=== PATIENT | male | born 1985 | race Caucasian/White ===

== ENCOUNTER 2021-08-20 11:05 | Emergency (ER) | payer BC, SELFPAY ==
--- NOTE | 2021-08-20 | ECG_ITS ---
Test Reason : CP Blood Pressure : / mmHG Vent. Rate : 094 BPM Atrial Rate : 094 BPM P-R Int : 142 ms QRS Dur : 088 ms QT Int : 364 ms P-R-T Axes : 047 049 037 degrees QTc Int : 455 ms Normal sinus rhythm Normal ECG No previous ECGs available Referred By: Generic ED Physician Electronically Signed By:KRISTAL MISHRA MD
[2021-08-20 11:17] VITALS: BP 144/91; PULSE 90; RESP 20; TEMP 36.8; O2SAT 96; BMI 32.3
[2021-08-20 12:06] LABS: Hematocrit 45.9 % (42.0-52.0); Hemoglobin 16.2 g/dl (14.0-18.0); Mean Corpuscular HGB Conc 35.3 g/dl (31.0-36.0); Mean Corpuscular Hemoglobin 33.2 pg (27.0-33.0); Mean Corpuscular Volume 94.1 fL (80.0-98.0); Mean Platelet Volume 9.1 fL (9.4-12.4); Platelet Count 143 X10*3/uL (160-400); Red Blood Count 4.88 X10*6/uL (4.60-5.80); Red Cell Distribution Width 11.7 % (11.0-16.0); White Blood Count 4.2 X10*3/uL (4.8-10.8)
[2021-08-20 12:22] LABS: Troponin-I High Sensitivity 14.4 ng/L (<3.5-35.0)
[2021-08-20 12:28] LABS: Anion Gap 18 (12-20); Blood Urea Nitrogen 9 mg/dL (9-16); Calcium 9.3 mg/dL (8.4-10.2); Carbon Dioxide 23 mmol/L (22-29); Chloride 100 mmol/L (96-108); Creatinine Clr Calc Pharmacy 163.9; Estimated Glomerular Filt Rate > 60; Glucose Random 90 mg/dL (60-115); Potassium 3.8 mmol/L (3.3-5.1); Sodium 137 mmol/L (135-145)
== END 2021-08-20 13:49 | disposition left against medical advice (07) ==
PROVIDERS: Emergency Provider Emergency Medicine; PCP Family Medicine
DX: R07.89 Other chest pain (principal); Z79.899 Other long term (current) drug therapy
CPT/HCPCS: 36415; 80048; 84484; 85027; 93005; 99282; 99283

== ENCOUNTER 2021-10-13 12:51 | Emergency (ER) | payer BC, SELFPAY ==
--- NOTE | ~2021-10-13 | XR_ITS ---
EXAMINATION: XR CHEST CLINICAL INFORMATION: Chest pain COMPARISON: None TECHNIQUE: Frontal view of the chest was obtained. FINDINGS: The lungs are clear. There is no pneumothorax or pleural reaction. No airspace consolidation or groundglass opacity. The costophrenic sulci are clear. No effusion. The heart is normal in size. The vascularity is normal. Hilar and mediastinal contours and visualized bony structures are unremarkable. XR/XR chest 1V IMPRESSION: Unremarkable examination.
--- NOTE | 2021-10-13 13:07 | ECG_ITS ---
Test Reason : CHEST DISCOMFORT Blood Pressure : / mmHG Vent. Rate : 090 BPM Atrial Rate : 090 BPM P-R Int : 130 ms QRS Dur : 102 ms QT Int : 384 ms P-R-T Axes : 038 044 038 degrees QTc Int : 469 ms Normal sinus rhythm Normal ECG When compared with ECG of 20-AUG-2021 11:11, No significant change was found Referred By: Generic ED Physician Electronically Signed By:DENNISE MERCADO
[2021-10-13 13:48] VITALS: BP 144/94; PULSE 93; RESP 16; TEMP 36.7; O2SAT 100; BMI 33.7
[2021-10-13 14:07] LABS: MANUAL DIFF FLAG NO
[2021-10-13 14:08] LABS: Basophils Percent Auto 0.2 % (0-2); Eosinophils Percent Auto 0.9 % (0-4); Hematocrit 45.9 % (42.0-52.0); Hemoglobin 16.1 g/dl (14.0-18.0); Imm Gran Abs Auto 0.01 X10*3/uL (0.00-0.03); Imm Gran Pct Auto 0.2 % (0.0-0.4); Lymphocytes Absolute Auto 0.7 X10*3/uL (1.2-4.9); Lymphocytes Percent Auto 15.2 % (20-40); Mean Corpuscular HGB Conc 35.1 g/dl (31.0-36.0); Mean Corpuscular Hemoglobin 33.1 pg (27.0-33.0); Mean Corpuscular Volume 94.3 fL (80.0-98.0); Mean Platelet Volume 9.2 fL (9.4-12.4); Monocytes Absolute Auto 0.5 X10*3/uL (0.1-1.2); Monocytes Percent Auto 11.3 % (2-11); Neutrophils Absolute Auto 3.3 x10*3/uL (2.0-8.3); Neutrophils Percent Auto 72.2 % (45-73); Platelet Count 141 X10*3/uL (160-400); Red Blood Count 4.87 X10*6/uL (4.60-5.80); White Blood Count 4.6 X10*3/uL (4.8-10.8)
[2021-10-13 14:23] LABS: Anion Gap 15 (12-20); Blood Urea Nitrogen 10 mg/dL (9-16); Calcium 10.2 mg/dL (8.4-10.2); Carbon Dioxide 27 mmol/L (22-29); Chloride 100 mmol/L (96-108); Creatinine Clr Calc Pharmacy 157.1; Estimated Glomerular Filt Rate > 60; Glucose Random 99 mg/dL (60-115); Potassium 3.9 mmol/L (3.3-5.1); Sodium 138 mmol/L (135-145)
[2021-10-13 14:31] LABS: Troponin-I High Sensitivity 5.2 ng/L (<3.5-35.0)
== END 2021-10-13 19:23 | disposition left against medical advice (07) ==
PROVIDERS: Emergency Provider Emergency Medicine; PCP Family Medicine
DX: R07.89 Other chest pain (principal); M25.512 Pain in left shoulder
CPT/HCPCS: 36415; 71045; 80048; 84484; 85025; 93005; 99283

== ENCOUNTER 2021-10-13 20:02 | Emergency (ER) | payer BC, SELFPAY ==
[2021-10-13 20:46] VITALS: BP 143/89; PULSE 86; RESP 16; TEMP 37; O2SAT 100; BMI 33.7
--- NOTE | 2021-10-13 21:56 | ED_ITS ---
HPI - General Adult General Chief complaint: General Medical Stated complaint: chest pain,jaw pain Time Seen by Provider: 10/13/21 21:44 Source: patient Mode of arrival: ambulatory Limitations: no limitations History of Present Illness HPI narrative: Patient history of anxiety not taking any medications supposed to take some medicine but did not take it more than 1 week been feeling anxious for last 2 days recently got complaining of nonspecific sharp chest pain with left arm pain and right arm pain and jaw pain for last 2 days, off and on since yesterday patient came earlier labs were done but patient could not wait to see the doctor and left Related Data Previous Rx's Medication Instructions Recorded allopurinol 100 mg tablet 100 mg PO DAILY #30 tab 03/14/21 colchicine 0.6 mg tablet 0.6 mg PO BID #11 tab 03/14/21 lorazepam 1 mg tablet (Ativan) 1 mg PO BEDTIME PRN #14 tab 10/13/21 Allergies Allergy/AdvReac Type Severity Reaction Status Date / Time azithromycin [AZITHROMYCIN] Allergy Unknown Unknown Verified 10/13/21 13:50 Review of Systems 2 Review of Systems: Yes all other systems are reviewed and are negative [facility] Past Medical History Medical History Anxiety Social History Social History Advance Directives: No Advance Directives Information Provided: Yes Physical Exam Vital Signs: Vital Signs: Last Vital Signs Temp 98.6 F 10/13/21 20:46 Pulse 86 10/13/21 20:46 Resp 16 10/13/21 20:46 BP 143/89 H 10/13/21 20:46 Pulse Ox 100 10/13/21 20:46 BMI result Body Mass Index 33.7 Discharge Plan Discharge Clinical Impression: Anxiety Chest pain Qualifiers: Chest pain type: precordial pain Qualified Code(s): R07.2 - Precordial pain Patient Disposition: Home, Self-Care Instructions: Noncardiac Chest Pain (ED), Anxiety (ED) Additional Instructions: Take medication for anxiety as prescribed Follow-up with your PCP if any concerns Prescriptions: New lorazepam [Ativan] 1 mg tablet 1 mg PO BEDTIME PRN (Reason: anxiety) Qty: 14 RF: 0 No Action allopurinol 100 mg tablet 100 mg PO DAILY Qty: 30 RF: 0 colchicine 0.6 mg tablet 0.6 mg PO BID Qty: 11 RF: 0
[2021-10-13 22:17] VITALS: BP 131/91; PULSE 83; RESP 16; TEMP 37; O2SAT 98
== END 2021-10-13 22:31 | disposition home or self-care (01) ==
PROVIDERS: Emergency Provider Internal Medicine; PCP Family Medicine
DX: R07.2 Precordial pain (principal); F41.9 Anxiety disorder, unspecified
CPT/HCPCS: 99283; 99284

== ENCOUNTER 2022-05-13 10:45 | Emergency (ER) | payer BC, SELFPAY ==
[2022-05-13 11:00] VITALS: BP 136/88; BP 141/88; PULSE 118; PULSE 120; RESP 20; TEMP 36.9; O2SAT 97; O2SAT 98; BMI 33.0
--- NOTE | 2022-05-13 11:32 | ED.GENADULT ---
HPI - General Adult General Chief complaint: ETOH/Substance Use Stated complaint: ETOH Time Seen by Provider: 05/13/22 11:17 Source: patient and EMS Mode of arrival: EMS Limitations: no limitations Related Data Previous Rx's Medication Instructions Recorded allopurinol 100 mg tablet 100 mg PO DAILY #30 tabs 03/14/21 colchicine 0.6 mg tablet 0.6 mg PO BID #11 tabs 03/14/21 lorazepam 1 mg tablet (Ativan) 1 mg PO BEDTIME PRN anxiety #14 10/13/21 tabs Allergies Allergy/AdvReac Type Severity Reaction Status Date / Time azithromycin [AZITHROMYCIN] Allergy Unknown Unknown Verified 10/13/21 13:50 PMFSH Past Medical History Medical History Anxiety Social History Social History Advance Directives: No Advance Directives Information Provided: Yes Physical Exam ED Vital Signs: Vital Signs - 24 hr 05/13/22 11:00 Temperature 98.5 F Pulse Rate 118 H Respiratory Rate 20 Blood Pressure 136/88 Pulse Oximetry 98 Oxygen Delivery Method Room Air BMI result Body Mass Index 33.0 Discharge Plan Discharge Prescriptions: No Action lorazepam [Ativan] 1 mg tablet 1 mg PO BEDTIME PRN (Reason: anxiety) Qty: 14 0RF allopurinol 100 mg tablet 100 mg PO DAILY Qty: 30 0RF Rx Instructions: Start medication after symptoms of acute gout resolve. colchicine 0.6 mg tablet 0.6 mg PO BID Qty: 11 0RF Rx Instructions: Day 1: Take 2 tablets initially then 1 tablet an hour later if pain persists. Day 2 - 4: Tab 1 tablet twice a day
== END 2022-05-13 12:41 | disposition left against medical advice (07) ==
PROVIDERS: Emergency Provider Emergency Medicine; PCP Family Medicine
DX: R10.9 Unspecified abdominal pain (principal)
CPT/HCPCS: 99281

== ENCOUNTER 2025-07-31 17:32 | Inpatient (IN) | payer OTHER, SELFPAY ==
--- NOTE | ~2025-07-31 | CT_ITS ---
CLINICAL HISTORY: abd pain -RLQ CT abdomen and pelvis with contrast Comparison: None provided Findings: There is minimal atelectasis. There is bilateral gynecomastia. There is severe hepatic steatosis. The gallbladder, pancreas, spleen, and adrenal glands are unremarkable. There is a 1.2 cm hyperdense lesion arising from the upper pole of the right kidney most likely a hemorrhagic cyst. Kidneys are otherwise unremarkable. Patient is status post appendectomy. The gastrointestinal tract is otherwise unremarkable. There are no enlarged lymph nodes. The aorta and IVC are normal. The bladder is unremarkable. Small amount of superficial subcutaneous gas in the left lower quadrant abdominal wall is likely the site of subcutaneous medication administration. There are bilateral L5 pars defects with grade 1 anterolisthesis of L5 on S1. There is no acute fracture or suspicious lytic or sclerotic lesion. IMPRESSION: 1. No acute abnormality in the abdomen or pelvis. 2. Severe hepatic steatosis. 3. Additional chronic findings as above. This document has been electronically signed by: Amish Melton MD on 08/01/2025 04:17:42
--- NOTE | ~2025-07-31 | US_ITS ---
CLINICAL HISTORY: Transaminitis US abdomen limited Comparison: None provided Findings: The pancreas was not visualized due to overlying bowel gas. The aorta and inferior vena cava are normal caliber. The liver is normal in size and homogeneous hyperechoic. Liver, 17.5 cm. There is no intrahepatic bile duct dilatation. The common duct is 3 mm in diameter. The gallbladder demonstrates single mural hypoechoic non-gravity dependent focus, 0.4 cm, image number 27 of 47 There is no sonographic Hart sign. The main portal vein is antegrade. The right kidney is 13 cm in length. No ascites. IMPRESSION: Hepatic steatosis; nonalcoholic steatohepatitis versus viral hepatitis. No cholelithiasis identified. 0.4 cm mural nodule; gallbladder polyp suspected. This document has been electronically signed by: Wenceslao Long MD on 07/31/2025 21:27:04
[2025-07-31 17:39] VITALS: BP 142/88; BP 165/108; PULSE 105; PULSE 111; RESP 18; TEMP 36.8; O2SAT 94; O2SAT 96; BMI 34.8
--- NOTE | 2025-07-31 17:57 | PC.NURSE ---
security unreachable at this time to check belongings
[2025-07-31 17:58] VITALS: BP 142/88; PULSE 105; RESP 18; TEMP 36.8; O2SAT 94
--- NOTE | 2025-07-31 18:02 | ED.ALCOHOL ---
HPI - Alcohol General Chief Complaint: ETOH/Substance Use Stated Complaint: ETOH Time Seen by Provider: 07/31/25 17:55 Source: patient and EMS Mode of arrival: EMS Limitations: no limitations History of Present Illness ED Provider: DR. Smith HPI narrative: 39-year-old male history of alcohol dependence for many years with history of alcohol withdrawal symptoms including seizure in the past patient presented for seeking detox from alcohol and treatment of his symptoms of feeling nauseous, anxious, tremors, diaphoretic, lack of energy, no visual or auditory hallucination at the moment, patient had a vague suicidal statement to the EMS but now he denies SI or HI. Last drink was buttonholer today. Related Data Previous Rx's ?Medication ?Instructions ?Recorded allopurinol 100 mg tablet 100 mg PO DAILY #30 tabs 03/14/21 colchicine 0.6 mg tablet 0.6 mg PO BID #11 tabs 03/14/21 lorazepam 1 mg tablet (Ativan) 1 mg PO BEDTIME PRN anxiety #14 10/13/21 tabs Allergies Allergy/AdvReac Type Severity Reaction Status Date / Time azithromycin (AZITHROMYCIN) Allergy Unknown Unknown Verified 07/31/25 17:47 Review of Systems Review of Systems: All other systems are reviewed and are negative Constitutional: Reports as per HPI and Reports no additional constitutional complaints Eyes: Reports as per HPI and Reports no additional eye complaints Reports system reviewed and no additional complaints, except as documented Cardiovascular: Reports as per HPI and Reports no additional cardiovascular complaints Respiratory: Reports as per HPI and Reports no additional respiratory complaints Gastrointestinal: Reports as per HPI and Reports no additional gastrointestinal complaints Genitourinary: Reports no additional female genitourinary complaints Musculoskeletal: Reports no additional musculoskeletal complaints Skin/Breast: Reports system reviewed and no additional complaints, except as docu Psychiatric: Reports no additional psychiatric complaints Endocrine: Reports no additional endocrine complaints Hematologic/Lymphatic: Reports no additional hematologic/lymphatic complaints Allergic/Immunologic: Reports no additional allergic/immunologic complaints Reports system reviewed and no additional complaints, except as documented and Reports Abnormal speech present [facility] Past Medical History Medical History Anxiety Social History Social History Do you have a plan to hurt others: No Plan Physical Exam ED Vital Signs: Vital Signs - 24 hr 07/31/25 17:39 07/31/25 17:58 Temperature 98.2 F 98.2 F Pulse Rate 105 H 105 H Respiratory Rate 18 18 Blood Pressure 142/88 H 142/88 H Pulse Oximetry 94 94 Oxygen Delivery Method Room Air Room Air BMI result Body Mass Index 34.8 Vital signs have been reviewed and appear to be correct. Blood pressure elevated. Heart rate normal. Respiratory rate normal. Temperature normal. Oxygen saturation normal. Appearance: Anxious, Alert. Oriented X3. No acute distress. Head: Normal external exam. Normocephalic. Atraumatic. No [place] signs noted. No raccoon eyes noted Eyes: PERRLA. EOMI. Conjunctiva and sclera normal. Eyelids normal. ENT: TM's Normal. Pharynx normal. Uvula midline. Moist mucous membranes. No trismus noted. No drooling noted. No muffled voice noted. Neck: Normal inspection. Neck supple. FROM. No adenopathy. Thyroid Normal. No meningeal signs. No neck mass noted. CVS: Normal heart rate and rhythm. Heart sound normal. No murmurs noted. Pulses normal throughout. Respiratory: No respiratory distress. Painless inspiration. Breath sounds normal. No wheezes/rales/rhonchi noted. Chest nontender. No accessory muscle usage noted or decreased air movement noted. Abdomen: Soft and nontender. Bowel sounds normal in all 4 quadrants. No distention noted. No organomegaly noted. No visible injury noted. Back: No CVA tenderness. Full range of motion noted. Skin: Skin warm and dry. Normal skin color. Normal skin turgor. No rashes/lesions/lacerations noted. Extremities: No lower extremity edema. Extremities exhibit normal range of motion. Extremities nontender. Neuro: Oriented X 3, anxious, in voluntarily tremors. Cranial nerve exam: II-XII are grossly intact No motor deficit. No sensory deficit. Reflexes normal. Course Reevaluation(s) Reevaluation #1: 39-year-old male with extensive history of alcohol dependence and alcohol withdrawal symptoms including seizure, CIWA score is 15-17 will start the patient on phenobarb patient is at risk for withdrawal symptoms. Time: 19:30 Medical Decision Making Differential Diagnosis Differential Diagnoses: The differential diagnosis associated with the presentation includes (Alcohol withdrawal, DTs, withdrawal seizure, electrolyte derangement, severe anemia.) Admission/Observation Consideration of admission/observation: Escalation of care including admission/observation considered Lab Data MDM Lab Attestation statement: I reviewed the patient's lab results. Discharge Plan Discharge Clinical Impression: Alcohol withdrawal syndrome Patient Disposition: Admitted As Inpatient Print Language: Japanese
[2025-07-31 18:32] LABS: MANUAL DIFF FLAG NO
[2025-07-31 18:42] LABS: Hematocrit 40.5 % (42.0-52.0); Hemoglobin 14.3 g/dl (14.0-18.0); Imm Gran Abs Auto 0.01 X10*3/uL (0.00-0.03); Imm Gran Pct Auto 0.2 % (0.0-0.4); Lymphocytes Absolute Auto 1.2 X10*3/uL (1.2-4.9); Mean Corpuscular HGB Conc 35.3 g/dl (31.0-36.0); Mean Corpuscular Hemoglobin 32.3 pg (27.0-33.0); Mean Corpuscular Volume 91.4 fL (80.0-98.0); NRBC Abs Auto 0.000 X10*3/uL (0.0-0.012); NRBC Pct Auto 0.0 /100WBC (0.0-0.2); Platelet Count 101 X10*3/uL (160-400); Red Blood Count 4.43 X10*6/uL (4.60-5.80); White Blood Count 5.2 X10*3/uL (4.8-10.8)
[2025-07-31] MEDS: PHENobarbitaL sodium 130 MG/ML IM ONCE 275 MG IM (18:46)
[2025-07-31 19:01] LABS: Alanine Aminotransferase 168 U/L (0-40); Albumin Level 4.5 g/dL (3.5-5.0); Alkaline Phosphatase 90 U/L (39-117); Anion Gap 21 (12-20); Aspartate Amino Transferase 227 U/L (5-37); Blood Urea Nitrogen 7 mg/dL (9-16); Calcium 8.6 mg/dL (8.4-10.2); Carbon Dioxide 22 mmol/L (22-29); Chloride 101 mmol/L (96-108); Creatinine Clr Calc Pharmacy 188.7; Estimated Glomerular Filt Rate > 60; Lipase 33 U/L (8-78); Potassium 3.2 mmol/L (3.3-5.1); Sodium 141 mmol/L (135-145); Total Protein 7.6 g/dL (6.5-8.0)
[2025-07-31 19:02] LABS: Appearance Urine Clear; Glucose Urine UA Negative (Negative); PH 7.0 (5.0-9.0); Specific Gravity - Urine <= 1.005 (1.005-1.025); UMIC TRIGGER UACC YES
[2025-07-31 19:24] LABS: Magnesium 1.5 mg/dL (1.6-2.6)
[2025-07-31] MEDS: Potassium Chloride/H20 10 MEQ/100 ML PIGGYBACK 100 MEQ IV (19:27)
[2025-07-31] MEDS: Potassium Chloride Packet 20 MEQ PACKET 40 MEQ PO (19:27)
--- NOTE | 2025-07-31 19:35 | PC.NURSE ---
Assumed care of patient, PT found alert and oriented at his baseline in the fowlers position on his bed resting comfortably. PT reported nausea and a headache x2 hours (provider aware) and was medicated for his hypokalemia along with vitals obtained.
--- NOTE | 2025-07-31 20:18 | PM.IMHP ---
History of Present Illness Date of Service: 07/31/25 Chief Complaint: Alcohol withdrawal 39-year-old male with a past medical history of anxiety, alcohol use disorder, history of alcohol withdrawal seizures; presented to the hospital with a chief complaint of requesting for alcohol detox. Patient mentioned that he has been drinking alcohol on a daily basis. Mentioned that last couple days he has been having nausea vomiting and tremors. Denies any chest pain or palpitations. Patient reports abdominal pain in the right lower quadrant. Denies any depression or suicidal ideations. Patient denies any fever chills cough or sputum production. Review of all other systems is negative except mentioned above ER course: Per ER team, patient noted to be hypotensive, tachycardic, tremulous concern for alcohol withdrawal; started on phenobarb protocol. Also noted to have hypokalemia and hypomagnesemia-repleted. [facility] Medical History Anxiety Meds Allergies Allergy/AdvReac Type Severity Reaction Status Date / Time azithromycin (AZITHROMYCIN) Allergy Unknown Unknown Verified 07/31/25 17:47 Active Medications: Current Medications Magnesium Sulfate (Magnesium Sulfate/H2o) 2 gm in 50 mls @ 150 mls/hr IV ONCE ONE Stop: 07/31/25 20:30 Pharmacy Consult (Consult Rx Etoh Phenob Im/Po) 1 each MISCELLANE ONCE PRN; Protocol PRN Reason: Consult order Phenobarbital (Phenobarbital 15 Mg Tablet) 45 mg PO BID THOMAS; Protocol Stop: 08/02/25 21:01 Phenobarbital (Phenobarbital 30 Mg Tablet) 30 mg PO BID THOMAS; Protocol Stop: 08/04/25 21:01 Phenobarbital (Phenobarbital 30 Mg Tablet) 30 mg PO DAILY [facility]; Protocol Stop: 08/06/25 09:01 Phenobarbital Sodium (Phenobarbital Sodium 130 Mg/Ml Vial Im Q3hx2) 205 mg IM Q3H THOMAS; Protocol Stop: 08/01/25 00:31 Home Medications ?Medication ?Instructions ?Recorded ?Confirmed ?Last Taken ?Type folic acid 1 mg tablet 1 mg PO DAILY 07/31/25 07/31/25 Unknown History melatonin 3 mg tablet 9 mg PO BEDTIME PRN Sleep 07/31/25 07/31/25 Unknown History omeprazole 20 mg tablet,delayed 20 mg PO DAILY@0630 07/31/25 07/31/25 Unknown History release thiamine HCl (vitamin B1) 100 mg 100 mg PO DAILY 07/31/25 07/31/25 Unknown History tablet Physical Exam Vital Signs and Narrative: Vital Signs: Last Vital Signs Temp 98.2 F 07/31/25 17:58 Pulse 105 H 07/31/25 17:58 Resp 18 07/31/25 17:58 BP 142/88 H 07/31/25 17:58 Pulse Ox 94 07/31/25 17:58 O2 Del Method Room Air 07/31/25 17:58 BMI result Body Mass Index 34.8 Gen: Appears be in no acute distress HEENT: NCAT, Moist mucosa. Pulmonary: Vesicular breath sounds, fair air entry CVS: Normal S1-S2 Abdomen: BS+, Soft, Nontender Extremities: Warm well perfused Neuro: Alert and awake. Tremulous Results Labs 07/31/25 18:30 07/31/25 18:30 Labs: Laboratory Results - last 24 hr 07/31/25 07/31/25 18:30 18:54 MCV 91.4 MCH 32.3 MCHC 35.3 RDW 12.9 Plt Count 101 L D MPV 9.5 Immature Gran % (Auto) 0.2 Neut % (Auto) 68.7 Lymph % (Auto) 23.5 [place] % (Auto) 6.4 Eos % (Auto) 0.8 Baso % (Auto) 0.4 Lymph # (Auto) 1.2 [place] # (Auto) 0.3 Eos # (Auto) 0.0 Baso # (Auto) 0.0 Abs Immat Gran (auto) 0.01 Absolute Neuts (auto) 3.5 Absolute Nucleated RBC 0.000 Nucleated RBC % (auto) 0.0 Anion Gap 21 H Estim Creat Clear Calc 188.7 Estimated GFR > 60 Random Glucose 117 H Calcium 8.6 D Magnesium 1.5 L Total Bilirubin 0.8 Direct Bilirubin 0.3 AST 227 H ALT 168 H Alkaline Phosphatase 90 Total Protein 7.6 Albumin 4.5 Lipase 33 Urine Color Yellow Urine Appearance Clear Urine pH 7.0 Ur Specific Jenkins <= 1.005 Urine Protein 30 (1+) H Urine Glucose (UA) Negative Urine Ketones Trace Urine Blood Trace H Urine Nitrite Negative Ur Leukocyte Esterase Negative Urine RBC 0-2 Urine WBC 0-5 Ur Squamous Epith Cells 0-2 Urine Bacteria None Seen Hyaline Casts 0-2 Ethyl Alcohol 448 H* Assessment and Plan (1) Alcohol withdrawal syndrome: Qualifiers: Complication of substance-induced condition: with unspecified complication Qualified Code(s): F10.939 - Alcohol use, unspecified with withdrawal, unspecified Status: Acute Plan 39-year-old male with a past medical history of anxiety, alcohol use disorder, history of alcohol withdrawal seizures; presented to the hospital with a chief complaint of requesting for alcohol detox. Alcohol use disorder: Monitor on CIWA protocol. 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 Hypokalemia/hypomagnesemia: Repleted. Transaminitis: Likely in the setting of alcohol use. Will obtain right upper quadrant ultrasound and acute hepatitis panel. Trend liver enzymes. Abdominal pain: Tender in the right lower quadrant. No guarding or rigidity. Will order CT abdomen pelvis. DVT prophylaxis: Lovenox Code status: Full code Quality Stroke Does the patient have a stroke diagnosis?: No VTE Prior VTE?: No VTE Risk Level:: Medical - moderate - high VTE Device Contraindication: Treatment Not Indicated VTE Drug Contraindication: N/A - Med Ordered
[2025-07-31] MEDS: Magnesium Sulfate/H2O 2 GM/50 ML PIGGYBACK IV (21:00)
--- NOTE | 2025-07-31 21:00 | PC.NURSE ---
pt back from us at this time and medicated per mar
[2025-07-31] MEDS: diazePAM 10 MG/2 ML CARTRIDGE 5 MG IVPUSH (21:12)
--- NOTE | 2025-07-31 21:12 | PC.NURSE ---
pt reports he has an aura and possible seizure coming on. MD Gil contacted, pt medicated per dec and seizure pads placed
[2025-07-31] MEDS: Dextrose 5 % and 0.45 % NaCl 1,000 ML 100 ML IVCONT (21:45)
[2025-07-31] MEDS: PHENobarbitaL sodium 130 MG/ML VIAL IM Q3Hx2 205 MG IM (21:45)
[2025-07-31 21:49] VITALS: BP 124/71; PULSE 100; RESP 15
--- NOTE | 2025-07-31 21:58 | PC.NURSE ---
pt ambulatory to bathroom with steady gait with 1A
--- NOTE | 2025-07-31 22:16 | PHA.MEDREC ---
Addendum entered by Leonidas Godinez RPh 07/31/25 22:36: MED REC REVIEWED BY [facility] Dr. Gil was made aware that prazosin, gabapentin and doxepin are not on the med list from the [place] and that pt hasn't taken his meds in 2 weeks. Doctor wants those meds d/c. Addendum entered by Shaunna Palafox 07/31/25 22:21: Patient states when he drinks he stops taking his medications. Patient hasn't taken any medications in over 2 weeks. Original Note: Pharmacy Consult ? Medication Reconciliation Pharmacy has completed the medication reconciliation. Patient states he takes Prazosin 3 mg at bedtime, Gabapentin 800 mg TID, and Doxepin 20 mg Patient states [facility] List from [place] doesn't have any of these medications on them. Left on medlist because patient states he takes and will notify the provider.
[2025-08-01] VITALS (7 sets, daily range): BP systolic 121–140; BP diastolic 68–83; PULSE 78–90; RESP 16–20; TEMP 36.9–37.6; O2SAT 94–99; BMI 33.9; BMI 34.4
[2025-08-01] MEDS: PHENobarbitaL sodium 130 MG/ML VIAL IM Q3Hx2 205 MG IM (01:02)
[2025-08-01] MEDS: iohexoL 350 MG/ML 100 ML INFUS..BTL 85 ML IV (01:44)
[2025-08-01] MEDS: Dextrose 5 % and 0.45 % NaCl 1,000 ML 100 ML IVCONT ×2 (06:13→16:54)
[2025-08-01 08:00] LABS: MANUAL DIFF FLAG NO
[2025-08-01 08:14] LABS: Hematocrit 36.7 % (42.0-52.0); Hemoglobin 12.7 g/dl (14.0-18.0); Imm Gran Abs Auto 0.01 X10*3/uL (0.00-0.03); Imm Gran Pct Auto 0.4 % (0.0-0.4); Lymphocytes Absolute Auto 0.9 X10*3/uL (1.2-4.9); Mean Corpuscular HGB Conc 34.6 g/dl (31.0-36.0); Mean Corpuscular Hemoglobin 32.6 pg (27.0-33.0); Mean Corpuscular Volume 94.1 fL (80.0-98.0); NRBC Abs Auto 0.000 X10*3/uL (0.0-0.012); NRBC Pct Auto 0.0 /100WBC (0.0-0.2); Red Blood Count 3.90 X10*6/uL (4.60-5.80); White Blood Count 2.6 X10*3/uL (4.8-10.8)
[2025-08-01 08:15] LABS: Platelet Count 68 X10*3/uL (160-400)
[2025-08-01 08:43] LABS: Alanine Aminotransferase 155 U/L (0-40); Albumin Level 3.8 g/dL (3.5-5.0); Alkaline Phosphatase 72 U/L (39-117); Anion Gap 14 (12-20); Aspartate Amino Transferase 184 U/L (5-37); Blood Urea Nitrogen 6 mg/dL (9-16); Calcium 7.8 mg/dL (8.4-10.2); Carbon Dioxide 23 mmol/L (22-29); Chloride 103 mmol/L (96-108); Creatinine Clr Calc Pharmacy 213.6; Estimated Glomerular Filt Rate > 60; Potassium 3.3 mmol/L (3.3-5.1); Sodium 137 mmol/L (135-145); Total Protein 6.4 g/dL (6.5-8.0)
[2025-08-01 09:04] LABS: HBS Num1 19.65 mIU/mL (0-7.99); HBc Num1 0.10 S/CO (0.00-0.79); HBsAGNum1 0.50 S/CO (0.00-0.99); Hepatitis A Antibody IgM 0.24 Index (0-0.79); Hepatitis B Surface Antigen Negative (Negative); ~HepC Num1 0.06 S/CO (0.00-0.79); ~Hepatitis A Antibody IgM Nonreactive (Nonreactive); ~Hepatitis B Surface Antibody REACTIVE (Nonreactive); ~Hepatitis C Antibody Nonreactive (Nonreactive)
--- NOTE | 2025-08-01 15:27 | P.PNIM_ITS ---
Subjective Subjective Date of Service: 08/01/25 Interval History: Follow up pt seeking detox for alcohol use disorder Pt reports not feeling well overnight with severe headache, nausea, and tremors Reports hearing noises when trying to go to sleep Some tactile disturbances Feeling weak Review of Systems Review of Systems: Yes all other systems are reviewed and are negative Physical Exam 2 Exam: Exam: General: AOx3, Resp: CTA bilaterally CVS: S1, S2, RRR GI: +BS, no distention, mild LUQ tenderness Skin: Warm, dry Neuro: Cranial nerves II-XII grossly intact bilaterally. Motor grossly intact bilaterally. Moderate upper extremity tremors noted. No tongue fasciculations. Global weakness. Extremities: No edema Psych: Mildly anxious Vital Signs: Vital Signs: Last Vital Signs Temp 98.5 F 08/01/25 11:51 Pulse 84 08/01/25 11:51 Resp 18 08/01/25 11:51 BP 121/80 08/01/25 11:51 Pulse Ox 97 08/01/25 11:51 O2 Del Method Room Air 08/01/25 11:51 BMI result Body Mass Index 33.9 Objective Data Active Medications Acetaminophen (Acetaminophen 325 Mg Tablet) 650 mg PO Q6H PRN PRN Reason: Pain, Mild 1-3,fever,headache Calcium Carbonate (Calcium Carbonate 750 Mg Tab.Chew) 750 mg PO Q4H PRN PRN Reason: Heartburn Enoxaparin Sodium (Enoxaparin Sodium 40 Mg/0.4 Ml Syringe) 40 mg SUBCUT Q24H [facility] Last Admin: 07/31/25 21:45 Dose: 40 mg Documented By: OSEI Folic Acid (Folic Acid 1 Mg Tablet) 1 mg PO DAILY [facility] Stop: 08/04/25 08:59 Last Admin: 08/01/25 08:10 Dose: 1 mg Documented By: RA Dextrose/Sodium Chloride (D51/2ns) 1,000 mls @ 100 mls/hr IVCONT .Q10H [facility] Last Admin: 08/01/25 06:13 Dose: 100 mls/hr Documented By: GERMAN Magnesium Hydroxide (Milk Of Magnesia 30 Ml Oral.Susp) 30 ml PO DAILY PRN PRN Reason: Constipation Melatonin (Melatonin 3 Mg Tablet) 6 mg PO BEDTIME PRN PRN Reason: Insomnia Multivitamins/Vitamin C (Multivitamin Tablet) 1 tab PO DAILY [facility] Stop: 08/04/25 08:59 Last Admin: 08/01/25 08:10 Dose: 1 tab Documented By: RA Omeprazole (Omeprazole 20 Mg Capsule.) 20 mg PO DAILY@0630 [facility] Last Admin: 08/01/25 06:18 Dose: 20 mg Documented By: GERMAN Pharmacy Consult (Consult Rx Etoh Phenob Im/Po) 1 each MISCELLANE ONCE PRN; Protocol PRN Reason: Consult order Phenobarbital (Phenobarbital 15 Mg Tablet) 45 mg PO BID [facility]; Protocol Stop: 08/02/25 21:01 Last Admin: 08/01/25 08:10 Dose: 45 mg Documented By: RA Phenobarbital (Phenobarbital 30 Mg Tablet) 30 mg PO BID [facility]; Protocol Stop: 08/04/25 21:01 Phenobarbital (Phenobarbital 30 Mg Tablet) 30 mg PO DAILY [facility]; Protocol Stop: 08/06/25 09:01 Sodium Chloride (0.9 % Sodium Chloride Flush 3 Ml Syringe) [facility] Last Admin: 08/01/25 08:15 Dose: Not Given Documented By: RA Non-Admin Reason: IV Running Thiamine HCl (Thiamine Hcl 100 Mg Tablet) 100 mg PO DAILY [facility] Stop: 08/04/25 08:59 Last Admin: 08/01/25 08:10 Dose: 100 mg Documented By: RA Labs 08/01/25 07:16 08/01/25 07:16 Labs: Laboratory Results - last 24 hr 07/31/25 07/31/25 08/01/25 18:30 18:54 07:16 MCV 91.4 94.1 MCH 32.3 32.6 MCHC 35.3 34.6 RDW 12.9 12.8 Plt Count 101 L D 68 L D MPV 9.5 10.1 Immature Gran % (Auto) 0.2 0.4 Neut % (Auto) 68.7 54.2 Lymph % (Auto) 23.5 36.2 [place] % (Auto) 6.4 6.9 Eos % (Auto) 0.8 1.9 Baso % (Auto) 0.4 0.4 Lymph # (Auto) 1.2 0.9 L [place] # (Auto) 0.3 0.2 Eos # (Auto) 0.0 0.1 Baso # (Auto) 0.0 0.0 Abs Immat Gran (auto) 0.01 0.01 Absolute Neuts (auto) 3.5 1.4 L Absolute Nucleated RBC 0.000 0.000 Nucleated RBC % (auto) 0.0 0.0 Anion Gap 21 H 14 Estim Creat Clear Calc 188.7 213.6 Estimated GFR > 60 > 60 Random Glucose 117 H 153 H Calcium 8.6 D 7.8 L D Magnesium 1.5 L Total Bilirubin 0.8 0.6 Direct Bilirubin 0.3 AST 227 H 184 H ALT 168 H 155 H Alkaline Phosphatase 90 72 Total Protein 7.6 6.4 L Albumin 4.5 3.8 Lipase 33 Urine Color Yellow Urine Appearance Clear Urine pH 7.0 Ur Specific [place] <= 1.005 Urine Protein 30 (1+) H Urine Glucose (UA) Negative Urine Ketones Trace Urine Blood Trace H Urine Nitrite Negative Ur Leukocyte Esterase Negative Urine RBC 0-2 Urine WBC 0-5 Ur Squamous Epith Cells 0-2 Urine Bacteria None Seen Hyaline Casts 0-2 Ethyl Alcohol 448 H* Hepatitis A IgM Ab Nonreactive Hep Bs Antigen Negative Hep Bs Antibody REACTIVE Hep B Core Total Ab Nonreactive Hepatitis C Ab (EIA) Nonreactive Assessment and Plan (1) Alcohol withdrawal syndrome: Status: Acute Plan 39-year-old male with a past medical history of anxiety, alcohol use disorder, history of alcohol withdrawal seizures; presented to the hospital with a chief complaint of requesting for alcohol detox. Alcohol use disorder with high risk of withdrawal Pt reports 25+ previous hospitalizations for alcohol withdrawal with hx of withdrawal seizures x3-4 Monitor on CIWA protocol. Continue phenobarbital protocol Thiamine, folate, multivitamins, and omeprazole Addiction medicine consult Hypokalemia/hypomagnesemia: Repleted. Transaminitis: Likely in the setting of alcohol use. CTA of abdomen/pelvis and abdominal ultrasound show severe hepatic steatosis. Trend liver enzymes. Hepatitis panel negative. Abdominal pain: Tender in the right lower quadrant. No guarding or rigidity. CTA of abdomen/pelvis negative for acute abnormality, but showing severe hepatic steatosis. DVT prophylaxis: Lovenox Code status: Full code Pt requires continued hospitalization for phenobarb protocol for controlled alcohol withdrawal that also requires close monitoring of labs for electrolyte abnormalities. Quality Stroke Does the patient have a stroke diagnosis?: No VTE Prior VTE?: No VTE Risk Level:: Medical - moderate - high VTE Device Contraindication: Treatment Not Indicated VTE Drug Contraindication: N/A - Med Ordered
--- NOTE | 2025-08-01 15:38 | MHC.CM.PN ---
PT REPORTS HE LIVES IN A TRANSITIONAL HOUSING PROGRAM IN [place] AND IS ABLE TO RETURN AT [place] HE REPORTS HE HAS HIS OWN SPACE THERE, AND THEY ARE NO PROCESS CONTROL SPECIALIST, NURSES OR AIDES ON STAFF, JUST A STAIN REMOVER HE REPORTS HE WAS SUPPOSED TO BE STARTING WITH A AIRCRAFT PAINTER APPRENTICE ON THE DAY OF ADMISSION, AND WILL CALL UPON DC HE SAYS HE [facility] [place], BUT HAS MISSED HIS LAST APPTS DUE TO ALCOHOL USE HE REPORTS HIS MOTHER IS HIS HCP, COPY REQUESTED DCP: RETURN TO TRANSITIONAL HOUSING VIA UBER/LYFT
[2025-08-01] MEDS: diazePAM 10 MG/2 ML CARTRIDGE 5 MG IVPUSH (17:29)
[2025-08-01] MEDS: 0.9 % Sodium Chloride Flush 3 ML SYRINGE IVFLUSH (19:51)
[2025-08-02] VITALS (7 sets, daily range): BP systolic 114–147; BP diastolic 74–91; PULSE 74–88; RESP 16–20; TEMP 36.8–37.7; O2SAT 97–100
[2025-08-02] MEDS: Dextrose 5 % and 0.45 % NaCl 1,000 ML 100 ML IVCONT ×2 (03:20→14:37)
[2025-08-02 08:12] LABS: Anion Gap 14 (12-20); Blood Urea Nitrogen < 3 mg/dL (9-16); Calcium 8.5 mg/dL (8.4-10.2); Carbon Dioxide 23 mmol/L (22-29); Chloride 100 mmol/L (96-108); Creatinine Clr Calc Pharmacy 223.7; Estimated Glomerular Filt Rate > 60; Magnesium 1.3 mg/dL (1.6-2.6); Potassium 3.1 mmol/L (3.3-5.1); Sodium 134 mmol/L (135-145)
[2025-08-02] MEDS: Magnesium Sulfate/H2O 2 GM/50 ML PIGGYBACK IV (09:11)
--- NOTE | 2025-08-02 12:40 | MHC.RECOVRN ---
Met w/ pt in f/u as he had stated he will consider M[facility]K. Pt still unsure stating I need more time to think about it & declined outpatient [facility] tx appointment for AUD at this time. Pt also mentioned that he would be perhaps interested in the Vivitrol injection but that he had a negative reaction the last time and his arm was sore for 3 weeks. 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 Written materials left for pt to review info on CSS, IOP, and PHP. No further questions or concerns offered at this time.
--- NOTE | 2025-08-02 14:19 | P.PNIM_ITS ---
Subjective Subjective Date of Service: 08/02/25 Interval History: Continues to complain of headache Still feels like he is in withdrawal Nausea but no vomiting Very little p.o. intake Magnesium level low again today at 1.4 Review of Systems Review of Systems: Yes all other systems are reviewed and are negative Physical Exam 2 Exam: Exam: General: AOx3, no acute distress. Resting comfortably in bed Resp: CTA bilaterally CVS: S1, S2, RRR GI: +BS, NT, no distention Skin: Warm, dry Neuro: Cranial nerves II-XII grossly intact bilaterally. Motor grossly intact bilaterally. Mild upper extremity tremors noted Extremities: No edema Psych: Calm, cooperative Vital Signs: Vital Signs: Last Vital Signs Temp 98.5 F 08/02/25 11:24 Pulse 76 08/02/25 11:24 Resp 18 08/02/25 11:24 BP 122/80 08/02/25 11:24 Pulse Ox 97 08/02/25 11:24 O2 Del Method Room Air 08/02/25 11:24 BMI result Body Mass Index 34.4 Objective Data Active Medications Acetaminophen (Acetaminophen 325 Mg Tablet) 650 mg PO Q6H PRN PRN Reason: Pain, Mild 1-3,fever,headache Last Admin: 08/02/25 00:35 Dose: 650 mg Documented By: DIANA Calcium Carbonate (Calcium Carbonate 750 Mg Tab.Chew) 750 mg PO Q4H PRN PRN Reason: Heartburn Enoxaparin Sodium (Enoxaparin Sodium 40 Mg/0.4 Ml Syringe) 40 mg SUBCUT Q24H [facility] Last Admin: 08/01/25 19:51 Dose: 40 mg Documented By: DIANA Folic Acid (Folic Acid 1 Mg Tablet) 1 mg PO DAILY [facility] Stop: 08/04/25 08:59 Last Admin: 08/02/25 07:42 Dose: 1 mg Documented By: RA Dextrose/Sodium Chloride (D51/2ns) 1,000 mls @ 100 mls/hr IVCONT .Q10H [facility] Last Admin: 08/02/25 03:20 Dose: 100 mls/hr Documented By: DIANA Ketorolac Tromethamine (Ketorolac Tromethamine 15 Mg/Ml Vial) 15 mg IVPUSH Q6H PRN PRN Reason: Headache Magnesium Hydroxide (Milk Of Magnesia 30 Ml Oral.Susp) 30 ml PO DAILY PRN PRN Reason: Constipation Magnesium Oxide (Magnesium Oxide 400 Mg Tablet) 400 mg PO BIDPC [facility] Last Admin: 08/02/25 09:11 Dose: 400 mg Documented By: ANUJA Melatonin (Melatonin 3 Mg Tablet) 6 mg PO BEDTIME PRN PRN Reason: Insomnia Last Admin: 08/02/25 00:36 Dose: 6 mg Documented By: DIANA Multivitamins/Vitamin C (Multivitamin Tablet) 1 tab PO DAILY [facility] Stop: 08/04/25 08:59 Last Admin: 08/02/25 07:42 Dose: 1 tab Documented By: RA Omeprazole (Omeprazole 20 Mg Capsule.Dr) 20 mg PO DAILY@0630 [facility] Last Admin: 08/02/25 06:03 Dose: 20 mg Documented By: DIANA Pharmacy Consult (Consult Rx Etoh Phenob Im/Po) 1 each MISCELLANE ONCE PRN; Protocol PRN Reason: Consult order Phenobarbital (Phenobarbital 15 Mg Tablet) 45 mg PO BID [facility]; Protocol Stop: 08/02/25 21:01 Last Admin: 08/02/25 07:42 Dose: 45 mg Documented By: RA Phenobarbital (Phenobarbital 30 Mg Tablet) 30 mg PO BID [facility]; Protocol Stop: 08/04/25 21:01 Phenobarbital (Phenobarbital 30 Mg Tablet) 30 mg PO DAILY [facility]; Protocol Stop: 08/06/25 09:01 Sodium Chloride (0.9 % Sodium Chloride Flush 3 Ml Syringe) 3 ml IVFLUSH [facility] Last Admin: 08/02/25 08:06 Dose: Not Given Documented By: ANUJA Non-Admin Reason: IV Running Thiamine HCl (Thiamine Hcl 100 Mg Tablet) 100 mg PO DAILY [facility] Stop: 08/04/25 08:59 Last Admin: 08/02/25 07:42 Dose: 100 mg Documented By: RA Labs 08/01/25 07:16 08/02/25 07:04 Labs: Laboratory Results - last 24 hr 08/02/25 07:04 Anion Gap 14 Estim Creat Clear Calc 223.7 Estimated GFR > 60 Random Glucose 103 Calcium 8.5 D Magnesium 1.3 L* Assessment and Plan (1) Alcohol withdrawal syndrome: Status: Acute (2) Hypomagnesemia: Status: Acute Plan 39-year-old male with a past medical history of anxiety, alcohol use disorder, history of alcohol withdrawal seizures; presented to the hospital with a chief complaint of requesting for alcohol detox. Alcohol use disorder with high risk of withdrawal Pt reports 25+ previous hospitalizations for alcohol withdrawal with hx of withdrawal seizures x3-4 Continue phenobarbital protocol Thiamine, folate, multivitamins, and omeprazole Monitor on CIWA Addiction medicine consult Monitor on telemetry Hypokalemia Potassium 3.1 today Will replenish with with 40 mEq p.o. Follow potassium Hypomagnesemia Potassium low again today at 1.3 We will give magnesium sulfate 2 g IV Start on Mag-Ox 400 mg b.i.d. Transaminitis Likely in the setting of alcohol use CTA of abdomen/pelvis and abdominal ultrasound show severe hepatic steatosis, otherwise negative Hepatitis panel negative Trend liver enzymes Abdominal pain, resolved Initially tender in the right lower quadrant without guarding or rigidity CTA of abdomen/pelvis negative for acute abnormality, but showing severe hepatic steatosis. DVT prophylaxis: Lovenox Code status: Full code Pt requires continued hospitalization for phenobarb protocol for controlled alcohol withdrawal that also requires close monitoring of labs for electrolyte abnormalities. Quality Stroke Does the patient have a stroke diagnosis?: No VTE Prior VTE?: No VTE Risk Level:: Medical - moderate - high VTE Device Contraindication: Treatment Not Indicated VTE Drug Contraindication: N/A - Med Ordered
[2025-08-02] MEDS: Potassium Chloride Packet 20 MEQ PACKET 40 MEQ PO (14:36)
[2025-08-03 03:33] VITALS: BP 130/82; PULSE 85; RESP 20; TEMP 36.6; O2SAT 98
[2025-08-03 07:40] VITALS: BP 118/78; PULSE 77; RESP 18; TEMP 36.8; O2SAT 98
--- NOTE | 2025-08-03 07:41 | PC.NURSE ---
informed of pt's ciwa this AM and of pt's request for meds
[2025-08-03 08:13] LABS: Alanine Aminotransferase 122 U/L (0-40); Albumin Level 4.2 g/dL (3.5-5.0); Alkaline Phosphatase 82 U/L (39-117); Aspartate Amino Transferase 85 U/L (5-37); Blood Urea Nitrogen 6 mg/dL (9-16); Calcium 9.1 mg/dL (8.4-10.2); Creatinine Clr Calc Pharmacy 200.5; Estimated Glomerular Filt Rate > 60; Magnesium 1.7 mg/dL (1.6-2.6); Total Protein 7.1 g/dL (6.5-8.0)
[2025-08-03 08:24] LABS: Anion Gap 16 (12-20); Carbon Dioxide 22 mmol/L (22-29); Chloride 101 mmol/L (96-108); Potassium 4.2 mmol/L (3.3-5.1); Sodium 135 mmol/L (135-145)
--- NOTE | 2025-08-03 10:48 | P.PNIM_ITS ---
Subjective Subjective Date of Service: 08/03/25 Interval History: SLEPT WELL OVERNIGHT. REPORTS HEADACHE, SOME NAUSEA AND GENERALIZED ITCHING. STILL FEELS MILDLY TREMULOUS Review of Systems Review of Systems: Yes all other systems are reviewed and are negative Physical Exam 2 Exam: Exam: General: A&O x3, oriented to time place person and situation, comfortable, no pain Cardiac: S1, S2 auscultated with no S3/4, no MRG. Well perfused. Respiratory: Normal breath sounds auscultated throughout all lung zones, without wheezing, rales. Normal rate. GI/ : No abdominal pain on palpation, no masses or distentions. MSK: Normal ambulation without pain at bony prominences or musculature Neurological: Normal neurological examination on overview, without obvious CN II-XII abnormalities. Bilateral upper extremity tremulousness with intention. No nystagmus. Tongue fasciculations noted Vital Signs: Vital Signs: Last Vital Signs Temp 98.3 F 08/03/25 07:40 Pulse 77 08/03/25 07:40 Resp 18 08/03/25 07:40 BP 118/78 08/03/25 07:40 Pulse Ox 98 08/03/25 07:40 O2 Del Method Room Air 08/03/25 07:40 BMI result Body Mass Index 34.4 Objective Data Active Medications Acetaminophen (Acetaminophen 325 Mg Tablet) 650 mg PO Q6H PRN PRN Reason: Pain, Mild 1-3,fever,headache Last Admin: 08/03/25 08:22 Dose: 650 mg Documented By: DESI Calcium Carbonate (Calcium Carbonate 750 Mg Tab.Chew) 750 mg PO Q4H PRN PRN Reason: Heartburn Enoxaparin Sodium (Enoxaparin Sodium 40 Mg/0.4 Ml Syringe) 40 mg SUBCUT Q24H [facility] Last Admin: 08/02/25 20:42 Dose: 40 mg Documented By: SALEEM Folic Acid (Folic Acid 1 Mg Tablet) 1 mg PO DAILY [facility] Stop: 08/04/25 08:59 Last Admin: 08/03/25 08:22 Dose: 1 mg Documented By: DESI Ketorolac Tromethamine (Ketorolac Tromethamine 15 Mg/Ml Vial) 15 mg IVPUSH Q6H PRN PRN Reason: Headache Last Admin: 08/03/25 08:23 Dose: 15 mg Documented By: DESI Loratadine (Loratadine 10 Mg Tablet) 10 mg PO DAILY [facility] Last Admin: 08/03/25 10:07 Dose: 10 mg Documented By: DESI Magnesium Hydroxide (Milk Of Magnesia 30 Ml Oral.Susp) 30 ml PO DAILY PRN PRN Reason: Constipation Magnesium Oxide (Magnesium Oxide 400 Mg Tablet) 400 mg PO BIDPC [facility] Last Admin: 08/03/25 08:22 Dose: 400 mg Documented By: DESI Melatonin (Melatonin 3 Mg Tablet) 6 mg PO BEDTIME PRN PRN Reason: Insomnia Last Admin: 08/02/25 23:59 Dose: 6 mg Documented By: SALEEM Multivitamins/Vitamin C (Multivitamin Tablet) 1 tab PO DAILY [facility] Stop: 08/04/25 08:59 Last Admin: 08/03/25 08:22 Dose: 1 tab Documented By: DESI Omeprazole (Omeprazole 20 Mg Capsule.) 20 mg PO DAILY@0630 [facility] Last Admin: 08/03/25 06:01 Dose: 20 mg Documented By: SALEEM Pharmacy Consult (Consult Rx Etoh Phenob Im/Po) 1 each MISCELLANE ONCE PRN; Protocol PRN Reason: Consult order Phenobarbital (Phenobarbital 30 Mg Tablet) 30 mg PO BID [facility]; Protocol Stop: 08/04/25 21:01 Last Admin: 08/03/25 08:22 Dose: 30 mg Documented By: DESI Phenobarbital (Phenobarbital 30 Mg Tablet) 30 mg PO DAILY [facility]; Protocol Stop: 08/06/25 09:01 Sodium Chloride (0.9 % Sodium Chloride Flush 3 Ml Syringe) [facility] Last Admin: 08/03/25 10:41 Dose: Not Given Documented By: DESI Non-Admin Reason: Previously Administered Thiamine HCl (Thiamine Hcl 100 Mg Tablet) 100 mg PO DAILY [facility] Stop: 08/04/25 08:59 Last Admin: 08/03/25 08:23 Dose: 100 mg Documented By: DESI Labs 08/01/25 07:16 08/03/25 07:07 Labs: Laboratory Results - last 24 hr 08/03/25 07:07 Anion Gap 16 Estim Creat Clear Calc 200.5 Estimated GFR > 60 Random Glucose 79 Calcium 9.1 D Magnesium 1.7 Total Bilirubin 1.0 AST 85 H ALT 122 H Alkaline Phosphatase 82 Total Protein 7.1 Albumin 4.2 Assessment and Plan (1) Alcohol withdrawal syndrome: Status: Acute (2) Acute hypokalemia: Status: Acute (3) Hypomagnesemia: Status: Acute (4) Exacerbation of gout: Status: Acute Plan 39-year-old male with a past medical history of anxiety, alcohol use disorder, history of alcohol withdrawal seizures; presented to the hospital with a chief complaint of requesting for alcohol detox, admitted with acute alcohol withdrawal, hypokalemia, hypomagnesemia and alcoholic hepatitis. Alcohol use disorder Acute alcohol withdrawal High risk of withdrawal Pt reports 25+ previous hospitalizations for alcohol withdrawal with hx of withdrawal seizures x3-4 Continue phenobarbital protocol Thiamine, folate, multivitamins, and omeprazole Monitor on [facility] Addiction medicine consult Monitor on telemetry Hypokalemia Replete as needed Follow potassium Hypomagnesemia Continue on Mag-Ox 400 mg b.i.d. Acute alcoholic hepatitis Transaminitis Likely in the setting of alcohol use CTA of abdomen/pelvis and abdominal ultrasound show severe hepatic steatosis, otherwise negative Hepatitis panel negative Trend liver enzymes Generalized Abdominal pain, resolved Initially tender in the right lower quadrant without guarding or rigidity CTA of abdomen/pelvis negative for acute abnormality, but showing severe hepatic steatosis. Likely 2/2 alcoholic ketosis Pancytopenia - Leukopenia - Anemia - Thrombocytopenia Noted on labs. Likely 2/2 alcohol abuse and bone marrow suppression. We will monitor Order B12, thiamine, iron levels [facility] [employer] - VTE: Enoxaparin - CODE STATUS: Full code - DIET: Regular Total time managing care of this patient today: 35 minutes. Quality Stroke Does the patient have a stroke diagnosis?: No VTE Prior VTE?: No VTE Risk Level:: Medical - moderate - high VTE Device Contraindication: Treatment Not Indicated VTE Drug Contraindication: N/A - Med Ordered
[2025-08-03 11:34] VITALS: BP 118/77; PULSE 80; RESP 18; TEMP 36.2; O2SAT 98
--- NOTE | 2025-08-03 12:04 | MHC.RECOVRN ---
Met with pt. in 450-1 to offer further education and support. Pt lying in bed. Just finished with shower. A&O x 4 and able to participated in discussion. Pt was educated on [facility]K as a part of larger treatment for addiction. He is excited about starting with [facility] and is motivated for change. He is still undecided about MAREK and provider for this. He was given education and resources for f/u once he decides. No other questions or concerns. ACS available PRN
--- NOTE | 2025-08-03 12:18 | MHC.RECOVRN ---
T/W met with pt. in 450-1 to f/u and offer support and education. Pt in be resting. Very tired but opened eyes to voice. She had several tests done this AM and would like to rest. Written education left on pancreatitis and a reminder card with appt. at [facility] left also. Pt asking to start campral for AUD while here. Request for visit placed for Pati Kruse NP. No other questions or concerns at this time. ACS team available PRN
[2025-08-03 16:00] VITALS: BP 122/75; PULSE 70; RESP 18; TEMP 36.1; O2SAT 95
[2025-08-03 19:29] VITALS: BP 110/71; PULSE 89; RESP 16; TEMP 37.3; O2SAT 98
[2025-08-03] MEDS: 0.9 % Sodium Chloride Flush 3 ML SYRINGE IVFLUSH (20:37)
[2025-08-03 23:30] VITALS: BP 112/72; PULSE 86; RESP 16; TEMP 36.6; O2SAT 97
[2025-08-04 03:25] VITALS: BP 119/72; PULSE 81; RESP 16; TEMP 36.5; O2SAT 99
[2025-08-04 07:21] LABS: Alanine Aminotransferase 102 U/L (0-40); Albumin Level 4.1 g/dL (3.5-5.0); Anion Gap 15 (12-20); Aspartate Amino Transferase 64 U/L (5-37); Blood Urea Nitrogen 12 mg/dL (9-16); Calcium 9.1 mg/dL (8.4-10.2); Carbon Dioxide 21 mmol/L (22-29); Chloride 105 mmol/L (96-108); Creatinine Clr Calc Pharmacy 193.8; Estimated Glomerular Filt Rate > 60; Magnesium 1.8 mg/dL (1.6-2.6); Potassium 3.6 mmol/L (3.3-5.1); Sodium 137 mmol/L (135-145); Total Protein 7.0 g/dL (6.5-8.0)
[2025-08-04 07:22] VITALS: BP 116/79; PULSE 75; RESP 18; TEMP 36.9; O2SAT 98
[2025-08-04 07:39] LABS: Alkaline Phosphatase 82 U/L (39-117)
[2025-08-04] MEDS: Lactated Ringers 1,000 ML 100 ML IV ×2 (09:07→20:09)
--- NOTE | 2025-08-04 10:32 | MHC.CM.PN ---
Per MD in [facility]OUN[facility], Patient is not yet medically cleared for dc (receiving Fluids); Returning to his Transitional Housing Program is the goal and CM will continue to follow.
[2025-08-04 11:21] VITALS: BP 127/76; PULSE 80; RESP 18; TEMP 36.7; O2SAT 98
[2025-08-04 15:09] VITALS: BP 120/67; PULSE 90; RESP 18; TEMP 36.7; O2SAT 99
--- NOTE | 2025-08-04 15:21 | HO.PM.IMPN ---
Subjective Subjective Date of Service: 08/04/25 Interval History: Has had dark urine overnight. No abdominal pain. No dysuria. Reports persistent headache, and anxiety, with palpitations. Remains tremulous Review of Systems Review of Systems: Yes all other systems are reviewed and are negative Physical Exam Exam: Exam: General: A&O x3, oriented to time place person and situation, comfortable, no pain Cardiac: S1, S2 auscultated with no S3/4, no MRG. Well perfused. Respiratory: Normal breath sounds auscultated throughout all lung zones, without wheezing, rales. Normal rate. GI/ : No abdominal pain on palpation, no masses or distentions. MSK: Normal ambulation without pain at bony prominences or musculature Neurological: Normal neurological examination on overview, without obvious CN II-XII abnormalities. Bilateral upper extremity tremulousness with intention. No nystagmus. Tongue fasciculations noted Vital Signs: Vital Signs: Last Vital Signs Temp 98.0 F 08/04/25 15:09 Pulse 90 08/04/25 15:09 Resp 18 08/04/25 15:09 BP 120/67 08/04/25 15:09 Pulse Ox 99 08/04/25 15:09 O2 Del Method Room Air 08/04/25 15:09 BMI result Body Mass Index 34.4 Objective Data Active Medications Acetaminophen (Acetaminophen 325 Mg Tablet) 650 mg PO Q6H PRN PRN Reason: Pain, Mild 1-3,fever,headache Last Admin: 08/04/25 12:33 Dose: 650 mg Documented By: DESI Calcium Carbonate (Calcium Carbonate 750 Mg Tab.Chew) 750 mg PO Q4H PRN PRN Reason: Heartburn Enoxaparin Sodium (Enoxaparin Sodium 40 Mg/0.4 Ml Syringe) 40 mg SUBCUT Q24H [facility] Last Admin: 08/03/25 20:36 Dose: 40 mg Documented By: GERMAN Lactated Ringer's (Lr) 1,000 mls @ 100 mls/hr IV .Q10H [facility] Stop: 08/05/25 05:14 Last Admin: 08/04/25 09:07 Dose: 100 mls/hr Documented By: DESI Ketorolac Tromethamine (Ketorolac Tromethamine 15 Mg/Ml Vial) 15 mg IVPUSH Q6H PRN PRN Reason: Headache Last Admin: 08/04/25 12:33 Dose: 15 mg Documented By: DESI Loratadine (Loratadine 10 Mg Tablet) 10 mg PO DAILY [facility] Last Admin: 08/04/25 08:11 Dose: 10 mg Documented By: DESI Magnesium Hydroxide (Milk Of Magnesia 30 Ml Oral.Susp) 30 ml PO DAILY PRN PRN Reason: Constipation Magnesium Oxide ([facility] 400 Mg Tablet) [facility] Last Admin: 08/04/25 08:11 Dose: 400 mg Documented By: DESI Melatonin (Melatonin 3 Mg Tablet) 6 mg PO BEDTIME PRN PRN Reason: Insomnia Last Admin: 08/03/25 23:38 Dose: 6 mg Documented By: GERMAN Omeprazole (Omeprazole 20 Mg Capsule.Dr) 20 mg PO DAILY@0630 [facility] Last Admin: 08/04/25 05:53 Dose: 20 mg Documented By: GERMAN Pharmacy Consult (Consult Rx Etoh Phenob Im/Po) 1 each MISCELLANE ONCE PRN; Protocol PRN Reason: Consult order Phenobarbital (Phenobarbital 30 Mg Tablet) 30 mg PO BID [facility]; Protocol Stop: 08/04/25 21:01 Last Admin: 08/04/25 08:12 Dose: 30 mg Documented By: DESI Phenobarbital (Phenobarbital 30 Mg Tablet) 30 mg PO DAILY [facility]; Protocol Stop: 08/06/25 09:01 Sodium Chloride (0.9 % Sodium Chloride Flush 3 Ml Syringe) 3 ml IVFLUSH QSHIFT [facility] Last Admin: 08/04/25 14:02 Dose: Not Given Documented By: DESI Non-Admin Reason: Previously Administered Labs 08/01/25 07:16 08/04/25 06:31 Labs: Laboratory Results - last 24 hr 08/04/25 06:31 Hold Purple Top SEE NOTE Anion Gap 15 Estim Creat Clear Calc 193.8 Estimated GFR > 60 Random Glucose 85 Calcium 9.1 Magnesium 1.8 Total Bilirubin 0.6 AST 64 H ALT 102 H Alkaline Phosphatase 82 Total Protein 7.0 Albumin 4.1 Assessment and Plan (1) Alcohol withdrawal syndrome: Status: Acute (2) Acute hypokalemia: Status: Acute (3) Hypomagnesemia: Status: Acute (4) Alcohol abuse: Status: Acute (5) Dehydration: Status: Acute Plan 39-year-old male with a past medical history of anxiety, alcohol use disorder, history of alcohol withdrawal seizures; presented to the hospital with a chief complaint of requesting for alcohol detox, admitted with acute alcohol withdrawal, hypokalemia, hypomagnesemia and alcoholic hepatitis. Alcohol use disorder Acute alcohol withdrawal High risk of withdrawal Pt reports 25+ previous hospitalizations for alcohol withdrawal with hx of withdrawal seizures x3-4 Continue phenobarbital protocol Thiamine, folate, multivitamins, and omeprazole Monitor on [facility] Addiction medicine consult Monitor on telemetry Hypokalemia Replete as needed Follow potassium Hypomagnesemia Continue on Mag-Ox 400 mg b.i.d. Acute alcoholic hepatitis Transaminitis Likely in the setting of alcohol use CTA of abdomen/pelvis and abdominal ultrasound show severe hepatic steatosis, otherwise negative Hepatitis panel negative Trend liver enzymes Generalized Abdominal pain, resolved Initially tender in the right lower quadrant without guarding or rigidity CTA of abdomen/pelvis negative for acute abnormality, but showing severe hepatic steatosis. Likely 2/2 alcoholic ketosis Dehydration Patient acutely dehydrated, with low urinary output. Reports headache, and weakness and fatigability. Intake has been limited. LR infusion 2L total 100 cc/hour started Pancytopenia - Leukopenia - Anemia - Thrombocytopenia Noted on labs. Likely 2/2 alcohol abuse and bone marrow suppression. We will monitor Order B12, thiamine, iron levels [facility] - VTE: Enoxaparin - CODE STATUS: Full code - DIET: Regular Total time managing care of this patient today: 35 minutes. Quality Stroke Does the patient have a stroke diagnosis?: No VTE Prior VTE?: No VTE Risk Level:: Medical - moderate - high VTE Device Contraindication: Treatment Not Indicated VTE Drug Contraindication: N/A - Med Ordered
--- NOTE | 2025-08-04 17:39 | P.PNADD_ITS ---
Subjective Subjective Date of Service: 08/04/25 Reason For Visit: ETOH Interim History: Patient is a 39 year old male medically admitted with acute alcohol withdrawal, low potassium and magnesium. Seen over the weekend by contracts attorney and resources provided. Today, seen by t/w in room 450. He is awake, alert, pleasant and engaged in interview. He reports that overall withdrawal sx have subsided, but he is still experiencing headache and body aches--which he reports is the norm for him. Eating without issue. Reviewed plan following discharge, and patient reports he is connected to therapist and several other [facility] providers. He declined MAREK, stating he has trialled them in the past. 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 Review of Systems Acute medical concerns: Yes Mental Status Exam Mental Status Exam Patient Appearance: Well Grooomed Level of Consciousness: Awake and Appropriate Patient Behavior: Appropriate and Talkative Affect Description: Calm Speech Pattern: Clear Thought Process: Intact Thought Content: positive for Intact Judgement: Good Diagnostics Vital Signs (24Hr): Vital Signs - 24 hr 08/03/25 19:29 08/03/25 23:30 08/04/25 03:25 Temperature 99.2 F 97.8 F 97.7 F Pulse Rate 89 86 81 Respiratory Rate 16 16 16 Blood Pressure 110/71 112/72 119/72 Pulse Oximetry 98 97 99 Oxygen Delivery Method Room Air Room Air Room Air 08/04/25 07:22 08/04/25 11:21 08/04/25 15:09 Temperature 98.4 F 98.0 F 98.0 F Pulse Rate 75 80 90 Respiratory Rate 18 18 18 Blood Pressure 116/79 127/76 120/67 Pulse Oximetry 98 98 99 Oxygen Delivery Method Room Air Room Air Room Air BMI result Body Mass Index 34.4 Labs 08/01/25 07:16 08/04/25 06:31 Labs: Laboratory Results - last 48 hr 08/03/25 08/04/25 07:07 06:31 Hold Purple Top SEE NOTE Sodium 135 137 Potassium 4.2 D 3.6 Chloride 101 105 Carbon Dioxide 22 21 L Anion Gap 16 15 BUN 6 L 12 Creatinine 0.58 0.60 Estim Creat Clear Calc 200.5 193.8 Estimated GFR > 60 > 60 Random Glucose 79 85 Calcium 9.1 D 9.1 Magnesium 1.7 1.8 Total Bilirubin 1.0 0.6 AST 85 H 64 H ALT 122 H 102 H Alkaline Phosphatase 82 82 Total Protein 7.1 7.0 Albumin 4.2 4.1 Medications Medications Current Medications Acetaminophen (Acetaminophen 325 Mg Tablet) 650 mg PO Q6H PRN PRN Reason: Pain, Mild 1-3,fever,headache Last Admin: 08/04/25 12:33 Dose: 650 mg Calcium Carbonate (Calcium Carbonate 750 Mg Tab.Chew) 750 mg PO Q4H PRN PRN Reason: Heartburn Enoxaparin Sodium (Enoxaparin Sodium 40 Mg/0.4 Ml Syringe) 40 mg SUBCUT Q24H [facility] Last Admin: 08/03/25 20:36 Dose: 40 mg Lactated Ringer's (Lr) 1,000 mls @ 100 mls/hr IV .Q10H [facility] Stop: 08/05/25 05:14 Last Admin: 08/04/25 09:07 Dose: 100 mls/hr Ketorolac Tromethamine (Ketorolac Tromethamine 15 Mg/Ml Vial) 15 mg IVPUSH Q6H PRN PRN Reason: Headache Last Admin: 08/04/25 12:33 Dose: 15 mg Loratadine (Loratadine 10 Mg Tablet) 10 mg PO DAILY [facility] Last Admin: 08/04/25 08:11 Dose: 10 mg Magnesium Hydroxide (Milk Of Magnesia 30 Ml Oral.Susp) 30 ml PO DAILY PRN PRN Reason: Constipation Magnesium Oxide (Magnesium Oxide 400 Mg Tablet) 400 mg PO BIDPC [facility] Last Admin: 08/04/25 16:33 Dose: 400 mg Melatonin (Melatonin 3 Mg Tablet) 6 mg PO BEDTIME PRN PRN Reason: Insomnia Last Admin: 08/03/25 23:38 Dose: 6 mg Omeprazole (Omeprazole 20 Mg Capsule.Dr) 20 mg PO DAILY@0630 [facility] Last Admin: 08/04/25 05:53 Dose: 20 mg Pharmacy Consult (Consult Rx Etoh Phenob Im/Po) 1 each MISCELLANE ONCE PRN; Protocol PRN Reason: Consult order Phenobarbital (Phenobarbital 30 Mg Tablet) 30 mg PO BID [facility]; Protocol Stop: 08/04/25 21:01 Last Admin: 08/04/25 08:12 Dose: 30 mg Phenobarbital (Phenobarbital 30 Mg Tablet) 30 mg PO DAILY [facility]; Protocol Stop: 08/06/25 09:01 Sodium Chloride (0.9 % Sodium Chloride Flush 3 Ml Syringe) 3 ml IVFLUSH QSHIFT [facility] Last Admin: 08/04/25 14:02 Dose: Not Given Allergies Allergies Allergy/AdvReac Type Severity Reaction Status Date / Time azithromycin (AZITHROMYCIN) Allergy Unknown Unknown Verified 07/31/25 17:47 Assessment & Plan Assessment & Plan (1) Alcohol use disorder, severe, dependence: Status: Acute Code(s): F10.20 - Alcohol dependence, uncomplicated Assessment and Plan: * withdrawal resolved * declines MAREK or referral to AUD treatment provider * provided resources for follow up in the community, and referral placed for Helminthology Teacher * continue thiamine and folic acid at home following discahrge Plan Total time managing care of this patient today ____ minutes.
[2025-08-04 19:14] VITALS: BP 130/81; PULSE 89; RESP 18; TEMP 36.7; O2SAT 99
[2025-08-04] MEDS: 0.9 % Sodium Chloride Flush 3 ML SYRINGE IVFLUSH (20:09)
[2025-08-04 23:58] VITALS: BP 130/82; PULSE 81; RESP 16; TEMP 37.2; O2SAT 98
[2025-08-05 03:51] VITALS: BP 136/74; PULSE 79; RESP 18; TEMP 36.8; O2SAT 96
[2025-08-05 07:14] VITALS: BP 119/77; PULSE 76; RESP 14; TEMP 36.6; O2SAT 98
[2025-08-05 09:29] LABS: MANUAL DIFF FLAG NO
[2025-08-05] MEDS: Lactated Ringers 1,000 ML 100 ML IVCONT ×2 (09:32→19:43)
[2025-08-05 09:33] LABS: Hematocrit 35.7 % (42.0-52.0); Hemoglobin 12.4 g/dl (14.0-18.0); Imm Gran Abs Auto 0.01 X10*3/uL (0.00-0.03); Imm Gran Pct Auto 0.3 % (0.0-0.4); Lymphocytes Absolute Auto 0.9 X10*3/uL (1.2-4.9); Mean Corpuscular HGB Conc 34.7 g/dl (31.0-36.0); Mean Corpuscular Hemoglobin 33.0 pg (27.0-33.0); Mean Corpuscular Volume 94.9 fL (80.0-98.0); NRBC Abs Auto 0.000 X10*3/uL (0.0-0.012); NRBC Pct Auto 0.0 /100WBC (0.0-0.2); Platelet Count 80 X10*3/uL (160-400); Red Blood Count 3.76 X10*6/uL (4.60-5.80); White Blood Count 3.4 X10*3/uL (4.8-10.8)
[2025-08-05 09:43] LABS: Anion Gap 12 (12-20); Blood Urea Nitrogen 9 mg/dL (9-16); Calcium 8.6 mg/dL (8.4-10.2); Carbon Dioxide 19 mmol/L (22-29); Chloride 109 mmol/L (96-108); Creatinine Clr Calc Pharmacy 193.8; Estimated Glomerular Filt Rate > 60; Potassium 3.3 mmol/L (3.3-5.1); Sodium 137 mmol/L (135-145)
[2025-08-05 11:37] VITALS: BP 124/77; PULSE 79; RESP 18; TEMP 37.1; O2SAT 99
--- NOTE | 2025-08-05 14:42 | HO.PM.IMPN ---
Subjective Subjective Date of Service: 08/05/25 Interval History: Feeling better overall today. No tremulousness noted today. Patient still endorses a headache, as well as fatigability, however has improved significantly with IV fluids. Review of Systems Review of Systems: Yes all other systems are reviewed and are negative Physical Exam Exam: Exam: General: A&O x3, oriented to time place person and situation, comfortable, no pain Cardiac: S1, S2 auscultated with no S3/4, no MRG. Well perfused. Respiratory: Normal breath sounds auscultated throughout all lung zones, without wheezing, rales. Normal rate. GI/ : No abdominal pain on palpation, no masses or distentions. MSK: Normal ambulation without pain at bony prominences or musculature Neurological: Normal neurological examination on overview, without obvious CN II-XII abnormalities. Vital Signs: Vital Signs: Last Vital Signs Temp 98.7 F 08/05/25 11:37 Pulse 79 08/05/25 11:37 Resp 18 08/05/25 11:37 BP 124/77 08/05/25 11:37 Pulse Ox 99 08/05/25 11:37 O2 Del Method Room Air 08/05/25 11:37 BMI result Body Mass Index 34.4 Objective Data Active Medications Acetaminophen (Acetaminophen 325 Mg Tablet) 650 mg PO Q6H PRN PRN Reason: Pain, Mild 1-3,fever,headache Last Admin: 08/05/25 09:38 Dose: 650 mg Documented By: DAVID Calcium Carbonate (Calcium Carbonate 750 Mg Tab.Chew) 750 mg PO Q4H PRN PRN Reason: Heartburn Enoxaparin Sodium (Enoxaparin Sodium 40 Mg/0.4 Ml Syringe) 40 mg SUBCUT Q24H [facility] Last Admin: 08/04/25 20:09 Dose: 40 mg Documented By: GERMAN Lactated Ringer's (Lr) 1,000 mls @ 100 mls/hr IVCONT .Q10H [facility] Stop: 08/06/25 05:14 Last Admin: 08/05/25 09:32 Dose: 100 mls/hr Documented By: DAVID Ketorolac Tromethamine (Ketorolac Tromethamine 15 Mg/Ml Vial) 15 mg IVPUSH Q6H PRN PRN Reason: Headache Last Admin: 08/05/25 07:28 Dose: 15 mg Documented By: DAVID Loratadine (Loratadine 10 Mg Tablet) 10 mg PO DAILY [facility] Last Admin: 08/05/25 07:25 Dose: 10 mg Documented By: DAVID Magnesium Hydroxide (Milk Of Magnesia 30 Ml Oral.Susp) 30 ml PO DAILY PRN PRN Reason: Constipation Magnesium Oxide (Magnesium Oxide 400 Mg Tablet) 400 mg PO BIDPC [facility] Last Admin: 08/05/25 07:25 Dose: 400 mg Documented By: DAVID Melatonin (Melatonin 3 Mg Tablet) 6 mg PO BEDTIME PRN PRN Reason: Insomnia Last Admin: 08/05/25 00:08 Dose: 6 mg Documented By: GERMAN Omeprazole (Omeprazole 20 Mg Capsule.Dr) 20 mg PO DAILY@0630 [facility] Last Admin: 08/05/25 05:35 Dose: 20 mg Documented By: JULISSA Pharmacy Consult (Consult Rx Etoh Phenob Im/Po) 1 each MISCELLANE ONCE PRN; Protocol PRN Reason: Consult order Phenobarbital (Phenobarbital 30 Mg Tablet) 30 mg PO DAILY [facility]; Protocol Stop: 08/06/25 09:01 Last Admin: 08/05/25 07:25 Dose: 30 mg Documented By: DAVID Sodium Chloride (0.9 % Sodium Chloride Flush 3 Ml Syringe) [facility] Last Admin: 08/05/25 07:20 Dose: Not Given Documented By: DAVID Non-Admin Reason: IV Running Labs 08/05/25 09:16 08/05/25 09:16 Labs: Laboratory Results - last 24 hr 08/05/25 09:16 MCV 94.9 MCH 33.0 MCHC 34.7 RDW 12.8 Plt Count 80 L MPV 10.2 Immature Gran % (Auto) 0.3 Neut % (Auto) 58.8 Lymph % (Auto) 27.1 [place] % (Auto) 9.1 Eos % (Auto) 4.4 H Baso % (Auto) 0.3 Lymph # (Auto) 0.9 L [place] # (Auto) 0.3 Eos # (Auto) 0.2 Baso # (Auto) 0.0 Abs Immat Gran (auto) 0.01 Absolute Neuts (auto) 2.0 Absolute Nucleated RBC 0.000 Nucleated RBC % (auto) 0.0 Anion Gap 12 Estim Creat Clear Calc 193.8 Estimated GFR > 60 Random Glucose 147 H Calcium 8.6 Assessment and Plan (1) Alcohol withdrawal syndrome: Status: Acute (2) Alcohol abuse: Status: Acute (3) Alcohol use disorder, severe, dependence: Status: Acute (4) Acute hypokalemia: Status: Acute (5) Hypomagnesemia: Status: Acute (6) Dehydration: Status: Acute Plan 39-year-old male with a past medical history of anxiety, alcohol use disorder, history of alcohol withdrawal seizures; presented to the hospital with a chief complaint of requesting for alcohol detox, admitted with acute alcohol withdrawal, hypokalemia, hypomagnesemia and alcoholic hepatitis. Alcohol use disorder Acute alcohol withdrawal High risk of withdrawal Pt reports 25+ previous hospitalizations for alcohol withdrawal with hx of withdrawal seizures x3-4 Continue phenobarbital protocol Thiamine, folate, multivitamins, and omeprazole Monitor on [facility] Addiction medicine consult Monitor on telemetry Hypokalemia Replete as needed Follow potassium Hypomagnesemia Continue on Mag-Ox 400 mg b.i.d. Acute alcoholic hepatitis Transaminitis Likely in the setting of alcohol use CTA of abdomen/pelvis and abdominal ultrasound show severe hepatic steatosis, otherwise negative Hepatitis panel negative Trend liver enzymes Generalized Abdominal pain, resolved Initially tender in the right lower quadrant without guarding or rigidity CTA of abdomen/pelvis negative for acute abnormality, but showing severe hepatic steatosis. Likely 2/2 alcoholic ketosis Dehydration Patient acutely dehydrated, with low urinary output. Reports headache, and weakness and fatigability. Intake has been limited. LR infusion 2L total 100 cc/hour started Pancytopenia - Leukopenia - Anemia - Thrombocytopenia Noted on labs. Likely 2/2 alcohol abuse and bone marrow suppression. We will monitor Order B12, thiamine, iron levels [facility] - VTE: Enoxaparin - CODE STATUS: Full code - DIET: Regular Total time managing care of this patient today: 35 minutes. Quality Stroke Does the patient have a stroke diagnosis?: No VTE Prior VTE?: No VTE Risk Level:: Medical - moderate - high VTE Device Contraindication: Treatment Not Indicated VTE Drug Contraindication: N/A - Med Ordered
--- NOTE | 2025-08-05 15:39 | MHC.CM.PN ---
per rounds pt may be ready for dc plan return to transitional housing program
[2025-08-05 16:00] VITALS: BP 139/78; PULSE 66; RESP 19; TEMP 36.7; O2SAT 99
[2025-08-05 20:00] VITALS: BP 131/87; PULSE 83; RESP 19; TEMP 36.3; O2SAT 97
[2025-08-06 03:58] VITALS: BP 125/78; PULSE 70; RESP 16; TEMP 36.4; O2SAT 98
[2025-08-06 06:47] VITALS: BP 133/81; PULSE 65; RESP 16; TEMP 36.6; O2SAT 99
[2025-08-06] MEDS: 0.9 % Sodium Chloride Flush 3 ML SYRINGE IVFLUSH (08:12)
--- NOTE | 2025-08-06 09:00 | PM.DS ---
DS: Providers Provider Date of Service: 08/06/25 Date of admission: 07/31/25 20:16 Date of discharge: 08/06/25 Primary care physician: Unknown Physician Consults: 08/01/25 02:52 Addiction Medicine Provider Routine Consulting Provider: Addiction Covering Reason for consultation: ETOH dependence, multiple admissions for alcohol withdrawal DS: Diagnosis Discharge Diagnosis (1) Alcohol withdrawal syndrome: Status: Acute (2) Alcohol abuse: Status: Acute (3) Alcohol use disorder, severe, dependence: Status: Acute (4) Acute hypokalemia: Status: Acute (5) Hypomagnesemia: Status: Acute (6) Dehydration: Status: Acute DS: Summary Hospital Course Hospital Course: 39-year-old male with a past medical history of anxiety, alcohol use disorder, history of alcohol withdrawal seizures; presented to the hospital with a chief complaint of requesting for alcohol detox, admitted with acute alcohol withdrawal, hypokalemia, hypomagnesemia and alcoholic hepatitis. PRESENTATION He presented to the hospital with a chief complaint of requesting for alcohol detox. Patient mentioned that he has been drinking alcohol on a daily basis. Mentioned that last couple days he has been having nausea vomiting and tremors. Denies any chest pain or palpitations. Patient reports abdominal pain in the right lower quadrant. Denies any depression or suicidal ideations. Patient denies any fever chills cough or sputum production. Review of all other systems is negative except mentioned above ER COURSE Per ER team, patient noted to be hypotensive, tachycardic, tremulous concern for alcohol withdrawal; started on phenobarb protocol. Also noted to have hypokalemia and hypomagnesemia-repleted. PROBLEM LIST Alcohol use disorder Acute alcohol withdrawal Pt reports 25+ previous hospitalizations for alcohol withdrawal with hx of withdrawal seizures x3-4 Continued phenobarbital protocol without issue or complications during hospitalization Thiamine, folate, multivitamins, and omeprazole to continue outpatient Addiction medicine consulted and supports outpatient in place. Hypokalemia Hypomagnesemia Depleted on admission. Repleted and stable currently. Eating and drinking well. Acute alcoholic hepatitis Transaminitis Likely in the setting of alcohol use CTA of abdomen/pelvis and abdominal ultrasound show severe hepatic steatosis, otherwise negative Hepatitis panel negative Trended LFTs improving and normalizing. Generalized Abdominal pain, resolved Initially tender in the right lower quadrant without guarding or rigidity CTA of abdomen/pelvis negative for acute abnormality, but showing severe hepatic steatosis. Likely 2/2 alcoholic ketosis - Resolved. Dehydration Patient acutely dehydrated, with low urinary output. Reports headache, and weakness and fatigability. LR infusion 2L total was administed Improved Pancytopenia - Leukopenia - Anemia - Thrombocytopenia Noted on labs. Likely 2/2 alcohol abuse and bone marrow suppression. Repleted with supplementation. Monitor labs outpatient Status at Discharge Functional status at discharge: independent ambulation Overall status at discharge: patient is back to baseline Time Attestation Total time managing care of this patient today: 35 mintues. Discharge Coordination Time (in mins): 15 Quality: Safe Use of Opioids Does Pt have an Active Cancer Diagnosis on the Problem List?: No Quality: Stroke Does the patient have a stroke diagnosis?: No Physical Exam Exam: Exam: General: A&O x3, oriented to time place person and situation, comfortable, no pain Cardiac: S1, S2 auscultated with no S3/4, no MRG. Well perfused. Respiratory: Normal breath sounds auscultated throughout all lung zones, without wheezing, rales. Normal rate. GI/ : No abdominal pain on palpation, no masses or distentions. MSK: Normal ambulation without pain at bony prominences or musculature Neurological: Normal neurological examination on overview, without obvious CN II-XII abnormalities Vital Signs: Vital Signs: Last Vital Signs Temp 97.9 F 08/06/25 06:47 Pulse 65 08/06/25 06:47 Resp 16 08/06/25 06:47 BP 133/81 08/06/25 06:47 Pulse Ox 99 08/06/25 06:47 O2 Del Method Room Air 08/06/25 06:47 BMI result Body Mass Index 34.4 DS: Data Data Completed and Pending Labs on day of discharge: Laboratory Results - last 24 hr 08/05/25 09:16 WBC 3.4 L RBC 3.76 L Hgb 12.4 L Hct 35.7 L MCV 94.9 MCH 33.0 MCHC 34.7 RDW 12.8 Plt Count 80 L MPV 10.2 Immature Gran % (Auto) 0.3 Neut % (Auto) 58.8 Lymph % (Auto) 27.1 [place] % (Auto) 9.1 Eos % (Auto) 4.4 H Baso % (Auto) 0.3 Lymph # (Auto) 0.9 L [place] # (Auto) 0.3 Eos # (Auto) 0.2 Baso # (Auto) 0.0 Abs Immat Gran (auto) 0.01 Absolute Neuts (auto) 2.0 Absolute Nucleated RBC 0.000 Nucleated RBC % (auto) 0.0 Sodium 137 Potassium 3.3 Chloride 109 H Carbon Dioxide 19 L Anion Gap 12 BUN 9 Creatinine 0.60 Estim Creat Clear Calc 193.8 Estimated GFR > 60 Random Glucose 147 H Calcium 8.6 Discharge Plan Discharge Anticipated Discharge Date/Time: 08/06/25 09:05 Patient Disposition: Home, Self-Care Discharge Diagnosis: Acute alcohol withdrawal with severe electrolyte abnormalitis and alcoholic transaminitis Referrals: Physician,Unknown J [Primary Care Provider, Medical] - 1 Week Discharge Medications: Continued thiamine HCl (vitamin B1) 100 mg Tablet 100 mg PO DAILY melatonin 3 mg Tablet 9 mg PO BEDTIME PRN (Reason: Sleep) folic acid 1 mg tablet 1 mg PO DAILY omeprazole 20 mg Tablet,Delayed Release (Dr/Ec) 20 mg PO DAILY@0630 30 Days Qty: 30 0RF Discharge Orders: Discharge Order (Routine); Ordered 08/06/25 Ordered By: Heidi Pierce Diet: Advance to usual diet Activity on Discharge: As tolerated Stand Alone Forms: Patient Portal Discharge page Print Language: Khmer Care Plan Goals: As above Health Concerns: As above Plan of Treatment: Follow up with PCP within 1 week of discharge Follow up CBC for improvement in leukopenia, anemia and thrombocytopenia Follow up on alcoholic supports and measures Assessment: Hemodynamically stable for discharge. No evidence of withdrawal.
--- NOTE | 2025-08-06 10:30 | MHC.CM.PN ---
PT CLEARED TO DC WITH NO SERVICES TODAY PER PT, HE WILL RETURN TO TRANSITIONAL HOUSING VIA SELF ARRANGED TRANSPORT
== END 2025-08-06 10:35 | disposition home or self-care (01) | DRG 775 ==
LOC: HO.ED 20:10 → HO.EDOVER 20:28 → HO.IMC 23:28 → HO.S3 08-04 23:50
PROVIDERS: Student in an Organized Health Care Education/Training Program; Admitting Provider Hospitalist; Emergency Provider Emergency Medicine; Visit Provider Hospitalist
DX: F10.239 Alcohol dependence with withdrawal, unspecified (principal); D61.818 Other pancytopenia; K70.10 Alcoholic hepatitis without ascites; E86.0 Dehydration; K76.0 Fatty (change of) liver, not elsewhere classified; E83.42 Hypomagnesemia; E87.6 Hypokalemia; Y90.8 Blood alcohol level of 240 mg/100 ml or more; Z79.899 Other long term (current) drug therapy
CPT/HCPCS: 36415; 74177; 76705; 80048; 80053; 80076; 80307; 81001; 81003; 83690; 83735; 85025; 86704; 86706; 86709; 86803; 87340; 99285; J0737; J1171; J1650; J1885; J2405; J2560; J3360; J3475; J3480; J7120; Q9967; S9485

== ENCOUNTER 2025-07-31 20:16 | Outpatient (BNV) | payer OTHER, SELFPAY | END 2025-08-01 01:39 | PROVIDERS: Admitting Provider Hospitalist; Emergency Provider Emergency Medicine; Visit Provider Radiology Diagnostic Radiology | DX: K76.0 Fatty (change of) liver, not elsewhere classified (principal) | CPT/HCPCS: 74177 ==

== ENCOUNTER 2025-07-31 20:16 | Outpatient (BNV) | payer OTHER, SELFPAY | END 2025-07-31 20:37 | PROVIDERS: Admitting Provider Hospitalist; Emergency Provider Emergency Medicine; Visit Provider Radiology Diagnostic Radiology | DX: K76.0 Fatty (change of) liver, not elsewhere classified (principal) | CPT/HCPCS: 76705 ==

== ENCOUNTER → 2025-07-31 20:16 | Outpatient (BNV) | payer OTHER, SELFPAY | PROVIDERS: Admitting Provider Hospitalist; Emergency Provider Emergency Medicine; Visit Provider Student in an Organized Health Care Education/Training Program | DX: F10.939 Alcohol use, unspecified with withdrawal, unspecified (principal) | CPT/HCPCS: 99223; 99233 ==

== ENCOUNTER → 2025-07-31 20:16 | Outpatient (BNV) | payer OTHER, SELFPAY | PROVIDERS: Admitting Provider Hospitalist; Emergency Provider Emergency Medicine; Visit Provider Nurse Practitioner Psychiatric/Mental Health | DX: F10.20 Alcohol dependence, uncomplicated (principal) | CPT/HCPCS: 99231 ==

== ENCOUNTER 2025-08-11 02:09 | Inpatient (IN) | payer OTHER, SELFPAY ==
[2025-08-11] VITALS (14 sets, daily range): BP systolic 107–139; BP diastolic 56–97; PULSE 71–104; RESP 12–20; TEMP 36.6–37.3; O2SAT 93–98; BMI 33.5
--- NOTE | 2025-08-11 | ECG_ITS ---
Test Reason : ALCOHOL WITHDRAWAL Blood Pressure : */* mmHG Vent. Rate : 93 BPM Atrial Rate : 93 BPM P-R Int : 160 ms QRS Dur : 88 ms QT Int : 370 ms P-R-T Axes : 28 14 35 degrees QTcB Int : 460 ms Normal sinus rhythm Normal ECG When compared with ECG of 13-Oct-2021 13:15, No significant change was found Referred By: Herson Cantor Electronically Signed By: LEEANN TODD MD
--- NOTE | ~2025-08-11 | CT_ITS ---
CLINICAL HISTORY: fall, trauma, EtOH CT abdomen and pelvis with IV contrast Comparison: CT/SR - CT ABDOMEN PELVIS W IV CON - 08/01/25 01:39 EDT Findings: Lung bases show no active disease. No dependent layering pleural effusions. The heart is not enlarged. Coronary artery calcifications: Mildprobable gynecomastia. Correlate clinically. Hepatic steatosis No focal hepatic lesions. Patent hepatic and portal veins. Physiologic distention of the gallbladder with no radiopaque gallstones. Homogeneous enhancement of the pancreas. No splenomegaly. Normal adrenal glands. Symmetrical renal excretion with no segmental or diffuse renal parenchymal disease or evidence of obstructive uropathy/hydroureteronephrosis. Normal caliber abdominal aorta. Bowel demonstrates a nonobstructive pattern. No free air. Post appendectomyno evidence of bowel injury. No intraperitoneal, retroperitoneal, pelvic or inguinal masses lymphadenopathy or abnormal fluid collections. Well distention of the urinary bladder No vertebral body compression fractures or spondylolisthesis. No bony destructive lesions. Impression: 1. No evidence of solid organ injury. Hepatic steatosis. 2. No evidence of bowel injury. Post appendectomy 3. Osseous structures intact This document has been electronically signed by: Alberto Lewis MD on 08/11/2025 05:41:05
--- NOTE | ~2025-08-11 | CT_ITS ---
CLINICAL HISTORY: fall, trauma, EtOH CT of the head without intravenous contrast Comparison: None Findings: The ventricles and sulci are prominent, consistent with generalized cerebral parenchymal volume loss. The ventricles are symmetric and the basilar cisterns are intact. Mild periventricular, deep and subcortical white matter hypodensities are nonspecific but statistically reflect the sequela of chronic small vessel ischemic change. No intracranial hemorrhage, extra-axial fluid collection, midline shift or mass-effect is evident. No evidence of acute large vessel or territorial ischemia. Brainstem and cerebellum unremarkable. Vascular calcifications indicate intracranial atherosclerosis. The imaged portion of the paranasal sinuses demonstrate mild maxillary sinusitis No mastoid effusions are demonstrated. The orbital contents are unremarkable. Calvarium is intact. Impression: 1. No CT evidence of acute intracranial abnormality. 2. Cerebral volume loss, intracranial atherosclerotic disease and mild sequela of chronic small vessel ischemic disease. This document has been electronically signed by: Alberto Lewis MD on 08/11/2025 05:54:47
--- NOTE | ~2025-08-11 | CT_ITS ---
CLINICAL HISTORY: fall, trauma, EtOH CT cervical spine without intravenous contrast Comparison: None Findings: Craniocervical junction: No occipital condylar fractures. No evidence of atlantooccipital dissociation. The anterior and posterior arch and lateral masses of C1 are intact. Odontoid and atlanto-dental interval intact. The pars interarticularis of C2 is intact. There is normal vertebral body heights with no evidence of compression fracture. There is normal cervical alignment. No locked or perched facets. No spinous process fractures. Lordotic curvature is preserved. The retropharyngeal soft tissues are not widened. Segmental analysis as below (MR is more accurate in the evaluation of disc herniation and central canal pathology): C2-C3: No herniation or stenosis. C3-C4: No herniation or stenosis. C4-C5: No herniation or stenosis. C5-C6: No herniation or stenosis. C6-C7: No herniation or stenosis. C7-T1: No herniation or stenosis. The bones are without evidence of lytic or blastic lesion. Lung apices are unremarkable. Impression: 1. Negative CT cervical spine for acute process. This document has been electronically signed by: Alberto Lewis MD on 08/11/2025 05:53:16
--- NOTE | ~2025-08-11 | XR_ITS ---
CLINICAL HISTORY: fall, trauma 3 views left elbow Comparison: None Findings: No fractures, subluxations or dislocations. Fat pads are nondisplaced. No bony arthritic changes. Bone mineralization and soft tissues within normal limits. No radiopaque foreign body. Impression: 1. No fractures, subluxations, dislocations or evidence of joint effusion left elbow. This document has been electronically signed by: Alberto Lewis MD on 08/11/2025 05:25:15
--- NOTE | ~2025-08-11 | XR_ITS ---
CLINICAL HISTORY: fall, trauma 3 views left ankle Comparison: None Findings: [place] sutures distal fibula. Cortical irregularity medial malleolus probably from remote trauma. Ankle mortise intact. Normal plafond. No osteochondral lesions. Calcaneus and subtalar joint intact. Degenerative changes tibiotalar joint and talonavicular joint. No plantar calcaneal spur. Soft tissue swelling. Calcified phleboliths. Normal pre-Achilles fat pad. No radiopaque foreign body. Impression: 1. Soft tissue swelling. Likely chronic osseous abnormalities. Ankle mortise intact. This document has been electronically signed by: Alberto Lewis MD on 08/11/2025 05:27:53
--- NOTE | ~2025-08-11 | CT_ITS ---
CLINICAL HISTORY: fall, trauma, EtOH CT chest with contrast Comparison: CT - CT CHEST W IV CON - 08/11/2025 04:31 AM EDT Findings: Normal heart size. No pericardial effusion. Calcific coronary artery disease: Mild Normal caliber thoracic aorta. No evidence of mediastinal hematoma. No mediastinal lymphadenopathy. Lungs are clear. No pneumothorax or pleural effusions, plaques or calcifications. Central airways are patent. No bronchiectasis. No thyroid nodules. Gynecomastiano axillary adenopathy. Hepatic steatosis. No vertebral body compression fracture. There is segmentation of the mid sternum versus fracture correlate with palpation. No soft tissue swelling. No rib fractures demonstrated Impression: 1. Normal caliber thoracic aorta. No evidence of mediastinal hematoma. Calcified coronary artery disease. 2. Clear lungs. No pneumothorax or pleural effusions 3. There is segmentation versus fracture upper sternum correlate with palpation This document has been electronically signed by: Alberto Lewis MD on 08/11/2025 05:45:26
--- NOTE | 2025-08-11 02:58 | PC.NURSE ---
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 states his last drink was 2 days prior to this one. pt denies si/hi at this time and states he already has a coach. security at bedside and pt changed over. awaiting
[2025-08-11 03:10] LABS: Hematocrit 35.5 % (42.0-52.0); Hemoglobin 12.6 g/dl (14.0-18.0); Imm Gran Abs Auto 0.01 X10*3/uL (0.00-0.03); Imm Gran Pct Auto 0.4 % (0.0-0.4); Lymphocytes Absolute Auto 1.2 X10*3/uL (1.2-4.9); MANUAL DIFF FLAG NO; Mean Corpuscular HGB Conc 35.5 g/dl (31.0-36.0); Mean Corpuscular Hemoglobin 33.1 pg (27.0-33.0); Mean Corpuscular Volume 93.2 fL (80.0-98.0); NRBC Abs Auto 0.000 X10*3/uL (0.0-0.012); NRBC Pct Auto 0.0 /100WBC (0.0-0.2); Platelet Count 174 X10*3/uL (160-400); Red Blood Count 3.81 X10*6/uL (4.60-5.80); White Blood Count 2.8 X10*3/uL (4.8-10.8)
[2025-08-11 03:35] LABS: Alanine Aminotransferase 62 U/L (0-40); Albumin Level 4.0 g/dL (3.5-5.0); Alkaline Phosphatase 77 U/L (39-117); Anion Gap 18 (12-20); Aspartate Amino Transferase 58 U/L (5-37); Blood Urea Nitrogen 8 mg/dL (9-16); Calcium 8.3 mg/dL (8.4-10.2); Carbon Dioxide 24 mmol/L (22-29); Chloride 109 mmol/L (96-108); Creatinine Clr Calc Pharmacy 184.9; Estimated Glomerular Filt Rate > 60; Magnesium 1.7 mg/dL (1.6-2.6); Potassium 3.4 mmol/L (3.3-5.1); Sodium 148 mmol/L (135-145); Total Protein 6.8 g/dL (6.5-8.0)
--- NOTE | 2025-08-11 04:27 | PC.NURSE ---
pt moved in ed bed 8, placed on tele, nsr. 20g placed in left upper arm and medicated per dec. seizure precautions placed
[2025-08-11] MEDS: iohexoL 350 MG/ML 100 ML INFUS..BTL 85 ML IV (04:50)
[2025-08-11] MEDS: PHENobarbitaL sodium 130 MG/ML IM ONCE 438 MG IM (05:05)
--- NOTE | 2025-08-11 06:09 | ED.ALCOHOL ---
HPI - Alcohol General Chief Complaint: ETOH/Substance Use Stated Complaint: ETOH Time Seen by Provider: 08/11/25 02:22 Source: patient, EMS, RN notes reviewed and old records reviewed Mode of arrival: EMS Limitations: altered mental status (Intoxicated) History of Present Illness ED Provider: Dr. Carole Antonio HPI narrative: 39-year-old male with a history of alcohol use disorder, depression, PTSD presenting with request for detox from alcohol from home. Patient called 911 for himself. States that he was recently admitted for this reason and failed the treatment plan that he had been on. Is requesting help to detox from alcohol today. Last drink was immediately prior to arrival. States he drinks about ?30 nips of vodka per day?. He does have a history of alcohol withdrawal including seizures. States he is starting to feel shaky already. Denies recent illness. He does admit to frequent falls and has several abrasions and bruises noted all over his body. He is unable to give me further details on the falls. Denies chest pain or difficulty breathing. He does endorse abdominal discomfort sort of globally. Denies nausea or vomiting. Related Data Home Medications ?Medication ?Instructions ?Recorded ?Confirmed folic acid 1 mg tablet 1 mg PO DAILY 07/31/25 07/31/25 melatonin 3 mg tablet 9 mg PO BEDTIME PRN Sleep 07/31/25 07/31/25 thiamine HCl (vitamin B1) 100 mg 100 mg PO DAILY 07/31/25 07/31/25 tablet Previous Rx's ?Medication ?Instructions ?Recorded omeprazole 20 mg tablet,delayed 20 mg PO DAILY@0630 30 days #30 08/06/25 release tabs Allergies Allergy/AdvReac Type Severity Reaction Status Date / Time azithromycin (AZITHROMYCIN) Allergy Unknown Unknown Verified 08/11/25 02:19 Review of Systems Review of Systems: as per HPI, full review of systems performed and negative but for the above mentioned pertinent positives and negatives. PMFSH Past Medical History Medical History Anxiety Social History Social History Household Members: Other Alcohol intake: current Alcohol intake frequency: 0-2 drinks per day Alcohol type: hard liquor Patient Tobacco Use Status: Never used Tobacco Smoked in Last 30 Days: No Use of substances other than those prescribed or required for medical reasons: No Advance Directives: No Advance Directives Information Provided: Yes Do you have a plan to hurt others: No Plan service: Yes Physical Exam ED Exam Exam: GENERAL: Appears intoxicated, GCS 13, eyes open to voice, slurred speech, no acute distress. SKIN: Normal skin color for ethnicity, warm, dry, abrasion over the left cheek that is partially healed, multiple bruises overlying the abdomen, left posterior arm and left ankle HEENT: Normocephalic, atraumatic, no stridor, posterior oropharynx nonerythematous, dentition intact, EOMI, pupils are pinpoint bilaterally, reactive to light, breath smells of alcohol. NECK: Soft, supple, no step-offs, no deformities, no lymphadenopathy. CHEST: Heart regular tachycardia, no murmurs, symmetric chest rise and fall, no chest wall tenderness to palpation, no crepitus, no deformities. PULMONARY: Clear to auscultation bilaterally, diminished at the bases, no labored breathing, no wheezes/rhales/rhonchi. ABDOMINAL: Soft, nondistended, positive bowel sounds in all quadrants. : Deferred. MUSCULOSKELETAL: Normal tone, full range of motion, no deformities, no peripheral edema, multiple bruises overlying the abdomen, left posterior arm and left ankle. NEURO: GCS 13, eyes open to voice, slightly slurred speech, CN II through XII intact, equal strength and sensation bilateral upper and lower extremities, no focal neurologic deficits. PSYCHIATRIC: Flat affect, poor eye contact. Vital Signs: Vital Signs - 24 hr 08/11/25 02:17 08/11/25 04:25 08/11/25 05:04 Temperature 98.3 F 99.1 F Pulse Rate 104 H 94 98 Respiratory Rate 19 15 20 Blood Pressure 133/84 123/76 132/86 Pulse Oximetry 95 95 Oxygen Delivery Method Room Air Room Air BMI result Body Mass Index 33.5 Medical Decision Making Medical Decision Making MDM Narrative: Patient presents with request for alcohol detox. Differential diagnosis includes alcohol intoxication, alcohol withdrawal, substance use disorder, decompensated mental illness including depression and anxiety, among many others. We will initiate medical clearance and recovery team/care team consult. Given patient's multiple bruises, performed several imaging studies to evaluate for acute traumatic injury. All of which are negative. He does not have anterior chest wall tenderness to palpation or evidence of trauma therefore I believe that the ?sternal fracture? is likely segmentation. Very low suspicion for sternal fracture at this time. The patient received the phenobarbital protocol for alcohol use disorder. He is high risk for decompensation given his extensive alcohol history and history of alcohol withdrawal seizure. Plan for admission for further care and evaluation. Patient understands and agrees with plan. Differential Diagnosis Differential Diagnoses: The differential diagnosis associated with the presentation includes (As above) Admission/Observation Consideration of admission/observation: Escalation of care including admission/observation considered Consult Healthcare Provider Management of the patient was discussed with: Hospitalist Lab Data MDM Lab Attestation statement: I reviewed the patient's lab results. 08/11/25 03:05 08/11/25 03:05 Labs: Lab Results 08/11/25 Range/Units 03:05 WBC 2.8 L (4.8-10.8) X10*3/uL RBC 3.81 L (4.60-5.80) X10*6/uL Hgb 12.6 L (14.0-18.0) g/dl Hct 35.5 L (42.0-52.0) % MCV 93.2 (80.0-98.0) fL MCH 33.1 H (27.0-33.0) pg MCHC 35.5 (31.0-36.0) g/dl RDW 12.9 (11.0-16.0) % Plt Count 174 D (160-400) X10*3/uL MPV 8.6 L (9.4-12.4) fL Immature Gran % (Auto) 0.4 (0.0-0.4) % Neut % (Auto) 44.4 L (45-73) % Lymph % (Auto) 41.0 H (20-40) % [place] % (Auto) 12.4 H (2-11) % Eos % (Auto) 1.1 (0-4) % Baso % (Auto) 0.7 (0-2) % Lymph # (Auto) 1.2 (1.2-4.9) X10*3/uL [place] # (Auto) 0.4 (0.1-1.2) X10*3/uL Eos # (Auto) 0.0 (0.0-0.4) X10*3/uL Baso # (Auto) 0.0 (0.0-0.2) X10*3/uL Abs Immat Gran (auto) 0.01 (0.00-0.03) X10*3/uL Absolute Neuts (auto) 1.3 L (2.0-8.3) x10*3/uL Absolute Nucleated RBC 0.000 (0.0-0.012) X10*3/uL Nucleated RBC % (auto) 0.0 (0.0-0.2) /100WBC Sodium 148 H (135-145) mmol/L Potassium 3.4 (3.3-5.1) mmol/L Chloride 109 H (96-108) mmol/L Carbon Dioxide 24 (22-29) mmol/L Anion Gap 18 (12-20) BUN 8 L (9-16) mg/dL Creatinine 0.66 (0.5-1.4) mg/dL Estim Creat Clear Calc 184.9 Estimated GFR > 60 Random Glucose 96 (60-115) mg/dL Calcium 8.3 L (8.4-10.2) mg/dL Magnesium 1.7 (1.6-2.6) mg/dL Total Bilirubin 0.3 (0.0-1.0) mg/dL AST 58 H (5-37) U/L ALT 62 H (0-40) U/L Alkaline Phosphatase 77 (39-117) U/L Total Protein 6.8 (6.5-8.0) g/dL Albumin 4.0 (3.5-5.0) g/dL Ethyl Alcohol 422 H* mg/dL Independent Interpretation I performed an independent interpretation of an: CT Scan Radiology Impression Discussion of test interpretation with radiology: I have reviewed the radiologist's reading. Independent Historian Clinical information obtained from an independent historian. History obtained from or confirmed by: EMS External Record Review External record reviewed: Inpatient record Chronic Conditions Patient?s care impacted by: Other (Alcohol use disorder) Social Determinants Patient?s care significantly limited by Social Determinants of Health including: Problems related to primary support group and Other Social Determinant of Health Medications Administered Discontinued Medications Generic Name Dose Route Start Last Admin Trade Name Freq PRN Reason Stop Dose Admin Famotidine 20 mg 08/11/25 04:01 08/11/25 04:23 Famotidine/Pf 20 Mg/2 Ml Vial IVPUSH 08/11/25 04:02 20 mg ONCE ONE Administration Iohexol 85 ml 08/11/25 04:49 08/11/25 04:50 Iohexol 350 Mg/Ml 100 Ml Infus..Btl IV 08/11/25 04:50 85 ml ONCE ONE Administration Ondansetron HCl 4 mg 08/11/25 04:01 08/11/25 04:23 Ondansetron Hcl 4 Mg/2 Ml Vial IVPUSH 08/11/25 04:02 4 mg ONCE ONE Administration Phenobarbital Sodium 438 mg 08/11/25 04:30 08/11/25 05:05 Phenobarbital Sodium 130 Mg/Ml Im Once IM 08/11/25 04:31 438 mg ONCE ONE Administration Protocol Critical Care Time Critical Care Time Critical Care Time: Yes Total Critical Care Time: 35 Attestation: CRITICAL CARE TIME: 35 minutes of critical care time was spent in direct patient care at the bedside or in the immediate area with this patient. Critical care was necessary to treat or prevent imminent or life-threatening deterioration of the following conditions alcohol withdrawal, on the phenobarb protocol due to severe alcohol use disorder. This patient is high risk for decompensation and/or . This time was spent assessing and managing the patient, interpreting labs and imaging, coordinating care with other medical providers, gathering history from either the patient, their representatives, EMS or chart review, and discussing management with admitting team. Discharge Plan Discharge Clinical Impression: Alcohol use disorder, severe, dependence, Alcoholic intoxication, Alcoholic cirrhosis of liver Patient Disposition: Admitted As Inpatient Print Language: Bulgarian
--- NOTE | 2025-08-11 06:48 | P.HPHOSP_ITS ---
History of Present Illness Date of Service: 08/11/25 Attending physician on admission: Kendrick Gil Chief Complaint: etoh detox Patient is a 39-year-old male with a past medical history significant for alcohol abuse, history alcohol withdrawal seizure, gout, mood disorder and class 1 obesity, who presented to the ED wanting to detox from alcohol. The patient reports that he has been drinking 25-30 nips per day, last month he was drinking less. Currently he has a headache, nausea and reports auditory hallucinations with previous withdrawals. He is not currently having auditory hallucination but reports that if he stays awake he does not experience them. His last drink was prior to arrival. He denies SI or HI. He reports multiple recent falls due to alcohol use, CT scan in the ED showed a possible sternal fracture, the patient does report midsternal chest pain, no shortness of breath. He is unsure which followed up causes injury but reports that he is not surprised that he has a fracture. Review of Systems 2 Constitutional: Constitutional: Denies body ache(s), Denies chills, Denies fatigue, Denies fever(s) and Reports headache(s) Eyes: Eyes: Denies change in vision ENT: Reports headache(s), Denies nasal congestion and Denies sore throat Cardiovascular: Cardiovascular: Denies chest pain, Denies rapid heart rate, Denies leg edema, Denies lightheadedness and Denies dyspnea Respiratory: Respiratory: Denies chest congestion, Denies cough, Denies dyspnea and Denies wheezing Gastrointestinal: Gastrointestinal: Denies abdominal pain, Reports nausea and Denies vomiting Genitourinary: Genitourinary: Denies dysuria Musculoskeletal: Musculoskeletal: Reports as per HPI Integumentary/Breasts: Skin/Breast: Denies rash Neurologic: Denies confusion and Reports headache(s) Psychiatric: Psychiatric: Denies confusion Endocrine: Endocrine: Denies fatigue Hematologic/Lymphatic: Hematologic/Lymphatic: Denies easy bleeding and Denies easy bruising Allergic/Immunologic: Allergic/Immunologic: Denies wheezing [facility] Medical History (Updated 08/11/25 @ 06:53 by Pema Hoff PA-C) Exacerbation of gout Alcohol abuse Anxiety Functional capacity: independent ambulation Social History Household Members: Other Alcohol intake: current Alcohol intake frequency: 0-2 drinks per day Alcohol type: hard liquor Patient Tobacco Use Status: Never used Tobacco Smoked in Last 30 Days: No Use of substances other than those prescribed or required for medical reasons: No Advance Directives: No Advance Directives Information Provided: Yes Do you have a plan to hurt others: No Plan service: Yes Narrative: no smoking or drug use Meds Allergies Allergy/AdvReac Type Severity Reaction Status Date / Time azithromycin (AZITHROMYCIN) Allergy Unknown Unknown Verified 08/11/25 02:19 Active Medications: Current Medications Acetaminophen (Acetaminophen 325 Mg Tablet) 650 mg PO Q6H PRN PRN Reason: Pain, Mild 1-3,fever,headache Calcium Carbonate (Calcium Carbonate 750 Mg Tab.Chew) 750 mg PO Q4H PRN PRN Reason: Heartburn Enoxaparin Sodium (Enoxaparin Sodium 40 Mg/0.4 Ml Syringe) 40 mg SUBCUT Q24H THOMAS Folic Acid (Folic Acid 1 Mg Tablet) 1 mg PO DAILY THOMAS Stop: 08/14/25 08:59 Magnesium Hydroxide (Milk Of Magnesia 30 Ml Oral.Susp) 30 ml PO DAILY PRN PRN Reason: Constipation Melatonin (Melatonin 3 Mg Tablet) 6 mg PO BEDTIME PRN PRN Reason: Insomnia Multivitamins/Vitamin C (Multivitamin Tablet) 1 tab PO DAILY THOMAS Stop: 08/14/25 08:59 Ondansetron HCl (Ondansetron Hcl 4 Mg/2 Ml Vial) 4 mg IVPUSH Q8H PRN PRN Reason: Nausea and Vomiting Oxycodone HCl (Oxycodone Hcl Immed Release 5 Mg Tablet) 5 mg PO Q6H PRN PRN Reason: Pain, Severe (Pain Scale 7-10) Pharmacy Consult (Consult Rx Etoh Phenob Im/Po) 1 each MISCELLANE ONCE PRN; Protocol PRN Reason: Consult order Phenobarbital (Phenobarbital 15 Mg Tablet) 45 mg PO BID THOMAS; Protocol Stop: 08/13/25 21:01 Phenobarbital (Phenobarbital 15 Mg Tablet) 15 mg PO BID THOMAS; Protocol Stop: 08/15/25 21:01 Phenobarbital (Phenobarbital 15 Mg Tablet) 15 mg PO DAILY THOMAS; Protocol Stop: 08/17/25 09:01 Phenobarbital Sodium (Phenobarbital Sodium 130 Mg/Ml Vial Im Q3hx2) 328.5 mg IM Q3H THOMAS; Protocol Stop: 08/11/25 10:31 Sodium Chloride (0.9 % Sodium Chloride Flush 3 Ml Syringe) 3 ml IVFLUSH QSHIFT THOMAS Thiamine HCl (Thiamine Hcl 100 Mg Tablet) 100 mg PO DAILY THOMAS Stop: 08/14/25 08:59 Tramadol HCl (Tramadol Hcl 50 Mg Tablet) 50 mg PO Q6H PRN PRN Reason: Pain, Moderate(Pain Scale 4-6) Home Medications ?Medication ?Instructions ?Recorded ?Confirmed ?Last Taken ?Type folic acid 1 mg tablet 1 mg PO DAILY 07/31/2507/31 Unknown History melatonin 3 mg tablet 9 mg PO BEDTIME PRN Sleep 07/31/25 Unknown History thiamine HCl (vitamin B1) 100 mg 100 mg PO DAILY 07/3107/31/25 Unknown History tablet Physical Exam 2 Vital Signs and Narrative: Vital Signs: Last Vital Signs Temp 99.1 F 08/11/25 04:25 Pulse 98 08/11/25 05:04 Resp 20 08/11/25 05:04 BP 132/86 08/11/25 05:04 Pulse Ox 95 08/11/25 04:25 O2 Del Method Room Air 08/11/25 04:25 BMI result Body Mass Index 33.5 General: AOx3, no acute distress, abrasion on L facial cheek Resp: CTA bilaterally CVS: S1, S2, RRR GI: +BS, NT, no distention Skin: Warm, dry Neuro: Cranial nerves II-XII grossly intact bilaterally. Motor grossly intact bilaterally Extremities: No pitting edema. pain L ankle from previous surgery Psych: Appropriate affect Const: General: No confusion Orientation/consciousness: No confusion Neuro: General: No confusion Results Labs 08/11/25 03:05 08/11/25 03:05 Labs: Laboratory Results - last 24 hr 08/11/25 03:05 MCV 93.2 MCH 33.1 H MCHC 35.5 RDW 12.9 Plt Count 174 D MPV 8.6 L Immature Gran % (Auto) 0.4 Neut % (Auto) 44.4 L Lymph % (Auto) 41.0 H [place] % (Auto) 12.4 H Eos % (Auto) 1.1 Baso % (Auto) 0.7 Lymph # (Auto) 1.2 [place] # (Auto) 0.4 Eos # (Auto) 0.0 Baso # (Auto) 0.0 Abs Immat Gran (auto) 0.01 Absolute Neuts (auto) 1.3 L Absolute Nucleated RBC 0.000 Nucleated RBC % (auto) 0.0 Anion Gap 18 Estim Creat Clear Calc 184.9 Estimated GFR > 60 Random Glucose 96 Calcium 8.3 L Magnesium 1.7 Total Bilirubin 0.3 AST 58 H ALT 62 H Alkaline Phosphatase 77 Total Protein 6.8 Albumin 4.0 Ethyl Alcohol 422 H* Assessment and Plan (1) Alcohol withdrawal syndrome: Qualifiers: Complication of substance-induced condition: with unspecified complication Qualified Code(s): F10.939 - Alcohol use, unspecified with withdrawal, unspecified Status: Acute (2) Alcohol use disorder, severe, dependence: Status: Acute (3) Alcoholic intoxication: Status: Acute (4) Sternal fracture: Status: Acute (5) Class 1 obesity: Status: Acute Plan Patient is a 39-year-old male with a past medical history significant for alcohol abuse, history alcohol withdrawal seizure, gout, mood disorder and class 1 obesity, who presented to the ED wanting to detox from alcohol. etoh withdrawal, etoh intoxication - CIWA - phenobarb - seizure precautions - thiamine, multivitamin, folic acid - addiction med consult sternal fx, stable, no hypoxia - pain management PRN class 1 obesity - weight loss encouraged med rec pending full code VTE prophy: lovenox Pt with etoh withdrawal requiring admission for at least 2 midnights stay for medication withdrawal and monitoring. Quality Stroke Does the patient have a stroke diagnosis?: No VTE Prior VTE?: No VTE Risk Level:: Medical - moderate - high VTE Device Contraindication: Treatment Not Indicated VTE Drug Contraindication: N/A - Med Ordered
[2025-08-11] MEDS: oxyCODONE HCl Immed Release 5 MG TABLET PO ×3 (07:25→22:03)
[2025-08-11] MEDS: PHENobarbitaL sodium 130 MG/ML VIAL IM Q3Hx2 328.5 MG IM ×2 (08:18→11:06)
[2025-08-11] MEDS: 0.9 % Sodium Chloride Flush 3 ML SYRINGE IVFLUSH ×2 (08:19→15:34)
[2025-08-11 10:18] LABS: Anion Gap 20 (12-20); Blood Urea Nitrogen 5 mg/dL (9-16); Calcium 8.2 mg/dL (8.4-10.2); Carbon Dioxide 24 mmol/L (22-29); Chloride 107 mmol/L (96-108); Creatinine Clr Calc Pharmacy 184.9; Estimated Glomerular Filt Rate > 60; Potassium 3.5 mmol/L (3.3-5.1); Sodium 147 mmol/L (135-145)
--- NOTE | 2025-08-11 10:47 | MHC.CM.PN ---
CM met with Patient at bedside, in the ED.Patient is staying at a [facility] and he hopes to return there at dc. CM has initiated and will follow for dc planning. PCP is Dr. Ulloa, from [facility] in [place](he has not had his firt appointment yet). Patient's Mother/Dafne is the HCP and Patient may require assist with transport at dc.
--- NOTE | 2025-08-11 11:18 | PHA.MEDREC ---
Addendum entered by Leonidas Godinez RPh 08/11/25 12:12: MED REC REVIEWED BY [facility]. Dr. Cantor was made aware that pt insisted he is still taking doxepin, prazosin and gabapentin even though pharmacy claims don't support that. Original Note: Pharmacy Consult ? Medication Reconciliation Pharmacy has completed the medication reconciliation. Spoke to patient to confirm med list. Patient insists he is till taking Doxipen 20 mg, Prazosin 3 mg, and [facility] Patient hasn't filled these medications since 04/20/25 for 30 days.
--- NOTE | 2025-08-11 16:41 | PM.EVENT ---
Event Note Date of Service: 08/11/25 Event Note: Patient seen and examined by hospitalist team this morning, seen and examined again. Patient says had withdrawal symptoms are somewhat improving, CIWA still around 8 Physical exam and assessment plan as per H and P note. Alcohol withdrawal: Monitor CIWA scale, continue phenobarb protocol EKG and tele seems fine-we will DC tele Blood pressure fluctuating added clonidine, has still anxious and tremulous, added an additional dose of phenobarb. Time Spent With Patient Time: Total time managing care of this patient today ____ minutes.
[2025-08-12] VITALS (7 sets, daily range): BP systolic 113–141; BP diastolic 67–91; PULSE 65–88; RESP 16–19; TEMP 36.2–37.1; O2SAT 95–99; BMI 32.5
[2025-08-12 00:59] LABS: Cannabinoid Screen Urine Not Detected (Not Detect)
--- NOTE | 2025-08-12 03:27 | HO.NURTONUR ---
Chief Complaint: etoh detox Patient is a 39 yr old, male, full code, Allergies to azithromycin, regluar diet, with a PMHx significant for alcohol abuse, history alcohol withdrawal seizure, gout, mood disorder and class 1 obesity, who presented to the ED wanting to detox from alcohol. The patient reports that he has been drinking 25-30 nips per day, last month he was drinking less. Currently he has a headache, nausea and reports auditory hallucinations with previous withdrawals. He is not currently having auditory hallucination but reports that if he stays awake he does not experience them. His last drink was prior to arrival. He denies SI or HI. He reports multiple recent falls due to alcohol use, CT scan in the ED showed a possible sternal fracture, the patient does report midsternal chest pain, no shortness of breath. He is unsure which followed up causes injury but reports that he is not surprised that he has a fracture. Plan - CIWA - phenobarb - seizure precautions - thiamine, multivitamin, folic acid - addiction med consult - pain management PRN Pt with etoh withdrawal requiring admission for at least 2 midnights stay for medication withdrawal and monitoring. he has a 20g IV to the left upper arm
[2025-08-12] MEDS: oxyCODONE HCl Immed Release 5 MG TABLET PO ×3 (04:45→17:36)
[2025-08-12 08:32] LABS: Hematocrit 32.6 % (42.0-52.0); Hemoglobin 11.6 g/dl (14.0-18.0); Mean Corpuscular HGB Conc 35.6 g/dl (31.0-36.0); Mean Corpuscular Hemoglobin 33.2 pg (27.0-33.0); Mean Corpuscular Volume 93.4 fL (80.0-98.0); NRBC Abs Auto 0.000 X10*3/uL (0.0-0.012); NRBC Pct Auto 0.0 /100WBC (0.0-0.2); Platelet Count 147 X10*3/uL (160-400); Red Blood Count 3.49 X10*6/uL (4.60-5.80); White Blood Count 2.6 X10*3/uL (4.8-10.8)
[2025-08-12] MEDS: 0.9 % Sodium Chloride Flush 3 ML SYRINGE IVFLUSH ×3 (08:36→20:46)
[2025-08-12 09:02] LABS: Anion Gap 12 (12-20); Blood Urea Nitrogen 6 mg/dL (9-16); Calcium 8.3 mg/dL (8.4-10.2); Carbon Dioxide 26 mmol/L (22-29); Chloride 104 mmol/L (96-108); Creatinine Clr Calc Pharmacy 204.0; Estimated Glomerular Filt Rate > 60; Magnesium 1.4 mg/dL (1.6-2.6); Potassium 3.4 mmol/L (3.3-5.1); Sodium 139 mmol/L (135-145)
--- NOTE | 2025-08-12 10:01 | HO.ADDICTCON ---
History of Present Illness Date of Service: 08/12/2025 Chief Complaint: ETOH withdrawal Reason for Consult: AUD and withdrawal Sources of Information: patient interviewed and chart reviewed HPI Narrative: Patient is a 39 year old male with AUD, liver cirrhosis and MDD, who presented to [facility] ED reporting recurrence of alcohol use and reportig withdrawal. Medically admitted and phenobarbital protocol initiated. Patient known to this manual writer via recent admission for acute alcohol withdrawal. Patient seen in room 486. He is laying in bed, light and TV. Reporting he does not feel well--headache, hot and cold, anxious. No appetite. Mild tremor noted during eval. VS WNL. No diaphoresis or restlessness noted. He reports he has been drinking 20+ nips daily Seen by digitizer on 08/11 and patient expressed interest in starting naltrexone for AUD before discharge Chart review shoes he received extra dose of pheno for withdrawal sx. with positive effect. Labs reviewed-Mg 1.4 today (repleted) Etoh level 422 in ED Medical Evaluation Reviewed: Yes Review of Systems Constitutional: Reports as per HPI Diagnostics Vital Signs (24Hr): Vital Signs - 24 hr 08/11/25 12:00 08/11/25 14:38 08/11/25 18:00 Temperature 98.3 F Pulse Rate 80 93 88 Respiratory Rate 18 18 16 Blood Pressure 119/72 131/97 H 124/84 Pulse Oximetry 94 93 95 Oxygen Delivery Method Room Air Room Air 08/11/25 19:50 08/11/25 21:56 08/11/25 22:01 Temperature 98.3 F Pulse Rate 85 74 Respiratory Rate 12 18 Blood Pressure 126/84 134/75 139/92 H Pulse Oximetry 97 98 Oxygen Delivery Method Room Air Room Air 08/11/25 22:03 08/11/25 22:18 08/11/25 23:05 Temperature 97.8 F Pulse Rate 71 80 Respiratory Rate 14 16 Blood Pressure 139/92 H 124/79 Pulse Oximetry 97 Oxygen Delivery Method Room Air 08/12/25 00:00 08/12/25 06:07 08/12/25 07:25 Temperature 97.7 F 97.3 F Pulse Rate 88 79 88 Respiratory Rate 18 18 19 Blood Pressure 118/85 141/91 H 117/67 Pulse Oximetry 95 95 97 Oxygen Delivery Method Room Air Room Air Room Air BMI result Body Mass Index 32.5 Labs 08/12/25 08:08 08/12/25 08:08 Labs: Laboratory Results - last 48 hr 08/11/25 08/11/25 08/12/25 03:05 09:50 00:42 WBC 2.8 L RBC 3.81 L Hgb 12.6 L Hct 35.5 L MCV 93.2 MCH 33.1 H MCHC 35.5 RDW 12.9 Plt Count 174 D MPV 8.6 L Immature Gran % (Auto) 0.4 Neut % (Auto) 44.4 L Lymph % (Auto) 41.0 H Garvin % (Auto) 12.4 H Eos % (Auto) 1.1 Baso % (Auto) 0.7 Lymph # (Auto) 1.2 Garvin # (Auto) 0.4 Eos # (Auto) 0.0 Baso # (Auto) 0.0 Abs Immat Gran (auto) 0.01 Absolute Neuts (auto) 1.3 L Absolute Nucleated RBC 0.000 Nucleated RBC % (auto) 0.0 Sodium 148 H 147 H Potassium 3.4 3.5 Chloride 109 H 107 Carbon Dioxide 24 24 Anion Gap 18 20 BUN 8 L 5 L Creatinine 0.66 0.66 Estim Creat Clear Calc 184.9 184.9 Estimated GFR > 60 > 60 Random Glucose 96 95 Calcium 8.3 L 8.2 L Magnesium 1.7 Total Bilirubin 0.3 AST 58 H ALT 62 H Alkaline Phosphatase 77 Total Protein 6.8 Albumin 4.0 Urine Opiates Screen Not Detected Ur Buprenorphine Scrn Not Detected Ur Oxycodone Screen Positive H Urine Methadone Screen Not Detected Urine Fentanyl Screen Not Detected Ur Barbiturates Screen POSITIVE H Ur Phencyclidine Scrn Not Detected Ur Amphetamines Screen Not Detected U Benzodiazepines Scrn Not Detected Urine Cocaine Screen Not Detected U Marijuana (THC) Screen Not Detected Ethyl Alcohol 422 H* 08/12/25 08:08 WBC 2.6 L RBC 3.49 L Hgb 11.6 L Hct 32.6 L MCV 93.4 MCH 33.2 H MCHC 35.6 RDW 12.6 Plt Count 147 L MPV 9.0 L Immature Gran % (Auto) Neut % (Auto) Lymph % (Auto) Garvin % (Auto) Eos % (Auto) Baso % (Auto) Lymph # (Auto) Garvin # (Auto) Eos # (Auto) Baso # (Auto) Abs Immat Gran (auto) Absolute Neuts (auto) Absolute Nucleated RBC 0.000 Nucleated RBC % (auto) 0.0 Sodium 139 Potassium 3.4 Chloride 104 Carbon Dioxide 26 Anion Gap 12 BUN 6 L Creatinine 0.59 Estim Creat Clear Calc 204.0 Estimated GFR > 60 Random Glucose 97 Calcium 8.3 L Magnesium 1.4 L* Total Bilirubin AST ALT Alkaline Phosphatase Total Protein Albumin Urine Opiates Screen Ur Buprenorphine Scrn Ur Oxycodone Screen Urine Methadone Screen Urine Fentanyl Screen Ur Barbiturates Screen Ur Phencyclidine Scrn Ur Amphetamines Screen U Benzodiazepines Scrn Urine Cocaine Screen U Marijuana (THC) Screen Ethyl Alcohol Mental Status Exam Mental Status Exam Level of Consciousness: Awake, Appropriate and Alert Patient Behavior: Appropriate Affect Description: Flat Speech Pattern: Clear Thought Process: Intact Thought Content: positive for Intact Judgement: Good Medications Medications Current Medications Acetaminophen (Acetaminophen 325 Mg Tablet) 650 mg PO Q6H PRN PRN Reason: Pain, Mild 1-3,fever,headache Calcium Carbonate (Calcium Carbonate 750 Mg Tab.Chew) 750 mg PO Q4H PRN PRN Reason: Heartburn Clonidine HCl (Clonidine Hcl 0.1 Mg Tablet) 0.1 mg PO BID [facility]; Protocol Last Admin: 08/12/25 08:36 Dose: 0.1 mg Doxepin HCl (Doxepin Hcl 10 Mg Capsule) 20 mg PO BEDTIME [facility] Last Admin: 08/11/25 22:01 Dose: 20 mg Enoxaparin Sodium (Enoxaparin Sodium 40 Mg/0.4 Ml Syringe) 40 mg SUBCUT Q24H [facility] Last Admin: 08/12/25 05:54 Dose: 40 mg Folic Acid (Folic Acid 1 Mg Tablet) 1 mg PO DAILY [facility] Stop: 08/14/25 08:59 Last Admin: 08/12/25 08:37 Dose: 1 mg Gabapentin (Gabapentin 400 Mg Capsule) 800 mg PO TID [facility] Last Admin: 08/12/25 08:36 Dose: 800 mg Magnesium Sulfate (Magnesium Sulfate/H2o) 2 gm in 50 mls @ 25 mls/hr IV ONCE ONE Stop: 08/12/25 11:18 Magnesium Hydroxide (Milk Of Magnesia 30 Ml Oral.Susp) 30 ml PO DAILY PRN PRN Reason: Constipation Melatonin (Melatonin 3 Mg Tablet) 6 mg PO BEDTIME PRN PRN Reason: Insomnia Melatonin (Melatonin 3 Mg Tablet) 9 mg PO BEDTIME PRN PRN Reason: Sleep Multivitamins/Vitamin C (Multivitamin Tablet) 1 tab PO DAILY [facility] Stop: 08/14/25 08:59 Last Admin: 08/12/25 08:36 Dose: 1 tab Omeprazole (Omeprazole 20 Mg Capsule.Dr) 20 mg PO DAILY@0630 [facility] Last Admin: 08/12/25 05:30 Dose: 20 mg Ondansetron HCl (Ondansetron Hcl 4 Mg/2 Ml Vial) 4 mg IVPUSH Q8H PRN PRN Reason: Nausea and Vomiting Last Admin: 08/12/25 05:30 Dose: 4 mg Oxycodone HCl (Oxycodone Hcl Immed Release 5 Mg Tablet) 5 mg PO Q6H PRN PRN Reason: Pain, Severe (Pain Scale 7-10) Last Admin: 08/12/25 04:45 Dose: 5 mg Pharmacy Consult (Consult Rx Etoh Phenob Im/Po) 1 each MISCELLANE ONCE PRN; Protocol PRN Reason: Consult order Phenobarbital (Phenobarbital 15 Mg Tablet) 45 mg PO BID [facility]; Protocol Stop: 08/13/25 21:01 Last Admin: 08/12/25 08:36 Dose: 45 mg Phenobarbital (Phenobarbital 15 Mg Tablet) 15 mg PO BID [facility]; Protocol Stop: 08/15/25 21:01 Phenobarbital (Phenobarbital 15 Mg Tablet) 15 mg PO DAILY [facility]; Protocol Stop: 08/17/25 09:01 Prazosin HCl (Prazosin Hcl 1 Mg Capsule) 3 mg PO BEDTIME [facility]; Protocol Last Admin: 08/11/25 22:01 Dose: 3 mg Sodium Chloride (0.9 % Sodium Chloride Flush 3 Ml Syringe) 3 ml IVFLUSH QSHIFT [facility] Last Admin: 08/12/25 08:36 Dose: 3 ml Thiamine HCl (Thiamine Hcl 100 Mg Tablet) 100 mg PO DAILY [facility] Stop: 08/14/25 08:59 Last Admin: 08/12/25 08:36 Dose: 100 mg Tramadol HCl (Tramadol Hcl 50 Mg Tablet) 50 mg PO Q6H PRN PRN Reason: Pain, Moderate(Pain Scale 4-6) Allergies Allergies Allergy/AdvReac Type Severity Reaction Status Date / Time azithromycin (AZITHROMYCIN) Allergy Unknown Unknown Verified 08/11/25 02:19 Assessment & Plan Assessment & Plan (1) Alcohol use disorder, severe, dependence: Status: Acute Code(s): F10.20 - Alcohol dependence, uncomplicated Assessment and Plan: phenobarbital taper in place and managing withdrawal sx appropriately. continue thiamine and folic acid naltrexone 25mg to start in AM for AUD will allow patient to rest today and follow up in AM -- digitizer to ensure patient connected to outpatient provider to continue MAREK Total time managing care of this patient today _30___ minutes. PMFSH Past Medical History Medical History Exacerbation of gout Alcohol abuse Anxiety Social History Social History Household Members: Other Housing: House Do you presently have visiting nurse or other home services: No Alcohol intake: current Alcohol intake frequency: 0-2 drinks per day Alcohol type: hard liquor Patient Tobacco Use Status: Never used Tobacco service: Yes
[2025-08-12] MEDS: Magnesium Sulfate/H2O 2 GM/50 ML PIGGYBACK IV (10:18)
--- NOTE | 2025-08-12 11:13 | P.PNIM_ITS ---
Subjective Subjective Date of Service: 08/12/25 Interval History: feeling withdrawal Physical Exam 2 Exam: Exam: General: AO X 3, ill appearing Resp: CTA bilateral, no accessory muscles used CVS: S1,S2,RRR GI: soft, non tender, non distended Neuro: motor grossly intact, alert, tremulous Psych: appropriate affect, appropriate insight Vital Signs: Vital Signs: Last Vital Signs Temp 97.3 F 08/12/25 07:25 Pulse 88 08/12/25 07:25 Resp 19 08/12/25 07:25 BP 117/67 08/12/25 07:25 Pulse Ox 97 08/12/25 07:25 O2 Del Method Room Air 08/12/25 07:25 BMI result Body Mass Index 32.5 Objective Data Active Medications Acetaminophen (Acetaminophen 325 Mg Tablet) 650 mg PO Q6H PRN PRN Reason: Pain, Mild 1-3,fever,headache Calcium Carbonate (Calcium Carbonate 750 Mg Tab.Chew) 750 mg PO Q4H PRN PRN Reason: Heartburn Clonidine HCl (Clonidine Hcl 0.1 Mg Tablet) 0.1 mg PO BID [facility]; Protocol Last Admin: 08/12/25 08:36 Dose: 0.1 mg Documented By: KINGSLEY Doxepin HCl (Doxepin Hcl 10 Mg Capsule) 20 mg PO BEDTIME [facility] Last Admin: 08/11/25 22:01 Dose: 20 mg Documented By: CINDY Enoxaparin Sodium (Enoxaparin Sodium 40 Mg/0.4 Ml Syringe) 40 mg SUBCUT Q24H [facility] Last Admin: 08/12/25 05:54 Dose: 40 mg Documented By: DEBBIE Folic Acid (Folic Acid 1 Mg Tablet) 1 mg PO DAILY [facility] Stop: 08/14/25 08:59 Last Admin: 08/12/25 08:37 Dose: 1 mg Documented By: KINGSLEY Gabapentin (Gabapentin 400 Mg Capsule) 800 mg PO TID [facility] Last Admin: 08/12/25 08:36 Dose: 800 mg Documented By: KINGSLEY Magnesium Sulfate (Magnesium Sulfate/H2o) 2 gm in 50 mls @ 25 mls/hr IV ONCE ONE Stop: 08/12/25 11:18 Last Admin: 08/12/25 10:18 Dose: 25 mls/hr Documented By: KINGSLEY Magnesium Hydroxide (Milk Of Magnesia 30 Ml Oral.Susp) 30 ml PO DAILY PRN PRN Reason: Constipation Melatonin (Melatonin 3 Mg Tablet) 6 mg PO BEDTIME PRN PRN Reason: Insomnia Melatonin (Melatonin 3 Mg Tablet) 9 mg PO BEDTIME PRN PRN Reason: Sleep Multivitamins/Vitamin C (Multivitamin Tablet) 1 tab PO DAILY [facility] Stop: 08/14/25 08:59 Last Admin: 08/12/25 08:36 Dose: 1 tab Documented By: KINGSLEY Omeprazole (Omeprazole 20 Mg Capsule.Dr) 20 mg PO DAILY@0630 [facility] Last Admin: 08/12/25 05:30 Dose: 20 mg Documented By: DEBBIE Ondansetron HCl (Ondansetron Hcl 4 Mg/2 Ml Vial) 4 mg IVPUSH Q8H PRN PRN Reason: Nausea and Vomiting Last Admin: 08/12/25 05:30 Dose: 4 mg Documented By: DEBBIE Oxycodone HCl (Oxycodone Hcl Immed Release 5 Mg Tablet) 5 mg PO Q6H PRN PRN Reason: Pain, Severe (Pain Scale 7-10) Last Admin: 08/12/25 04:45 Dose: 5 mg Documented By: CINDY Pharmacy Consult (Consult Rx Etoh Phenob Im/Po) 1 each MISCELLANE ONCE PRN; Protocol PRN Reason: Consult order Phenobarbital (Phenobarbital 15 Mg Tablet) 45 mg PO BID [facility]; Protocol Stop: 08/13/25 21:01 Last Admin: 08/12/25 08:36 Dose: 45 mg Documented By: KINGSLEY Phenobarbital (Phenobarbital 15 Mg Tablet) 15 mg PO BID [facility]; Protocol Stop: 08/15/25 21:01 Phenobarbital (Phenobarbital 15 Mg Tablet) 15 mg PO DAILY [facility]; Protocol Stop: 08/17/25 09:01 Prazosin HCl (Prazosin Hcl 1 Mg Capsule) 3 mg PO BEDTIME [facility]; Protocol Last Admin: 08/11/25 22:01 Dose: 3 mg Documented By: CINDY Sodium Chloride (0.9 % Sodium Chloride Flush 3 Ml Syringe) 3 ml IVFLUSH QSHIFT [facility] Last Admin: 08/12/25 08:36 Dose: 3 ml Documented By: KINGSLEY Thiamine HCl (Thiamine Hcl 100 Mg Tablet) 100 mg PO DAILY [facility] Stop: 08/14/25 08:59 Last Admin: 08/12/25 08:36 Dose: 100 mg Documented By: KINGSLEY Tramadol HCl (Tramadol Hcl 50 Mg Tablet) 50 mg PO Q6H PRN PRN Reason: Pain, Moderate(Pain Scale 4-6) Labs 08/12/25 08:08 08/12/25 08:08 Labs: Laboratory Results - last 24 hr 08/12/25 08/12/25 00:42 08:08 MCV 93.4 MCH 33.2 H MCHC 35.6 RDW 12.6 Plt Count 147 L MPV 9.0 L Absolute Nucleated RBC 0.000 Nucleated RBC % (auto) 0.0 Anion Gap 12 Estim Creat Clear Calc 204.0 Estimated GFR > 60 Random Glucose 97 Calcium 8.3 L Magnesium 1.4 L* Urine Opiates Screen Not Detected Ur Buprenorphine Scrn Not Detected Ur Oxycodone Screen Positive H Urine Methadone Screen Not Detected Urine Fentanyl Screen Not Detected Ur Barbiturates Screen POSITIVE H Ur Phencyclidine Scrn Not Detected Ur Amphetamines Screen Not Detected U Benzodiazepines Scrn Not Detected Urine Cocaine Screen Not Detected U Marijuana (THC) Screen Not Detected Assessment and Plan (1) Alcohol withdrawal syndrome: Status: Acute Plan 39M PMH alcohol dependence, gout, mood disorder presented requesting alcohol detox noted to be in withdrawal Alcohol dependence with acute withdrawal Continue phenobarb protocol, monitor CIWA, addiction eval appreciated Vitamin supplement Incidental finding of sternal fracture Symptomatic management Class 1 obesity Weight loss encouraged DVT prophylaxis with Lovenox Full code reason for continued hospitalization: Active withdrawal Quality Stroke Does the patient have a stroke diagnosis?: No VTE Prior VTE?: No VTE Risk Level:: Medical - moderate - high VTE Device Contraindication: Treatment Not Indicated VTE Drug Contraindication: N/A - Med Ordered
--- NOTE | 2025-08-12 13:04 | HO.WOUND ---
Wound Consult: Initial 39 yr old male admitted to [facility] on 08/11/25 - See progress notes and H&P for detailed history. Wound consult placed for left cheek. Patient agreeable to assessment and photo documentation. Patient with ETOH withdrawal. Patient asleep at time of assessment, did not provide history. Patient with Scab to left cheek, psoriasis lesions to left neck/ear area and scattered bruising. Recommend follow up outpatient with dermatology for further assessment of psoriasis and left cheek lesion. Left cheek Etiology: unclear etology- dry scab Wound Bed: dry yellow/brown scab Drainage / Odor: none Edges: ? [place] wound: ? No Induration, Fluctuance or Warmth noted Pain: none Goals of Treatment: ? open to air Recommendations: Recommend follow up outpatient with dermatology for further assessment of psoriasis and left cheek lesion. Re-consult wound care Nurse for wound deterioration or wound changes.
--- NOTE | 2025-08-12 13:47 | MHC.CM.PN ---
Pt not ready to DC, he requires continued care for ETOH withdrawal.
--- NOTE | 2025-08-12 16:14 | MHC.CM.PN ---
Pt. requested to speak to CM. 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 His DCP is to return to his transitional housing in [place] and use community services, AA meetings with the support of the recover job coaching. CM to follow and assist as needed with DCP.
[2025-08-13] VITALS (7 sets, daily range): BP systolic 103–132; BP diastolic 63–78; PULSE 61–83; RESP 18; TEMP 36.4–37.1; O2SAT 95–100
[2025-08-13] MEDS: oxyCODONE HCl Immed Release 5 MG TABLET PO (05:37)
[2025-08-13 07:06] LABS: Hematocrit 38.7 % (42.0-52.0); Hemoglobin 13.3 g/dl (14.0-18.0); Mean Corpuscular HGB Conc 34.4 g/dl (31.0-36.0); Mean Corpuscular Hemoglobin 33.0 pg (27.0-33.0); Mean Corpuscular Volume 96.0 fL (80.0-98.0); NRBC Abs Auto 0.000 X10*3/uL (0.0-0.012); NRBC Pct Auto 0.0 /100WBC (0.0-0.2); Platelet Count 153 X10*3/uL (160-400); Red Blood Count 4.03 X10*6/uL (4.60-5.80); White Blood Count 3.4 X10*3/uL (4.8-10.8)
[2025-08-13 07:47] LABS: Anion Gap 15 (12-20); Blood Urea Nitrogen 7 mg/dL (9-16); Calcium 8.7 mg/dL (8.4-10.2); Carbon Dioxide 22 mmol/L (22-29); Chloride 106 mmol/L (96-108); Creatinine Clr Calc Pharmacy 185.1; Estimated Glomerular Filt Rate > 60; Magnesium 2.0 mg/dL (1.6-2.6); Potassium 3.6 mmol/L (3.3-5.1); Sodium 139 mmol/L (135-145)
[2025-08-13] MEDS: 0.9 % Sodium Chloride Flush 3 ML SYRINGE IVFLUSH ×3 (08:04→22:16)
--- NOTE | 2025-08-13 11:17 | HO.PM.IMPN ---
Subjective Subjective Date of Service: 08/13/25 Interval History: still with withdrawal Physical Exam Exam: Exam: General: AO X 3, ill appearing Resp: CTA bilateral, no accessory muscles used CVS: S1,S2,RRR GI: soft, non tender, non distended Neuro: motor grossly intact, alert, tremulous Psych: appropriate affect, appropriate insight Vital Signs: Vital Signs: Last Vital Signs Temp 97.6 F 08/13/25 10:59 Pulse 65 08/13/25 10:59 Resp 18 08/13/25 10:59 BP 103/63 08/13/25 10:59 Pulse Ox 95 08/13/25 10:59 O2 Del Method Room Air 08/13/25 10:59 BMI result Body Mass Index 32.5 Objective Data Active Medications Acetaminophen (Acetaminophen 325 Mg Tablet) 650 mg PO Q6H PRN PRN Reason: Pain, Mild 1-3,fever,headache Last Admin: 08/13/25 08:03 Dose: 650 mg Documented By: CORNEL Calcium Carbonate (Calcium Carbonate 750 Mg Tab.Chew) 750 mg PO Q4H PRN PRN Reason: Heartburn Clonidine HCl (Clonidine Hcl 0.1 Mg Tablet) 0.1 mg PO BID [facility]; Protocol Last Admin: 08/13/25 08:04 Dose: 0.1 mg Documented By: CORNEL Doxepin HCl (Doxepin Hcl 10 Mg Capsule) 20 mg PO BEDTIME [facility] Last Admin: 08/12/25 20:45 Dose: 20 mg Documented By: GERMAN Enoxaparin Sodium (Enoxaparin Sodium 40 Mg/0.4 Ml Syringe) 40 mg SUBCUT Q24H [facility] Last Admin: 08/13/25 06:10 Dose: 40 mg Documented By: GERAMN Folic Acid (Folic Acid 1 Mg Tablet) 1 mg PO DAILY [facility] Stop: 08/14/25 08:59 Last Admin: 08/13/25 08:04 Dose: 1 mg Documented By: CORNEL Gabapentin (Gabapentin 400 Mg Capsule) 800 mg PO TID [facility] Last Admin: 08/13/25 08:03 Dose: 800 mg Documented By: CORNEL Hydrocortisone (Hydrocortisone 1 % Ointment 28.35 Gm Tube) 1 appl TOPICAL DAILY [facility]; Protocol Last Admin: 08/13/25 08:04 Dose: Not Given Documented By: CORNEL Non-Admin Reason: waiting for pharmacy to bring up Magnesium Hydroxide (Milk Of Magnesia 30 Ml Oral.Susp) 30 ml PO DAILY PRN PRN Reason: Constipation Melatonin (Melatonin 3 Mg Tablet) 6 mg PO BEDTIME PRN PRN Reason: Insomnia Melatonin (Melatonin 3 Mg Tablet) 9 mg PO BEDTIME PRN PRN Reason: Sleep Multivitamins/Vitamin C (Multivitamin Tablet) 1 tab PO DAILY [facility] Stop: 08/14/25 08:59 Last Admin: 08/13/25 08:03 Dose: 1 tab Documented By: CORNEL Omeprazole (Omeprazole 20 Mg Capsule.) 20 mg PO DAILY@0630 [facility] Last Admin: 08/13/25 05:36 Dose: 20 mg Documented By: GERMAN Ondansetron HCl (Ondansetron Hcl 4 Mg/2 Ml Vial) 4 mg IVPUSH Q8H PRN PRN Reason: Nausea and Vomiting Last Admin: 08/13/25 05:37 Dose: 4 mg Documented By: GERMAN Oxycodone HCl (Oxycodone Hcl Immed Release 5 Mg Tablet) 5 mg PO Q6H PRN PRN Reason: Pain, Severe (Pain Scale 7-10) Last Admin: 08/13/25 05:37 Dose: 5 mg Documented By: GERMAN Pharmacy Consult (Consult Rx Etoh Phenob Im/Po) 1 each MISCELLANE ONCE PRN; Protocol PRN Reason: Consult order Phenobarbital (Phenobarbital 15 Mg Tablet) 45 mg PO BID [facility]; Protocol Stop: 08/13/25 21:01 Last Admin: 08/13/25 08:04 Dose: 45 mg Documented By: CORNEL Phenobarbital (Phenobarbital 15 Mg Tablet) 15 mg PO BID [facility]; Protocol Stop: 08/15/25 21:01 Phenobarbital (Phenobarbital 15 Mg Tablet) 15 mg PO DAILY [facility]; Protocol Stop: 08/17/25 09:01 Prazosin HCl (Prazosin Hcl 1 Mg Capsule) 3 mg PO BEDTIME [facility]; Protocol Last Admin: 08/12/25 20:45 Dose: 3 mg Documented By: GERMAN Sodium Chloride (0.9 % Sodium Chloride Flush 3 Ml Syringe) 3 ml IVFLUSH QSHIFT [facility] Last Admin: 08/13/25 08:04 Dose: 3 ml Documented By: CRONEL Thiamine HCl (Thiamine Hcl 100 Mg Tablet) 100 mg PO DAILY [facility] Stop: 08/14/25 08:59 Last Admin: 08/13/25 08:04 Dose: 100 mg Documented By: CORNEL Tramadol HCl (Tramadol Hcl 50 Mg Tablet) 50 mg PO Q6H PRN PRN Reason: Pain, Moderate(Pain Scale 4-6) Last Admin: 08/12/25 20:46 Dose: 50 mg Documented By: GERMAN Labs 08/13/25 06:16 08/13/25 06:16 Labs: Laboratory Results - last 24 hr 08/13/25 06:16 MCV 96.0 MCH 33.0 MCHC 34.4 RDW 12.4 Plt Count 153 L MPV 9.6 Absolute Nucleated RBC 0.000 Nucleated RBC % (auto) 0.0 Anion Gap 15 Estim Creat Clear Calc 185.1 Estimated GFR > 60 Random Glucose 100 Calcium 8.7 Magnesium 2.0 Assessment and Plan (1) Alcohol withdrawal syndrome: Status: Acute Plan 39M PMH alcohol dependence, gout, mood disorder presented requesting alcohol detox noted to be in withdrawal Alcohol dependence with acute withdrawal Continue phenobarb protocol, monitor CIWA, addiction eval appreciated Vitamin supplement still withdrawing Incidental finding of sternal fracture Symptomatic management Class 1 obesity Weight loss encouraged DVT prophylaxis with Lovenox Full code reason for continued hospitalization: Active withdrawal Quality Stroke Does the patient have a stroke diagnosis?: No VTE Prior VTE?: No VTE Risk Level:: Medical - moderate - high VTE Device Contraindication: Treatment Not Indicated VTE Drug Contraindication: N/A - Med Ordered
[2025-08-14 03:23] VITALS: BP 101/58; PULSE 77; RESP 16; TEMP 36.1; O2SAT 96
--- NOTE | 2025-08-14 07:11 | P.CDIM_ITS ---
PROVIDER RESPONSE TEXT: To clarify, the appropriate diagnosis supported by the clinical indicators: Hypomagnesemia: acute QUERY TEXT: PHYSICIAN'S DOCUMENTATION REQUEST Date of Query: 08/12/2025 11:49 AM EDT Patient Name: Enoc Newell Admit Date: 08/11/2025 Dear Derek Alcazar MD, A review of the medical record indicates additional documentation may be needed. Please review below and update the documentation accordingly. Clinical Indicators: LABS: Magnesium 1.4 L IV Magnesium Sulfate Based on the above, is there a diagnosis that correlates with these findings? Hypomagnesemia resolved, possible, probable, etc. Labs indicate a diagnosis of (please specify) Other (explain) Clinically unable to determine (explain) Thank you, Daniella Stewart, CCS, CDIS Use of terms such as suspected, likely, concern for, or probable (associated with a specific diagnosis that is being evaluated, monitored, or treated as if it exists) are acceptable and can be coded in the inpatient setting, when documented at the time of discharge. Please use your independent medical judgment in providing your response. THIS QUERY IS PART OF THE PERMANENT MEDICAL RECORD
--- NOTE | 2025-08-14 07:11 | P.CDIM_ITS ---
PROVIDER RESPONSE TEXT: To clarify, the appropriate diagnosis supported by the clinical indicators: Hypernatremia: acute QUERY TEXT: PHYSICIAN'S DOCUMENTATION REQUEST Date of Query: 08/12/2025 11:46 AM EDT Patient Name: Enoc Newell Admit Date: 08/11/2025 Dear Derek Alcazar MD, A review of the medical record indicates additional documentation may be needed. Please review below and update the documentation accordingly. Clinical Indicators: LABS: Sodium 148 H 147 H 139 Fluids Based on the above, is there a diagnosis that correlates with these findings? Hypernatremia resolved, possible, probable Labs indicate a diagnosis of (please specify) Other (explain) Clinically unable to determine (explain) Thank you, Daniella Stewart, CCS, CDIS Use of terms such as suspected, likely, concern for, or probable (associated with a specific diagnosis that is being evaluated, monitored, or treated as if it exists) are acceptable and can be coded in the inpatient setting, when documented at the time of discharge. Please use your independent medical judgment in providing your response. THIS QUERY IS PART OF THE PERMANENT MEDICAL RECORD
[2025-08-14 07:38] VITALS: BP 116/62; PULSE 68; RESP 18; TEMP 36.3; O2SAT 99
[2025-08-14] MEDS: 0.9 % Sodium Chloride Flush 3 ML SYRINGE IVFLUSH (08:11)
[2025-08-14 08:46] LABS: Hematocrit 36.6 % (42.0-52.0); Hemoglobin 12.6 g/dl (14.0-18.0); Mean Corpuscular HGB Conc 34.4 g/dl (31.0-36.0); Mean Corpuscular Hemoglobin 32.9 pg (27.0-33.0); Mean Corpuscular Volume 95.6 fL (80.0-98.0); NRBC Abs Auto 0.000 X10*3/uL (0.0-0.012); NRBC Pct Auto 0.0 /100WBC (0.0-0.2); Platelet Count 159 X10*3/uL (160-400); Red Blood Count 3.83 X10*6/uL (4.60-5.80); White Blood Count 6.1 X10*3/uL (4.8-10.8)
[2025-08-14 08:59] LABS: Anion Gap 11 (12-20); Blood Urea Nitrogen 7 mg/dL (9-16); Calcium 9.1 mg/dL (8.4-10.2); Carbon Dioxide 26 mmol/L (22-29); Chloride 106 mmol/L (96-108); Creatinine Clr Calc Pharmacy 185.1; Estimated Glomerular Filt Rate > 60; Magnesium 1.9 mg/dL (1.6-2.6); Potassium 3.9 mmol/L (3.3-5.1); Sodium 139 mmol/L (135-145)
--- NOTE | 2025-08-14 11:55 | PM.DS ---
DS: Providers Provider Date of Service: 08/14/25 Date of admission: 08/11/25 06:30 Date of discharge: 08/14/25 Primary care physician: Elie Chaudhari MD Consults: 08/11/25 06:30 Addiction Medicine Provider Routine Consulting Provider: Addiction Covering Reason for consultation: Etoh 08/12/25 05:50 Consult to Wound Care Routine Reason for consultation: abrasion (L) cheek, scattered areas of psoriasis, scattered bruising 08/13/25 15:33 Consult to Comprehensive Care Routine Consulting Provider: [facility] DS: Diagnosis Discharge Diagnosis (1) Alcohol withdrawal syndrome: Status: Resolved DS: Summary Hospital Course Hospital Course: from initial hpi: 39-year-old male with a past medical history significant for alcohol abuse, history alcohol withdrawal seizure, gout, mood disorder and class 1 obesity, who presented to the ED wanting to detox from alcohol. The patient reports that he has been drinking 25-30 nips per day, last month he was drinking less. Currently he has a headache, nausea and reports auditory hallucinations with previous withdrawals. He is not currently having auditory hallucination but reports that if he stays awake he does not experience them. His last drink was prior to arrival. He denies SI or HI. He reports multiple recent falls due to alcohol use, CT scan in the ED showed a possible sternal fracture, the patient does report midsternal chest pain, no shortness of breath. He is unsure which followed up causes injury but reports that he is not surprised that he has a fracture. hospital course: Patient was admitted for alcohol dependence with acute withdrawal. Was treated with phenobarbital protocol and vitamin supplementation. Withdrawal symptoms improved. Was seen by addiction who prescribed naltrexone and recommended outpatient follow up. For incidental finding of sternal fracture was given symptomatic management. For class 1 obesity weight loss encouraged. Patient is feeling better and will be discharged home. Time Attestation Discharge Coordination Time (in mins): 32 Quality: Safe Use of Opioids Does Pt have an Active Cancer Diagnosis on the Problem List?: No Quality: Stroke Does the patient have a stroke diagnosis?: No Physical Exam Exam: Exam: General: AO X 3, no acute distress Resp: CTA bilateral, no accessory muscles used CVS: S1,S2,RRR GI: soft, non tender, non distended Neuro: motor grossly intact, alert Psych: appropriate affect, appropriate insight Vital Signs: Vital Signs: Last Vital Signs Temp 97.4 F 08/14/25 07:38 Pulse 68 08/14/25 07:38 Resp 18 08/14/25 07:38 BP 116/62 08/14/25 07:38 Pulse Ox 99 08/14/25 07:38 O2 Del Method Room Air 08/14/25 07:38 BMI result Body Mass Index 32.5 DS: Data Data Completed and Pending Labs on day of discharge: Laboratory Results - last 24 hr 08/14/25 08:25 WBC 6.1 RBC 3.83 L Hgb 12.6 L Hct 36.6 L MCV 95.6 MCH 32.9 MCHC 34.4 RDW 12.5 Plt Count 159 L MPV 9.5 Absolute Nucleated RBC 0.000 Nucleated RBC % (auto) 0.0 Sodium 139 Potassium 3.9 Chloride 106 Carbon Dioxide 26 Anion Gap 11 L BUN 7 L Creatinine 0.65 Estim Creat Clear Calc 185.1 Estimated GFR > 60 Random Glucose 95 Calcium 9.1 Magnesium 1.9 Discharge Plan Discharge Anticipated Discharge Date/Time: 08/14/25 11:54 Patient Disposition: Home, Self-Care Discharge Diagnosis: etoh with withdrawal Referrals: [facility] [Provider Group] - 08/20/25 1:15 pm Referral Note: This is an intake appt. Please bring photo ID and insurance card if available. If you can not keep your appt, please call the office to reschedule. Elie Chaudhari MD [Primary Care Provider, Internal Medicine] - 1 Week Discharge Medications: New naltrexone 50 mg tablet 50 mg PO DAILY Qty: 30 0RF Continued thiamine HCl (vitamin B1) 100 mg Tablet 100 mg PO DAILY melatonin 3 mg Tablet 9 mg PO BEDTIME PRN (Reason: Sleep) folic acid 1 mg tablet 1 mg PO DAILY omeprazole 20 mg Tablet,Delayed Release (Dr/Ec) 20 mg PO DAILY@0630 30 Days Qty: 30 0RF clonidine HCl 0.1 mg Tablet 0.1 mg PO BID prazosin 1 mg Capsule 3 mg PO BEDTIME doxepin 10 mg Capsule 20 mg PO BEDTIME gabapentin 400 mg Tablet 800 mg PO TID Discharge Orders: Discharge Order (Routine); Ordered 08/14/25 Ordered By: Derek Alcazar Diet: Advance to usual diet Activity on Discharge: As tolerated Stand Alone Forms: Patient Portal Discharge page Print Language: Senegalese Care Plan Goals: recovery Health Concerns: etoh Plan of Treatment: avoid etoh Assessment: see above
--- NOTE | 2025-08-14 13:55 | MHC.CM.PN ---
PATIENT IS MEDICALLY CLEARED FOR DISCHARGE HOME SELF-CARE.
== END 2025-08-14 13:00 | disposition home or self-care (01) | DRG 897 ==
LOC: HO.ED 06:19 → HO.EDOVER 06:32 → HO.IMC 19:11 → HO.EDOVER 19:17 → HO.IMC 08-12 03:22
PROVIDERS: Internal Medicine; Admitting Provider Physician Assistant; Emergency Provider Emergency Medicine; PCP Internal Medicine; Visit Provider Internal Medicine
DX: F10.239 Alcohol dependence with withdrawal, unspecified (principal); E87.0 Hyperosmolality and hypernatremia; S22.20XA Unspecified fracture of sternum, initial encounter for closed fracture; E83.42 Hypomagnesemia; E66.811 Obesity, class 1; R29.6 Repeated falls; W19.XXXA Unspecified fall, initial encounter; Z68.32 Body mass index [BMI] 32.0-32.9, adult; Z71.3 Dietary counseling and surveillance; Y90.8 Blood alcohol level of 240 mg/100 ml or more; F10.229 Alcohol dependence with intoxication, unspecified; Z79.899 Other long term (current) drug therapy
CPT/HCPCS: 36415; 70450; 71260; 72125; 73080; 73610; 74177; 80048; 80053; 80307; 83735; 85025; 85027; 93005; 99285; J1308; J1650; J1885; J2405; J2560; J3475; Q9967; S9485

== ENCOUNTER → 2025-08-11 03:59 | Outpatient (BNV) | payer OTHER, SELFPAY | PROVIDERS: Emergency Provider Emergency Medicine; Visit Provider Radiology Diagnostic Radiology | DX: Z04.3 Encounter for examination and observation following other accident (principal); F10.90 Alcohol use, unspecified, uncomplicated; K76.0 Fatty (change of) liver, not elsewhere classified; I25.10 Atherosclerotic heart disease of native coronary artery without angina pectoris; I67.2 Cerebral atherosclerosis; I67.82 Cerebral ischemia; M79.89 Other specified soft tissue disorders; W19.XXXA Unspecified fall, initial encounter | CPT/HCPCS: 70450; 71260; 72125; 73080; 73610; 74177 ==

== ENCOUNTER 2025-08-11 06:30 | Outpatient (BNV) | payer OTHER, SELFPAY | END 2025-08-11 10:25 | PROVIDERS: Admitting Provider Physician Assistant; Emergency Provider Emergency Medicine; Visit Provider Internal Medicine Cardiovascular Disease | DX: F10.939 Alcohol use, unspecified with withdrawal, unspecified (principal) | CPT/HCPCS: 93010 ==

== ENCOUNTER → 2025-08-11 06:30 | Outpatient (BNV) | payer OTHER, SELFPAY | PROVIDERS: Admitting Provider Physician Assistant; Emergency Provider Emergency Medicine; Visit Provider Internal Medicine | DX: F10.939 Alcohol use, unspecified with withdrawal, unspecified (principal); F10.20 Alcohol dependence, uncomplicated; F10.929 Alcohol use, unspecified with intoxication, unspecified; S22.20XA Unspecified fracture of sternum, initial encounter for closed fracture; E66.9 Obesity, unspecified | CPT/HCPCS: 99222; 99499 ==

== ENCOUNTER → 2025-08-11 06:30 | Outpatient (BNV) | payer OTHER, SELFPAY | PROVIDERS: Admitting Provider Physician Assistant; Emergency Provider Emergency Medicine; PCP Internal Medicine; Visit Provider Nurse Practitioner Psychiatric/Mental Health | DX: F10.20 Alcohol dependence, uncomplicated (principal) | CPT/HCPCS: 99221 ==

== ENCOUNTER 2025-08-19 22:58 | Emergency (ER) | payer OTHER, SELFPAY ==
--- NOTE | ~2025-08-19 | XR_ITS ---
CLINICAL HISTORY: pain 1 view abdomen Comparison: CT/REG/SR - CT ABDOMEN PELVIS W IV CON - 08/11/25 04:45 EDT Findings: No dilated loops of large or small bowel are identified. No indirect evidence for free air seen on this supine exam. No focal bony abnormality. IMPRESSION: No acute findings. This document has been electronically signed by: Christiano Clemente MD on 08/20/2025 01:42:32
[2025-08-19 23:33] VITALS: BP 135/94; PULSE 98; RESP 20; TEMP 36.8; O2SAT 96; BMI 33.7
[2025-08-20 00:07] LABS: Hematocrit 37.0 % (42.0-52.0); Hemoglobin 12.7 g/dl (14.0-18.0); Imm Gran Abs Auto 0.00 X10*3/uL (0.00-0.03); Imm Gran Pct Auto 0.0 % (0.0-0.4); Lymphocytes Absolute Auto 1.3 X10*3/uL (1.2-4.9); MANUAL DIFF FLAG SCAN; Mean Corpuscular HGB Conc 34.3 g/dl (31.0-36.0); Mean Corpuscular Hemoglobin 32.3 pg (27.0-33.0); Mean Corpuscular Volume 94.1 fL (80.0-98.0); NRBC Abs Auto 0.000 X10*3/uL (0.0-0.012); NRBC Pct Auto 0.0 /100WBC (0.0-0.2); Platelet Count 135 X10*3/uL (160-400); Red Blood Count 3.93 X10*6/uL (4.60-5.80); SCAN SMEAR FLAG 1
[2025-08-20 00:11] LABS: White Blood Count 2.5 X10*3/uL (4.8-10.8)
[2025-08-20 00:16] LABS: Appearance Urine Clear; Glucose Urine UA Negative (Negative); PH 6.5 (5.0-9.0); Specific Gravity - Urine 1.015 (1.005-1.025); UMIC TRIGGER UACC YES
[2025-08-20 00:20] LABS: Alanine Aminotransferase 33 U/L (0-40); Albumin Level 4.3 g/dL (3.5-5.0); Alkaline Phosphatase 84 U/L (39-117); Anion Gap 14 (12-20); Aspartate Amino Transferase 35 U/L (5-37); Blood Urea Nitrogen 11 mg/dL (9-16); Calcium 8.7 mg/dL (8.4-10.2); Carbon Dioxide 28 mmol/L (22-29); Chloride 111 mmol/L (96-108); Creatinine Clr Calc Pharmacy 200.8; Estimated Glomerular Filt Rate > 60; Potassium 3.7 mmol/L (3.3-5.1); Sodium 149 mmol/L (135-145); Total Protein 7.4 g/dL (6.5-8.0)
--- NOTE | 2025-08-20 00:46 | ED.GENADULT ---
HPI - General Adult General Chief complaint: ETOH/Substance Use Stated complaint: ETOH Time Seen by Provider: 08/20/25 00:18 Source: patient Limitations: no limitations History of Present Illness ED Provider: Haley Lord PA-C HPI narrative: 39-year-old male with a history of alcohol use disorder, with prior alcohol withdrawal with a seizure activity, cirrhosis, obesity, presents requesting detox. Patient states he drinks on a regular basis, consuming 30 nips of alcohol per day. His last drink was this morning. Patient states he develops abdominal discomfort when he develops withdrawal symptoms. Associated nausea vomiting headache. Patient is interested in detox. Related Data Home Medications ?Medication ?Instructions ?Recorded ?Confirmed folic acid 1 mg tablet 1 mg PO DAILY 07/31/25 08/11/25 melatonin 3 mg tablet 9 mg PO BEDTIME PRN Sleep 07/31/25 08/11/25 thiamine HCl (vitamin B1) 100 mg 100 mg PO DAILY 07/31/25 08/11/25 tablet clonidine HCl 0.1 mg tablet 0.1 mg PO BID 08/11/25 08/11/25 doxepin 10 mg capsule 20 mg PO BEDTIME 08/11/25 08/11/25 gabapentin 400 mg tablet 800 mg PO TID 08/11/25 08/11/25 prazosin 1 mg capsule 3 mg PO BEDTIME 08/11/25 08/11/25 Previous Rx's ?Medication ?Instructions ?Recorded omeprazole 20 mg tablet,delayed 20 mg PO DAILY@0630 30 days #30 08/06/25 release tabs naltrexone 50 mg tablet 50 mg PO DAILY #30 tabs 08/14/25 Allergies Allergy/AdvReac Type Severity Reaction Status Date / Time azithromycin (AZITHROMYCIN) Allergy Unknown Unknown Verified 08/19/25 23:44 Review of Systems Review of Systems: Yes all other systems are reviewed and are negative Constitutional: Constitutional: Denies fatigue, Denies fever(s) and Reports headache(s) ENT: Reports headache(s) Cardiovascular: Cardiovascular: Denies chest pain and Denies dyspnea Respiratory: Respiratory: Denies dyspnea Gastrointestinal: Gastrointestinal: Reports abdominal pain, Reports nausea and Reports vomiting Neurologic: Reports headache(s) Endocrine: Endocrine: Denies fatigue PMFSH Past Medical History Attestation statement: The following information was validated with the patient. Medical History (Updated 08/20/25 @ 03:46 by FABIANO Mercedes) Exacerbation of gout Alcohol abuse Anxiety Social History Social History Household Members: Other Housing: House Do you presently have visiting nurse or other home services: No Alcohol intake: current Alcohol intake frequency: 3 or more drinks per day Alcohol type: hard liquor Patient Tobacco Use Status: Never used Tobacco service: Yes Physical Exam ED Vital Signs: Vital Signs - 24 hr 08/19/25 23:33 08/20/25 04:29 08/20/25 11:34 Temperature 98.2 F 98.7 F 98.7 F Pulse Rate 98 88 74 Respiratory Rate 20 16 14 Blood Pressure 135/94 H 130/87 134/66 Pulse Oximetry 96 96 97 Oxygen Delivery Method Room Air Room Air Room Air 08/20/25 12:42 08/20/25 12:53 Temperature 97.8 F 97.8 F Pulse Rate 94 94 Respiratory Rate 16 16 Blood Pressure 156/82 H 156/82 H Pulse Oximetry 96 96 Oxygen Delivery Method Room Air Room Air BMI result Body Mass Index 33.7 Const Other: Awake, appears older than stated age Orientation/consciousness: patient oriented x3 Resp Effort & Inspection: normal respiratory effort Cardio Other: Normal peripheral perfusion Skin Other: Warm dry no rash Neuro Other: At times, as you approach the patient, he will develop a tremor, with distraction and conversation, the tremor stops, I do not believe that he is actually tremulous at this time General: patient oriented x3, gait normal, no focal motor deficits and CN's II-XI intact bilaterally Psych Other: Cooperative Course Reevaluation(s) Reevaluation #1: Time: 03:46 Date: 08/20/25 Provider: FABIANO Mercedes Patient in physician observation for psychiatric evaluation.? No acute events reported overnight. No current complaints. VS stable.? Patient is in bed search status/pending CARE team evaluation. Will continue to monitor. Reevaluation #2: Time: 07:04 Date: 08/20/25 Provider: John Alegre MD Patient in physician observation for psychiatric evaluation.? No acute events reported overnight. No current complaints. VS stable.? Patient is in bed search status/pending CARE team evaluation. Will continue to monitor. Reevaluation #3: Patient was seen in consultation by crisis, patient is cleared for discharge he does not want on detox this will end in the IOP status Dr. Alegre at 12:47 08/20/2025 Time: 12:48 Medications Administered Discontinued Medications Generic Name Dose Route Start Last Admin Trade Name Danica PRN Reason Stop Dose Admin Acetaminophen 975 mg 08/20/25 01:54 08/20/25 02:07 Acetaminophen 325 Mg Tablet PO 08/20/25 01:55 975 mg ONCE ONE Administration Diazepam 5 mg 08/20/25 00:51 08/20/25 01:03 Diazepam 10 Mg/2 Ml Cartridge IVPUSH 08/20/25 00:52 5 mg STAT STA Administration Diazepam 5 mg 08/20/25 02:56 08/20/25 03:03 Diazepam 10 Mg/2 Ml Cartridge IVPUSH 08/20/25 02:57 5 mg STAT STA Administration Hydroxyzine HCl 25 mg 08/20/25 03:55 08/20/25 04:07 Hydroxyzine Hcl 25 Mg Tablet PO 08/20/25 03:56 25 mg ONCE ONE Administration Sodium Chloride 1,000 mls @ 999 mls/hr 08/20/25 01:00 08/20/25 02:09 Ns IV 08/20/25 02:00 Infused .Q1H1M THOMAS Infusion Ketorolac Tromethamine 15 mg 08/20/25 01:54 08/20/25 02:07 Ketorolac Tromethamine 15 Mg/Ml Vial IVPUSH 08/20/25 01:55 15 mg ONCE ONE Administration Lorazepam 2 mg 08/20/25 03:56 08/20/25 04:07 Lorazepam 1 Mg Tablet PO 2 mg Q3H PRN Administration Alcohol Withdrawal Medical Decision Making Medical Decision Making MDM Narrative: 39-year-old male with a history of alcohol use disorder, with prior alcohol withdrawal with a seizure activity, cirrhosis, obesity, presents requesting detox. Patient states he drinks on a regular basis, consuming 30 nips of alcohol per day. His last drink was this morning. Patient states he develops abdominal discomfort when he develops withdrawal symptoms. Associated nausea vomiting headache. Patient is interested in detox. Problem: Alcohol use disorder History: Per patient I have considered the following differential diagnoses: Alcohol intoxication, alcohol withdrawal, secondary gain, malingering Plan: The patient states he is in active withdrawal, his exam and vital suggest otherwise. Screening labs and ethanol are in process. His abdominal exam is benign, adding a KUB, I do not feel he requires a CT scan. Giving IV Valium and normal saline until I can see what his ethanol level is. I spoke with the patient in regard to detox, and assistant men's soccer coach consult, the patient initially declined, he states he just wants to be admitted, but does not want to go to detox. I told the patient he is not manifesting objective symptoms of withdrawal, that we would continue to monitor him in the emergency department if you would like to speak to the assistant men's soccer coach to pursue detox, otherwise we will discharge him home. He is opting to stay to speak with the assistant men's soccer coach. We will continue to monitor his CIWA. I have independently reviewed the following tests: Labs: Stable pancytopenia, no electrolyte abnormality, ethanol 443, drug screen only positive for barbiturate Differential Diagnosis Differential Diagnoses: The differential diagnosis associated with the presentation includes See medical decision-making Admission/Observation Consideration of admission/observation: Escalation of care including admission/observation considered At this point not applicable, we will monitor for progression to active alcohol withdrawal Consult Healthcare Provider Management of the patient was discussed with: Behavioral Health Provider volleyball coach Lab Data [facility] Lab Attestation statement: I reviewed the patient's lab results. 08/19/25 23:56 08/19/25 23:56 Labs: Lab Results 08/19/25 08/19/25 Range/Units 23:56 23:57 WBC 2.5 L (4.8-10.8) X10*3/uL RBC 3.93 L (4.60-5.80) X10*6/uL Hgb 12.7 L (14.0-18.0) g/dl Hct 37.0 L (42.0-52.0) % MCV 94.1 (80.0-98.0) fL MCH 32.3 (27.0-33.0) pg MCHC 34.3 (31.0-36.0) g/dl RDW 13.0 (11.0-16.0) % Plt Count 135 L (160-400) X10*3/uL MPV 9.1 L (9.4-12.4) fL Immature Gran % (Auto) 0.0 (0.0-0.4) % Neut % (Auto) 34.5 L (45-73) % Lymph % (Auto) 50.8 H (20-40) % [place] % (Auto) 13.1 H (2-11) % Eos % (Auto) 1.2 (0-4) % Baso % (Auto) 0.4 (0-2) % Lymph # (Auto) 1.3 (1.2-4.9) X10*3/uL [place] # (Auto) 0.3 (0.1-1.2) X10*3/uL Eos # (Auto) 0.0 (0.0-0.4) X10*3/uL Baso # (Auto) 0.0 (0.0-0.2) X10*3/uL Abs Immat Gran (auto) 0.00 (0.00-0.03) X10*3/uL Absolute Neuts (auto) 0.9 L (2.0-8.3) x10*3/uL Absolute Nucleated RBC 0.000 (0.0-0.012) X10*3/uL Nucleated RBC % (auto) 0.0 (0.0-0.2) /100WBC Smear Tech's Comments VERIFIED Smear Path Review SEE NOTE Sodium 149 H (135-145) mmol/L Potassium 3.7 (3.3-5.1) mmol/L Chloride 111 H (96-108) mmol/L Carbon Dioxide 28 (22-29) mmol/L Anion Gap 14 (12-20) BUN 11 (9-16) mg/dL Creatinine 0.61 (0.5-1.4) mg/dL Estim Creat Clear Calc 200.8 Estimated GFR > 60 Random Glucose 96 (60-115) mg/dL Calcium 8.7 (8.4-10.2) mg/dL Magnesium 1.8 (1.6-2.6) mg/dL Total Bilirubin 0.2 (0.0-1.0) mg/dL AST 35 (5-37) U/L ALT 33 (0-40) U/L Alkaline Phosphatase 84 (39-117) U/L Total Protein 7.4 (6.5-8.0) g/dL Albumin 4.3 (3.5-5.0) g/dL Urine Color Yellow Urine Appearance Clear Urine pH 6.5 (5.0-9.0) Ur Specific [place] 1.015 (1.005-1.025) Urine Protein 30 (1+) H (Neg-Trace) mg/dL Urine Glucose (UA) Negative (Negative) mg/dL Urine Ketones Negative (Negative) mg/dL Urine Blood Negative (Negative) Urine Nitrite Negative (Negative) Ur Leukocyte Esterase Negative (Negative) Urine RBC 0-2 (0-2) /HPF Urine WBC 0-5 (0-5) /HPF Ur Squamous Epith Cells 0-2 (0-2) /HPF Urine Bacteria None Seen (None Seen) Hyaline Casts 0-2 (0-2) /LPF Urine Opiates Screen Not Detected (Not Detect) Ur Buprenorphine Scrn Not Detected (Not Detect) ng/mL Ur Oxycodone Screen Not Detected (Not Detect) ng/mL Urine Methadone Screen Not Detected (Not Detect) ng/mL Urine Fentanyl Screen Not Detected (Not Detect) Ur Barbiturates Screen POSITIVE H (Not Detect) Ur Phencyclidine Scrn Not Detected (Not Detect) Ur Amphetamines Screen Not Detected (Not Detect) U Benzodiazepines Scrn Not Detected (Not Detect) Urine Cocaine Screen Not Detected (Not Detect) U Marijuana (THC) Screen Not Detected (Not Detect) Ethyl Alcohol 443 H* mg/dL Discharge Plan Discharge Clinical Impression: Alcoholic intoxication, Alcohol use disorder Patient Disposition: Home, Self-Care Instructions: Abuse of Alcohol (DC) Prescriptions: No Action thiamine HCl (vitamin B1) 100 mg Tablet 100 mg PO DAILY melatonin 3 mg Tablet 9 mg PO BEDTIME PRN (Reason: Sleep) folic acid 1 mg tablet 1 mg PO DAILY omeprazole 20 mg Tablet,Delayed Release (Dr/Ec) 20 mg PO DAILY@0630 30 Days Qty: 30 0RF clonidine HCl 0.1 mg Tablet 0.1 mg PO BID prazosin 1 mg Capsule 3 mg PO BEDTIME doxepin 10 mg Capsule 20 mg PO BEDTIME gabapentin 400 mg Tablet 800 mg PO TID naltrexone 50 mg tablet 50 mg PO DAILY Qty: 30 0RF Interventions: ED Discharge Assessment Last Done: 08/20/25 12:53 Discharge Date/Time: 08/20/25 12:54 Print Language: Sudanese
[2025-08-20 00:51] LABS: Cannabinoid Screen Urine Not Detected (Not Detect)
[2025-08-20] MEDS: diazePAM 10 MG/2 ML CARTRIDGE 5 MG IVPUSH ×2 (01:03→03:03)
[2025-08-20 01:07] LABS: Magnesium 1.8 mg/dL (1.6-2.6)
[2025-08-20 04:29] VITALS: BP 130/87; PULSE 88; RESP 16; TEMP 37.1; O2SAT 96
[2025-08-20 11:34] VITALS: BP 134/66; PULSE 74; RESP 14; TEMP 37.1; O2SAT 97
[2025-08-20 12:42] VITALS: BP 156/82; PULSE 94; RESP 16; TEMP 36.6; O2SAT 96
[2025-08-20 12:53] VITALS: BP 156/82; PULSE 94; RESP 16; TEMP 36.6; O2SAT 96
== END 2025-08-20 12:54 | disposition home or self-care (01) ==
PROVIDERS: Emergency Medicine; Physician Assistant Medical; Emergency Provider Emergency Medicine
DX: F10.129 Alcohol abuse with intoxication, unspecified (principal); Y90.8 Blood alcohol level of 240 mg/100 ml or more; R11.2 Nausea with vomiting, unspecified; R51.9 Headache, unspecified
CPT/HCPCS: 36415; 74018; 80053; 80307; 81001; 83735; 85025; 96361; 96374; 96375; 99284; 99285; J1885; J3360; S9485

== ENCOUNTER → 2025-08-20 00:58 | Outpatient (BNV) | payer OTHER, SELFPAY | PROVIDERS: Emergency Provider Emergency Medicine; Visit Provider Radiology Diagnostic Radiology | DX: R10.9 Unspecified abdominal pain (principal) | CPT/HCPCS: 74018 ==

== ENCOUNTER 2025-08-22 01:09 | Emergency (ER) | payer OTHER, SELFPAY ==
--- NOTE | 2025-08-22 01:17 | ED.ALCOHOL ---
HPI - Alcohol General Chief Complaint: ETOH/Substance Use Stated Complaint: ETOH Time Seen by Provider: 08/22/25 01:14 Source: patient and EMS Mode of arrival: EMS Limitations: no limitations History of Present Illness ED Provider: Dr. Zara Mendoza HPI narrative: Patient comes to the emergency room via ambulance . According to EMS, patient is intoxicated. Patient complaining of not feeling well overall. Patient denies any falls, no head injuries. No vomiting or diarrhea. Patient does feel nauseous Patient complaining that he has withdrawing from alcohol. However, he is actually intoxicated. Patient complaining of chronic pain in his ankles and abdomen. Patient states that he has had this abdominal pain for ?years?. Patient states that he is known to have fatty liver Related Data Home Medications ?Medication ?Instructions ?Recorded ?Confirmed folic acid 1 mg tablet 1 mg PO DAILY 07/31/25 08/22/25 melatonin 3 mg tablet 9 mg PO BEDTIME PRN Sleep 07/31/25 08/22/25 thiamine HCl (vitamin B1) 100 mg 100 mg PO DAILY 07/31/25 08/11/25 tablet clonidine HCl 0.1 mg tablet 0.1 mg PO BID 08/11/25 08/22/25 doxepin 10 mg capsule 20 mg PO BEDTIME 08/11/25 08/22/25 gabapentin 400 mg tablet 800 mg PO TID 08/11/25 08/22/25 prazosin 1 mg capsule 3 mg PO BEDTIME 08/11/25 08/22/25 Previous Rx's ?Medication ?Instructions ?Recorded omeprazole 20 mg tablet,delayed 20 mg PO DAILY@0630 30 days #30 08/06/25 release tabs naltrexone 50 mg tablet 50 mg PO DAILY #30 tabs 08/14/25 Allergies Allergy/AdvReac Type Severity Reaction Status Date / Time azithromycin (AZITHROMYCIN) Allergy Unknown Unknown Verified 08/22/25 01:23 Review of Systems Review of Systems: Constitutional : No Weight loss, No Fever, No Chills, No Night Sweats, complaining of generalized malaise, complaining of alcohol intoxication ENT/Mouth : No Hearing loss, No Ear Pain, No Nasal Congestion, No Sinus Pain, No Hoarseness, No sore throat, No Rhinorrhea, No Swallowing Difficulty Eyes: No Eye Pain, No Swelling, No Redness, No Foreign Body, No Discharge, No Vision Changes Cardiovascular : No Chest Pain, No SOB, No Dyspnea on Exertion, No Orthopnea, No Edema, No Palpitations Respiratory : No Cough, No Sputum, No Wheezing, No Smoke Exposure, No Dyspnea Gastrointestinal : No Nausea, No Vomiting, No Diarrhea, No Constipation, No abdominal Pain, No Hematochezia, No Melena Genitourinary : no irregular bleeding, No Dysuria, No Urinary Frequency, No Hematuria, No Urinary Incontinence, No Urgency, No Flank Pain, No Urinary Flow Changes, No Hesitancy Musculoskeletal : No joint pain, No Myalgias, No Joint Swelling Skin : No Skin Lesions, No rash Neuro : No Weakness, No Numbness, No Paresthesias, No Loss of Consciousness, No Dizziness, No Headache Psych : No Anxiety/Panic, No Depression, No SI/HI/AH/VH, admits to alcohol abuse Heme/Lymph: No Bruising, No Bleeding,No Lymphadenopathy Endocrine : No Polyuria, No Polydipsia, No Temperature Intolerance PMFSH Past Medical History Medical History Exacerbation of gout Alcohol abuse Anxiety Social History Social History Household Members: Other Housing: House Do you presently have visiting nurse or other home services: No Alcohol intake: current Alcohol intake frequency: 3 or more drinks per day Alcohol type: hard liquor Patient Tobacco Use Status: Never used Tobacco Smoked in Last 30 Days: Yes Use of substances other than those prescribed or required for medical reasons: No Advance Directives: No Advance Directives Information Provided: Yes Do you have a plan to hurt others: No Plan service: Yes Physical Exam ED Exam Exam: Appearance: Alert. Oriented X3. No acute distress. Eyes: Pupils equal, round and reactive to light. ENT: Pharynx normal. Neck: Normal inspection. Neck supple. No lymph nodes noted. No crepitus CVS: Normal heart rate and rhythm. Pulses normal. Normal S1 and S2 Respiratory: No respiratory distress. Breath sounds normal. No Wheezing. No rales Abdomen: Soft and nontender. No rigidity. No distention. Skin: Skin warm and dry. Normal skin color. Normal skin turgor. Extremities: No lower extremity edema. No Lacerations. No Rash Neuro: Oriented X 3. No motor deficit. No sensory deficit. Moving all extremities. No slurred speech. CN 2 through 12 grossly intact Psych: calm, cooperative, normal affect Vital Signs: Vital Signs - 24 hr 08/22/25 01:21 08/22/25 06:00 08/22/25 11:08 Temperature 98.0 F 98.4 F 98.6 F Pulse Rate 100 88 98 Respiratory Rate 20 14 Blood Pressure 130/79 118/70 120/77 Pulse Oximetry 96 98 95 Oxygen Delivery Method Room Air Room Air Room Air BMI result Body Mass Index 26.5 Course Course Course Narrative: Patient stating that he is withdrawing from alcohol. However, patient is currently intoxicated. From patient's previous notes, seems that he keeps trying to go to detox. Patient has been 25+ detox facilities over last few years Patient was seen by addiction Medicine on 08/12/2025 Patient denies SI or HI, this time, Section 12 is not indicated. Seems that in prior years, patient's family has a attempted at section 35, patient was admitted in a detox facility for 47 days [place] with blood work and then if patient still desires so, we can not as the care team to consult for possible detox. Of note, patient was seen yesterday, patient declined referral to addiction treatment Medical Decision Making Medical Decision Making MDM Narrative: My interpretation of labs: No significant abnormality in patient's hematology or chemistry, patient has not alcohol level of [address] scan done a few days ago. Abdominal CT scan shows no evidence of solid organ injury, positive for hepatic steatosis. A KUB was done earlier today by triage nurse: Radiology report no acute findings Patient was recently discharged from [facility]. Patient states that he drank 30 nips per day. Physician observation started at 02:00 Care team consult pending Patient is not SI or HI, section 12 is not indicated at this time. Patient has complaint of headache, states that he is withdrawing. However, patient is sleeping comfortably in bed, no tremor, no diaphoresis. Patient received 2 g of p.o. Ativan Patient is seen by care team. And then by comprehensive team. To be discharged. Currently not suicidal not homicidal. Patient admits to drinking large amount of alcohol does want to go to detox at some point currently in stable condition will discharge home. Differential Diagnosis Differential Diagnoses: The differential diagnosis associated with the presentation includes (Alcohol intoxication, alcohol dependence, polysubstance abuse) Admission/Observation Consideration of admission/observation: Escalation of care including admission/observation considered (Patient is under physician observation waiting to be seen by the care team, patient wants to try detox again) Lab Data 08/22/25 02:44 08/22/25 01:57 Labs: Lab Results 08/22/25 08/22/25 Range/Units 01:57 02:44 WBC 3.1 L (4.8-10.8) X10*3/uL RBC 4.25 L (4.60-5.80) X10*6/uL Hgb 13.8 L (14.0-18.0) g/dl Hct 39.4 L (42.0-52.0) % MCV 92.7 (80.0-98.0) fL MCH 32.5 (27.0-33.0) pg MCHC 35.0 (31.0-36.0) g/dl RDW 12.9 (11.0-16.0) % Plt Count 133 L (160-400) X10*3/uL MPV 9.1 L (9.4-12.4) fL Immature Gran % (Auto) 0.3 (0.0-0.4) % Neut % (Auto) 44.6 L (45-73) % Lymph % (Auto) 43.5 H (20-40) % [place] % (Auto) 9.7 (2-11) % Eos % (Auto) 1.3 (0-4) % Baso % (Auto) 0.6 (0-2) % Lymph # (Auto) 1.3 (1.2-4.9) X10*3/uL [place] # (Auto) 0.3 (0.1-1.2) X10*3/uL Eos # (Auto) 0.0 (0.0-0.4) X10*3/uL Baso # (Auto) 0.0 (0.0-0.2) X10*3/uL Abs Immat Gran (auto) 0.01 (0.00-0.03) X10*3/uL Absolute Neuts (auto) 1.4 L (2.0-8.3) x10*3/uL Absolute Nucleated RBC 0.000 (0.0-0.012) X10*3/uL Nucleated RBC % (auto) 0.0 (0.0-0.2) /100WBC Sodium 145 (135-145) mmol/L Potassium 3.8 (3.3-5.1) mmol/L Chloride 108 (96-108) mmol/L Carbon Dioxide 19 L (22-29) mmol/L Anion Gap 22 H (12-20) BUN 4 L (9-16) mg/dL Creatinine 0.67 (0.5-1.4) mg/dL Estim Creat Clear Calc 154.3 Estimated GFR > 60 Random Glucose 119 H (60-115) mg/dL Calcium 8.5 (8.4-10.2) mg/dL Total Bilirubin 0.3 (0.0-1.0) mg/dL Direct Bilirubin 0.1 (0.0-0.5) mg/dL AST 48 H (5-37) U/L ALT 28 (0-40) U/L Alkaline Phosphatase 85 (39-117) U/L Total Protein 7.6 (6.5-8.0) g/dL Albumin 4.2 (3.5-5.0) g/dL Ethyl Alcohol 386 H* mg/dL Medications Administered Discontinued Medications Generic Name Dose Route Start Last Admin Trade Name Freq PRN Reason Stop Dose Admin Acetaminophen 975 mg 08/22/25 05:57 08/22/25 06:11 Acetaminophen 325 Mg Tablet PO 08/22/25 05:58 975 mg ONCE ONE Administration Lorazepam 2 mg 08/22/25 05:37 08/22/25 05:42 Lorazepam 1 Mg Tablet PO 08/22/25 05:38 2 mg ONCE ONE Administration Lorazepam 1 mg 08/22/25 12:31 08/22/25 13:05 Lorazepam 1 Mg Tablet PO 08/22/25 12:32 1 mg ONCE ONE Administration Ondansetron HCl 4 mg 08/22/25 01:19 08/22/25 01:38 Ondansetron Odt 4 Mg Tab.Rapdis TRANSLINGU 08/22/25 01:20 4 mg ONCE ONE Administration Ondansetron HCl 4 mg 08/22/25 12:31 08/22/25 13:05 Ondansetron Odt 4 Mg Tab.Rapdis TRANSLINGU 08/22/25 12:32 4 mg ONCE ONE Administration Prochlorperazine Edisylate 10 mg 08/22/25 03:31 08/22/25 03:51 Prochlorperazine Edisylate 10 Mg/2 Ml Vial IM 08/22/25 03:32 10 mg ONCE ONE Administration Critical Care Time Critical Care Time Critical Care Time: Yes Total Critical Care Time: 35 Attestation: I have personally provided critical care time. Time includes review of lab data, radiology results, discussion with consultants, and monitoring for potential decompensation. Intervention performed as documented. Discharge Plan Discharge Clinical Impression: Alcohol abuse Patient Disposition: Home, Self-Care Prescriptions: No Action thiamine HCl (vitamin B1) 100 mg Tablet 100 mg PO DAILY melatonin 3 mg Tablet 9 mg PO BEDTIME PRN (Reason: Sleep) folic acid 1 mg tablet 1 mg PO DAILY omeprazole 20 mg Tablet,Delayed Release (Dr/Ec) 20 mg PO DAILY@0630 30 Days Qty: 30 0RF clonidine HCl 0.1 mg Tablet 0.1 mg PO BID prazosin 1 mg Capsule 3 mg PO BEDTIME doxepin 10 mg Capsule 20 mg PO BEDTIME gabapentin 400 mg Tablet 800 mg PO TID naltrexone 50 mg tablet 50 mg PO DAILY Qty: 30 0RF Referrals: Lakeisha Parker, [employer] [Nurse Practitioner, Addiction Medicine] - 08/24/25 8:30 am Referral Note: 1) Please walk in for appt. Walk in hours are Mon- from 8AM-4:30PM and Fri from 10AM-4:30PM. 2)Call your defensive secondary coach Print Language: Georgian
[2025-08-22 01:21] VITALS: BP 130/79; BP 134/90; PULSE 100; PULSE 109; RESP 20; TEMP 36.7; O2SAT 96; BMI 26.5
[2025-08-22 01:24] VITALS: PULSE 100
[2025-08-22 02:20] LABS: Alanine Aminotransferase 28 U/L (0-40); Albumin Level 4.2 g/dL (3.5-5.0); Alkaline Phosphatase 85 U/L (39-117); Anion Gap 22 (12-20); Aspartate Amino Transferase 48 U/L (5-37); Blood Urea Nitrogen 4 mg/dL (9-16); Calcium 8.5 mg/dL (8.4-10.2); Carbon Dioxide 19 mmol/L (22-29); Chloride 108 mmol/L (96-108); Creatinine Clr Calc Pharmacy 154.3; Estimated Glomerular Filt Rate > 60; Potassium 3.8 mmol/L (3.3-5.1); Sodium 145 mmol/L (135-145); Total Protein 7.6 g/dL (6.5-8.0)
[2025-08-22 02:52] LABS: Hematocrit 39.4 % (42.0-52.0); Hemoglobin 13.8 g/dl (14.0-18.0); Imm Gran Abs Auto 0.01 X10*3/uL (0.00-0.03); Imm Gran Pct Auto 0.3 % (0.0-0.4); Lymphocytes Absolute Auto 1.3 X10*3/uL (1.2-4.9); Mean Corpuscular HGB Conc 35.0 g/dl (31.0-36.0); Mean Corpuscular Hemoglobin 32.5 pg (27.0-33.0); Mean Corpuscular Volume 92.7 fL (80.0-98.0); NRBC Abs Auto 0.000 X10*3/uL (0.0-0.012); NRBC Pct Auto 0.0 /100WBC (0.0-0.2); Platelet Count 133 X10*3/uL (160-400); Red Blood Count 4.25 X10*6/uL (4.60-5.80); White Blood Count 3.1 X10*3/uL (4.8-10.8)
[2025-08-22 03:36] LABS: MANUAL DIFF FLAG NO
--- NOTE | 2025-08-22 05:38 | PC.NURSE ---
RN to bedside per pt request. he recently woke from what appeared to be a comfortable slumber. The pt is reporting 10/10 headache stating when I go through withdrawals I get terrible headaches as well as right sided abdominal pain. He states that his nausea has gotten better although still present. MD levin made aware and new orders obtained
[2025-08-22 06:00] VITALS: BP 118/70; PULSE 88; TEMP 36.9; O2SAT 98
[2025-08-22 11:08] VITALS: BP 120/77; PULSE 98; RESP 14; TEMP 37; O2SAT 95
--- NOTE | 2025-08-22 12:59 | MHC.CARE ---
CARE team met with Pt at bedside. Pt declined a referral for detox however engaged in a lengthy, insightful conversation on steps to take to work on sobriety. Pt plans to reach out to an [facility] production recovery operator [facility] T/W spoke with Qi recovery nurse who will speak with Pt prior to D/C. Pt is involved with the [facility] and hopes to get on Vivitrol/Naltrexone. Pt will D/C home.
--- NOTE | 2025-08-22 13:56 | MHC.RECOVRN ---
T/W met with pt. in ED 22H per request of the Care Team r/t MAREK F/U. Chart review completed. Pt ws brought into ED by ambulance on 08/22 at approx 1:30AM. Pt had reported drinking approx 30 nips prior to arrival. ETOH level was 386. Pt has attended treatment 25+ times per documentation. Care team met with pt. and he declined detox services. T/W met with pt. He is currently taking Naltrexone and was supposed to attend [facility] for Vivitrol but due to multiple hospital stays he missed the appt. Pt was given information on walk in hours and encouraged to attend clinic Mon AM at 8:30. Pt also has message from and is planning on calling him Mon AM. T/W provided pt. written education of safe drinking strategies to include nutrition, hydration, vitamin use, spacing drinks, and avoiding W/D. Also provided pt. with [facility] information. Pt has Naltrexone and was educated on continuing until seen in clinic. T/W sent message to [facility] nurse Barton for F/U with pt. on Mon. Pt denied any other questions/concerns.
[2025-08-22 14:06] VITALS: BP 120/77; PULSE 98; RESP 14; TEMP 37; O2SAT 95
== END 2025-08-22 14:07 | disposition home or self-care (01) ==
PROVIDERS: Emergency Medicine; Emergency Provider Emergency Medicine Emergency Medical Services
DX: F10.129 Alcohol abuse with intoxication, unspecified (principal); Y90.8 Blood alcohol level of 240 mg/100 ml or more; R11.0 Nausea; F41.9 Anxiety disorder, unspecified; Z79.899 Other long term (current) drug therapy
CPT/HCPCS: 36415; 80048; 80076; 80307; 85025; 96372; 99285; J0737; S9485

== ENCOUNTER 2025-09-03 00:03 | Emergency (ER) | payer OTHER, SELFPAY ==
[2025-09-03 00:19] VITALS: BP 140/90; BP 141/95; PULSE 104; PULSE 120; RESP 18; TEMP 36.6; O2SAT 95; O2SAT 96; BMI 33.1
[2025-09-03 00:21] VITALS: BP 141/95; PULSE 102; RESP 14; TEMP 37; O2SAT 93
--- NOTE | 2025-09-03 00:29 | ED_ITS ---
HPI - Alcohol General Chief Complaint: ETOH/Substance Use Stated Complaint: etoh Time Seen by Provider: 09/03/25 00:10 Source: patient and EMS Mode of arrival: EMS Limitations: other History of Present Illness ED Provider: Dr. Zara Mendoza HPI narrative: patient comes to the emergency room from a snf house. Patient comes via ambulance. According to the patient, he reports drinking 30 nips of vodka today. Patient requesting detox in this area. Patient states that ideally he would like to go [facility] but it is very hard to get a bed. Patient is willing to go to detox in this area. Patient was seen here a proximally 2 weeks ago for the same reason. when patient was seen by the care team he declined detox , although he originally requested it. Related Data Home Medications ?Medication ?Instructions ?Recorded ?Confirmed folic acid 1 mg tablet 1 mg PO DAILY 07/31/2508/22 melatonin 3 mg tablet 9 mg PO BEDTIME PRN Sleep 08/22/25 thiamine HCl (vitamin B1) 100 mg 100 mg PO DAILY 07/3108/11/25 tablet clonidine HCl 0.1 mg tablet 0.1 mg PO BID 08/11/2511/15 doxepin 10 mg capsule 20 mg PO BEDTIME 08/11/25 gabapentin 400 mg tablet 800 mg PO TID 08/11/2508/22 prazosin 1 mg capsule 3 mg PO BEDTIME 08/11/2511/15 Previous Rx's ?Medication ?Instructions ?Recorded omeprazole 20 mg tablet,delayed 20 mg PO DAILY@0630 30 days #30 08/06/25 release tabs naltrexone 50 mg tablet 50 mg PO DAILY #30 tabs 07/23 02/13 Allergies Allergy/AdvReac Type Severity Reaction Status Date / Time azithromycin (AZITHROMYCIN) Allergy Unknown Unknown Verified 09/03/25 00:23 Review of Systems 2 Review of Systems: Constitutional : No Weight loss, No Fever, No Chills, No Night Sweats, No Fatigue, No Malaise ENT/Mouth : No Hearing loss, No Ear Pain, No Nasal Congestion, No Sinus Pain, No Hoarseness, No sore throat, No Rhinorrhea, No Swallowing Difficulty Eyes: No Eye Pain, No Swelling, No Redness, No Foreign Body, No Discharge, No Vision Changes Cardiovascular : No Chest Pain, No SOB, No Dyspnea on Exertion, No Orthopnea, No Edema, No Palpitations Respiratory : No Cough, No Sputum, No Wheezing, No Smoke Exposure, No Dyspnea Gastrointestinal : No Nausea, No Vomiting, No Diarrhea, No Constipation, No abdominal Pain, No Hematochezia, No Melena Genitourinary : no irregular bleeding, No Dysuria, No Urinary Frequency, No Hematuria, No Urinary Incontinence, No Urgency, No Flank Pain, No Urinary Flow Changes, No Hesitancy Musculoskeletal : No joint pain, No Myalgias, No Joint Swelling Skin : No Skin Lesions, No rash Neuro : No Weakness, No Numbness, No Paresthesias, No Loss of Consciousness, No Dizziness, No Headache Psych : No Anxiety/Panic, No Depression, No SI/HI/AH/VH, Admits to alcohol abuse Heme/Lymph: No Bruising, No Bleeding,No Lymphadenopathy Endocrine : No Polyuria, No Polydipsia, No Temperature Intolerance PMFSH Past Medical History Medical History Exacerbation of gout Alcohol abuse Anxiety Social History Social History Household Members: Other Housing: House Do you presently have visiting nurse or other home services: No Alcohol intake: current Alcohol intake frequency: 3 or more drinks per day Alcohol type: hard liquor Patient Tobacco Use Status: Never used Tobacco Smoked in Last 30 Days: No Use of substances other than those prescribed or required for medical reasons: No Advance Directives: No Advance Directives Information Provided: Yes Do you have a plan to hurt others: No Plan service: Yes Physical Exam ED Exam Exam: Appearance: Alert. Oriented X3. No acute distress. coherent Eyes: Pupils equal, round and reactive to light. ENT: Pharynx normal. Neck: Normal inspection. Neck supple. No lymph nodes noted. No crepitus CVS: Normal heart rate and rhythm. Pulses normal. Normal S1 and S2 Respiratory: No respiratory distress. Breath sounds normal. No Wheezing. No rales Abdomen: Soft and nontender. No rigidity. No distention. Skin: Skin warm and dry. Normal skin color. Normal skin turgor. Extremities: No lower extremity edema. No Lacerations. No Rash Neuro: Oriented X 3. No motor deficit. No sensory deficit. Moving all extremities. No slurred speech. CN 2 through 12 grossly intact Psych: calm, cooperative, normal affect Vital Signs: Vital Signs - 24 hr 09/03/25 00:19 09/03/25 00:21 09/03/25 02:51 Temperature 98 F 98.6 F Pulse Rate 104 H 102 H 104 H Respiratory Rate 18 14 14 Blood Pressure 141/95 H 141/95 H 126/80 Pulse Oximetry 95 93 96 Oxygen Delivery Method Room Air Room Air Room Air BMI result Body Mass Index 33.1 Course Course Course Narrative: patient is alert and oriented x3, coherent, does not seem to be withdrawing. Patient's vitals are fairly stable. All of patient's labs pending care team consult pending patient received a dose of Librium p.o. physician observation started at 00:35 Medical Decision Making Medical Decision Making MDM Narrative: patient is awake, alert, calm cooperative and coherent. At this time, I do not believe that the patient is withdrawing. Patient's seems to be still slightly intoxicated patient was given p.o. Librium patient's platelet count was a bit lower than usual, today 85. Patient does not history of chronic thrombocytopenia. No significant abnormality in patient's chemistry. Urine toxicology positive for barbiturates, ETOH 483. This morning, patient was awake, alert and oriented x3, steady gait, coherent. Patient stated that he no longer wants to wait for the care team to go to detox. Patient requesting to be discharged. Patient is not SI, no HI, no indication for a section 12 patient got up and left, did not wait for discharge papers physician observation ended at 06:15 Differential Diagnosis Differential Diagnoses: The differential diagnosis associated with the presentation includes ( alcohol intoxication, alcohol dependence, anxiety) Admission/Observation Consideration of admission/observation: Escalation of care including admission/observation considered ( patient waiting to become sober and to be seen by the care team to determine patient's disposition) Lab Data [facility] Lab Attestation statement: I reviewed the patient's lab results. 09/03/25 00:58 09/03/25 00:58 Labs: Lab Results 09/03/25 09/03/25 Range/Units 00:58 05:55 WBC 3.5 L (4.8-10.8) X10*3/uL RBC 4.23 L (4.60-5.80) X10*6/uL Hgb 13.8 L (14.0-18.0) g/dl Hct 39.3 L (42.0-52.0) % MCV 92.9 (80.0-98.0) fL MCH 32.6 (27.0-33.0) pg MCHC 35.1 (31.0-36.0) g/dl RDW 13.5 (11.0-16.0) % Plt Count 85 L D (160-400) X10*3/uL MPV 9.1 L (9.4-12.4) fL Immature Gran % (Auto) 0.3 (0.0-0.4) % Neut % (Auto) 67.0 (45-73) % Lymph % (Auto) 25.4 (20-40) % [place] % (Auto) 5.8 (2-11) % Eos % (Auto) 0.9 (0-4) % Baso % (Auto) 0.6 (0-2) % Lymph # (Auto) 0.9 L (1.2-4.9) X10*3/uL [place] # (Auto) 0.2 (0.1-1.2) X10*3/uL Eos # (Auto) 0.0 (0.0-0.4) X10*3/uL Baso # (Auto) 0.0 (0.0-0.2) X10*3/uL Abs Immat Gran (auto) 0.01 (0.00-0.03) X10*3/uL Absolute Neuts (auto) 2.3 (2.0-8.3) x10*3/uL Absolute Nucleated RBC 0.000 (0.0-0.012) X10*3/uL Nucleated RBC % (auto) 0.0 (0.0-0.2) /100WBC Sodium 145 (135-145) mmol/L Potassium 3.4 (3.3-5.1) mmol/L Chloride 105 (96-108) mmol/L Carbon Dioxide 22 (22-29) mmol/L Anion Gap 21 H (12-20) BUN 6 L (9-16) mg/dL Creatinine 0.61 (0.5-1.4) mg/dL Estim Creat Clear Calc 198.8 Estimated GFR > 60 Random Glucose 95 (60-115) mg/dL Calcium 8.5 (8.4-10.2) mg/dL Magnesium 1.7 (1.6-2.6) mg/dL Total Bilirubin 0.5 (0.0-1.0) mg/dL Direct Bilirubin 0.2 (0.0-0.5) mg/dL AST 45 H (5-37) U/L ALT 24 (0-40) U/L Alkaline Phosphatase 80 (39-117) U/L Total Protein 7.6 (6.5-8.0) g/dL Albumin 4.5 (3.5-5.0) g/dL Urine Opiates Screen Not Detected (Not Detect) Ur Buprenorphine Scrn Not Detected (Not Detect) ng/mL Ur Oxycodone Screen Not Detected (Not Detect) ng/mL Urine Methadone Screen Not Detected (Not Detect) ng/mL Urine Fentanyl Screen Not Detected (Not Detect) Ur Barbiturates Screen POSITIVE H (Not Detect) Ur Phencyclidine Scrn Not Detected (Not Detect) Ur Amphetamines Screen Not Detected (Not Detect) U Benzodiazepines Scrn Not Detected (Not Detect) Urine Cocaine Screen Not Detected (Not Detect) U Marijuana (THC) Screen Not Detected (Not Detect) Ethyl Alcohol 483 H* mg/dL Medications Administered Discontinued Medications Generic Name Dose Route Start Last Admin Trade Name Freq PRN Reason Stop Dose Admin Chlordiazepoxide HCl 100 mg 09/03/25 00:27 09/03/25 00:37 Chlordiazepoxide Hcl 25 Mg Capsule PO 09/03/25 00:28 100 mg ONCE ONE Administration Critical Care Time Critical Care Time Critical Care Time: Yes Total Critical Care Time: 35 Attestation: I have personally provided critical care time. Time includes review of lab data, radiology results, discussion with consultants, and monitoring for potential decompensation. Intervention performed as documented. Discharge Plan Discharge Clinical Impression: Alcoholic intoxication Patient Disposition: Left W/O Completing Treatment Prescriptions: No Action thiamine HCl (vitamin B1) 100 mg Tablet 100 mg PO DAILY melatonin 3 mg Tablet 9 mg PO BEDTIME PRN (Reason: Sleep) folic acid 1 mg tablet 1 mg PO DAILY omeprazole 20 mg Tablet,Delayed Release (Dr/Ec) 20 mg PO DAILY@0630 30 Days Qty: 30 0RF clonidine HCl 0.1 mg Tablet 0.1 mg PO BID prazosin 1 mg Capsule 3 mg PO BEDTIME doxepin 10 mg Capsule 20 mg PO BEDTIME gabapentin 400 mg Tablet 800 mg PO TID naltrexone 50 mg tablet 50 mg PO DAILY Qty: 30 0RF Discharge Date/Time: 09/03/25 06:25
--- NOTE | 2025-09-03 00:40 | PC.NURSE ---
pt shannaxiomy from [facility] ETOH reports 30 nips today, reports w/d symptoms arising, pt does display minor tremors and intermittent RUQ ABD pain. PT calm and cooperative on arrival changed over in his room by security. Awaiting labs to be drawn, took PO medications. Belongings locked into [place].
[2025-09-03 01:03] LABS: MANUAL DIFF FLAG NO
[2025-09-03 01:10] LABS: Hematocrit 39.3 % (42.0-52.0); Hemoglobin 13.8 g/dl (14.0-18.0); Imm Gran Abs Auto 0.01 X10*3/uL (0.00-0.03); Imm Gran Pct Auto 0.3 % (0.0-0.4); Lymphocytes Absolute Auto 0.9 X10*3/uL (1.2-4.9); Mean Corpuscular HGB Conc 35.1 g/dl (31.0-36.0); Mean Corpuscular Hemoglobin 32.6 pg (27.0-33.0); Mean Corpuscular Volume 92.9 fL (80.0-98.0); NRBC Abs Auto 0.000 X10*3/uL (0.0-0.012); NRBC Pct Auto 0.0 /100WBC (0.0-0.2); Red Blood Count 4.23 X10*6/uL (4.60-5.80); White Blood Count 3.5 X10*3/uL (4.8-10.8)
[2025-09-03 01:11] LABS: Platelet Count 85 X10*3/uL (160-400)
[2025-09-03 01:25] LABS: Alanine Aminotransferase 24 U/L (0-40); Albumin Level 4.5 g/dL (3.5-5.0); Alkaline Phosphatase 80 U/L (39-117); Anion Gap 21 (12-20); Aspartate Amino Transferase 45 U/L (5-37); Blood Urea Nitrogen 6 mg/dL (9-16); Calcium 8.5 mg/dL (8.4-10.2); Carbon Dioxide 22 mmol/L (22-29); Chloride 105 mmol/L (96-108); Creatinine Clr Calc Pharmacy 198.8; Estimated Glomerular Filt Rate > 60; Magnesium 1.7 mg/dL (1.6-2.6); Potassium 3.4 mmol/L (3.3-5.1); Sodium 145 mmol/L (135-145); Total Protein 7.6 g/dL (6.5-8.0)
[2025-09-03 02:51] VITALS: BP 126/80; PULSE 104; RESP 14; O2SAT 96
--- NOTE | 2025-09-03 03:05 | PC.NURSE ---
pt reporting increased headache and nausea at this time, MD Reji kirk
--- NOTE | 2025-09-03 06:13 | PC.NURSE ---
at this time, pt states he no longer would like to wait for care team and detox consult and he would like to leave. MD Mendoza made aware. pt [facility]. Security at bedside with pt
[2025-09-03 06:18] LABS: Cannabinoid Screen Urine Not Detected (Not Detect)
== END 2025-09-03 06:25 | disposition left against medical advice (07) ==
PROVIDERS: Emergency Provider Emergency Medicine; PCP Internal Medicine
DX: F10.129 Alcohol abuse with intoxication, unspecified (principal); Y90.8 Blood alcohol level of 240 mg/100 ml or more; Z51.81 Encounter for therapeutic drug level monitoring; Z79.899 Other long term (current) drug therapy
CPT/HCPCS: 36415; 80048; 80076; 80307; 83735; 85025; 99284

== ENCOUNTER 2025-09-19 18:47 | Inpatient (IN) | payer OTHER, SELFPAY ==
--- NOTE | ~2025-09-19 | CT_ITS ---
CLINICAL HISTORY: coffee ground emesis, transaminitis, ETOH abise CT abdomen and pelvis with contrast Comparison: CT/REG/SR - CT ABDOMEN PELVIS W IV CON - 08/11/25 04:45 EDT Findings: Motion artifact degrades some of the provided images. Circumferential distal esophageal wall thickening. Liver is enlarged and of low-attenuation. Gallbladder, pancreas, spleen and adrenal glands are within normal limits. Kidneys are non hydronephrotic. No bowel obstruction, pneumoperitoneum, or pneumatosis. Appendix is surgically absent. Urinary bladder and pelvic structures are within normal limits. No acute fracture. IMPRESSION: 1. Hepatic steatosis. 2. Circumferential distal esophageal wall thickening, possibly esophagitis. Please correlate clinically. This document has been electronically signed by: Triston James MD, PHD on 09/20/2025 04:44:38
[2025-09-19 18:52] VITALS: BP 148/82; PULSE 124; O2SAT 97
[2025-09-19 19:41] VITALS: BP 128/87; PULSE 97; RESP 18; TEMP 36.6; O2SAT 98; BMI 32.2
--- NOTE | 2025-09-19 19:56 | ECG_ITS ---
Test Reason : ABD PAIN Blood Pressure : */* mmHG Vent. Rate : 112 BPM Atrial Rate : 112 BPM P-R Int : 134 ms QRS Dur : 80 ms QT Int : 388 ms P-R-T Axes : -6 28 26 degrees QTcB Int : 529 ms Sinus tachycardia Prolonged QT Abnormal ECG When compared with ECG of 11-Aug-2025 10:25, No significant change was found Referred By: Generic ED Physician Electronically Signed By: DENNISE MERCADO
[2025-09-19 21:28] LABS: Hematocrit 44.5 % (42.0-52.0); Hemoglobin 16.2 g/dl (14.0-18.0); Imm Gran Abs Auto 0.03 X10*3/uL (0.00-0.03); Imm Gran Pct Auto 0.3 % (0.0-0.4); Lymphocytes Absolute Auto 1.2 X10*3/uL (1.2-4.9); Mean Corpuscular HGB Conc 36.4 g/dl (31.0-36.0); Mean Corpuscular Hemoglobin 33.1 pg (27.0-33.0); Mean Corpuscular Volume 91.0 fL (80.0-98.0); NRBC Abs Auto 0.000 X10*3/uL (0.0-0.012); NRBC Pct Auto 0.0 /100WBC (0.0-0.2); Platelet Count 236 X10*3/uL (160-400); Red Blood Count 4.89 X10*6/uL (4.60-5.80); White Blood Count 9.4 X10*3/uL (4.8-10.8)
[2025-09-19 22:01] VITALS: BP 150/83; PULSE 105; RESP 20; TEMP 36.6; O2SAT 97
[2025-09-19] MEDS: diazePAM 10 MG/2 ML CARTRIDGE IM (22:09)
--- NOTE | 2025-09-19 22:12 | ED.ALCOHOL ---
HPI - Alcohol General Chief Complaint: ETOH/Substance Use Stated Complaint: Etoh Time Seen by Provider: 09/19/25 22:03 History of Present Illness ED Provider: Marc Clement MD HPI narrative: 39-year-old male with ETOH use disorder went on a 4 day binge L of liquor a day. Basically no solid food just sips of Gatorade. Complains of feeling dehydrated. Last drink early this morning therefore feeling withdrawal symptoms nausea vomiting hiccups said he has had a little bit of coffee-grounds. Related Data Home Medications ?Medication ?Instructions ?Recorded ?Confirmed folic acid 1 mg tablet 1 mg PO DAILY 07/31/25 09/20/25 thiamine HCl (vitamin B1) 100 mg 100 mg PO DAILY 07/31/25 09/20/25 tablet clonidine HCl 0.1 mg tablet 0.1 mg PO BEDTIME 08/11/25 08/22/25 doxepin 10 mg capsule 10 mg PO BEDTIME PRN Sleep 08/11/25 09/20/25 gabapentin 400 mg tablet 800 mg PO TID 08/11/25 08/22/25 prazosin 1 mg capsule 3 mg PO BEDTIME 08/11/25 08/22/25 melatonin 5 mg tablet 5 mg PO BEDTIME PRN Sleep 09/20/25 09/20/25 sertraline 100 mg tablet 50 mg PO DAILY 09/20/25 09/20/25 Previous Rx's ?Medication ?Instructions ?Recorded omeprazole 20 mg tablet,delayed 20 mg PO DAILY@0630 30 days #30 08/06/25 release tabs Allergies Allergy/AdvReac Type Severity Reaction Status Date / Time azithromycin (AZITHROMYCIN) Allergy Unknown Unknown Verified 09/19/25 19:49 [facility] Past Medical History Medical History (Updated 09/20/25 @ 10:47 by Gurpreet Neal MD) PTSD (post-traumatic stress disorder) Gout Sternal fracture Class 1 obesity Alcoholic cirrhosis of liver Exacerbation of gout Alcohol abuse Anxiety Surgical History History of ankle surgery Social History Social History Household Members: Other Housing: House Do you presently have visiting nurse or other home services: No Alcohol intake: current Alcohol intake frequency: 3 or more drinks per day Alcohol type: hard liquor Patient Tobacco Use Status: Never used Tobacco service: Yes Physical Exam ED Exam Exam: EXAM: Gen: Alert, awake, well appearing, well hydrated. Active hiccups. Looks mildly ill dehydrated Head: Atraumatic Eyes: Anicteric, Normal conjunctiva. ENT: Moist mucosa, no pallor. ? Neck: Supple. Skin: ?No observable rash or bruising on exposed or examined skin Respiratory: Breathing comfortably, No distress.Clear to auscultation bilaterally, symmetric chest expansion, No wheeze, rales, ronchi. Cardiovascular: Regular rate and rhythm. No murmurs or rub. Well perfused periphery, warm extremities. No edema. ? Abdominal: No focal tenderness. Soft, no objective distension. No palpable masses or obvious organomegaly. ?No guarding, no rebound tenderness or other peritoneal findings. : No flank tenderness. Neuro: Alert. Gross movement of all extremities intact. ? Psych: Calm. Cooperative. MSK: No grossly visible deformity. Vital signs: See flowsheet Vital Signs: Vital Signs - 24 hr 09/19/25 22:01 09/20/25 00:46 Temperature 97.9 F 98.3 F Pulse Rate 105 H 107 H Respiratory Rate 20 15 Blood Pressure 150/83 H 136/79 Pulse Oximetry 97 96 Oxygen Delivery Method Room Air Room Air BMI result Body Mass Index 32.2 Medical Decision Making Medical Decision Making MDM Narrative: Medical Decision Making: Alcohol use disorder upper abdominal discomfort nausea vomiting not coffee ground started. Last drink 11:00 feels like he is withdrawing. Alcohol level 300. Bicarb 15 Probably starvation/alcoholic ketosis ECG with QTC 530 unclear cause he is prescribed omeprazole and other medications which could do this. We will avoid antiemetics with QT prolongation at this time. Stick with benzos Benadryl. IV fluid hydration. He is not anemic at this time he may have upper GI bleed/PUD we will give Protonix Preliminary Favored Differential Diagnosis: Alcoholic gastritis, PUD, pancreatitis, dehydration, electrolyte derangement early alcohol withdrawal, alcohol use disorder among additional considered etiologies Testing Interpreted Independently: ?See below for details Radiology or Lab testing Results Reviewed: ?See below for details Consults: ?See below for details Independent Historians/External Chart Reviews: ?See below for details Social Determinants of Health Impacting MDM/Planning: ?See below for details Lab Data 09/20/25 05:39 09/20/25 05:39 Labs: Lab Results 09/19/25 Range/Units 21:23 WBC 9.4 (4.8-10.8) X10*3/uL RBC 4.89 (4.60-5.80) X10*6/uL Hgb 16.2 (14.0-18.0) g/dl Hct 44.5 (42.0-52.0) % MCV 91.0 (80.0-98.0) fL MCH 33.1 H (27.0-33.0) pg MCHC 36.4 H (31.0-36.0) g/dl RDW 14.0 (11.0-16.0) % Plt Count 236 D (160-400) X10*3/uL MPV 9.1 L (9.4-12.4) fL Immature Gran % (Auto) 0.3 (0.0-0.4) % Neut % (Auto) 81.6 H (45-73) % Lymph % (Auto) 12.3 L (20-40) % Dewey % (Auto) 4.9 (2-11) % Eos % (Auto) 0.0 (0-4) % Baso % (Auto) 0.9 (0-2) % Lymph # (Auto) 1.2 (1.2-4.9) X10*3/uL Dewey # (Auto) 0.5 (0.1-1.2) X10*3/uL Eos # (Auto) 0.0 (0.0-0.4) X10*3/uL Baso # (Auto) 0.1 (0.0-0.2) X10*3/uL Abs Immat Gran (auto) 0.03 (0.00-0.03) X10*3/uL Absolute Neuts (auto) 7.7 (2.0-8.3) x10*3/uL Absolute Nucleated RBC 0.000 (0.0-0.012) X10*3/uL Nucleated RBC % (auto) 0.0 (0.0-0.2) /100WBC Sodium 137 (135-145) mmol/L Potassium 3.7 (3.3-5.1) mmol/L Chloride 96 (96-108) mmol/L Carbon Dioxide 15 L (22-29) mmol/L Anion Gap 30 H (12-20) BUN 11 (9-16) mg/dL Creatinine 0.75 (0.5-1.4) mg/dL Estim Creat Clear Calc 159.7 Estimated GFR > 60 Random Glucose 114 (60-115) mg/dL Uric Acid 16.6 H (3.4-7.0) mg/dL Calcium 8.8 (8.4-10.2) mg/dL Magnesium 2.1 (1.6-2.6) mg/dL Iron 132 (45-160) mcg/dL TIBC 269 (228-428) mcg/dL % Saturation 49 (15-50) % Unsat Iron Binding 137 ug/dL Total Bilirubin 0.7 (0.0-1.0) mg/dL AST 328 H (5-37) U/L ALT 229 H (0-40) U/L Alkaline Phosphatase 96 (39-117) U/L Total Protein 8.4 H (6.5-8.0) g/dL Albumin 5.0 (3.5-5.0) g/dL Lipase 39 (8-78) U/L TSH 0.14 L (0.32-4.0) uIU/mL Free T4 0.85 (0.71-1.85) ng/dL Ethyl Alcohol 360 H* mg/dL Medications Administered Generic Name Dose Route Start Last Admin Trade Name Freq PRN Reason Stop Dose Admin Diazepam 2.5 mg 09/20/25 10:17 09/20/25 19:59 Diazepam 10 Mg/2 Ml Cartridge IVPUSH 2.5 mg Q6H PRN Administration nausea and vomiting, QTC prolonged Lactated Ringer's 1,000 mls @ 125 mls/hr 09/20/25 02:00 09/20/25 17:29 Lr IVCONT 125 mls/hr .Q8H THOMAS Administration Acetaminophen 1,000 mg in 100 mls @ 400 mls/hr 09/20/25 15:00 09/20/25 19:58 Ofirmev IV 400 mls/hr Q6H PRN Administration Pain, Mild 1-3,fever,headache Pantoprazole Sodium 40 mg 09/20/25 16:30 09/20/25 17:32 Pantoprazole Sodium 40 Mg/10 Ml Vial IVPUSH 40 mg BID@0630,1630 THOMAS Administration Phenobarbital 45 mg 09/20/25 18:00 09/20/25 17:29 Phenobarbital 15 Mg Tablet PO 09/22/25 06:01 45 mg BID@0600,1800 THOMAS Administration Sertraline HCl 50 mg 09/20/25 16:45 09/20/25 17:31 Sertraline Hcl 50 Mg Tablet PO 50 mg DAILY THOMAS Administration Sodium Chloride 3 ml 09/20/25 08:00 09/20/25 19:59 0.9 % Sodium Chloride Flush 3 Ml Syringe IVFLUSH 3 ml QSHIFT THOMAS Administration Sucralfate 1 gm 09/20/25 16:30 09/20/25 19:59 Sucralfate 1 Gm Tablet PO 1 gm QIDACHS THOMAS Administration Discontinued Medications Generic Name Dose Route Start Last Admin Trade Name Freq PRN Reason Stop Dose Admin Baclofen 10 mg 09/20/25 03:54 09/20/25 04:18 Baclofen 10 Mg Tablet PO 09/20/25 03:55 10 mg ONCE ONE Administration Baclofen 10 mg 09/20/25 19:47 09/20/25 19:59 Baclofen 10 Mg Tablet PO 09/20/25 19:48 10 mg ONCE STA Administration Diazepam 10 mg 09/19/25 22:05 09/19/25 22:09 Diazepam 10 Mg/2 Ml Cartridge IM 09/19/25 22:06 10 mg STAT STA Administration Diazepam 5 mg 09/20/25 01:06 09/20/25 01:21 Diazepam 10 Mg/2 Ml Cartridge IVPUSH 09/20/25 01:07 5 mg STAT STA Administration Diphenhydramine HCl 25 mg 09/20/25 01:06 09/20/25 01:21 Diphenhydramine Hcl 50 Mg/Ml Vial IVPUSH 09/20/25 01:07 25 mg ONCE ONE Administration Lactated Ringer's 1,000 mls @ 999 mls/hr 09/19/25 23:15 09/20/25 02:12 Lr IV 09/20/25 01:15 Infused .Q1H1M THOMAS Infusion Magnesium Sulfate 2 gm in 50 mls @ 150 mls/hr 09/20/25 01:26 09/20/25 02:51 Magnesium Sulfate/H2o IV 09/20/25 01:45 Infused ONCE STA Infusion Lactated Ringer's 1,000 mls @ 999 mls/hr 09/20/25 02:15 09/20/25 07:39 Lr IV 09/20/25 04:15 Infused .Q1H1M THOMAS Infusion Sodium Bicarbonate 100 meq/ 1,000 mls @ 100 mls/hr 09/20/25 02:45 09/20/25 07:38 Dextrose IV 09/20/25 12:44 Infused .Q10H THOMAS Infusion Potassium Phosphate 15 mmol in 250 mls @ 62.5 mls/hr 09/20/25 03:10 09/20/25 10:16 Kphos IV 09/20/25 07:09 Infused ONCE ONE Infusion Folic Acid 1 mg/ Sodium 50.2 mls @ 100.4 mls/hr 09/20/25 09:00 09/20/25 11:50 Chloride IV Infused DAILY THOMAS Infusion Thiamine HCl 100 mg/ Sodium 101 mls @ 202 mls/hr 09/20/25 09:00 09/20/25 12:31 Chloride IV Infused DAILY THOMAS Infusion Lactated Ringer's 1,000 mls @ 999 mls/hr 09/20/25 06:30 09/20/25 10:16 Lr IV 09/20/25 07:30 Infused .Q1H1M THOMAS Infusion Iohexol 85 ml 09/20/25 04:07 09/20/25 04:08 Iohexol 350 Mg/Ml 100 Ml Infus..Btl IV 09/20/25 04:08 85 ml ONCE ONE Administration Ketorolac Tromethamine 15 mg 09/20/25 10:28 09/20/25 11:02 Ketorolac Tromethamine 15 Mg/Ml Vial IVPUSH 15 mg Q6H PRN Administration Pain, Severe (Pain Scale 7-10) Lidocaine HCl 10 ml 09/20/25 06:37 09/20/25 07:58 Lidocaine Hcl 2 % Urojet 10 Ml Jel.Pf.Rima TOPICAL 09/20/25 06:38 10 ml ONCE ONE Administration Pantoprazole Sodium 80 mg 09/20/25 01:24 09/20/25 02:12 Pantoprazole Sodium 40 Mg/10 Ml Vial IVPUSH 09/20/25 01:25 80 mg ONCE STA Administration Phenobarbital Sodium 292 mg 09/20/25 02:00 09/20/25 02:13 Phenobarbital Sodium 130 Mg/Ml Im Once IM 09/20/25 02:01 292 mg ONCE ONE Administration Phenobarbital Sodium 219 mg 09/20/25 05:00 09/20/25 10:00 Phenobarbital Sodium 130 Mg/Ml Vial Im Q3hx2 IM 09/20/25 08:01 219 mg Q3H THOMAS Administration Phenobarbital Sodium 65 mg 09/20/25 05:55 09/20/25 06:30 Phenobarbital Sodium 65 Mg/Ml Vial IM 09/20/25 05:56 65 mg ONCE ONE Administration Procedures Procedure Narrative Procedure Narrative: Ultrasound Guided Peripheral Intravenous Catheter Placement Indication: Intravenous Access Location: Right ??Vascular Location of Catheter Tip: Basilic Provider: Self I was approached by nursing staff and informed that multiple unsuccessful attempts had been made to establish IV access in the patient. The patients arm was surveyed with the ultrasound for verification of vessel collapsibility, patency, depth and caliber, as well as identification of nearby structures. The target area was prepped with chlorhexidine. A tourniquet was placed proximally on the extremity. Under real-time ultrasound guidance, an [20 G 2.25 inch AccuCath nontunneled catheter] ? was advanced into the target vein. Dark blood was visualized in the flash chamber. The catheter was easily advanced into the vein. The catheter was evacuated of air and flushed with sterile saline. The catheter was secured in place with a tegaderm. The patient tolerated the procedure well and there were no complications. Estimated Blood Loss: 1mL Total Time for Procedure: 5min Images Stored CPT: 49966; 61666 Discharge Plan Discharge Clinical Impression: Coffee ground emesis Alcohol withdrawal Qualifiers: Complication of substance-induced condition: with unspecified complication Qualified Code(s): F10.939 - Alcohol use, unspecified with withdrawal, unspecified Patient Disposition: Admitted As Inpatient Interventions: Admission Worksheet (ED) Last Done: 09/20/25 07:22 Discharge Date/Time: 09/20/25 08:47
[2025-09-19 22:19] LABS: Alanine Aminotransferase 229 U/L (0-40); Albumin Level 5.0 g/dL (3.5-5.0); Alkaline Phosphatase 96 U/L (39-117); Anion Gap 30 (12-20); Aspartate Amino Transferase 328 U/L (5-37); Blood Urea Nitrogen 11 mg/dL (9-16); Calcium 8.8 mg/dL (8.4-10.2); Carbon Dioxide 15 mmol/L (22-29); Chloride 96 mmol/L (96-108); Creatinine Clr Calc Pharmacy 159.7; Estimated Glomerular Filt Rate > 60; Potassium 3.7 mmol/L (3.3-5.1); Sodium 137 mmol/L (135-145); Total Protein 8.4 g/dL (6.5-8.0)
[2025-09-19 23:07] LABS: Lipase 39 U/L (8-78)
--- NOTE | 2025-09-19 23:36 | PC.NURSE ---
Addendum entered by Virgie Sherman RN 09/20/25 05:17: pt urine noted to have blood, bright red urine, pt reports pain when urinating. Provider Kimberley aware, pending new orders Original Note: pt had 1 episode of coffee ground emesis. MD Stafford aware, pending new orders
[2025-09-19] MEDS: Lactated Ringers 1,000 ML 999 ML IV (23:55)
[2025-09-20 00:46] VITALS: BP 136/79; PULSE 107; RESP 15; TEMP 36.8; O2SAT 96
[2025-09-20] MEDS: Lactated Ringers 1,000 ML 999 ML IV ×4 (00:46→07:58)
[2025-09-20] MEDS: diazePAM 10 MG/2 ML CARTRIDGE 5 MG IVPUSH (01:21)
--- NOTE | 2025-09-20 02:01 | PM.IMHP ---
History of Present Illness Date of Service: 09/20/25 Attending physician on admission: Trevor Hillman Chief Complaint: severe reflux, alcohol binge Pt is a 39 yo male with PMH Alcohol use disorder with multiple inpt admissions for ETOH abuse recently on naltrexone and has tried vistaril, Gout, nephrolithiasis, PTSD, HLD, hepatic steatosis (no diagnostic evidence of cirrhosis with previous testing), R and L ankle surgery was BIBA as pt called himself after a 5 day binge of alcohol, at least 1L of vodka per day. with no food intake and small bouts of gatorade. Pt developed intractable hiccups, RUQ pain, and coffee ground emesis. Pt states he is not suicidal or having hallucinations but offers he has been having hallucinations (auditory) with recent drinking episodes. Pt states he was discharged from rehab about a month ago and was there for 8 days. 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 Pt has not been taking naltrexone. Per pt, nothing has worked and pt is drawn to the liquor store vs taking care of his addiction and dealing with life's problems. Pt expressed concern that he is having more and more physical symptoms. Pt denies use of tobacco, marijuana, illicit drugs or IV drug hx. Pt does not routinely follow with a GI specialist. Pt denies gouty joint pain, but is reporting serious reflux, hiccups, abdominal pain and feels dehydrated. Pt reports mild RAJAN. Pt was started on phenobarbital in the ED. Work up in the ED notes an ECG with prolonged Qtc 529, NSR with no ischemic changes. MG 2.0. Pt is receiving MG 2GMS IV. Alcohol level 360. LA and VBG pending as CO2 15, AG 30, BG 114 mg/dL on BMP. IVF ordered to include 1L LR and then 125 mls per hour. Stool for occult is pending. H/H is stable, 16.2/44.5, PLTs 236K. AST 328 ALT 229 TBili 0.7 Lipase 39. Pt is not on blood thinners. Based on pt's pain level and new clinical findng of coffee ground emesis and no documented hx of portal HTN, esophageal varices, CT abd ordered. Pt being admitted for coffee ground emesis, alcohol withdrawal/ esophagitis and prolonged Qtc. Review of Systems Review of Systems: Pt denies SOB at rest, but has ongoing upper chest pain related to reflux, continued intermittent hiccups. RUQ abdominal pain, nausea, no current emesis. Pt deneis diarrhea or constipation. Pt denies any recent falls or injuries. Pt denies SI, HI or current hallucinations. pt reports hx of seziue with alcohol withdrawal. [facility] Medical History (Updated 09/20/25 @ 02:39 by GISELA Antoine) PTSD (post-traumatic stress disorder) Gout Sternal fracture Class 1 obesity Alcoholic cirrhosis of liver Exacerbation of gout Alcohol abuse Anxiety Cognitive capacity: A/O X3 Functional capacity: independent ambulation Surgical History (Updated 09/20/25 @ 02:35 by GISELA Antoine) History of ankle surgery Social History Household Members: Other Housing: House Do you presently have visiting nurse or other home services: No Alcohol intake: current Alcohol intake frequency: 3 or more drinks per day Alcohol type: hard liquor Patient Tobacco Use Status: Never used Tobacco Use of substances other than those prescribed or required for medical reasons: No Advance Directives: No Advance Directives Information Provided: No service: Yes Ebola Risk: Travel/Contact With Anyone From Affected Area/s: No Has Patient Experienced Ebola Symptoms: No Meds Allergies Allergy/AdvReac Type Severity Reaction Status Date / Time azithromycin (AZITHROMYCIN) Allergy Unknown Unknown Verified 09/19/25 19:49 Active Medications: Current Medications Pharmacy Consult (Consult Rx Etoh Phenob Im/Po) 1 each MISCELLANE ONCE PRN; Protocol PRN Reason: Consult order Phenobarbital (Phenobarbital 15 Mg Tablet) 45 mg PO BID@0600,1800 HTOMAS Stop: 09/22/25 06:01 Phenobarbital (Phenobarbital 15 Mg Tablet) 15 mg PO BID@0600,1800 THOMAS Stop: 09/24/25 06:01 Phenobarbital (Phenobarbital 15 Mg Tablet) 15 mg PO DAILY@1800 THOMAS Stop: 09/25/25 18:01 Phenobarbital Sodium (Phenobarbital Sodium 130 Mg/Ml Vial Im Q3hx2) 219 mg IM Q3H THOMAS Stop: 09/20/25 08:01 Home Medications ?Medication ?Instructions ?Recorded ?Confirmed ?Last Taken ?Type folic acid 1 mg tablet 1 mg PO DAILY 07/31/25 08/22/25 08/10/25 History melatonin 3 mg tablet 9 mg PO BEDTIME PRN Sleep 07/31/25 08/22/25 Unknown History thiamine HCl (vitamin B1) 100 mg 100 mg PO DAILY 07/31/25 08/11/25 08/10/25 History tablet clonidine HCl 0.1 mg tablet 0.1 mg PO BID 08/11/25 08/22/25 08/10/25 History doxepin 10 mg capsule 20 mg PO BEDTIME 08/11/25 08/22/25 08/10/25 History gabapentin 400 mg tablet 800 mg PO TID 08/11/25 08/22/25 08/10/25 History prazosin 1 mg capsule 3 mg PO BEDTIME 08/11/25 08/22/25 08/10/25 History Physical Exam Vital Signs and Narrative: Vital Signs: Last Vital Signs Temp 98.3 F 09/20/25 00:46 Pulse 107 H 09/20/25 00:46 Resp 15 09/20/25 00:46 BP 136/79 09/20/25 00:46 Pulse Ox 96 09/20/25 00:46 O2 Del Method Room Air 09/20/25 00:46 BMI result Body Mass Index 32.2 Alert and orientated X3, able to give good history. Neuro: CN II-X11 intact, no deficits, visual acuity intact EYES: PERRLA, EOM intact, sclerae nonicteric, conjunctiva pink ENT: hearing intact, no issues with swallowing, uvula midline, lips dry, oral mucosa dark, nares patent no epistaxis Cardiac: S1 S2 RRR, no murmur, no JVD, no edema in Lower ext Pulmonary: lungs diminished bilaterally Abdominal: BS active in all 4 quadrants, no guarding, moderate tenderness RUQ, no rebounding MSK: strength 5/5 upper and lower extremities : no CVA tenderness no bladder distension Extremities: no edema in lower extremities, PT and DP pulses palpable +2 Psych: mood depressed, judgement and insight good Skin: No new rashes or lesions Results Labs 09/19/25 21:23 09/20/25 02:18 Labs: Laboratory Results - last 24 hr 09/19/25 21:23 MCV 91.0 MCH 33.1 H MCHC 36.4 H RDW 14.0 Plt Count 236 D MPV 9.1 L Immature Gran % (Auto) 0.3 Neut % (Auto) 81.6 H Lymph % (Auto) 12.3 L Hitchcock % (Auto) 4.9 Eos % (Auto) 0.0 Baso % (Auto) 0.9 Lymph # (Auto) 1.2 Hitchcock # (Auto) 0.5 Eos # (Auto) 0.0 Baso # (Auto) 0.1 Abs Immat Gran (auto) 0.03 Absolute Neuts (auto) 7.7 Absolute Nucleated RBC 0.000 Nucleated RBC % (auto) 0.0 Anion Gap 30 H Estim Creat Clear Calc 159.7 Estimated GFR > 60 Random Glucose 114 Calcium 8.8 Total Bilirubin 0.7 AST 328 H ALT 229 H Alkaline Phosphatase 96 Total Protein 8.4 H Albumin 5.0 Lipase 39 Ethyl Alcohol 360 H* ABG Interpretation: VBG 7.45, 25, 104, 17 ECG Attestation: I personally reviewed and interpreted this ECG as follows: (NSR, Prolonged Qtc 529) Assessment and Plan (1) Coffee ground emesis: Status: Acute (2) Alcoholic cirrhosis of liver: Qualifiers: Ascites presence: without ascites Qualified Code(s): K70.30 - Alcoholic cirrhosis of liver without ascites Status: Acute (3) Esophagitis: Status: Acute (4) Prolonged QT interval: Status: Acute (5) Intractable hiccups: Status: Acute Plan Pt is a 39 yo male with PMH Alcohol use disorder with multiple inpt admissions for ETOH abuse recently on naltrexone and has tried vistaril, Gout, nephrolithiais, PTSD, HLD, hepatic steatosis (no diagnostic evidence of cirrhosis with previous testing), R and L ankle surgery was BIBA as pt called himself after a 5 day binge of alcohol, at least 1L of vodka per day. with no food intake and small bouts of gatorade. Pt developed intractable hiccups, RUQ pain, and coffee ground emesis. Pt recently in rehab fo 8 days and resume alcohol use. Patient being admitted for alcohol abuse/esophagitis, coffee-ground emesis, prolonged QTC with intractable hiccups. Coffee-ground emesis/ N/V/ esophagitis H/H 16.2/44.5, no indication for transfusion Protonix 40 IV b.i.d. Patient NPO, no indication currently for NG tube as patient's nausea and vomiting have resided Avoid Zofran and Reglan due to prolonged QTC, patient received 1 dose of Valium and Benadryl in the ED LA 5.7, Abdominal CT requested, if noted esophageal varices or portal hypotension we will start octreotide if patient has any further coffee-ground emesis or drop in H/H LR bolus, hourly rate ordered, trend LA If there is a drop in patient's H&H or an abnormal finding on CT consult GI Stool for occult pending CBC daily Alcohol use disorder with history of seizure with withdrawal Phenobarbital protocol started in the ED IV fluids ordered Telemetry ordered Seizure precautions Addictions consulted Pt no longer taking naltrexone and was on Vistaril but stopped as injections were painful Folic acid and thiamine ordered CIWA in place Case management also consulted as [facility] Metabolic acidosis secondary to dehydration from N/V, alcohol abuse CO2 15, AG 30 Bicarb infusion one bag ordered CMP daily and prn VBG 7.45, 25, 104, 17 Hypophosphatemia K Phos IV X1 Repear Phos in AM Transaminitis Secondary to alcohol use likely Acute hepatitis panel ordered Trend CMP Avoid hepatotoxic medications Prolonged QTC 2 g of magnesium IV administered Magnesium currently 2.0 Telemetry ordered Repeat ECG in AM Intractable hiccups Baclofen 10 mg X1 (pt NPO, but willing to try one dose) Unable to use Reglan due to prolonged QTC Hematuria light red, no clots(0515 AM) hx of nephrolithiasis Total CK pending No issues with flank pain UA pending PTSD/ Alcohol abuse Pt seeking to establish care in the community with [place] No indication for Sect[place] 12 Pt was considered for Section 35 in the past, but pharmaceutical assistant ruled pt did not meet criteria DVT prophylaxis: contraindicated with noted coffee ground emesis MED REC PENDING FULL CODE Pt will require at least a 2 midnight stay for acute GI issues secondary to Alcohol abuse, telemetry for prolonged Qtc, and further diagnostic work up with expert consultation with GI if indicated Quality Stroke Does the patient have a stroke diagnosis?: No Reason for No Anti-thrombotic by Day Two: Contraindicated (ruling out GIB ) VTE Prior VTE?: No VTE Risk Level:: Medical - moderate - high VTE Device Contraindication: N/A - Device Ordered VTE Drug Contraindication: Treatment Not Indicated
[2025-09-20] MEDS: Magnesium Sulfate/H2O 2 GM/50 ML PIGGYBACK IV (02:12)
[2025-09-20] MEDS: PHENobarbitaL sodium 130 MG/ML IM ONCE 292 MG IM (02:13)
[2025-09-20] MEDS: Lactated Ringers 1,000 ML 125 ML IVCONT ×3 (02:14→17:29)
[2025-09-20 02:30] LABS: Venous Blood Gas Refer to POC result
[2025-09-20 02:31] LABS: VBG HCO3 17 mmol/L (22-26); VBG O2 % Saturation 99.0 %
[2025-09-20 02:41] LABS: Anion Gap 27 (12-20); Blood Urea Nitrogen 11 mg/dL (9-16); Calcium 8.3 mg/dL (8.4-10.2); Carbon Dioxide 17 mmol/L (22-29); Chloride 98 mmol/L (96-108); Creatinine Clr Calc Pharmacy 178.7; Estimated Glomerular Filt Rate > 60; Potassium 3.6 mmol/L (3.3-5.1); Sodium 138 mmol/L (135-145)
[2025-09-20 02:43] LABS: Iron 132 mcg/dL (45-160); Magnesium 2.1 mg/dL (1.6-2.6); Percent Iron Saturation 49 % (15-50); Total Iron Binding Capacity 269 mcg/dL (228-428); Unsaturated Iron Binding 137 ug/dL; Uric Acid 16.6 mg/dL (3.4-7.0)
[2025-09-20 03:32] LABS: Free T4 (Free Thyroxine) 0.85 ng/dL (0.71-1.85)
[2025-09-20 03:51] LABS: Folate 8.5 ng/mL (> or = 4.0)
[2025-09-20] MEDS: Sodium Bicarbonate 8.4% 100 MEQ in Dextrose 5 % 900 ML IV (04:01)
[2025-09-20] MEDS: iohexoL 350 MG/ML 100 ML INFUS..BTL 85 ML IV (04:08)
[2025-09-20] MEDS: Potassium Phosphate/NS 15 MMOL/250 ML PLAST..BAG 62.5 MMOL IV (04:18)
[2025-09-20 05:00] LABS: Reflex Lactate? Lactic Acid Added
[2025-09-20] MEDS: PHENobarbitaL sodium 130 MG/ML VIAL IM Q3Hx2 219 MG IM ×2 (05:34→10:00)
[2025-09-20 05:36] LABS: Cannabinoid Screen Urine Not Detected (Not Detect)
[2025-09-20 05:39] VITALS: BP 134/75; PULSE 97; RESP 18; TEMP 36.8; O2SAT 99
[2025-09-20 05:46] LABS: MANUAL DIFF FLAG NO
[2025-09-20 05:49] LABS: Appearance Urine Clear; Glucose Urine UA Negative (Negative); PH 6.0 (5.0-9.0); Specific Gravity - Urine 1.020 (1.005-1.025); UMIC TRIGGER UA YES
[2025-09-20 05:50] LABS: Hematocrit 36.0 % (42.0-52.0); Hemoglobin 12.7 g/dl (14.0-18.0); Imm Gran Abs Auto 0.03 X10*3/uL (0.00-0.03); Imm Gran Pct Auto 0.5 % (0.0-0.4); Lymphocytes Absolute Auto 0.8 X10*3/uL (1.2-4.9); Mean Corpuscular HGB Conc 35.3 g/dl (31.0-36.0); Mean Corpuscular Hemoglobin 32.6 pg (27.0-33.0); Mean Corpuscular Volume 92.5 fL (80.0-98.0); NRBC Abs Auto 0.000 X10*3/uL (0.0-0.012); NRBC Pct Auto 0.0 /100WBC (0.0-0.2); Platelet Count 143 X10*3/uL (160-400); Red Blood Count 3.89 X10*6/uL (4.60-5.80); White Blood Count 6.6 X10*3/uL (4.8-10.8)
[2025-09-20 06:08] LABS: Alanine Aminotransferase 164 U/L (0-40); Albumin Level 3.9 g/dL (3.5-5.0); Alkaline Phosphatase 74 U/L (39-117); Anion Gap 22 (12-20); Aspartate Amino Transferase 204 U/L (5-37); Blood Urea Nitrogen 9 mg/dL (9-16); Calcium 7.9 mg/dL (8.4-10.2); Carbon Dioxide 21 mmol/L (22-29); Chloride 98 mmol/L (96-108); Creatinine Clr Calc Pharmacy 173.6; Estimated Glomerular Filt Rate > 60; Potassium 3.6 mmol/L (3.3-5.1); Sodium 137 mmol/L (135-145); Total Protein 6.4 g/dL (6.5-8.0)
[2025-09-20 06:09] LABS: ~Lactic Acid-LAB USE ONLY 4.3 mmol/L (0.5-2.0)
--- NOTE | 2025-09-20 06:38 | PM.EVENT ---
Event Note Date of Service: 09/20/25 Event Note: 0635 Nursing reported Bladder scan > 800. Lord order placed with urojet. UA sent earlier was pink tinged. low likelihood of UTI. No issues with kidney or bladder on CT scan. No evidence of hydronephrosis or nephrolithiasis. Also LA 4.3, down but pt will continue to receive fluids. Time Spent With Patient Time: Total time managing care of this patient today ____ minutes.
[2025-09-20 07:44] LABS: Reflex Lactate? 2 Y
[2025-09-20] MEDS: Lidocaine HCl 2 % Urojet 10 ML JEL.PF.APP TOPICAL (07:58)
[2025-09-20 08:00] VITALS: BP 160/87; PULSE 89; RESP 19; TEMP 37.1; O2SAT 99
--- NOTE | 2025-09-20 08:00 | ECG_ITS ---
Test Reason : RECHECK QTC Blood Pressure : */* mmHG Vent. Rate : 91 BPM Atrial Rate : 91 BPM P-R Int : 148 ms QRS Dur : 84 ms QT Int : 476 ms P-R-T Axes : 22 40 63 degrees QTcB Int : 585 ms Normal sinus rhythm Prolonged QT Abnormal ECG When compared with ECG of 19-Sep-2025 20:11, Nonspecific T wave abnormality now evident in Lateral leads Referred By: Lidia Chu Electronically Signed By: DENNISE MERCADO
--- NOTE | 2025-09-20 08:52 | HO.PM.IMPN ---
Subjective Subjective Date of Service: 09/20/25 Interval History: Continues to have coffee-ground mild emesis Phenobarb protocol GI consulted PPI and Carafate If patient continues to have emesis we will likely undergo EGD but not indicated at this minute Review of Systems Review of Systems: Yes all other systems are reviewed and are negative Physical Exam Exam: Exam: General: AO X 3, appeared to be tremulous and in pain-epigastric in etiology per patient Resp: CTA bilateral, no accessory muscles used CVS: S1,S2,RRR GI: Epigastric tenderness : Lord placed acute urinary retention by Urology Psych: Anxious anxious affect Vital Signs: Vital Signs: Last Vital Signs Temp 98.3 F 09/20/25 05:39 Pulse 97 09/20/25 05:39 Resp 18 09/20/25 05:39 BP 134/75 09/20/25 05:39 Pulse Ox 99 09/20/25 05:39 O2 Del Method Room Air 09/20/25 05:39 BMI result Body Mass Index 32.2 Objective Data Active Medications Al Hydroxide/Mg Hydroxide (Magnesium Hydrox/Alum Hydrox 30 Ml Oral.Susp) 30 ml PO Q4H PRN PRN Reason: Heartburn Albuterol/Ipratropium (Albuterol/Iprat 2.5/0.5mg 3 Ml Ampul.Neb) 3 ml INHALE Q4H PRN PRN Reason: Shortness of Breath/Wheezing Calcium Carbonate (Calcium Carbonate 750 Mg Tab.Chew) 750 mg PO Q4H PRN PRN Reason: Heartburn Lactated Ringer's (Lr) 1,000 mls @ 125 mls/hr IVCONT .Q8H [facility] Last Admin: 09/20/25 02:14 Dose: 125 mls/hr Documented By: REBEKAH Folic Acid 1 mg/ Sodium (Chloride) 50.2 mls @ 100.4 mls/hr IV DAILY [facility] Thiamine HCl 100 mg/ Sodium (Chloride) 101 mls @ 202 mls/hr IV DAILY [facility] Magnesium Hydroxide (Milk Of Magnesia 30 Ml Oral.Susp) 30 ml PO DAILY PRN PRN Reason: Constipation Melatonin (Melatonin 3 Mg Tablet) 6 mg PO BEDTIME PRN PRN Reason: Insomnia Pantoprazole Sodium (Pantoprazole Sodium 40 Mg/10 Ml Vial) 40 mg IVPUSH BID@0630,1630 [facility] Pharmacy Consult (Consult Rx Etoh Phenob Im/Po) 1 each MISCELLANE ONCE PRN; Protocol PRN Reason: Consult order Phenobarbital (Phenobarbital 15 Mg Tablet) 45 mg PO BID@0600,1800 [facility] Stop: 09/22/25 06:01 Phenobarbital (Phenobarbital 15 Mg Tablet) 15 mg PO BID@0600,1800 [facility] Stop: 09/24/25 06:01 Phenobarbital (Phenobarbital 15 Mg Tablet) 15 mg PO DAILY@1800 [facility] Stop: 09/25/25 18:01 Polyethylene Glycol (Polyethylene Glycol 3350 17 Gm Powd.Pack) 17 gm PO DAILY PRN PRN Reason: Constipation Senna (Sennosides 8.6 Mg Tablet) 17.2 mg PO BEDTIME [facility] Sodium Chloride (0.9 % Sodium Chloride Flush 3 Ml Syringe) 3 ml IVFLUSH QSHIFT [facility] Labs 09/20/25 05:39 09/20/25 05:39 Labs: Laboratory Results - last 24 hr 09/19/25 09/20/25 09/20/25 21:23 02:18 02:24 MCV 91.0 MCH 33.1 H MCHC 36.4 H RDW 14.0 Plt Count 236 D MPV 9.1 L Immature Gran % (Auto) 0.3 Neut % (Auto) 81.6 H Lymph % (Auto) 12.3 L [place] % (Auto) 4.9 Eos % (Auto) 0.0 Baso % (Auto) 0.9 Lymph # (Auto) 1.2 [place] # (Auto) 0.5 Eos # (Auto) 0.0 Baso # (Auto) 0.1 Abs Immat Gran (auto) 0.03 Absolute Neuts (auto) 7.7 Absolute Nucleated RBC 0.000 Nucleated RBC % (auto) 0.0 VBG pH 7.45 H VBG pCO2 25 VBG pO2 104 VBG HCO3 17 L VBG O2 Saturation 99.0 VBG Base Excess -4.2 Anion Gap 30 H 27 H Estim Creat Clear Calc 159.7 178.7 Estimated GFR > 60 > 60 Random Glucose 114 109 Lactic Acid Lactic Acid F/U @ 2Hr Uric Acid 16.6 H Calcium 8.8 8.3 L Phosphorus 1.8 L Magnesium 2.1 Iron 132 TIBC 269 % Saturation 49 Unsat Iron Binding 137 Total Bilirubin 0.7 AST 328 H ALT 229 H Alkaline Phosphatase 96 Total Creatine Kinase Total Protein 8.4 H Albumin 5.0 Lipase 39 Folate Beta-Hydroxybutyrate 3.28 H TSH 0.14 L Free T4 0.85 Urine Color Urine Appearance Urine pH Ur Specific [place] Urine Protein Urine Glucose (UA) Urine Ketones Urine Blood Urine Nitrite Ur Leukocyte Esterase Urine RBC Urine WBC Ur Squamous Epith Cells Urine Bacteria Hyaline Casts Urine Opiates Screen Ur Buprenorphine Scrn Ur Oxycodone Screen Urine Methadone Screen Urine Fentanyl Screen Ur Barbiturates Screen Ur Phencyclidine Scrn Ur Amphetamines Screen U Benzodiazepines Scrn Urine Cocaine Screen U Marijuana (THC) Screen Ethyl Alcohol 360 H* Blood Type Antibody Screen 09/20/25 09/20/25 09/20/25 02:57 05:16 05:39 MCV 92.5 MCH 32.6 MCHC 35.3 RDW 14.2 Plt Count 143 L D MPV 9.2 L Immature Gran % (Auto) 0.5 H Neut % (Auto) 82.1 H Lymph % (Auto) 11.6 L [place] % (Auto) 5.2 Eos % (Auto) 0.0 Baso % (Auto) 0.6 Lymph # (Auto) 0.8 L [place] # (Auto) 0.3 Eos # (Auto) 0.0 Baso # (Auto) 0.0 Abs Immat Gran (auto) 0.03 Absolute Neuts (auto) 5.4 Absolute Nucleated RBC 0.000 Nucleated RBC % (auto) 0.0 VBG pH VBG pCO2 VBG pO2 VBG HCO3 VBG O2 Saturation VBG Base Excess Anion Gap 22 H Estim Creat Clear Calc 173.6 Estimated GFR > 60 Random Glucose 112 Lactic Acid 5.7 H* Lactic Acid F/U @ 2Hr 4.3 H* Uric Acid Calcium 7.9 L Phosphorus 1.9 L Magnesium Iron TIBC % Saturation Unsat Iron Binding Total Bilirubin 0.7 AST 204 H ALT 164 H Alkaline Phosphatase 74 Total Creatine Kinase 501 H Total Protein 6.4 L Albumin 3.9 Lipase Folate 8.5 Beta-Hydroxybutyrate TSH Free T4 Urine Color [place] A Urine Appearance Clear Urine pH 6.0 Ur Specific [place] 1.020 Urine Protein 300 (3+) H Urine Glucose (UA) Negative Urine Ketones 80 Urine Blood Large (3+) H Urine Nitrite Negative Ur Leukocyte Esterase Trace H Urine RBC >20 H Urine WBC 0-5 Ur Squamous Epith Cells 0-2 Urine Bacteria None Seen Hyaline Casts 3-5 Urine Opiates Screen Not Detected Ur Buprenorphine Scrn Not Detected Ur Oxycodone Screen Not Detected Urine Methadone Screen Not Detected Urine Fentanyl Screen Not Detected Ur Barbiturates Screen POSITIVE H Ur Phencyclidine Scrn Not Detected Ur Amphetamines Screen Not Detected U Benzodiazepines Scrn POSITIVE H Urine Cocaine Screen Not Detected U Marijuana (THC) Screen Not Detected Ethyl Alcohol Blood Type O Negative Antibody Screen NEGATIVE Assessment and Plan (1) Alcohol withdrawal syndrome: Status: Resolved (2) Hypomagnesemia: Status: Resolved Plan 39 yo male with PMH of Alcohol use disorder with multiple inpt admissions for ETOH abuse recently on naltrexone and has tried vistaril, Gout, nephrolithiasis, PTSD, HLD, hepatic steatosis (no diagnostic evidence of cirrhosis with previous testing), R and L ankle surgery presented to the ED for another episode of alcohol withdrawal and coffee-ground emesis, acute urinary retention requiring Lord Alcohol use disorder with high risk of withdrawal Abdominal pain Pt reports 25+ previous hospitalizations for alcohol withdrawal with hx of withdrawal seizures x3-4 Continue phenobarbital protocol Thiamine, folate, multivitamins, and omeprazole Monitor on [facility] Addiction medicine consult Monitor on telemetry Acute urinary retention likely secondary to incomplete bladder emptying Difficult Lord, we will need to continue Lord for 2 weeks for decompression Voiding trials in outpatient settings Hypokalemia Potassium being checked daily and repleted Hypomagnesemia Being checked and repleted daily Transaminitis Likely in the setting of alcohol use Salty abdomen pelvis hepatic steatosis, esophagitis Negative hepatitis Downtrending LFTs PPI and sucralfate Persistent coffee-ground emesis-we will likely need EGD if not responding to medical management per GI QTC prolongation Mg daily Tele Daily EKG Depression-continue sertraline home dose DVT prophylaxis: SCD boots Code status: Full code Pt requires continued hospitalization for phenobarb protocol for controlled alcohol withdrawal that also requires close monitoring of labs for electrolyte abnormalities. Quality Stroke Does the patient have a stroke diagnosis?: No Reason for No Anti-thrombotic by Day Two: Contraindicated (ruling out GIB ) VTE Prior VTE?: No VTE Risk Level:: Medical - moderate - high VTE Device Contraindication: N/A - Device Ordered VTE Drug Contraindication: Treatment Not Indicated
--- NOTE | 2025-09-20 08:57 | PM.GICN ---
History of Present Illness Data of Consult Service Date: 09/20/25 Primary Care Provider: Elie Chaudhari MD HPI Reason for consult: esophagiitis 39 yo male with PMH of Alcohol use disorder with multiple inpt admissions for ETOH abuse recently on naltrexone and has tried vistaril, Gout, nephrolithiasis, PTSD, HLD, hepatic steatosis (no diagnostic evidence of cirrhosis with previous testing), R and L ankle surgery who I am seeing for coffee ground emesis. Patient had been binging on vodka for 1 week and then noted hiccups with episode of coffee ground emesis, including one today. He also notes 10/10 epigastric pain which he has had before when he drinks alcohol which is worse with food, and no relieving factors. He has poor appetite., no melena or rectal bleeding. He takes PPI at baseline except when he is drinking when he usualyl stops all his meds. he has never had EGD. He has also noted blood in urine, distended bladder on CT LABS:PLTs 236K. AST 328 ALT 229 TBili 0.7 Lipase 39. HGB 13 g/dl--close to historic baseline IMAGING: CT with esophgeal thickening -no varices mentioned in report Review of Systems Review of Systems: Constitutional : No Weight loss, No Fever, No Chills ENT/Mouth : No sore throat, No Rhinorrhea Eyes: No Swelling, No Redness Cardiovascular : No Chest Pain, No SOB, No Edema Respiratory : No Cough, No Sputum, No Wheezing Gastrointestinal : see HPI Genitourinary : NO Dysuria, No Urinary Frequency, + Hematuria, No Urgency Musculoskeletal : no joint pain, No Myalgias, No Joint Swelling Skin : No Skin Lesions, No rash Neuro : No Weakness, No Numbness, No Dizziness, No Headache Psych : No Anxiety/Panic, No Depression Heme/Lymph: No Bruising, No Lymphadenopathy Endocrine : No Polyuria, No Polydipsia All other systems reviewed and are negative. [facility] Past Medical History Medical History (Updated 09/20/25 @ 10:47 by Gurpreet Neal MD) PTSD (post-traumatic stress disorder) Gout Sternal fracture Class 1 obesity Alcoholic cirrhosis of liver Exacerbation of gout Alcohol abuse Anxiety Family History Pertinent family history: no FH of liver dz Surgical History Surgical History History of ankle surgery Social History Social History Household Members: Other Housing: House Do you presently have visiting nurse or other home services: No Alcohol intake: current Alcohol intake frequency: 3 or more drinks per day Alcohol type: hard liquor Patient Tobacco Use Status: Never used Tobacco service: Yes Travel History Ebola Risk: Travel/Contact With Anyone From Affected Area/s: No Has Patient Experienced Ebola Symptoms: No Meds Allergies Allergy/AdvReac Type Severity Reaction Status Date / Time azithromycin (AZITHROMYCIN) Allergy Unknown Unknown Verified 09/19/25 19:49 Active Medications: Current Medications Al Hydroxide/Mg Hydroxide (Magnesium Hydrox/Alum Hydrox 30 Ml Oral.Susp) 30 ml PO Q4H PRN PRN Reason: Heartburn Albuterol/Ipratropium (Albuterol/Iprat 2.5/0.5mg 3 Ml Ampul.Neb) 3 ml INHALE Q4H PRN PRN Reason: Shortness of Breath/Wheezing Calcium Carbonate (Calcium Carbonate 750 Mg Tab.Chew) 750 mg PO Q4H PRN PRN Reason: Heartburn Lactated Ringer's (Lr) 1,000 mls @ 125 mls/hr IVCONT .Q8H [facility] Last Admin: 09/20/25 02:14 Dose: 125 mls/hr Folic Acid 1 mg/ Sodium (Chloride) 50.2 mls @ 100.4 mls/hr IV DAILY [facility] Thiamine HCl 100 mg/ Sodium (Chloride) 101 mls @ 202 mls/hr IV DAILY [facility] Magnesium Hydroxide (Milk Of Magnesia 30 Ml Oral.Susp) 30 ml PO DAILY PRN PRN Reason: Constipation Melatonin (Melatonin 3 Mg Tablet) 6 mg PO BEDTIME PRN PRN Reason: Insomnia Pantoprazole Sodium (Pantoprazole Sodium 40 Mg/10 Ml Vial) 40 mg IVPUSH BID@0630,1630 [facility] Pharmacy Consult (Consult Rx Etoh Phenob Im/Po) 1 each MISCELLANE ONCE PRN; Protocol PRN Reason: Consult order Phenobarbital (Phenobarbital 15 Mg Tablet) 45 mg PO BID@0600,1800 [facility] Stop: 09/22/25 06:01 Phenobarbital (Phenobarbital 15 Mg Tablet) 15 mg PO BID@0600,1800 [facility] Stop: 09/24/25 06:01 Phenobarbital (Phenobarbital 15 Mg Tablet) 15 mg PO DAILY@1800 [facility] Stop: 09/25/25 18:01 Polyethylene Glycol (Polyethylene Glycol 3350 17 Gm Powd.Pack) 17 gm PO DAILY PRN PRN Reason: Constipation Senna (Sennosides 8.6 Mg Tablet) 17.2 mg PO BEDTIME [facility] Sodium Chloride (0.9 % Sodium Chloride Flush 3 Ml Syringe) 3 ml IVFLUSH QSHIFT [facility] Home Medications ?Medication ?Instructions ?Recorded ?Confirmed ?Last Taken ?Type folic acid 1 mg tablet 1 mg PO DAILY 07/31/25 09/20/25 08/10/25 History thiamine HCl (vitamin B1) 100 mg 100 mg PO DAILY 07/31/25 09/20/25 08/10/25 History tablet clonidine HCl 0.1 mg tablet 0.1 mg PO BEDTIME 08/11/25 08/22/25 08/10/25 History doxepin 10 mg capsule 10 mg PO BEDTIME PRN Sleep 08/11/25 09/20/25 08/10/25 History gabapentin 400 mg tablet 800 mg PO TID 08/11/25 08/22/25 08/10/25 History prazosin 1 mg capsule 3 mg PO BEDTIME 08/11/25 08/22/25 08/10/25 History melatonin 5 mg tablet 5 mg PO BEDTIME PRN Sleep 09/20/25 09/20/25 Unknown History sertraline 100 mg tablet 50 mg PO DAILY 09/20/25 09/20/25 Unknown History Physical Exam Exam: Exam: EXAM: GENERAL: The patient is well developed and nontoxic. VITAL SIGNS:see workflow HEENT: Nonicteric sclerae, PERRLA, EOMI. Oropharynx clear. Moist mucous membranes. Conjunctivae appear well perfused. No thyroid mass. CHEST: Chest wall is nontender. HEART: Regular rate and rhythm without murmurs. LUNGS: Clear to auscultation bilaterally. ABDOMEN: Soft, positive bowel sounds, tender epigastrium, no organomegaly.no flank tenderness SKIN: No rash, no excessive bruising, petechiae, or purpura. NEUROLOGIC: Cranial nerves II-XII intact without motor/sensory deficit. Psych: normal affect Vital Signs: Vital Signs: Last Vital Signs Temp 98.3 F 09/20/25 05:39 Pulse 97 09/20/25 05:39 Resp 18 09/20/25 05:39 BP 134/75 09/20/25 05:39 Pulse Ox 99 09/20/25 05:39 O2 Del Method Room Air 09/20/25 05:39 BMI result Body Mass Index 32.2 Results Labs 09/20/25 05:39 09/20/25 05:39 Labs: Short CBC 09/19/25 09/20/25 Range/Units 21:23 05:39 WBC 9.4 6.6 (4.8-10.8) X10*3/uL Hgb 16.2 12.7 L D (14.0-18.0) g/dl Hct 44.5 36.0 L (42.0-52.0) % Plt Count 236 D 143 L D (160-400) X10*3/uL BMP 09/19/25 09/20/25 09/20/25 21:23 02:18 05:39 Sodium 137 138 137 Potassium 3.7 3.6 3.6 Chloride 96 98 98 Carbon Dioxide 15 L 17 L 21 L BUN 11 11 9 Creatinine 0.75 0.67 0.69 Calcium 8.8 8.3 L 7.9 L Cardiac Enzymes 09/20/25 Range/Units 05:39 Total Creatine Kinase 501 H (38-174) U/L Liver Function 09/19/25 09/20/25 Range/Units 21:23 05:39 Total Bilirubin 0.7 0.7 (0.0-1.0) mg/dL AST 328 H 204 H (5-37) U/L ALT 229 H 164 H (0-40) U/L Alkaline Phosphatase 96 74 (39-117) U/L Albumin 5.0 3.9 (3.5-5.0) g/dL Urine 09/20/25 Range/Units 05:16 Urine Color [place] A Urine Appearance Clear Urine pH 6.0 (5.0-9.0) Ur Specific [place] 1.020 (1.005-1.025) Urine Protein 300 (3+) H (Neg-Trace) mg/dL Urine Glucose (UA) Negative (Negative) mg/dL Imaging CT scan - abdomen: Attestation: I personally reviewed and interpreted this imaging study as follows: (distended bladder, thickened esophagus nd stomach, hepatomegaly ) Assessment and Plan (1) Coffee ground emesis: Status: Acute Plan 1/ coffee ground emesis, likely from esophagits or MW tear given clinical history, no imaging evidence of cirrhosis or varices, low plts most likely from alcohol use PLAN: 1/ resume PPI--high dose BID 2/ carafate for 1 week, 3/ if ongoing sx then EGD Procedures Date of Service Date of Service: 09/20/25
[2025-09-20 09:27] LABS: ~Lactic Acid-LAB USE ONLY 3.5 mmol/L (0.5-2.0)
--- NOTE | 2025-09-20 09:30 | PHA.MEDREC ---
Pharmacy Consult ? Medication Reconciliation Pharmacy has completed the medication reconciliationMed rec complete, spoke to patient who self reported clonidine, prazosin and gabapentin in addition to the confirmed medications. Requested list from [facility] where patient received his medications and they were unable to validate that patient has active orders for these medications. Patient was recently admitted to [facility] and they faxed me his current active orders list.
[2025-09-20 09:45] VITALS: BMI 33.0
[2025-09-20] MEDS: 0.9 % Sodium Chloride Flush 3 ML SYRINGE IVFLUSH ×2 (10:02→19:59)
--- NOTE | 2025-09-20 10:36 | PM.UROCN ---
History of Present Illness Consult details Consult date: 09/20/25 Narrative: CC: Urinary retention male Alcohol use disorder Admission after 5 day binge with intractable hiccups and coffee ground emesis Noted urinary retention Lord catheter placed 800 cc residual Recommend transitioning to catheter plug during the day with drainage bag overnight Emptying bladder every 3-4 hours He will require Lord catheter for 2 weeks prior to voiding trial since amount at initial catheter placement described between 500-1000 cc Review of Systems Constitutional: Constitutional: Denies chills and Denies fever(s) Cardiovascular: Cardiovascular: Reports no additional cardiovascular complaints and Denies syncope Respiratory: Respiratory: Denies cough Gastrointestinal: Gastrointestinal: Denies abdominal pain and Denies heartburn Genitourinary: Genitourinary: Reports as per HPI and Denies change in libido Neurologic: Denies syncope Psychiatric: Psychiatric: Denies change in libido Endocrine: Endocrine: Denies change in libido [facility] Past Medical History Medical History (Updated 09/20/25 @ 10:47 by Gurpreet Neal MD) PTSD (post-traumatic stress disorder) Gout Sternal fracture Class 1 obesity Alcoholic cirrhosis of liver Exacerbation of gout Alcohol abuse Anxiety Surgical History Surgical History History of ankle surgery Social History Social History Household Members: Other Housing: House Do you presently have visiting nurse or other home services: No Alcohol intake: current Alcohol intake frequency: 3 or more drinks per day Alcohol type: hard liquor Patient Tobacco Use Status: Never used Tobacco service: Yes Travel History Ebola Risk: Travel/Contact With Anyone From Affected Area/s: No Has Patient Experienced Ebola Symptoms: No Meds Allergies Allergy/AdvReac Type Severity Reaction Status Date / Time azithromycin (AZITHROMYCIN) Allergy Unknown Unknown Verified 09/19/25 19:49 Active Medications: Current Medications Al Hydroxide/Mg Hydroxide (Magnesium Hydrox/Alum Hydrox 30 Ml Oral.Susp) 30 ml PO Q4H PRN PRN Reason: Heartburn Albuterol/Ipratropium (Albuterol/Iprat 2.5/0.5mg 3 Ml Ampul.Neb) 3 ml INHALE Q4H PRN PRN Reason: Shortness of Breath/Wheezing Calcium Carbonate (Calcium Carbonate 750 Mg Tab.Chew) 750 mg PO Q4H PRN PRN Reason: Heartburn Diazepam (Diazepam 10 Mg/2 Ml Cartridge) 2.5 mg IVPUSH Q6H PRN PRN Reason: nausea and vomiting, QTC prolonged Lactated Ringer's (Lr) 1,000 mls @ 125 mls/hr IVCONT .Q8H [facility] Last Admin: 09/20/25 09:59 Dose: 125 mls/hr Folic Acid 1 mg/ Sodium (Chloride) 50.2 mls @ 100.4 mls/hr IV DAILY [facility] Thiamine HCl 100 mg/ Sodium (Chloride) 101 mls @ 202 mls/hr IV DAILY [facility] Magnesium Hydroxide (Milk Of Magnesia 30 Ml Oral.Susp) 30 ml PO DAILY PRN PRN Reason: Constipation Melatonin (Melatonin 3 Mg Tablet) 6 mg PO BEDTIME PRN PRN Reason: Insomnia Pantoprazole Sodium (Pantoprazole Sodium 40 Mg/10 Ml Vial) 40 mg IVPUSH BID@0630,1630 [facility] Pharmacy Consult (Consult Rx Etoh Phenob Im/Po) 1 each MISCELLANE ONCE PRN; Protocol PRN Reason: Consult order Phenobarbital (Phenobarbital 15 Mg Tablet) 45 mg PO BID@0600,1800 [facility] Stop: 09/22/25 06:01 Phenobarbital (Phenobarbital 15 Mg Tablet) 15 mg PO BID@0600,1800 [facility] Stop: 09/24/25 06:01 Phenobarbital (Phenobarbital 15 Mg Tablet) 15 mg PO DAILY@1800 [facility] Stop: 09/25/25 18:01 Polyethylene Glycol (Polyethylene Glycol 3350 17 Gm Powd.Pack) 17 gm PO DAILY PRN PRN Reason: Constipation Senna (Sennosides 8.6 Mg Tablet) 17.2 mg PO BEDTIME [facility] Sodium Chloride (0.9 % Sodium Chloride Flush 3 Ml Syringe) 3 ml IVFLUSH QSHIFT [facility] Last Admin: 09/20/25 10:02 Dose: 3 ml Home Medications ?Medication ?Instructions ?Recorded ?Confirmed ?Last Taken ?Type folic acid 1 mg tablet 1 mg PO DAILY 07/31/25 09/20/25 08/10/25 History thiamine HCl (vitamin B1) 100 mg 100 mg PO DAILY 07/31/25 09/20/25 08/10/25 History tablet clonidine HCl 0.1 mg tablet 0.1 mg PO BEDTIME 08/11/25 08/22/25 08/10/25 History doxepin 10 mg capsule 10 mg PO BEDTIME PRN Sleep 08/11/25 09/20/25 08/10/25 History gabapentin 400 mg tablet 800 mg PO TID 08/11/25 08/22/25 08/10/25 History prazosin 1 mg capsule 3 mg PO BEDTIME 08/11/25 08/22/25 08/10/25 History melatonin 5 mg tablet 5 mg PO BEDTIME PRN Sleep 09/20/25 09/20/25 Unknown History sertraline 100 mg tablet 50 mg PO DAILY 09/20/25 09/20/25 Unknown History Physical Exam Vital Signs: Vital Signs: Last Vital Signs Temp 98.8 F 09/20/25 08:00 Pulse 89 09/20/25 08:00 Resp 19 09/20/25 08:00 BP 160/87 H 09/20/25 08:00 Pulse Ox 99 09/20/25 08:00 O2 Del Method Room Air 09/20/25 08:00 BMI result Body Mass Index 33.0 Const: General: cooperative, healthy appearing, comfortable and no acute distress Orientation/consciousness: patient oriented x3 HEENT: Face and sinus: Yes normal facial exam Mouth: moist mucous membranes Neck: Neck: Yes normal visual inspection, Yes full ROM and Yes trachea midline Chest: Chest palpation & inspection: normal inspection of the chest Resp: Effort & Inspection: normal respiratory effort, able to speak in complete sentences and no respiratory distress GI: Inspection: Yes normal to inspection Back/Spine/Pelvis: Cervical Spine: normal cervical lordosis Thoracic/Lumbar Spine: thoracic and lumbar spine normal to inspection Skin: General skin exam: no rashes or lesions noted Neuro: General: patient oriented x3, gait normal, tone normal and moves all extremities Extrem: General: Yes normal to inspection and Yes capillary refill normal Results Labs 09/20/25 05:39 09/20/25 05:39 Labs: Abnormal lab results 09/19/25 09/20/25 09/20/25 Range/Units 21:23 02:18 02:24 RBC (4.60-5.80) X10*6/uL Hgb (14.0-18.0) g/dl Hct (42.0-52.0) % MCH 33.1 H (27.0-33.0) pg MCHC 36.4 H (31.0-36.0) g/dl Plt Count (160-400) X10*3/uL MPV 9.1 L (9.4-12.4) fL Immature Gran % (Auto) (0.0-0.4) % Neut % (Auto) 81.6 H (45-73) % Lymph % (Auto) 12.3 L (20-40) % Lymph # (Auto) (1.2-4.9) X10*3/uL VBG pH 7.45 H (7.32-7.43) VBG HCO3 17 L (22-26) mmol/L Carbon Dioxide 15 L 17 L (22-29) mmol/L Anion Gap 30 H 27 H (12-20) Lactic Acid (0.5-2.0) mmol/L Lactic Acid F/U @ 2Hr (0.5-2.0) mmol/L Lactic Acid F/U @ 4Hr (0.5-2.0) mmol/L Uric Acid 16.6 H (3.4-7.0) mg/dL Calcium 8.3 L (8.4-10.2) mg/dL Phosphorus 1.8 L (2.7-4.5) mg/dL AST 328 H (5-37) U/L ALT 229 H (0-40) U/L Total Creatine Kinase (38-174) U/L Total Protein 8.4 H (6.5-8.0) g/dL Beta-Hydroxybutyrate 3.28 H (0.02-0.27) mmol/L TSH 0.14 L (0.32-4.0) uIU/mL Urine Color Urine Protein (Neg-Trace) mg/dL Urine Blood (Negative) Ur Leukocyte Esterase (Negative) Urine RBC (0-2) /HPF Ur Barbiturates Screen (Not Detect) U Benzodiazepines Scrn (Not Detect) Ethyl Alcohol 360 H* mg/dL 09/20/25 09/20/25 09/20/25 Range/Units 02:57 05:16 05:39 RBC 3.89 L D (4.60-5.80) X10*6/uL Hgb 12.7 L D (14.0-18.0) g/dl Hct 36.0 L (42.0-52.0) % MCH (27.0-33.0) pg MCHC (31.0-36.0) g/dl Plt Count 143 L D (160-400) X10*3/uL MPV 9.2 L (9.4-12.4) fL Immature Gran % (Auto) 0.5 H (0.0-0.4) % Neut % (Auto) 82.1 H (45-73) % Lymph % (Auto) 11.6 L (20-40) % Lymph # (Auto) 0.8 L (1.2-4.9) X10*3/uL VBG pH (7.32-7.43) VBG HCO3 (22-26) mmol/L Carbon Dioxide 21 L (22-29) mmol/L Anion Gap 22 H (12-20) Lactic Acid 5.7 H* (0.5-2.0) mmol/L Lactic Acid F/U @ 2Hr 4.3 H* (0.5-2.0) mmol/L Lactic Acid F/U @ 4Hr (0.5-2.0) mmol/L Uric Acid (3.4-7.0) mg/dL Calcium 7.9 L (8.4-10.2) mg/dL Phosphorus 1.9 L (2.7-4.5) mg/dL AST 204 H (5-37) U/L ALT 164 H (0-40) U/L Total Creatine Kinase 501 H (38-174) U/L Total Protein 6.4 L (6.5-8.0) g/dL Beta-Hydroxybutyrate (0.02-0.27) mmol/L TSH (0.32-4.0) uIU/mL Urine Color Archer A Urine Protein 300 (3+) H (Neg-Trace) mg/dL Urine Blood Large (3+) H (Negative) Ur Leukocyte Esterase Trace H (Negative) Urine RBC >20 H (0-2) /HPF Ur Barbiturates Screen POSITIVE H (Not Detect) U Benzodiazepines Scrn POSITIVE H (Not Detect) Ethyl Alcohol mg/dL 09/20/25 Range/Units 08:59 RBC (4.60-5.80) X10*6/uL Hgb (14.0-18.0) g/dl Hct (42.0-52.0) % MCH (27.0-33.0) pg MCHC (31.0-36.0) g/dl Plt Count (160-400) X10*3/uL MPV (9.4-12.4) fL Immature Gran % (Auto) (0.0-0.4) % Neut % (Auto) (45-73) % Lymph % (Auto) (20-40) % Lymph # (Auto) (1.2-4.9) X10*3/uL VBG pH (7.32-7.43) VBG HCO3 (22-26) mmol/L Carbon Dioxide (22-29) mmol/L Anion Gap (12-20) Lactic Acid (0.5-2.0) mmol/L Lactic Acid F/U @ 2Hr (0.5-2.0) mmol/L Lactic Acid F/U @ 4Hr 3.5 H* (0.5-2.0) mmol/L Uric Acid (3.4-7.0) mg/dL Calcium (8.4-10.2) mg/dL Phosphorus (2.7-4.5) mg/dL AST (5-37) U/L ALT (0-40) U/L Total Creatine Kinase (38-174) U/L Total Protein (6.5-8.0) g/dL Beta-Hydroxybutyrate (0.02-0.27) mmol/L TSH (0.32-4.0) uIU/mL Urine Color Urine Protein (Neg-Trace) mg/dL Urine Blood (Negative) Ur Leukocyte Esterase (Negative) Urine RBC (0-2) /HPF Ur Barbiturates Screen (Not Detect) U Benzodiazepines Scrn (Not Detect) Ethyl Alcohol mg/dL Short CBC 09/19/25 09/20/25 Range/Units 21:23 05:39 WBC 9.4 6.6 (4.8-10.8) X10*3/uL Hgb 16.2 12.7 L D (14.0-18.0) g/dl Hct 44.5 36.0 L (42.0-52.0) % Plt Count 236 D 143 L D (160-400) X10*3/uL BMP 09/19/25 09/20/25 09/20/25 21:23 02:18 05:39 Sodium 137 138 137 Potassium 3.7 3.6 3.6 Chloride 96 98 98 Carbon Dioxide 15 L 17 L 21 L BUN 11 11 9 Creatinine 0.75 0.67 0.69 Calcium 8.8 8.3 L 7.9 L Cardiac Enzymes 09/20/25 Range/Units 05:39 Total Creatine Kinase 501 H (38-174) U/L Liver Function 09/19/25 09/20/25 Range/Units 21:23 05:39 Total Bilirubin 0.7 0.7 (0.0-1.0) mg/dL AST 328 H 204 H (5-37) U/L ALT 229 H 164 H (0-40) U/L Alkaline Phosphatase 96 74 (39-117) U/L Albumin 5.0 3.9 (3.5-5.0) g/dL Urine 09/20/25 Range/Units 05:16 Urine Color Archer A Urine Appearance Clear Urine pH 6.0 (5.0-9.0) Ur Specific [place] 1.020 (1.005-1.025) Urine Protein 300 (3+) H (Neg-Trace) mg/dL Urine Glucose (UA) Negative (Negative) mg/dL All other labs normal. Assessment and Plan (1) Urinary retention with incomplete bladder emptying: Status: Acute Plan Retention 800cc Lord to stay 2 weeks Lord cap for use during the day. Empty every 3-4 hrs. Drainage bag indicated for overnight use. Procedures Date of Service Date of Service: 09/20/25
[2025-09-20] MEDS: diazePAM 10 MG/2 ML CARTRIDGE 2.5 MG IVPUSH ×2 (11:03→19:59)
[2025-09-20] MEDS: Thiamine HCL 100 MG in 0.9 % Sodium Chloride 100 ML 202 MG IV (11:54)
[2025-09-20 12:00] VITALS: BP 131/77; PULSE 76; RESP 20; TEMP 36.1; O2SAT 100
[2025-09-20 16:00] VITALS: BP 134/73; PULSE 78; RESP 20; TEMP 36.4; O2SAT 100
[2025-09-20 20:22] VITALS: BP 143/69; PULSE 76; RESP 16; TEMP 37.4
[2025-09-21] VITALS (7 sets, daily range): BP systolic 116–137; BP diastolic 69–89; PULSE 68–75; RESP 16–18; TEMP 36.1–37.6; O2SAT 98–100
[2025-09-21] MEDS: Lactated Ringers 1,000 ML 125 ML IVCONT ×4 (01:13→22:45)
[2025-09-21 04:59] LABS: HBS Num1 16.35 mIU/mL (0-7.99); HBc Num1 0.07 S/CO (0.00-0.79); HBsAGNum1 0.41 S/CO (0.00-0.99); Hepatitis A Antibody IgM 0.20 Index (0-0.79); Hepatitis B Surface Antigen Negative (Negative); ~HepC Num1 0.07 S/CO (0.00-0.79); ~Hepatitis A Antibody IgM Nonreactive (Nonreactive); ~Hepatitis B Surface Antibody REACTIVE (Nonreactive); ~Hepatitis C Antibody Nonreactive (Nonreactive)
[2025-09-21 07:44] LABS: Hematocrit 36.6 % (42.0-52.0); Hemoglobin 12.9 g/dl (14.0-18.0); Imm Gran Abs Auto 0.02 X10*3/uL (0.00-0.03); Imm Gran Pct Auto 0.5 % (0.0-0.4); Lymphocytes Absolute Auto 0.7 X10*3/uL (1.2-4.9); MANUAL DIFF FLAG SCAN; Mean Corpuscular HGB Conc 35.2 g/dl (31.0-36.0); Mean Corpuscular Hemoglobin 33.1 pg (27.0-33.0); Mean Corpuscular Volume 93.8 fL (80.0-98.0); NRBC Abs Auto 0.000 X10*3/uL (0.0-0.012); NRBC Pct Auto 0.0 /100WBC (0.0-0.2); PLT CLUMP 1; Red Blood Count 3.90 X10*6/uL (4.60-5.80); SCAN SMEAR FLAG 1
[2025-09-21 07:59] LABS: Alanine Aminotransferase 121 U/L (0-40); Albumin Level 3.8 g/dL (3.5-5.0); Alkaline Phosphatase 73 U/L (39-117); Anion Gap 20 (12-20); Aspartate Amino Transferase 134 U/L (5-37); Blood Urea Nitrogen 4 mg/dL (9-16); Calcium 8.3 mg/dL (8.4-10.2); Carbon Dioxide 20 mmol/L (22-29); Chloride 95 mmol/L (96-108); Creatinine Clr Calc Pharmacy 208.8; Estimated Glomerular Filt Rate > 60; Magnesium 1.6 mg/dL (1.6-2.6); Potassium 3.1 mmol/L (3.3-5.1); Sodium 132 mmol/L (135-145); Total Protein 6.4 g/dL (6.5-8.0)
[2025-09-21 08:02] LABS: White Blood Count 4.3 X10*3/uL (4.8-10.8)
[2025-09-21 08:03] LABS: Platelet Count 101 X10*3/uL (160-400)
[2025-09-21] MEDS: Potassium Chloride ER 20 MEQ TAB.ER.PRT 40 MEQ PO (08:23)
[2025-09-21] MEDS: 0.9 % Sodium Chloride Flush 3 ML SYRINGE IVFLUSH ×3 (08:24→20:01)
[2025-09-21] MEDS: diazePAM 10 MG/2 ML CARTRIDGE 2.5 MG IVPUSH ×3 (08:28→22:39)
--- NOTE | 2025-09-21 09:19 | PM.GIPN ---
Subjective Subjective Date of Service: 09/21/25 Interval History: no further coffee ground still has the reflux and burning with nausea still shaky no melena or rectal bleeding Critical Care Time (minutes): 0 Physical Exam Exam: Exam: EXAM: GENERAL: The patient is well developed and nontoxic. VITAL SIGNS:see workflow HEENT: Nonicteric sclerae, PERRLA, EOMI. Oropharynx clear. Moist mucous membranes. Conjunctivae appear well perfused. No thyroid mass. CHEST: Chest wall is nontender. HEART: Regular rate and rhythm without murmurs. LUNGS: Clear to auscultation bilaterally. ABDOMEN: Soft, positive bowel sounds, nontender, no organomegaly.no flank tenderness SKIN: No rash, no excessive bruising, petechiae, or purpura. NEUROLOGIC: Cranial nerves II-XII intact without motor/sensory deficit. tremor Psych: normal affect Vital Signs: Vital Signs: Last Vital Signs Temp 98.3 F 09/21/25 08:00 Pulse 68 09/21/25 08:00 Resp 18 09/21/25 08:00 BP 121/77 09/21/25 08:00 Pulse Ox 99 09/21/25 08:00 O2 Del Method Room Air 09/21/25 08:00 BMI result Body Mass Index 33.0 Objective Data Labs 09/21/25 07:25 09/21/25 07:25 Labs: Laboratory Results - last 24 hr 09/20/25 09/20/25 09/20/25 05:39 08:59 09:14 WBC RBC Hgb Hct MCV MCH MCHC RDW Plt Count MPV Immature Gran % (Auto) Neut % (Auto) Lymph % (Auto) [place] % (Auto) Eos % (Auto) Baso % (Auto) Lymph # (Auto) [place] # (Auto) Eos # (Auto) Baso # (Auto) Abs Immat Gran (auto) Absolute Neuts (auto) Absolute Nucleated RBC Nucleated RBC % (auto) Smear Tech's Comments Hold Purple Top SEE NOTE Sodium Potassium Chloride Carbon Dioxide Anion Gap BUN Creatinine Estim Creat Clear Calc Estimated GFR Random Glucose Lactic Acid Lactic Acid F/U @ 4Hr 3.5 H* Calcium Magnesium Total Bilirubin AST ALT Alkaline Phosphatase Total Protein Albumin Hepatitis A IgM Ab Nonreactive Hep Bs Antigen Negative Hep Bs Antibody REACTIVE Hep B Core Total Ab Nonreactive Hepatitis C Ab (EIA) Nonreactive 09/20/25 09/21/25 20:13 07:25 WBC 4.3 L RBC 3.90 L Hgb 12.9 L Hct 36.6 L MCV 93.8 MCH 33.1 H MCHC 35.2 RDW 13.6 Plt Count 101 L D MPV 9.7 Immature Gran % (Auto) 0.5 H Neut % (Auto) 74.8 H Lymph % (Auto) 16.9 L [place] % (Auto) 6.4 Eos % (Auto) 0.7 Baso % (Auto) 0.7 Lymph # (Auto) 0.7 L [place] # (Auto) 0.3 Eos # (Auto) 0.0 Baso # (Auto) 0.0 Abs Immat Gran (auto) 0.02 Absolute Neuts (auto) 3.2 Absolute Nucleated RBC 0.000 Nucleated RBC % (auto) 0.0 Smear Tech's Comments VERIFIED Hold Purple Top Sodium 132 L Potassium 3.1 L Chloride 95 L Carbon Dioxide 20 L Anion Gap 20 BUN 4 L Creatinine 0.58 Estim Creat Clear Calc 208.8 Estimated GFR > 60 Random Glucose 82 Lactic Acid 0.9 0.8 Lactic Acid F/U @ 4Hr Calcium 8.3 L Magnesium 1.6 Total Bilirubin 1.2 H AST 134 H ALT 121 H Alkaline Phosphatase 73 Total Protein 6.4 L Albumin 3.8 Hepatitis A IgM Ab Hep Bs Antigen Hep Bs Antibody Hep B Core Total Ab Hepatitis C Ab (EIA) Procedures Date of Service Date of Service: 09/21/25 Progress Note: A&P Assessment and plan (1) Coffee ground emesis: Status: Acute Plan 1/ esophagitis or MW tear, HGB stable ongoing discomfort PLAN: 1/ cont with BID PPI 2/ can add magic mouthwash or sucralfate for 1-2 weeks 3/ hold on egd for the moment Time Spent With Patient Time: Total time managing care of this patient today ____ minutes. Quality Stroke Does the patient have a stroke diagnosis?: No Reason for No Anti-thrombotic by Day Two: Contraindicated (ruling out GIB ) VTE Prior VTE?: No VTE Risk Level:: Medical - moderate - high VTE Device Contraindication: N/A - Device Ordered VTE Drug Contraindication: Treatment Not Indicated
--- NOTE | 2025-09-21 09:23 | HO.PM.IMPN ---
Subjective Subjective Date of Service: 09/21/25 Interval History: Complains of hiccups Continue with PPI and sucralfate Review of Systems Review of Systems: Yes all other systems are reviewed and are negative Physical Exam Exam: Exam: General: AO X 3, appeared to be tremulous and in pain-epigastric in etiology per patient Resp: CTA bilateral, no accessory muscles used CVS: S1,S2,RRR GI: Epigastric tenderness : Lord placed acute urinary retention by Urology Psych: Anxious anxious affect Vital Signs: Vital Signs: Last Vital Signs Temp 98.3 F 09/21/25 08:00 Pulse 68 09/21/25 08:00 Resp 18 09/21/25 08:00 BP 121/77 09/21/25 08:00 Pulse Ox 99 09/21/25 08:00 O2 Del Method Room Air 09/21/25 08:00 BMI result Body Mass Index 33.0 Objective Data Active Medications Al Hydroxide/Mg Hydroxide (Magnesium Hydrox/Alum Hydrox 30 Ml Oral.Susp) 30 ml PO Q4H PRN PRN Reason: Heartburn Albuterol/Ipratropium (Albuterol/Iprat 2.5/0.5mg 3 Ml Ampul.Neb) 3 ml INHALE Q4H PRN PRN Reason: Shortness of Breath/Wheezing Calcium Carbonate (Calcium Carbonate 750 Mg Tab.Chew) 750 mg PO Q4H PRN PRN Reason: Heartburn Diazepam (Diazepam 10 Mg/2 Ml Cartridge) 2.5 mg IVPUSH Q6H PRN PRN Reason: nausea and vomiting, QTC prolonged Last Admin: 09/21/25 08:28 Dose: 2.5 mg Documented By: TARUN Doxepin HCl (Doxepin Hcl 10 Mg Capsule) 10 mg PO BEDTIME PRN PRN Reason: Sleep Folic Acid (Folic Acid 1 Mg Tablet) 1 mg PO DAILY [facility] Last Admin: 09/21/25 08:23 Dose: 1 mg Documented By: TARUN Lactated Ringer's (Lr) 1,000 mls @ 125 mls/hr IVCONT .Q8H [facility] Last Admin: 09/21/25 08:34 Dose: 125 mls/hr Documented By: TARUN Acetaminophen (Ofirmev) 1,000 mg in 100 mls @ 400 mls/hr IV Q6H PRN PRN Reason: Pain, Mild 1-3,fever,headache Last Infusion: 09/20/25 20:13 Dose: Infused Documented By: JAQUELIN Magnesium Hydroxide (Milk Of Magnesia 30 Ml Oral.Susp) 30 ml PO DAILY PRN PRN Reason: Constipation Magnesium Oxide (Magnesium Oxide 400 Mg Tablet) 400 mg PO BIDPC [facility] Last Admin: 09/21/25 08:23 Dose: 400 mg Documented By: TARUN Melatonin (Melatonin 3 Mg Tablet) 6 mg PO BEDTIME PRN PRN Reason: Insomnia Last Admin: 09/21/25 00:04 Dose: 6 mg Documented By: JAQUELIN Melatonin (Melatonin 3 Mg Tablet) 6 mg PO BEDTIME PRN PRN Reason: Sleep Pantoprazole Sodium (Pantoprazole Sodium 40 Mg/10 Ml Vial) 40 mg IVPUSH BID@0630,1630 [facility] Last Admin: 09/21/25 05:59 Dose: 40 mg Documented By: JAQEULIN Pharmacy Consult (Consult Rx Etoh Phenob Im/Po) 1 each MISCELLANE ONCE PRN; Protocol PRN Reason: Consult order Phenobarbital (Phenobarbital 15 Mg Tablet) 45 mg PO BID@0600,1800 [facility] Stop: 09/22/25 06:01 Last Admin: 09/21/25 06:00 Dose: 45 mg Documented By: JAQUELIN Phenobarbital (Phenobarbital 15 Mg Tablet) 15 mg PO BID@0600,1800 [facility] Stop: 09/24/25 06:01 Phenobarbital (Phenobarbital 15 Mg Tablet) 15 mg PO DAILY@1800 [facility] Stop: 09/25/25 18:01 Polyethylene Glycol (Polyethylene Glycol 3350 17 Gm Powd.Pack) 17 gm PO DAILY PRN PRN Reason: Constipation Senna (Sennosides 8.6 Mg Tablet) 17.2 mg PO BEDTIME [facility] Last Admin: 09/20/25 22:07 Dose: Not Given Documented By: JAQUELIN Non-Admin Reason: Patient Refused Sertraline HCl (Sertraline Hcl 50 Mg Tablet) 50 mg PO DAILY [facility] Last Admin: 09/21/25 08:23 Dose: 50 mg Documented By: TARUN Sodium Chloride (0.9 % Sodium Chloride Flush 3 Ml Syringe) 3 ml IVFLUSH [facility] Last Admin: 09/21/25 08:24 Dose: 3 ml Documented By: TARUN Sucralfate (Sucralfate 1 Gm Tablet) 1 gm PO QIDACHS [facility] Last Admin: 09/21/25 08:23 Dose: 1 gm Documented By: TARUN Thiamine HCl (Thiamine Hcl 100 Mg Tablet) 100 mg PO DAILY [facility] Last Admin: 09/21/25 08:23 Dose: 100 mg Documented By: TARUN Labs 09/21/25 07:25 09/21/25 07:25 Labs: Laboratory Results - last 24 hr 09/20/25 09/20/25 09/20/25 05:39 08:59 09:14 MCV MCH MCHC RDW Plt Count MPV Immature Gran % (Auto) Neut % (Auto) Lymph % (Auto) [place] % (Auto) Eos % (Auto) Baso % (Auto) Lymph # (Auto) [place] # (Auto) Eos # (Auto) Baso # (Auto) Abs Immat Gran (auto) Absolute Neuts (auto) Absolute Nucleated RBC Nucleated RBC % (auto) Smear Tech's Comments Hold Purple Top SEE NOTE Anion Gap Estim Creat Clear Calc Estimated GFR Random Glucose Lactic Acid Lactic Acid F/U @ 4Hr 3.5 H* Calcium Magnesium Total Bilirubin AST ALT Alkaline Phosphatase Total Protein Albumin Hepatitis A IgM Ab Nonreactive Hep Bs Antigen Negative Hep Bs Antibody REACTIVE Hep B Core Total Ab Nonreactive Hepatitis C Ab (EIA) Nonreactive 09/20/25 09/21/25 20:13 07:25 MCV 93.8 MCH 33.1 H MCHC 35.2 RDW 13.6 Plt Count 101 L D MPV 9.7 Immature Gran % (Auto) 0.5 H Neut % (Auto) 74.8 H Lymph % (Auto) 16.9 L [place] % (Auto) 6.4 Eos % (Auto) 0.7 Baso % (Auto) 0.7 Lymph # (Auto) 0.7 L [place] # (Auto) 0.3 Eos # (Auto) 0.0 Baso # (Auto) 0.0 Abs Immat Gran (auto) 0.02 Absolute Neuts (auto) 3.2 Absolute Nucleated RBC 0.000 Nucleated RBC % (auto) 0.0 Smear Tech's Comments VERIFIED Hold Purple Top Anion Gap 20 Estim Creat Clear Calc 208.8 Estimated GFR > 60 Random Glucose 82 Lactic Acid 0.9 0.8 Lactic Acid F/U @ 4Hr Calcium 8.3 L Magnesium 1.6 Total Bilirubin 1.2 H AST 134 H ALT 121 H Alkaline Phosphatase 73 Total Protein 6.4 L Albumin 3.8 Hepatitis A IgM Ab Hep Bs Antigen Hep Bs Antibody Hep B Core Total Ab Hepatitis C Ab (EIA) Assessment and Plan (1) Alcohol withdrawal syndrome: Status: Resolved Plan 39 yo male with PMH of Alcohol use disorder with multiple inpt admissions for ETOH abuse recently on naltrexone and has tried vistaril, Gout, nephrolithiasis, PTSD, HLD, hepatic steatosis (no diagnostic evidence of cirrhosis with previous testing), R and L ankle surgery presented to the ED for another episode of alcohol withdrawal and coffee-ground emesis, acute urinary retention requiring Lord Alcohol use disorder with high risk of withdrawal Abdominal pain Pt reports 25+ previous hospitalizations for alcohol withdrawal with hx of withdrawal seizures x3-4 Continue phenobarbital protocol Thiamine, folate, multivitamins, and omeprazole Monitor on [facility] Addiction medicine consult Monitor on telemetry Acute urinary retention likely secondary to incomplete bladder emptying Difficult Lord, we will need to continue Lord for 2 weeks for decompression Voiding trials in outpatient settings Hypokalemia Potassium being checked daily and repleted Hypomagnesemia Being checked and repleted daily Transaminitis Likely in the setting of alcohol use CT abdomen pelvis hepatic steatosis, esophagitis Negative hepatitis panel Downtrending LFTs PPI and sucralfate Persistent coffee-ground emesis-we will likely need EGD if not responding to medical management per GI QTC prolongation Mg daily Tele Daily EKG High risk of [place] Depression-continue sertraline home dose (lower QTC prolongation potential) DVT prophylaxis: SCD boots Code status: Full code Pt requires continued hospitalization for phenobarb protocol for controlled alcohol withdrawal that also requires close monitoring of labs for electrolyte abnormalities. Quality Stroke Does the patient have a stroke diagnosis?: No Reason for No Anti-thrombotic by Day Two: Contraindicated (ruling out GIB ) VTE Prior VTE?: No VTE Risk Level:: Medical - moderate - high VTE Device Contraindication: N/A - Device Ordered VTE Drug Contraindication: Treatment Not Indicated
[2025-09-21] MEDS: Magnesium Sulfate/H2O 2 GM/50 ML PIGGYBACK IV (09:48)
--- NOTE | 2025-09-21 10:37 | MHC.CM.PN ---
Pt lives in [place] in [place], he does not have home health services, or use DME. HCP is his mother, Dafne. He may need assistance with transportation home at [place], DCP; home, self care. CM to follow for DC needs.
[2025-09-21] MEDS: Mag&Al/Sim/Diphenhyd/Lidocaine 10 ML ORAL.SUSP PO ×2 (12:18→19:58)
--- NOTE | 2025-09-21 14:36 | HO.ADDICT_ITS ---
History of Present Illness Date of Service: 09/21/2025 Chief Complaint: Coffee Ground Emesis, ETOH Withdrawal Reason for Consult: AUD Sources of Information: patient interviewed and chart reviewed HPI Narrative: Patient is a 39 year old male with AUD, medically admitted with coffee ground emesis and alcohol withdrawal. Started on phenobarbital in the ED. Seen in room 484-known to t/w via previous admissions-most recently approx a month ago. Patient states not much has changed in regards to drinking since last admission. He acknowledges depression and ongoing isolation are contributing to drinking. Currently reporting abdominal pain, poor appetite, and tremor. No longer vomiting, still some nausea. Seen by GI-no need for EGD at this time. He was found to have urinary retention-seen by urology and rec FC for 2 weeks Discussed at length his goals related to alcohol use. He states that he does not want to feel like this again , but also acknowledges that he feels stuck at times, and does not follow up after discharge from hospital. Naltrexone prescribed after last admission, and patient states he did not take it. Would like to start it during this admission if possible. Medical Evaluation Reviewed: Yes Review of Systems Constitutional: Reports as per HPI Diagnostics Vital Signs (24Hr): Vital Signs - 24 hr 09/20/25 16:00 09/20/25 20:22 09/21/25 00:00 Temperature 97.6 F 99.4 F 99.4 F Pulse Rate 78 76 71 Respiratory Rate 20 16 16 Blood Pressure 134/73 143/69 H 131/76 Pulse Oximetry 100 98 Oxygen Delivery Method Room Air Room Air 09/21/25 03:46 09/21/25 08:00 09/21/25 12:04 Temperature 99.7 F 98.3 F 97.0 F Pulse Rate 72 68 72 Respiratory Rate 16 18 18 Blood Pressure 120/69 121/77 116/78 Pulse Oximetry 98 99 99 Oxygen Delivery Method Room Air Room Air Room Air BMI result Body Mass Index 33.0 Labs 09/21/25 07:25 09/21/25 07:25 Labs: Laboratory Results - last 48 hr 09/19/25 09/20/25 09/20/25 21:23 02:18 02:24 WBC 9.4 RBC 4.89 Hgb 16.2 Hct 44.5 MCV 91.0 MCH 33.1 H MCHC 36.4 H RDW 14.0 Plt Count 236 D MPV 9.1 L Immature Gran % (Auto) 0.3 Neut % (Auto) 81.6 H Lymph % (Auto) 12.3 L Payne % (Auto) 4.9 Eos % (Auto) 0.0 Baso % (Auto) 0.9 Lymph # (Auto) 1.2 Payne # (Auto) 0.5 Eos # (Auto) 0.0 Baso # (Auto) 0.1 Abs Immat Gran (auto) 0.03 Absolute Neuts (auto) 7.7 Absolute Nucleated RBC 0.000 Nucleated RBC % (auto) 0.0 Smear Tech's Comments Hold Purple Top VBG pH 7.45 H VBG pCO2 25 VBG pO2 104 VBG HCO3 17 L VBG O2 Saturation 99.0 VBG Base Excess -4.2 Sodium 137 138 Potassium 3.7 3.6 Chloride 96 98 Carbon Dioxide 15 L 17 L Anion Gap 30 H 27 H BUN 11 11 Creatinine 0.75 0.67 Estim Creat Clear Calc 159.7 178.7 Estimated GFR > 60 > 60 Random Glucose 114 109 Lactic Acid Lactic Acid F/U @ 2Hr Lactic Acid F/U @ 4Hr Uric Acid 16.6 H Calcium 8.8 8.3 L Phosphorus 1.8 L Magnesium 2.1 Iron 132 TIBC 269 % Saturation 49 Unsat Iron Binding 137 Total Bilirubin 0.7 AST 328 H ALT 229 H Alkaline Phosphatase 96 Total Creatine Kinase Total Protein 8.4 H Albumin 5.0 Lipase 39 Folate Beta-Hydroxybutyrate 3.28 H TSH 0.14 L Free T4 0.85 Urine Color Urine Appearance Urine pH Ur Specific [place] Urine Protein Urine Glucose (UA) Urine Ketones Urine Blood Urine Nitrite Ur Leukocyte Esterase Urine RBC Urine WBC Ur Squamous Epith Cells Urine Bacteria Hyaline Casts Urine Opiates Screen Ur Buprenorphine Scrn Ur Oxycodone Screen Urine Methadone Screen Urine Fentanyl Screen Ur Barbiturates Screen Ur Phencyclidine Scrn Ur Amphetamines Screen U Benzodiazepines Scrn Urine Cocaine Screen U Marijuana (THC) Screen Ethyl Alcohol 360 H* Hepatitis A IgM Ab Hep Bs Antigen Hep Bs Antibody Hep B Core Total Ab Hepatitis C Ab (EIA) Blood Type Antibody Screen 09/20/25 09/20/25 09/20/25 02:57 05:16 05:39 WBC 6.6 RBC 3.89 L D Hgb 12.7 L D Hct 36.0 L MCV 92.5 MCH 32.6 MCHC 35.3 RDW 14.2 Plt Count 143 L D MPV 9.2 L Immature Gran % (Auto) 0.5 H Neut % (Auto) 82.1 H Lymph % (Auto) 11.6 L Payne % (Auto) 5.2 Eos % (Auto) 0.0 Baso % (Auto) 0.6 Lymph # (Auto) 0.8 L Payne # (Auto) 0.3 Eos # (Auto) 0.0 Baso # (Auto) 0.0 Abs Immat Gran (auto) 0.03 Absolute Neuts (auto) 5.4 Absolute Nucleated RBC 0.000 Nucleated RBC % (auto) 0.0 Smear Tech's Comments Hold Purple Top VBG pH VBG pCO2 VBG pO2 VBG HCO3 VBG O2 Saturation VBG Base Excess Sodium 137 Potassium 3.6 Chloride 98 Carbon Dioxide 21 L Anion Gap 22 H BUN 9 Creatinine 0.69 Estim Creat Clear Calc 173.6 Estimated GFR > 60 Random Glucose 112 Lactic Acid 5.7 H* Lactic Acid F/U @ 2Hr 4.3 H* Lactic Acid F/U @ 4Hr Uric Acid Calcium 7.9 L Phosphorus 1.9 L Magnesium Iron TIBC % Saturation Unsat Iron Binding Total Bilirubin 0.7 AST 204 H ALT 164 H Alkaline Phosphatase 74 Total Creatine Kinase 501 H Total Protein 6.4 L Albumin 3.9 Lipase Folate 8.5 Beta-Hydroxybutyrate TSH Free T4 Urine Color Simpson A Urine Appearance Clear Urine pH 6.0 Ur Specific [place] 1.020 Urine Protein 300 (3+) H Urine Glucose (UA) Negative Urine Ketones 80 Urine Blood Large (3+) H Urine Nitrite Negative Ur Leukocyte Esterase Trace H Urine RBC >20 H Urine WBC 0-5 Ur Squamous Epith Cells 0-2 Urine Bacteria None Seen Hyaline Casts 3-5 Urine Opiates Screen Not Detected Ur Buprenorphine Scrn Not Detected Ur Oxycodone Screen Not Detected Urine Methadone Screen Not Detected Urine Fentanyl Screen Not Detected Ur Barbiturates Screen POSITIVE H Ur Phencyclidine Scrn Not Detected Ur Amphetamines Screen Not Detected U Benzodiazepines Scrn POSITIVE H Urine Cocaine Screen Not Detected U Marijuana (THC) Screen Not Detected Ethyl Alcohol Hepatitis A IgM Ab Nonreactive Hep Bs Antigen Negative Hep Bs Antibody REACTIVE Hep B Core Total Ab Nonreactive Hepatitis C Ab (EIA) Nonreactive Blood Type O Negative Antibody Screen NEGATIVE 09/20/25 09/20/25 09/20/25 08:59 09:14 20:13 WBC RBC Hgb Hct MCV MCH MCHC RDW Plt Count MPV Immature Gran % (Auto) Neut % (Auto) Lymph % (Auto) Payne % (Auto) Eos % (Auto) Baso % (Auto) Lymph # (Auto) Payne # (Auto) Eos # (Auto) Baso # (Auto) Abs Immat Gran (auto) Absolute Neuts (auto) Absolute Nucleated RBC Nucleated RBC % (auto) Smear Tech's Comments Hold Purple Top SEE NOTE VBG pH VBG pCO2 VBG pO2 VBG HCO3 VBG O2 Saturation VBG Base Excess Sodium Potassium Chloride Carbon Dioxide Anion Gap BUN Creatinine Estim Creat Clear Calc Estimated GFR Random Glucose Lactic Acid 0.9 Lactic Acid F/U @ 2Hr Lactic Acid F/U @ 4Hr 3.5 H* Uric Acid Calcium Phosphorus Magnesium Iron TIBC % Saturation Unsat Iron Binding Total Bilirubin AST ALT Alkaline Phosphatase Total Creatine Kinase Total Protein Albumin Lipase Folate Beta-Hydroxybutyrate TSH Free T4 Urine Color Urine Appearance Urine pH Ur Specific [place] Urine Protein Urine Glucose (UA) Urine Ketones Urine Blood Urine Nitrite Ur Leukocyte Esterase Urine RBC Urine WBC Ur Squamous Epith Cells Urine Bacteria Hyaline Casts Urine Opiates Screen Ur Buprenorphine Scrn Ur Oxycodone Screen Urine Methadone Screen Urine Fentanyl Screen Ur Barbiturates Screen Ur Phencyclidine Scrn Ur Amphetamines Screen U Benzodiazepines Scrn Urine Cocaine Screen U Marijuana (THC) Screen Ethyl Alcohol Hepatitis A IgM Ab Hep Bs Antigen Hep Bs Antibody Hep B Core Total Ab Hepatitis C Ab (EIA) Blood Type Antibody Screen 09/21/25 09/21/25 07:25 12:09 WBC 4.3 L RBC 3.90 L Hgb 12.9 L Hct 36.6 L MCV 93.8 MCH 33.1 H MCHC 35.2 RDW 13.6 Plt Count 101 L D MPV 9.7 Immature Gran % (Auto) 0.5 H Neut % (Auto) 74.8 H Lymph % (Auto) 16.9 L Payne % (Auto) 6.4 Eos % (Auto) 0.7 Baso % (Auto) 0.7 Lymph # (Auto) 0.7 L Payne # (Auto) 0.3 Eos # (Auto) 0.0 Baso # (Auto) 0.0 Abs Immat Gran (auto) 0.02 Absolute Neuts (auto) 3.2 Absolute Nucleated RBC 0.000 Nucleated RBC % (auto) 0.0 Smear Tech's Comments VERIFIED Hold Purple Top VBG pH VBG pCO2 VBG pO2 VBG HCO3 VBG O2 Saturation VBG Base Excess Sodium 132 L Potassium 3.1 L Chloride 95 L Carbon Dioxide 20 L Anion Gap 20 BUN 4 L Creatinine 0.58 Estim Creat Clear Calc 208.8 Estimated GFR > 60 Random Glucose 82 Lactic Acid 0.8 0.7 Lactic Acid F/U @ 2Hr Lactic Acid F/U @ 4Hr Uric Acid Calcium 8.3 L Phosphorus Magnesium 1.6 Iron TIBC % Saturation Unsat Iron Binding Total Bilirubin 1.2 H AST 134 H ALT 121 H Alkaline Phosphatase 73 Total Creatine Kinase Total Protein 6.4 L Albumin 3.8 Lipase Folate Beta-Hydroxybutyrate TSH Free T4 Urine Color Urine Appearance Urine pH Ur Specific [place] Urine Protein Urine Glucose (UA) Urine Ketones Urine Blood Urine Nitrite Ur Leukocyte Esterase Urine RBC Urine WBC Ur Squamous Epith Cells Urine Bacteria Hyaline Casts Urine Opiates Screen Ur Buprenorphine Scrn Ur Oxycodone Screen Urine Methadone Screen Urine Fentanyl Screen Ur Barbiturates Screen Ur Phencyclidine Scrn Ur Amphetamines Screen U Benzodiazepines Scrn Urine Cocaine Screen U Marijuana (THC) Screen Ethyl Alcohol Hepatitis A IgM Ab Hep Bs Antigen Hep Bs Antibody Hep B Core Total Ab Hepatitis C Ab (EIA) Blood Type Antibody Screen Mental Status Exam Mental Status Exam Patient Appearance: Appropriate Level of Consciousness: Awake, Appropriate and Alert Patient Behavior: Appropriate and Talkative Affect Description: Appropriate and Blunted Speech Pattern: Clear Thought Process: Intact Thought Content: positive for Intact Judgement: Good Medications Medications Current Medications Al Hydroxide/Mg Hydroxide (Magnesium Hydrox/Alum Hydrox 30 Ml Oral.Susp) 30 ml PO Q4H PRN PRN Reason: Heartburn Albuterol/Ipratropium (Albuterol/Iprat 2.5/0.5mg 3 Ml Ampul.Neb) 3 ml INHALE Q4H PRN PRN Reason: Shortness of Breath/Wheezing Calcium Carbonate (Calcium Carbonate 750 Mg Tab.Chew) 750 mg PO Q4H PRN PRN Reason: Heartburn Diazepam (Diazepam 10 Mg/2 Ml Cartridge) 2.5 mg IVPUSH Q6H PRN PRN Reason: nausea and vomiting, QTC prolonged Last Admin: 09/21/25 08:28 Dose: 2.5 mg Doxepin HCl (Doxepin Hcl 10 Mg Capsule) 10 mg PO BEDTIME PRN PRN Reason: Sleep Folic Acid (Folic Acid 1 Mg Tablet) 1 mg PO DAILY [facility] Last Admin: 09/21/25 08:23 Dose: 1 mg Lactated Ringer's (Lr) 1,000 mls @ 125 mls/hr IVCONT .Q8H [facility] Last Admin: 09/21/25 09:29 Dose: Not Given Acetaminophen (Ofirmev) 1,000 mg in 100 mls @ 400 mls/hr IV Q6H PRN PRN Reason: Pain, Mild 1-3,fever,headache Last Infusion: 09/20/25 20:13 Dose: Infused Lidocaine/Diphenhydr/Alum/Mg/Simeth (Mag&Al/Sim/Diphenhyd/Lidocaine 10 Ml Oral.Susp) 10 ml PO Q6H PRN; Protocol PRN Reason: reflux Last Admin: 09/21/25 12:18 Dose: 10 ml Magnesium Hydroxide (Milk Of Magnesia 30 Ml Oral.Susp) 30 ml PO DAILY PRN PRN Reason: Constipation Magnesium Oxide (Magnesium Oxide 400 Mg Tablet) 400 mg PO BIDPC [facility] Last Admin: 09/21/25 08:23 Dose: 400 mg Melatonin (Melatonin 3 Mg Tablet) 6 mg PO BEDTIME PRN PRN Reason: Insomnia Last Admin: 09/21/25 00:04 Dose: 6 mg Melatonin (Melatonin 3 Mg Tablet) 6 mg PO BEDTIME PRN PRN Reason: Sleep Pantoprazole Sodium (Pantoprazole Sodium 40 Mg/10 Ml Vial) 40 mg IVPUSH BID@0630,1630 [facility] Last Admin: 09/21/25 05:59 Dose: 40 mg Pharmacy Consult (Consult Rx Etoh Phenob Im/Po) 1 each MISCELLANE ONCE PRN; Protocol PRN Reason: Consult order Phenobarbital (Phenobarbital 15 Mg Tablet) 45 mg PO BID@0600,1800 [facility] Stop: 09/22/25 06:01 Last Admin: 09/21/25 06:00 Dose: 45 mg Phenobarbital (Phenobarbital 15 Mg Tablet) 15 mg PO BID@0600,1800 [facility] Stop: 09/24/25 06:01 Phenobarbital (Phenobarbital 15 Mg Tablet) 15 mg PO DAILY@1800 [facility] Stop: 09/25/25 18:01 Polyethylene Glycol (Polyethylene Glycol 3350 17 Gm Powd.Pack) 17 gm PO DAILY PRN PRN Reason: Constipation Senna (Sennosides 8.6 Mg Tablet) 17.2 mg PO BEDTIME [facility] Last Admin: 09/20/25 22:07 Dose: Not Given Sertraline HCl (Sertraline Hcl 50 Mg Tablet) 50 mg PO DAILY [facility] Last Admin: 09/21/25 08:23 Dose: 50 mg Sodium Chloride (0.9 % Sodium Chloride Flush 3 Ml Syringe) 3 ml IVFLUSH QSHIFT [facility] Last Admin: 09/21/25 08:24 Dose: 3 ml Sucralfate (Sucralfate 1 Gm Tablet) 1 gm PO QIDACHS [facility] Last Admin: 09/21/25 12:18 Dose: 1 gm Thiamine HCl (Thiamine Hcl 100 Mg Tablet) 100 mg PO DAILY [facility] Last Admin: 09/21/25 08:23 Dose: 100 mg Allergies Allergies Allergy/AdvReac Type Severity Reaction Status Date / Time azithromycin (AZITHROMYCIN) Allergy Unknown Unknown Verified 09/19/25 19:49 Assessment & Plan Assessment & Plan (1) Alcohol withdrawal: Qualifiers: Complication of substance-induced condition: with unspecified complication Qualified Code(s): F10.939 - Alcohol use, unspecified with withdrawal, unspecified Status: Acute Code(s): F10.939 - Alcohol use, unspecified with withdrawal, unspecified Assessment and Plan: * withdrawal sx well managed with phenobarbital -still some nausea and mild tremor * mold runner assisting with Recovery Supports -will continue to check in during admission * can start naltrexone once GI sx subside Total time managing care of this patient today _30___ minutes. PMF Past Medical History Medical History (Updated 09/20/25 @ 10:47 by Gurpreet Neal MD) PTSD (post-traumatic stress disorder) Gout Sternal fracture Class 1 obesity Alcoholic cirrhosis of liver Exacerbation of gout Alcohol abuse Anxiety Surgical History Surgical History History of ankle surgery Social History Social History Household Members: Other Housing: House Do you presently have visiting nurse or other home services: No Alcohol intake: current Alcohol intake frequency: 3 or more drinks per day Alcohol type: hard liquor Patient Tobacco Use Status: Never used Tobacco service: Yes
--- NOTE | 2025-09-21 15:37 | MHC.RECOVRN ---
T/W met with pt. in 484 to check in and offer support and resources. Gave him F/U appt. with [facility] and encouraged him if he was still inpt. on 09/24 to call and change. Called [facility] at [facility] with pt. and after obtaining GUILLERMO, sent requested information for [facility] intake. Education provided to pt. re: long term care social worker medical effects of alcohol use as well as initiating interventions to decrease isolation. Pt denied any further needs/concerns at this time. ACS available PRN
[2025-09-22 03:32] VITALS: BP 123/76; PULSE 68; RESP 16; TEMP 36.8; O2SAT 99
[2025-09-22] MEDS: Mag&Al/Sim/Diphenhyd/Lidocaine 10 ML ORAL.SUSP PO ×2 (05:44→17:30)
[2025-09-22 06:57] LABS: MANUAL DIFF FLAG NO
[2025-09-22 07:17] LABS: Hematocrit 36.6 % (42.0-52.0); Hemoglobin 13.3 g/dl (14.0-18.0); Imm Gran Abs Auto 0.02 X10*3/uL (0.00-0.03); Imm Gran Pct Auto 0.5 % (0.0-0.4); Lymphocytes Absolute Auto 0.8 X10*3/uL (1.2-4.9); Mean Corpuscular HGB Conc 36.3 g/dl (31.0-36.0); Mean Corpuscular Hemoglobin 32.8 pg (27.0-33.0); Mean Corpuscular Volume 90.4 fL (80.0-98.0); NRBC Abs Auto 0.000 X10*3/uL (0.0-0.012); NRBC Pct Auto 0.0 /100WBC (0.0-0.2); Red Blood Count 4.05 X10*6/uL (4.60-5.80); White Blood Count 4.4 X10*3/uL (4.8-10.8)
[2025-09-22 07:18] LABS: Platelet Count 84 X10*3/uL (160-400)
[2025-09-22 07:22] LABS: Alanine Aminotransferase 101 U/L (0-40); Albumin Level 4.0 g/dL (3.5-5.0); Alkaline Phosphatase 79 U/L (39-117); Anion Gap 17 (12-20); Aspartate Amino Transferase 87 U/L (5-37); Blood Urea Nitrogen 4 mg/dL (9-16); Calcium 8.6 mg/dL (8.4-10.2); Carbon Dioxide 21 mmol/L (22-29); Chloride 98 mmol/L (96-108); Creatinine Clr Calc Pharmacy 220.2; Estimated Glomerular Filt Rate > 60; Magnesium 1.8 mg/dL (1.6-2.6); Potassium 3.1 mmol/L (3.3-5.1); Sodium 133 mmol/L (135-145); Total Protein 6.8 g/dL (6.5-8.0)
[2025-09-22 07:52] VITALS: BP 135/92; PULSE 73; RESP 20; TEMP 37.2; O2SAT 95
[2025-09-22] MEDS: Potassium Chloride ER 20 MEQ TAB.ER.PRT 40 MEQ PO (08:29)
[2025-09-22] MEDS: 0.9 % Sodium Chloride Flush 3 ML SYRINGE IVFLUSH ×3 (08:30→22:10)
[2025-09-22] MEDS: diazePAM 10 MG/2 ML CARTRIDGE 2.5 MG IVPUSH ×2 (08:32→22:10)
--- NOTE | 2025-09-22 10:57 | P.CDIM_ITS ---
PROVIDER RESPONSE TEXT: To clarify, the appropriate diagnosis supported by the clinical indicators: Pancytopenia QUERY TEXT: PHYSICIAN'S DOCUMENTATION REQUEST Date of Query: 09/22/2025 09:47 AM EST Patient Name: Enoc Newell Admit Date: 09/20/2025 Dear Marlene Stanton MD, A review of the medical record indicates additional documentation may be needed. Please review below and update the documentation accordingly. Clinical Indicators: LABS: WBC 4.3 RBC 3.90 PLT 101 L Cirrhosis, ETOH abuse. Based on the above, is there a diagnosis that correlates with these lab findings? Pancytopenia Other diagnosis that correlates with these labs (specify type) Other (explain) Clinically unable to determine (explain) Thank you, Daniella Stewart, CCS, CDIS Use of terms such as suspected, likely, concern for, or probable (associated with a specific diagnosis that is being evaluated, monitored, or treated as if it exists) are acceptable and can be coded in the inpatient setting, when documented at the time of discharge. Please use your independent medical judgment in providing your response. THIS QUERY IS PART OF THE PERMANENT MEDICAL RECORD
[2025-09-22 11:11] VITALS: BP 127/83; PULSE 79; RESP 16; TEMP 36.5; O2SAT 97
[2025-09-22 15:02] VITALS: BP 157/70; PULSE 78; RESP 20; TEMP 36.5; O2SAT 99
--- NOTE | 2025-09-22 16:18 | MHC.RECOVRN ---
Met with pt in to offer continued support and resources related to AUD On approach pt is laying in bed, watching tv, in no apparent distress. Respirations are even and unlabored. Pt reports tremor and headache related to alcohol withdrawal and is currently on phenobarbital taper. He also endorses esophageal burning and discomfort Pt states he does not wish to enter [facility] or start IOP. He reports his recovery plan is to begin taking naltrexone when discharged, utilize a flag football coach, and attend AA meetings. I said I was going to do these things before and I didn't but my health is really affected now and I need to do something different . Pt declined the need for additional resources or support at this time ACS team available as needed
[2025-09-22 19:10] VITALS: BP 111/74; PULSE 85; RESP 20; TEMP 36.9; O2SAT 100
--- NOTE | 2025-09-22 22:23 | HO.PM.IMPN ---
Subjective Subjective Date of Service: 09/22/25 Interval History: Complains of headache- told him why NSAIDS CI agreeable to more phenobarb and Valium for pain control PT Review of Systems Review of Systems: Yes all other systems are reviewed and are negative Physical Exam Exam: Exam: General: AO X 3, appeared to be tremulous and in pain-epigastric in etiology per patient Resp: CTA bilateral, no accessory muscles used CVS: S1,S2,RRR GI: Epigastric tenderness : Lord placed acute urinary retention by Urology Psych: Anxious anxious affect Vital Signs: Vital Signs: Last Vital Signs Temp 98.5 F 09/22/25 19:10 Pulse 85 09/22/25 19:10 Resp 20 09/22/25 19:10 BP 111/74 09/22/25 19:10 Pulse Ox 100 09/22/25 19:10 O2 Del Method Room Air 09/22/25 19:10 BMI result Body Mass Index 33.0 Objective Data Active Medications Al Hydroxide/Mg Hydroxide (Magnesium Hydrox/Alum Hydrox 30 Ml Oral.Susp) 30 ml PO Q4H PRN PRN Reason: Heartburn Albuterol/Ipratropium (Albuterol/Iprat 2.5/0.5mg 3 Ml Ampul.Neb) 3 ml INHALE Q4H PRN PRN Reason: Shortness of Breath/Wheezing Calcium Carbonate (Calcium Carbonate 750 Mg Tab.Chew) 750 mg PO Q4H PRN PRN Reason: Heartburn Diazepam (Diazepam 10 Mg/2 Ml Cartridge) 2.5 mg IVPUSH Q6H PRN PRN Reason: nausea and vomiting, QTC prolonged Last Admin: 09/22/25 22:10 Dose: 2.5 mg Documented By: GERMAN Doxepin HCl (Doxepin Hcl 10 Mg Capsule) 10 mg PO BEDTIME PRN PRN Reason: Sleep Folic Acid (Folic Acid 1 Mg Tablet) 1 mg PO DAILY [facility] Last Admin: 09/22/25 08:29 Dose: 1 mg Documented By: TARUN Acetaminophen (Ofirmev) 1,000 mg in 100 mls @ 400 mls/hr IV Q6H PRN PRN Reason: Pain, Mild 1-3,fever,headache Last Infusion: 09/21/25 16:39 Dose: Infused Documented By: TARUN Lidocaine/Diphenhydr/Alum/Mg/Simeth (Mag&Al/Sim/Diphenhyd/Lidocaine 10 Ml Oral.Susp) 10 ml PO Q6H PRN; Protocol PRN Reason: reflux Last Admin: 09/22/25 17:30 Dose: 10 ml Documented By: TARUN Magnesium Hydroxide (Milk Of Magnesia 30 Ml Oral.Susp) 30 ml PO DAILY PRN PRN Reason: Constipation Magnesium Oxide (Magnesium Oxide 400 Mg Tablet) 400 mg PO BIDPC [facility] Last Admin: 09/22/25 17:30 Dose: 400 mg Documented By: TARUN Melatonin (Melatonin 3 Mg Tablet) 6 mg PO BEDTIME PRN PRN Reason: Sleep Pantoprazole Sodium (Pantoprazole Sodium 40 Mg/10 Ml Vial) 40 mg IVPUSH BID@0630,1630 [facility] Last Admin: 09/22/25 17:30 Dose: 40 mg Documented By: TARUN Pharmacy Consult (Consult Rx Etoh Phenob Im/Po) 1 each MISCELLANE ONCE PRN; Protocol PRN Reason: Consult order Phenobarbital (Phenobarbital 15 Mg Tablet) 15 mg PO BID@0600,1800 [facility] Stop: 09/24/25 06:01 Last Admin: 09/22/25 17:31 Dose: 15 mg Documented By: TARUN Phenobarbital (Phenobarbital 15 Mg Tablet) 15 mg PO DAILY@1800 [facility] Stop: 09/25/25 18:01 Polyethylene Glycol (Polyethylene Glycol 3350 17 Gm Powd.Pack) 17 gm PO DAILY PRN PRN Reason: Constipation Senna (Sennosides 8.6 Mg Tablet) 17.2 mg PO BEDTIME [facility] Last Admin: 09/22/25 22:10 Dose: Not Given Documented By: GERMAN Non-Admin Reason: pt declined med Sertraline HCl (Sertraline Hcl 50 Mg Tablet) 50 mg PO DAILY [facility] Last Admin: 09/22/25 08:29 Dose: 50 mg Documented By: TARUN Sodium Chloride (0.9 % Sodium Chloride Flush 3 Ml Syringe) [facility] Last Admin: 09/22/25 22:10 Dose: 3 ml Documented By: GERMAN Sucralfate (Sucralfate 1 Gm Tablet) 1 gm PO QIDACHS [facility] Last Admin: 09/22/25 22:09 Dose: 1 gm Documented By: GERMAN Thiamine HCl (Thiamine Hcl 100 Mg Tablet) 100 mg PO DAILY [facility] Last Admin: 09/22/25 08:29 Dose: 100 mg Documented By: TRAUN Labs 09/22/25 06:50 09/22/25 06:50 Labs: Laboratory Results - last 24 hr 09/22/25 09/22/25 09/22/25 06:50 12:19 16:28 MCV 90.4 MCH 32.8 MCHC 36.3 H RDW 13.7 Plt Count 84 L MPV 10.3 Immature Gran % (Auto) 0.5 H Neut % (Auto) 71.7 Lymph % (Auto) 18.4 L Morgan % (Auto) 5.7 Eos % (Auto) 3.2 Baso % (Auto) 0.5 Lymph # (Auto) 0.8 L Morgan # (Auto) 0.3 Eos # (Auto) 0.1 Baso # (Auto) 0.0 Abs Immat Gran (auto) 0.02 Absolute Neuts (auto) 3.1 Absolute Nucleated RBC 0.000 Nucleated RBC % (auto) 0.0 Anion Gap 17 Estim Creat Clear Calc 220.2 Estimated GFR > 60 Random Glucose 92 Lactic Acid 0.8 1.1 1.3 Calcium 8.6 Magnesium 1.8 Total Bilirubin 0.9 AST 87 H ALT 101 H Alkaline Phosphatase 79 Total Protein 6.8 Albumin 4.0 Assessment and Plan (1) Alcohol withdrawal syndrome: Status: Resolved Plan 39 yo male with PMH of Alcohol use disorder with multiple inpt admissions for ETOH abuse recently on naltrexone and has tried vistaril, Gout, nephrolithiasis, PTSD, HLD, hepatic steatosis (no diagnostic evidence of cirrhosis with previous testing), R and L ankle surgery presented to the ED for another episode of alcohol withdrawal and coffee-ground emesis, acute urinary retention requiring Lord Alcohol use disorder with high risk of withdrawal Abdominal pain Pt reports 25+ previous hospitalizations for alcohol withdrawal with hx of withdrawal seizures x3-4 Continue phenobarbital protocol Thiamine, folate, multivitamins, and omeprazole Monitor on [facility] Addiction medicine consult Monitor on telemetry Acute urinary retention likely secondary to incomplete bladder emptying Difficult Lord, we will need to continue Lord for 2 weeks for decompression Voiding trials in outpatient settings Hypokalemia Potassium being checked daily and repleted Hypomagnesemia Being checked and repleted daily Transaminitis Likely in the setting of alcohol use CT abdomen pelvis hepatic steatosis, esophagitis Negative hepatitis panel Downtrending LFTs PPI and sucralfate Persistent coffee-ground emesis-we will likely need EGD if not responding to medical management per GI QTC prolongation Mg daily Tele Daily EKG High risk of [place] Depression-continue sertraline home dose (lower QTC prolongation potential) DVT prophylaxis: SCD boots Code status: Full code Pt requires continued hospitalization for phenobarb protocol for controlled alcohol withdrawal that also requires close monitoring of labs for electrolyte abnormalities. Quality Stroke Does the patient have a stroke diagnosis?: No Reason for No Anti-thrombotic by Day Two: Contraindicated (ruling out GIB ) VTE Prior VTE?: No VTE Risk Level:: Medical - moderate - high VTE Device Contraindication: N/A - Device Ordered VTE Drug Contraindication: Treatment Not Indicated
[2025-09-22 23:34] VITALS: BP 125/82; PULSE 98; RESP 16; TEMP 37; O2SAT 94
[2025-09-23 01:13] LABS: OBS Int Ctl Valid YES; OBS1 POSITIVE (NEGATIVE)
[2025-09-23 03:30] VITALS: BP 125/67; PULSE 93; RESP 16; TEMP 36.8; O2SAT 96
--- NOTE | 2025-09-23 07:20 | HO.PM.IMPN ---
Subjective Subjective Date of Service: 09/23/25 Interval History: Complains of headache- told him why NSAIDS CI agreeable to more phenobarb and Valium for pain control PT Review of Systems Review of Systems: Yes all other systems are reviewed and are negative Physical Exam Exam: Exam: General: AO X 3, appeared to be tremulous and in pain-epigastric in etiology per patient Resp: CTA bilateral, no accessory muscles used CVS: S1,S2,RRR GI: Epigastric tenderness : Lord placed acute urinary retention by Urology Psych: Anxious anxious affect Vital Signs: Vital Signs: Last Vital Signs Temp 98.2 F 09/23/25 03:30 Pulse 93 09/23/25 03:30 Resp 16 09/23/25 03:30 BP 125/67 09/23/25 03:30 Pulse Ox 96 09/23/25 03:30 O2 Del Method Room Air 09/23/25 03:30 BMI result Body Mass Index 33.0 Objective Data Active Medications Al Hydroxide/Mg Hydroxide (Magnesium Hydrox/Alum Hydrox 30 Ml Oral.Susp) 30 ml PO Q4H PRN PRN Reason: Heartburn Albuterol/Ipratropium (Albuterol/Iprat 2.5/0.5mg 3 Ml Ampul.Neb) 3 ml INHALE Q4H PRN PRN Reason: Shortness of Breath/Wheezing Calcium Carbonate (Calcium Carbonate 750 Mg Tab.Chew) 750 mg PO Q4H PRN PRN Reason: Heartburn Diazepam (Diazepam 10 Mg/2 Ml Cartridge) 2.5 mg IVPUSH Q6H PRN PRN Reason: nausea and vomiting, QTC prolonged Last Admin: 09/22/25 22:10 Dose: 2.5 mg Documented By: GERMAN Doxepin HCl (Doxepin Hcl 10 Mg Capsule) 10 mg PO BEDTIME PRN PRN Reason: Sleep Folic Acid (Folic Acid 1 Mg Tablet) 1 mg PO DAILY THOMAS Last Admin: 09/22/25 08:29 Dose: 1 mg Documented By: TARUN Acetaminophen (Ofirmev) 1,000 mg in 100 mls @ 400 mls/hr IV Q6H PRN PRN Reason: Pain, Mild 1-3,fever,headache Last Infusion: 09/21/25 16:39 Dose: Infused Documented By: TARUN Lidocaine/Diphenhydr/Alum/Mg/Simeth (Mag&Al/Sim/Diphenhyd/Lidocaine 10 Ml Oral.Susp) 10 ml PO Q6H PRN; Protocol PRN Reason: reflux Last Admin: 09/22/25 17:30 Dose: 10 ml Documented By: TARUN Magnesium Hydroxide (Milk Of Magnesia 30 Ml Oral.Susp) 30 ml PO DAILY PRN PRN Reason: Constipation Magnesium Oxide (Magnesium Oxide 400 Mg Tablet) 400 mg PO BIDPC [facility] Last Admin: 09/22/25 17:30 Dose: 400 mg Documented By: TARUN Melatonin (Melatonin 3 Mg Tablet) 6 mg PO BEDTIME PRN PRN Reason: Sleep Pantoprazole Sodium (Pantoprazole Sodium 40 Mg/10 Ml Vial) 40 mg IVPUSH BID@0630,1630 [facility] Last Admin: 09/23/25 05:48 Dose: 40 mg Documented By: GERMAN Pharmacy Consult (Consult Rx Etoh Phenob Im/Po) 1 each MISCELLANE ONCE PRN; Protocol PRN Reason: Consult order Phenobarbital (Phenobarbital 15 Mg Tablet) 15 mg PO BID@0600,1800 [facility] Stop: 09/24/25 06:01 Last Admin: 09/23/25 05:49 Dose: 15 mg Documented By: GERMAN Phenobarbital (Phenobarbital 15 Mg Tablet) 15 mg PO DAILY@1800 [facility] Stop: 09/25/25 18:01 Polyethylene Glycol (Polyethylene Glycol 3350 17 Gm Powd.Pack) 17 gm PO DAILY PRN PRN Reason: Constipation Senna (Sennosides 8.6 Mg Tablet) 17.2 mg PO BEDTIME [facility] Last Admin: 09/22/25 22:10 Dose: Not Given Documented By: GERMAN Non-Admin Reason: pt declined med Sertraline HCl (Sertraline Hcl 50 Mg Tablet) 50 mg PO DAILY [facility] Last Admin: 09/22/25 08:29 Dose: 50 mg Documented By: TARUN Sodium Chloride (0.9 % Sodium Chloride Flush 3 Ml Syringe) 3 ml IVFLUSH QSHIFT [facility] Last Admin: 09/22/25 22:10 Dose: 3 ml Documented By: GERMAN Sucralfate (Sucralfate 1 Gm Tablet) 1 gm PO QIDACHS [facility] Last Admin: 09/22/25 22:09 Dose: 1 gm Documented By: GERMAN Thiamine HCl (Thiamine Hcl 100 Mg Tablet) 100 mg PO DAILY THOMAS Last Admin: 09/22/25 08:29 Dose: 100 mg Documented By: TARUN Labs 09/23/25 08:10 09/23/25 08:10 Labs: Laboratory Results - last 24 hr 09/22/25 09/22/25 09/22/25 06:50 12:19 16:28 Anion Gap 17 Estim Creat Clear Calc 220.2 Estimated GFR > 60 Random Glucose 92 Lactic Acid 0.8 1.1 1.3 Calcium 8.6 Magnesium 1.8 Total Bilirubin 0.9 AST 87 H ALT 101 H Alkaline Phosphatase 79 Total Protein 6.8 Albumin 4.0 Stool Occult Blood 09/23/25 00:32 Anion Gap Estim Creat Clear Calc Estimated GFR Random Glucose Lactic Acid Calcium Magnesium Total Bilirubin AST ALT Alkaline Phosphatase Total Protein Albumin Stool Occult Blood POSITIVE Assessment and Plan (1) Alcohol withdrawal syndrome: Status: Resolved Plan 39 yo male with PMH of Alcohol use disorder with multiple inpt admissions for ETOH abuse recently on naltrexone and has tried vistaril, Gout, nephrolithiasis, PTSD, HLD, hepatic steatosis (no diagnostic evidence of cirrhosis with previous testing), R and L ankle surgery presented to the ED for another episode of alcohol withdrawal and coffee-ground emesis, acute urinary retention requiring Lord Alcohol use disorder with high risk of withdrawal Abdominal pain Pt reports 25+ previous hospitalizations for alcohol withdrawal with hx of withdrawal seizures x3-4 Continue phenobarbital protocol -last day albert Thiamine, folate, multivitamins, and omeprazole Monitor on [facility] Addiction medicine consult Monitor on telemetry Acute urinary retention likely secondary to incomplete bladder emptying Difficult Lord, we will need to continue Lord for 2 weeks for decompression Voiding trials in outpatient settings Hypokalemia Potassium being checked daily and repleted Hypomagnesemia Being checked and repleted daily Transaminitis Likely in the setting of alcohol use CT abdomen pelvis hepatic steatosis, esophagitis Negative hepatitis panel Downtrending LFTs PPI and sucralfate Persistent coffee-ground emesis-we will likely need EGD if not responding to medical management per GI QTC prolongation Mg daily Tele Daily EKG High risk of Torsades Depression-continue sertraline home dose (lower QTC prolongation potential) DVT prophylaxis: SCD boots Code status: Full code Pt optimized for DC tomorrow Will get IM naltrexone tomorrow, can be DC home PT cleared the pt This note is constructed using voice recognition software. While every effort has been made to ensure accuracy, windows server architect errors may have been included. Quality Stroke Does the patient have a stroke diagnosis?: No Reason for No Anti-thrombotic by Day Two: Contraindicated (ruling out GIB ) VTE Prior VTE?: No VTE Risk Level:: Medical - moderate - high VTE Device Contraindication: N/A - Device Ordered VTE Drug Contraindication: Treatment Not Indicated
[2025-09-23] MEDS: 0.9 % Sodium Chloride Flush 3 ML SYRINGE IVFLUSH ×3 (07:51→22:20)
[2025-09-23 08:00] VITALS: BP 119/82; PULSE 82; RESP 18; TEMP 36.8; O2SAT 97
[2025-09-23] MEDS: diazePAM 10 MG/2 ML CARTRIDGE 2.5 MG IVPUSH ×2 (08:46→22:20)
[2025-09-23 08:50] LABS: Hematocrit 42.6 % (42.0-52.0); Hemoglobin 15.0 g/dl (14.0-18.0); Imm Gran Abs Auto 0.02 X10*3/uL (0.00-0.03); Imm Gran Pct Auto 0.4 % (0.0-0.4); Lymphocytes Absolute Auto 1.0 X10*3/uL (1.2-4.9); MANUAL DIFF FLAG NO; Mean Corpuscular HGB Conc 35.2 g/dl (31.0-36.0); Mean Corpuscular Hemoglobin 32.6 pg (27.0-33.0); Mean Corpuscular Volume 92.6 fL (80.0-98.0); NRBC Abs Auto 0.000 X10*3/uL (0.0-0.012); NRBC Pct Auto 0.0 /100WBC (0.0-0.2); Platelet Count 95 X10*3/uL (160-400); Red Blood Count 4.60 X10*6/uL (4.60-5.80); White Blood Count 4.7 X10*3/uL (4.8-10.8)
[2025-09-23 09:01] LABS: Alanine Aminotransferase 80 U/L (0-40); Albumin Level 4.3 g/dL (3.5-5.0); Alkaline Phosphatase 82 U/L (39-117); Anion Gap 15 (12-20); Aspartate Amino Transferase 57 U/L (5-37); Blood Urea Nitrogen 6 mg/dL (9-16); Calcium 9.2 mg/dL (8.4-10.2); Carbon Dioxide 22 mmol/L (22-29); Chloride 100 mmol/L (96-108); Creatinine Clr Calc Pharmacy 216.3; Estimated Glomerular Filt Rate > 60; Magnesium 1.8 mg/dL (1.6-2.6); Potassium 3.2 mmol/L (3.3-5.1); Sodium 134 mmol/L (135-145); Total Protein 7.2 g/dL (6.5-8.0)
--- NOTE | 2025-09-23 09:48 | MHC.CM.PN ---
Addendum entered by Monica Pinzon 09/23/25 15:38: [facility], no response to CM or VNA. Original Note: Per Addiction RN, pt. is not interested in inpt. alcohol tx, DCP will be home, he will go with urinary catheter, ref. into [facility] for SN, call placed and info faxed to [facility] for auth for [facility] services.
[2025-09-23 12:00] VITALS: BP 111/76; PULSE 89; RESP 18; TEMP 36.9; O2SAT 98
[2025-09-23 15:38] VITALS: BP 122/73; PULSE 86; RESP 18; TEMP 36.9; O2SAT 98
[2025-09-23 19:41] VITALS: BP 111/74; PULSE 81; RESP 18; TEMP 36.6; O2SAT 99
[2025-09-23 23:52] VITALS: BP 115/74; PULSE 83; RESP 18; TEMP 36.3; O2SAT 98
--- NOTE | 2025-09-24 | ECG_ITS ---
Test Reason : check qtc Blood Pressure : */* mmHG Vent. Rate : 97 BPM Atrial Rate : 97 BPM P-R Int : 142 ms QRS Dur : 80 ms QT Int : 342 ms P-R-T Axes : 43 32 26 degrees QTcB Int : 434 ms Normal sinus rhythm Normal ECG When compared with ECG of 20-Sep-2025 08:25, Nonspecific T wave abnormality now evident in Inferior leads Nonspecific T wave abnormality no longer evident in Lateral leads QT has shortened Referred By: Irma Anderson Electronically Signed By: DENNISE MERCADO
[2025-09-24 03:12] VITALS: BP 102/69; PULSE 73; RESP 18; TEMP 36.6; O2SAT 98
[2025-09-24 07:37] LABS: Hematocrit 41.5 % (42.0-52.0); Hemoglobin 14.8 g/dl (14.0-18.0); Imm Gran Abs Auto 0.02 X10*3/uL (0.00-0.03); Imm Gran Pct Auto 0.5 % (0.0-0.4); Lymphocytes Absolute Auto 1.1 X10*3/uL (1.2-4.9); MANUAL DIFF FLAG SCAN; Mean Corpuscular HGB Conc 35.7 g/dl (31.0-36.0); Mean Corpuscular Hemoglobin 33.3 pg (27.0-33.0); Mean Corpuscular Volume 93.5 fL (80.0-98.0); NRBC Abs Auto 0.000 X10*3/uL (0.0-0.012); NRBC Pct Auto 0.0 /100WBC (0.0-0.2); PLT CLUMP 1; Red Blood Count 4.44 X10*6/uL (4.60-5.80); SCAN SMEAR FLAG 1
[2025-09-24 07:38] LABS: Alanine Aminotransferase 61 U/L (0-40); Albumin Level 4.0 g/dL (3.5-5.0); Alkaline Phosphatase 75 U/L (39-117); Anion Gap 15 (12-20); Aspartate Amino Transferase 42 U/L (5-37); Blood Urea Nitrogen 8 mg/dL (9-16); Calcium 9.3 mg/dL (8.4-10.2); Carbon Dioxide 20 mmol/L (22-29); Chloride 104 mmol/L (96-108); Creatinine Clr Calc Pharmacy 212.5; Estimated Glomerular Filt Rate > 60; Magnesium 2.0 mg/dL (1.6-2.6); Potassium 3.3 mmol/L (3.3-5.1); Sodium 136 mmol/L (135-145); Total Protein 6.9 g/dL (6.5-8.0)
[2025-09-24 07:57] LABS: Platelet Count 93 X10*3/uL (160-400); White Blood Count 4.1 X10*3/uL (4.8-10.8)
[2025-09-24 08:00] VITALS: BP 112/75; PULSE 74; RESP 20; TEMP 36.6; O2SAT 99
[2025-09-24] MEDS: 0.9 % Sodium Chloride Flush 3 ML SYRINGE IVFLUSH (09:54)
[2025-09-24 12:00] VITALS: BP 112/77; PULSE 82; RESP 20; TEMP 36.8; O2SAT 96
[2025-09-24] MEDS: diazePAM 10 MG/2 ML CARTRIDGE 2.5 MG IVPUSH (12:32)
--- NOTE | 2025-09-24 12:34 | PM.DS ---
DS: Providers Provider Date of Service: 09/24/25 Date of admission: 09/20/25 01:59 Date of discharge: 09/24/25 Primary care physician: Elie Chaudhari MD Consults: 09/20/25 02:05 Addiction Medicine Provider Routine Consulting Provider: Addiction Covering Reason for consultation: continued alcohol binge use, now exp medical complications Has provider been notified: No 09/20/25 03:19 Consult to Case Management Routine Comment: pt working on trying to establish mental health ca 09/20/25 06:16 Consult to Gastroenterology Routine Consulting Provider: Ced Salazar Reason for consultation: esophagitis, coffee ground emesis, ETOH abuse Has provider been notified: No 09/20/25 07:42 Consult to Urology Stat Consulting Provider: [facility] Reason for consultation: Failed Main placement , Acute urinary retension Attending physician on discharge: Fredi Lawrence Discharging clinician: Irma Anderson DS: Diagnosis Discharge Diagnosis (1) Alcohol withdrawal syndrome: Status: Resolved DS: Summary Hospital Course Hospital Course: From H&p on the day of admission Pt is a 39 yo male with PMH Alcohol use disorder with multiple inpt admissions for ETOH abuse recently on naltrexone and has tried vistaril, Gout, nephrolithiasis, PTSD, HLD, hepatic steatosis (no diagnostic evidence of cirrhosis with previous testing), R and L ankle surgery was BIBA as pt called himself after a 5 day binge of alcohol, at least 1L of vodka per day. with no food intake and small bouts of gatorade. Pt developed intractable hiccups, RUQ pain, and coffee ground emesis. Pt states he is not suicidal or having hallucinations but offers he has been having hallucinations (auditory) with recent drinking episodes. Pt states he was discharged from rehab about a month ago and was there for 8 days. 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 Pt has not been taking naltrexone. Per pt, nothing has worked and pt is drawn to the liquor store vs taking care of his addiction and dealing with life's problems. Pt expressed concern that he is having more and more physical symptoms. Pt denies use of tobacco, marijuana, illicit drugs or IV drug hx. Pt does not routinely follow with a GI specialist. Pt denies gouty joint pain, but is reporting serious reflux, hiccups, abdominal pain and feels dehydrated. Pt reports mild RAJAN. Pt was started on phenobarbital in the ED. Work up in the ED notes an ECG with prolonged Qtc 529, NSR with no ischemic changes. MG 2.0. Pt is receiving MG 2GMS IV. Alcohol level 360. LA and VBG pending as CO2 15, AG 30, BG 114 mg/dL on BMP. IVF ordered to include 1L LR and then 125 mls per hour. Stool for occult is pending. H/H is stable, 16.2/44.5, PLTs 236K. AST 328 ALT 229 TBili 0.7 Lipase 39. Pt is not on blood thinners. Based on pt's pain level and new clinical finding of coffee ground emesis and no documented hx of portal HTN, esophageal varices, CT abd ordered. Pt being admitted for coffee ground emesis, alcohol withdrawal/ esophagitis and prolonged Qtc. Alcohol dependence with alcohol withdrawal Treated with phenobarbital protocol, vitamin supplementation. Seen by addiction Medicine. Patient will follow up outpatient in the [facility]. Plan for oral naltrexone to be started outpatient. Acute urinary retention likely secondary to incomplete bladder emptying Difficult Main placement, seen by urology, recommend to keep main in place for 2 weeks for decompression Frecommended main cap for use during the day. Empty every 3-4 hrs. Drainage bag indicated for overnight use - will be discharged with VNA services Outpatient urology follow-up Hypokalemia/hypomagnesemia Resolved with replacement Transaminitis Likely in the setting of alcohol use CT abdomen pelvis hepatic steatosis Negative hepatitis panel Downtrending LFTs outpatient follow up and abstinence from alcohol recommended coffee ground/esophagitis /acid reflux esophagitis seen on imaging seen by GI - recommend PPI BID sucralfate for 1-2 weeks no recurrent coffee ground emesis, therefore no indication for inpatient EGD. QTC prolongation magnesium replaced. repeat QTc improved significantly recommend po magnesium on discharge Time Attestation Discharge Coordination Time (in mins): 38 Quality: Safe Use of Opioids Does Pt have an Active Cancer Diagnosis on the Problem List?: No Quality: Stroke Does the patient have a stroke diagnosis?: No Physical Exam Vital Signs: Vital Signs: Last Vital Signs Temp 98.2 F 09/24/25 12:00 Pulse 82 09/24/25 12:00 Resp 20 09/24/25 12:00 BP 112/77 09/24/25 12:00 Pulse Ox 96 09/24/25 12:00 O2 Del Method Room Air 09/24/25 08:00 BMI result Body Mass Index 33.0 Const: General: cooperative, comfortable, alert and awake Nutritional Appearance: average body habitus Orientation/consciousness: patient oriented x3 Resp: Effort & Inspection: normal respiratory effort, able to speak in complete sentences, no respiratory distress and no use of accessory muscles Cardio: Rate: regular rate GI: Other: main Neuro: General: patient oriented x3, moves all extremities and CN's II-XI intact bilaterally DS: Data Data Completed and Pending Completed studies during hospitalization [Text1]: Procedures Detoxification Services for Substance Abuse Treatment (08/11/25) Labs on day of discharge: Laboratory Results - last 24 hr 09/24/25 06:45 WBC 4.1 L RBC 4.44 L Hgb 14.8 Hct 41.5 L MCV 93.5 MCH 33.3 H MCHC 35.7 RDW 13.8 Plt Count 93 L MPV 10.9 Immature Gran % (Auto) 0.5 H Neut % (Auto) 55.6 Lymph % (Auto) 27.0 [place] % (Auto) 9.6 Eos % (Auto) 6.6 H Baso % (Auto) 0.7 Lymph # (Auto) 1.1 L [place] # (Auto) 0.4 Eos # (Auto) 0.3 Baso # (Auto) 0.0 Abs Immat Gran (auto) 0.02 Absolute Neuts (auto) 2.3 Absolute Nucleated RBC 0.000 Nucleated RBC % (auto) 0.0 Smear Tech's Comments VERIFIED Sodium 136 Potassium 3.3 Chloride 104 Carbon Dioxide 20 L Anion Gap 15 BUN 8 L Creatinine 0.57 Estim Creat Clear Calc 212.5 Estimated GFR > 60 Random Glucose 93 Calcium 9.3 Magnesium 2.0 Total Bilirubin 0.5 AST 42 H ALT 61 H Alkaline Phosphatase 75 Total Protein 6.9 Albumin 4.0 Discharge Plan Discharge Anticipated Discharge Date/Time: 09/24/25 12:49 Patient Disposition: Home Health Service Discharge Diagnosis: Alcohol dependence with withdrawal Urinary retention Referrals: [facility] [Other] - 10/01/25 10:30 am Referral Note: This is an appt to secure recovery coaching. If you can not make this appt, please call to reschedule [facility] [Provider Group] - 09/24/25 1:30 pm Referral Note: Intake appointment for ongoing support for Alcohol Use Gurpreet Neal MD [Physician, Urology] - 1 Week Elie Chaudhari MD [Primary Care Provider, Internal Medicine] - 1 Week Discharge Medications: New sucralfate 1 gram Tablet 1 g PO QIDACHS 14 Days Qty: 56 0RF pantoprazole 20 mg tablet,delayed release (DR/EC) 20 mg PO BID 90 Days Qty: 180 0RF magnesium oxide 400 mg (241.3 mg magnesium) Tablet 400 mg PO BIDPC 90 Days Qty: 180 0RF Continued thiamine HCl (vitamin B1) 100 mg Tablet 100 mg PO DAILY folic acid 1 mg tablet 1 mg PO DAILY clonidine HCl 0.1 mg Tablet 0.1 mg PO BEDTIME prazosin 1 mg Capsule 3 mg PO BEDTIME doxepin 10 mg Capsule 10 mg PO BEDTIME PRN (Reason: Sleep) gabapentin 400 mg Tablet 800 mg PO TID melatonin 5 mg Tablet 5 mg PO BEDTIME PRN (Reason: Sleep) sertraline 100 mg Tablet 50 mg PO DAILY Discontinued omeprazole 20 mg Tablet,Delayed Release (Dr/Ec) 20 mg PO DAILY@0630 30 Days Qty: 30 0RF Discharge Orders: Discharge Order (Routine); Ordered 09/24/25 Ordered By: Irma Anderson Activity on Discharge: As tolerated Stand Alone Forms: Patient Portal Discharge page Print Language: Italian Care Plan Goals: see below Health Concerns: Alcohol dependence with withdrawal urinary retention low mag/low k prolonged qtc Plan of Treatment: alcohol abstinence recommended take PPI twice daily; take sucralfate 4 times daily for two weeks - do not take these two medications at the same time do not use NSAIDs (motrin, ibuprofen, aspirin, etc) He will be discharged home with VNA services to assist with Main management Call to schedule follow-up appointment with Urology. Main catheter needs to stay in place for 2 weeks Follow-up in the [facility] for planned naltrexone Magnesium and potassium levels have returned to normal - take magnesium supplementation recommend outpatient follow up with PCP Assessment: See discharge summary
--- NOTE | 2025-09-24 13:15 | W.MHC.F2F ---
Service Date Service Date: 09/24/25 Encounter Date of encounter: 09/24/25 Reasons for Services Signs and symptoms assessed: VNA services for assistance with management of main catheter which is new to the patient Reason for mcfp: other (Main cap for use during the day. Empty every 3-4 hrs. Drainage bag indicated for overnight use. Any issues with main call urology office, Dr. Ángel Shannon MD Overseeing Care: Elie Chaudhari Homebound: Leaving the home is medically contraindicated at this time without the asist of a device and/or another person due th the listed conditions above and below. Reason homebound: other Certification: Based on the above findings, I certify that this patient is confined to the home and needs intermittent mcfp care, physical therapy and/or speech therapy, or continues to need occupational therapy. The patient is under my care, and I have initiated the establishment of the plan of care. The patient will be followed by a physician who will periodically review the plan of care. Time Spent With Patient Time: Total time managing care of this patient today ____ minutes.
--- NOTE | 2025-09-24 13:48 | PM.GIPN ---
Subjective Subjective Date of Service: 09/24/25 Interval History: Improved managing Po fluids and diet, but avoiding hot foods no abdominal pain no fevers or shakes Critical Care Time (minutes): 0 Physical Exam Exam: Exam: EXAM: GENERAL: The patient is well developed and nontoxic. VITAL SIGNS:see workflow HEENT: Nonicteric sclerae, PERRLA, EOMI. Oropharynx clear. Moist mucous membranes. Conjunctivae appear well perfused. No thyroid mass. CHEST: Chest wall is nontender. HEART: Regular rate and rhythm without murmurs. LUNGS: Clear to auscultation bilaterally. ABDOMEN: Soft, positive bowel sounds, nontender, no organomegaly.no flank tenderness SKIN: No rash, no excessive bruising, petechiae, or purpura. NEUROLOGIC: Cranial nerves II-XII intact without motor/sensory deficit. Psych: normal affect Vital Signs: Vital Signs: Last Vital Signs Temp 98.2 F 09/24/25 12:00 Pulse 82 09/24/25 12:00 Resp 20 09/24/25 12:00 BP 112/77 09/24/25 12:00 Pulse Ox 96 09/24/25 12:00 O2 Del Method Room Air 09/24/25 08:00 BMI result Body Mass Index 33.0 Objective Data Labs 09/24/25 06:45 09/24/25 06:45 Labs: Laboratory Results - last 24 hr 09/24/25 06:45 WBC 4.1 L RBC 4.44 L Hgb 14.8 Hct 41.5 L MCV 93.5 MCH 33.3 H MCHC 35.7 RDW 13.8 Plt Count 93 L MPV 10.9 Immature Gran % (Auto) 0.5 H Neut % (Auto) 55.6 Lymph % (Auto) 27.0 [place] % (Auto) 9.6 Eos % (Auto) 6.6 H Baso % (Auto) 0.7 Lymph # (Auto) 1.1 L [place] # (Auto) 0.4 Eos # (Auto) 0.3 Baso # (Auto) 0.0 Abs Immat Gran (auto) 0.02 Absolute Neuts (auto) 2.3 Absolute Nucleated RBC 0.000 Nucleated RBC % (auto) 0.0 Smear Tech's Comments VERIFIED Sodium 136 Potassium 3.3 Chloride 104 Carbon Dioxide 20 L Anion Gap 15 BUN 8 L Creatinine 0.57 Estim Creat Clear Calc 212.5 Estimated GFR > 60 Random Glucose 93 Calcium 9.3 Magnesium 2.0 Total Bilirubin 0.5 AST 42 H ALT 61 H Alkaline Phosphatase 75 Total Protein 6.9 Albumin 4.0 Procedures Date of Service Date of Service: 09/24/25 Progress Note: A&P Assessment and plan (1) Coffee ground emesis: Status: Acute Plan 1/ Coffee ground emesis probable alcohol related esophagitis and maybe gastritis as well, seems to be improving PLAN: /1 - cont with PPI BID for 8-12 weeks then can titrate to OD 2/ can add sucralfate for 1 week 3/ longer term alcohol abstinence, careful use of nsaids Time Spent With Patient Time: Total time managing care of this patient today ____ minutes. Quality Stroke Does the patient have a stroke diagnosis?: No Reason for No Anti-thrombotic by Day Two: Contraindicated (ruling out GIB ) VTE Prior VTE?: No VTE Risk Level:: Medical - moderate - high VTE Device Contraindication: N/A - Device Ordered VTE Drug Contraindication: Treatment Not Indicated
--- NOTE | 2025-09-24 14:08 | MHC.CM.PN ---
Pt. has been medically cleared to [place], he has arranged his own ride home, he will have home care services from [facility].
--- NOTE | 2025-09-28 08:16 | P.CDIM_ITS ---
PROVIDER RESPONSE TEXT: To clarify, the appropriate diagnosis supported by the clinical indicators: Acute QUERY TEXT: PHYSICIAN'S DOCUMENTATION REQUEST Date of Query: 09/22/2025 11:30 AM EST Patient Name: Enoc Newell Admit Date: 09/20/2025 Dear Marlene Stanton MD, A review of the medical record indicates additional documentation may be needed. Please review below and update the documentation accordingly. Clinical Indicators: H&P 09/20/25 - Metabolic acidosis secondary to dehydration from N/V, alcohol abuse. CO2 15, AG 30 Bicarb infusion one bag ordered CMP daily and prn Clarify which of the following accurately represents the acuity of the Metabolic acidosis: Possible options might include: Acute Chronic Other (explain) Clinically unable to determine (explain) Thank you, Daniella Stewart, CCS, CDIS Use of terms such as suspected, likely, concern for, or probable (associated with a specific diagnosis that is being evaluated, monitored, or treated as if it exists) are acceptable and can be coded in the inpatient setting, when documented at the time of discharge. Please use your independent medical judgment in providing your response. THIS QUERY IS PART OF THE PERMANENT MEDICAL RECORD
== END 2025-09-24 14:11 | disposition home health service (06) | DRG 896 ==
LOC: HO.ED 22:03 → HO.EDOVER 09-20 02:04 → HO.IMC 09-20 07:29
PROVIDERS: Student in an Organized Health Care Education/Training Program; Admitting Provider Nurse Practitioner Family; Emergency Provider Emergency Medicine; PCP Internal Medicine; Visit Provider Physician Assistant Medical
DX: F10.239 Alcohol dependence with withdrawal, unspecified (principal); K21.01 Gastro-esophageal reflux disease with esophagitis, with bleeding; D61.818 Other pancytopenia; E87.21 Acute metabolic acidosis; Y90.8 Blood alcohol level of 240 mg/100 ml or more; F43.10 Post-traumatic stress disorder, unspecified; E87.6 Hypokalemia; R33.9 Retention of urine, unspecified; E83.42 Hypomagnesemia; F32.A Depression, unspecified; R94.31 Abnormal electrocardiogram [ECG] [EKG]; R31.0 Gross hematuria; Z87.442 Personal history of urinary calculi; Z79.899 Other long term (current) drug therapy
CPT/HCPCS: 36415; 74177; 80048; 80053; 80307; 81001; 82010; 82272; 82550; 82746; 82803; 83540; 83605; 83690; 83735; 84100; 84439; 84443; 84550; 85025; 86704; 86706; 86709; 86803; 86850; 86900; 86901; 87340; 93005; 97161; 99285; J0131; J1200; J1808; J1885; J2470; J2560; J3360; J3411; J3475; J7120; Q9967; S9485

== ENCOUNTER → 2025-09-19 19:56 | Outpatient (BNV) | payer OTHER, SELFPAY | PROVIDERS: Admitting Provider Nurse Practitioner Family; Emergency Provider Emergency Medicine; PCP Internal Medicine; Visit Provider Internal Medicine | DX: R00.0 Tachycardia, unspecified (principal) | CPT/HCPCS: 93010 ==

== ENCOUNTER 2025-09-20 01:59 | Outpatient (BNV) | payer OTHER, SELFPAY | END 2025-09-24 13:04 | PROVIDERS: Admitting Provider Nurse Practitioner Family; Emergency Provider Emergency Medicine; PCP Internal Medicine; Visit Provider Internal Medicine | DX: Z13.6 Encounter for screening for cardiovascular disorders (principal) | CPT/HCPCS: 93010 ==

== ENCOUNTER 2025-09-20 01:59 | Outpatient (BNV) | payer OTHER, SELFPAY | END 2025-09-20 04:01 | PROVIDERS: Admitting Provider Nurse Practitioner Family; Emergency Provider Emergency Medicine; PCP Internal Medicine; Visit Provider General Practice | DX: K76.0 Fatty (change of) liver, not elsewhere classified (principal); K22.89 Other specified disease of esophagus | CPT/HCPCS: 74177 ==

== ENCOUNTER 2025-09-20 01:59 | Outpatient (BNV) | payer OTHER, SELFPAY | END 2025-09-20 08:00 | PROVIDERS: Admitting Provider Nurse Practitioner Family; Emergency Provider Emergency Medicine; PCP Internal Medicine; Visit Provider Internal Medicine | DX: R94.31 Abnormal electrocardiogram [ECG] [EKG] (principal); Z13.6 Encounter for screening for cardiovascular disorders | CPT/HCPCS: 93010 ==

== ENCOUNTER → 2025-09-20 01:59 | Outpatient (BNV) | payer OTHER, SELFPAY | PROVIDERS: Admitting Provider Nurse Practitioner Family; Emergency Provider Emergency Medicine; PCP Internal Medicine; Visit Provider Nurse Practitioner Family | DX: F10.939 Alcohol use, unspecified with withdrawal, unspecified (principal) | CPT/HCPCS: 99222; 99233; 99499; G0180 ==

== ENCOUNTER → 2025-09-20 01:59 | Outpatient (BNV) | payer OTHER, SELFPAY | PROVIDERS: Admitting Provider Nurse Practitioner Family; Emergency Provider Emergency Medicine; PCP Internal Medicine; Visit Provider Urology | DX: R33.9 Retention of urine, unspecified (principal) | CPT/HCPCS: 99222 ==

== ENCOUNTER → 2025-09-20 01:59 | Outpatient (BNV) | payer OTHER, SELFPAY | PROVIDERS: Admitting Provider Nurse Practitioner Family; Emergency Provider Emergency Medicine; PCP Internal Medicine; Visit Provider Nurse Practitioner Psychiatric/Mental Health | DX: F10.939 Alcohol use, unspecified with withdrawal, unspecified (principal) | CPT/HCPCS: 99222 ==

== ENCOUNTER → 2025-09-20 01:59 | Outpatient (BNV) | payer OTHER, SELFPAY | PROVIDERS: Admitting Provider Nurse Practitioner Family; Emergency Provider Emergency Medicine; PCP Internal Medicine; Visit Provider Internal Medicine Gastroenterology | DX: K92.0 Hematemesis (principal) | CPT/HCPCS: 99223; 99232 ==

== ENCOUNTER 2025-09-24 16:59 | Emergency (ER) | payer OTHER, SELFPAY ==
[2025-09-24 17:26] VITALS: BP 112/73; PULSE 112; RESP 18; TEMP 36.3; O2SAT 100; BMI 30.9
[2025-09-24 17:51] LABS: MANUAL DIFF FLAG NO
--- NOTE | 2025-09-24 17:55 | ED.MALEGU ---
HPI - Male Genitourinary General Chief complaint: Urogenital-Male Stated complaint: General Medical Time Seen by Provider: 09/24/25 19:54 History of Present Illness ED Provider: jose roberto HPI Narrative: 39-year-old male with recent admission fully placed for urinary retention. He's complaining of irritation, feels like it was not draining, and concerned about access to VNA. No fever or chills. No suprapubic or flank pain. Related Data Home Medications ?Medication ?Instructions ?Recorded ?Confirmed folic acid 1 mg tablet 1 mg PO DAILY 07/31/25 09/20/25 thiamine HCl (vitamin B1) 100 mg 100 mg PO DAILY 07/31/25 09/20/25 tablet clonidine HCl 0.1 mg tablet 0.1 mg PO BEDTIME 08/11/25 08/22/25 doxepin 10 mg capsule 10 mg PO BEDTIME PRN Sleep 08/11/25 09/20/25 gabapentin 400 mg tablet 800 mg PO TID 08/11/25 08/22/25 prazosin 1 mg capsule 3 mg PO BEDTIME 08/11/25 08/22/25 melatonin 5 mg tablet 5 mg PO BEDTIME PRN Sleep 09/20/25 09/20/25 sertraline 100 mg tablet 50 mg PO DAILY 09/20/25 09/20/25 Previous Rx's ?Medication ?Instructions ?Recorded magnesium oxide 400 mg (241.3 mg 400 mg PO BIDPC 90 days #180 tabs 09/24/25 magnesium) tablet pantoprazole 20 mg tablet,delayed 20 mg PO BID 90 days #180 tabs 09/24/25 release sucralfate 1 gram tablet 1 g PO QIDACHS 14 days #56 tabs 09/24/25 Allergies Allergy/AdvReac Type Severity Reaction Status Date / Time azithromycin (AZITHROMYCIN) Allergy Unknown Unknown Verified 09/24/25 17:29 [facility] Past Medical History Medical History (Updated 09/25/25 @ 00:01 by Trent Yarbrough) PTSD (post-traumatic stress disorder) Gout Sternal fracture Class 1 obesity Alcoholic cirrhosis of liver Exacerbation of gout Alcohol abuse Anxiety Surgical History History of ankle surgery Social History Social History Household Members: Other Housing: House Do you presently have visiting nurse or other home services: No Alcohol intake: current Alcohol intake frequency: 3 or more drinks per day Alcohol type: hard liquor Patient Tobacco Use Status: Never used Tobacco Advance Directives: No Advance Directives Information Provided: No service: Yes Physical Exam Vital Signs: Vital Signs: Last Vital Signs Temp 97.9 F 09/24/25 20:48 Pulse 86 09/24/25 20:48 Resp 18 09/24/25 20:48 BP 121/78 09/24/25 20:48 Pulse Ox 97 09/24/25 20:48 O2 Del Method Room Air 09/24/25 20:48 BMI result Body Mass Index 30.9 Course Course Course Narrative: RME: . Male presents to ED for Lord catheter not draining and feeling bladder 4. No urine noted in low back. Urine last year that 13:30. Patient will discharge today. Labs ordered Medications Administered Discontinued Medications Generic Name Dose Route Start Last Admin Trade Name Freq PRN Reason Stop Dose Admin Bacitracin 1 appl 09/24/25 20:28 09/24/25 20:52 Bacitracin Oint 0.9 Gm Packet TOPICAL 09/24/25 20:29 Not Given ONCE ONE Protocol Medical Decision Making Medical Decision Making MDM Narrative: 39 male with reassuring renal bladder ultrasound (see above), actively draining Lord appeared possibly some urethral discomfort due to placement. We'll give ointment and advise and veterans rehabilitation counselor on maintenance of the Lord. No evidence of urinary retention. Reassuring exam. Patient was reassured. Lab Data 09/24/25 17:47 09/24/25 17:47 Labs: Lab Results 09/24/25 Range/Units 17:47 WBC 8.2 (4.8-10.8) X10*3/uL RBC 4.58 L (4.60-5.80) X10*6/uL Hgb 15.0 (14.0-18.0) g/dl Hct 43.0 (42.0-52.0) % MCV 93.9 (80.0-98.0) fL MCH 32.8 (27.0-33.0) pg MCHC 34.9 (31.0-36.0) g/dl RDW 14.1 (11.0-16.0) % Plt Count 140 L D (160-400) X10*3/uL MPV 10.4 (9.4-12.4) fL Immature Gran % (Auto) 0.2 (0.0-0.4) % Neut % (Auto) 85.5 H (45-73) % Lymph % (Auto) 7.4 L (20-40) % [place] % (Auto) 6.1 (2-11) % Eos % (Auto) 0.6 (0-4) % Baso % (Auto) 0.2 (0-2) % Lymph # (Auto) 0.6 L (1.2-4.9) X10*3/uL [place] # (Auto) 0.5 (0.1-1.2) X10*3/uL Eos # (Auto) 0.1 (0.0-0.4) X10*3/uL Baso # (Auto) 0.0 (0.0-0.2) X10*3/uL Abs Immat Gran (auto) 0.02 (0.00-0.03) X10*3/uL Absolute Neuts (auto) 7.0 (2.0-8.3) x10*3/uL Absolute Nucleated RBC 0.000 (0.0-0.012) X10*3/uL Nucleated RBC % (auto) 0.0 (0.0-0.2) /100WBC Sodium 137 (135-145) mmol/L Potassium 3.9 (3.3-5.1) mmol/L Chloride 102 (96-108) mmol/L Carbon Dioxide 25 (22-29) mmol/L Anion Gap 14 (12-20) BUN 14 (9-16) mg/dL Creatinine 1.17 (0.5-1.4) mg/dL Estim Creat Clear Calc 100.3 Estimated GFR > 60 Random Glucose 100 (60-115) mg/dL Calcium 10.3 H D (8.4-10.2) mg/dL Total Bilirubin 0.5 (0.0-1.0) mg/dL AST 56 H (5-37) U/L ALT 74 H (0-40) U/L Alkaline Phosphatase 85 (39-117) U/L Total Protein 7.9 (6.5-8.0) g/dL Albumin 4.7 (3.5-5.0) g/dL Procedures Procedure Narrative Procedure Narrative: EMERGENCY ULTRASOUND INTERPRETATION-Limited Retroperitoneal (Renal) [This study was ordered, performed, and interpreted by myself. The study reveals: Impression: NO EVIDENCE OF UROLOGIC OBSTRUCTION] [Indication: FLANK PAIN Bladder: ANECHOIC URINE minimal amount. Lord balloon present Right Kidney: NO HYDRONEPHROSIS Left Kidney: NO HYDRONEPHROSIS Performed by: Marc Clement MD Images were stored CPT: 85377] Discharge Plan Discharge Clinical Impression: Complication of Lord catheter Patient Disposition: Home, Self-Care Instructions: Lord Catheter Care Additional Instructions: Follow up as previously scheduled with urology. In the pharmacy you can get [id number] antibiotic ointment or petroleum jelly to lubricate the site of insertion in the urethral meatus Prescriptions: No Action thiamine HCl (vitamin B1) 100 mg Tablet 100 mg PO DAILY folic acid 1 mg tablet 1 mg PO DAILY clonidine HCl 0.1 mg Tablet 0.1 mg PO BEDTIME prazosin 1 mg Capsule 3 mg PO BEDTIME doxepin 10 mg Capsule 10 mg PO BEDTIME PRN (Reason: Sleep) gabapentin 400 mg Tablet 800 mg PO TID melatonin 5 mg Tablet 5 mg PO BEDTIME PRN (Reason: Sleep) sertraline 100 mg Tablet 50 mg PO DAILY sucralfate 1 gram Tablet 1 g PO QIDACHS 14 Days Qty: 56 0RF pantoprazole 20 mg tablet,delayed release (DR/EC) 20 mg PO BID 90 Days Qty: 180 0RF magnesium oxide 400 mg (241.3 mg magnesium) Tablet 400 mg PO BIDPC 90 Days Qty: 180 0RF Interventions: ED Discharge Assessment Last Done: 09/24/25 20:48 Discharge Date/Time: 09/24/25 20:51 Print Language: Citizen Of [place]
[2025-09-24 17:57] LABS: Mean Corpuscular Volume 93.9 fL (80.0-98.0); NRBC Abs Auto 0.000 X10*3/uL (0.0-0.012); NRBC Pct Auto 0.0 /100WBC (0.0-0.2); PLT CLUMP 1; SCAN SMEAR FLAG 1
[2025-09-24 18:00] LABS: Hematocrit 43.0 % (42.0-52.0); Hemoglobin 15.0 g/dl (14.0-18.0); Imm Gran Abs Auto 0.02 X10*3/uL (0.00-0.03); Imm Gran Pct Auto 0.2 % (0.0-0.4); Lymphocytes Absolute Auto 0.6 X10*3/uL (1.2-4.9); Mean Corpuscular HGB Conc 34.9 g/dl (31.0-36.0); Mean Corpuscular Hemoglobin 32.8 pg (27.0-33.0); Red Blood Count 4.58 X10*6/uL (4.60-5.80)
[2025-09-24 18:07] LABS: Alanine Aminotransferase 74 U/L (0-40); Albumin Level 4.7 g/dL (3.5-5.0); Alkaline Phosphatase 85 U/L (39-117); Anion Gap 14 (12-20); Aspartate Amino Transferase 56 U/L (5-37); Blood Urea Nitrogen 14 mg/dL (9-16); Calcium 10.3 mg/dL (8.4-10.2); Carbon Dioxide 25 mmol/L (22-29); Chloride 102 mmol/L (96-108); Creatinine Clr Calc Pharmacy 100.3; Estimated Glomerular Filt Rate > 60; Potassium 3.9 mmol/L (3.3-5.1); Sodium 137 mmol/L (135-145); Total Protein 7.9 g/dL (6.5-8.0)
[2025-09-24 18:16] LABS: Platelet Count 140 X10*3/uL (160-400); White Blood Count 8.2 X10*3/uL (4.8-10.8)
--- NOTE | 2025-09-24 20:06 | PC.NURSE ---
Assumed care of pt at 1945. PT comes from triage with complaints of catheter not draining and pressure/pain. PT states it feel like he might have pulled on the catheter causing pain, but also feels like he needs to void. Output in leg bag noted to be 20-30mls or output, and urine concentrated. Bladder scan completed and only noted 5ml of urine.
[2025-09-24 20:17] VITALS: BP 121/78; PULSE 86; RESP 18; O2SAT 97
[2025-09-24 20:48] VITALS: BP 121/78; PULSE 86; RESP 18; TEMP 36.6; O2SAT 97
== END 2025-09-24 20:51 | disposition home or self-care (01) ==
PROVIDERS: Emergency Provider Emergency Medicine
DX: T83.84XA Pain due to genitourinary prosthetic devices, implants and grafts, initial encounter (principal); R33.9 Retention of urine, unspecified
CPT/HCPCS: 36415; 76775; 80053; 85025; 99283; 99284

== ENCOUNTER 2025-09-30 02:54 | Emergency (ER) | payer OTHER, SELFPAY ==
[2025-09-30 03:13] VITALS: BP 118/78; BP 144/95; PULSE 102; PULSE 95; RESP 20; TEMP 36.7; O2SAT 95; O2SAT 99; BMI 31.6
[2025-09-30 04:11] LABS: MANUAL DIFF FLAG NO
[2025-09-30 04:12] LABS: Hematocrit 36.4 % (42.0-52.0); Hemoglobin 12.7 g/dl (14.0-18.0); Imm Gran Abs Auto 0.04 X10*3/uL (0.00-0.03); Imm Gran Pct Auto 0.8 % (0.0-0.4); Lymphocytes Absolute Auto 1.0 X10*3/uL (1.2-4.9); Mean Corpuscular HGB Conc 34.9 g/dl (31.0-36.0); Mean Corpuscular Hemoglobin 32.9 pg (27.0-33.0); Mean Corpuscular Volume 94.3 fL (80.0-98.0); NRBC Abs Auto 0.000 X10*3/uL (0.0-0.012); NRBC Pct Auto 0.0 /100WBC (0.0-0.2); Platelet Count 181 X10*3/uL (160-400); Red Blood Count 3.86 X10*6/uL (4.60-5.80); White Blood Count 5.3 X10*3/uL (4.8-10.8)
[2025-09-30 04:30] LABS: Alanine Aminotransferase 48 U/L (0-40); Albumin Level 4.2 g/dL (3.5-5.0); Alkaline Phosphatase 91 U/L (39-117); Anion Gap 21 (12-20); Aspartate Amino Transferase 49 U/L (5-37); Blood Urea Nitrogen 6 mg/dL (9-16); Calcium 8.6 mg/dL (8.4-10.2); Carbon Dioxide 22 mmol/L (22-29); Chloride 109 mmol/L (96-108); Creatinine Clr Calc Pharmacy 179.6; Estimated Glomerular Filt Rate > 60; Potassium 3.6 mmol/L (3.3-5.1); Sodium 148 mmol/L (135-145); Total Protein 7.7 g/dL (6.5-8.0)
--- NOTE | 2025-09-30 04:34 | PC.NURSE ---
pt medicated per dec and notified AGNES Olson
[2025-09-30 04:52] VITALS: BP 134/86; PULSE 100; RESP 20; TEMP 36.7; O2SAT 98
[2025-09-30 05:04] LABS: Appearance Urine Clear; Glucose Urine UA Negative (Negative); PH 5.5 (5.0-9.0); Specific Gravity - Urine 1.020 (1.005-1.025); UMIC TRIGGER UACC YES
[2025-09-30 05:15] LABS: UACC Culture Trigger YES
--- NOTE | 2025-09-30 05:41 | ED.MALEGU ---
HPI - Male Genitourinary General Chief complaint: Urogenital-Male Stated complaint: blood in urine/main placed ~1week ago Time Seen by Provider: 09/30/25 04:05 Source: patient, EMS and old records reviewed Mode of arrival: EMS Limitations: no limitations History of Present Illness ED Provider: LENORA NAZARIO Narrative: 31-year-old male with past medical history of urinary retention who has had a Main catheter in place and notes his Urology if it is in 1 week. He blames his alcohol use disorder on his urinary retention. 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 He reports the opening of his penis is raw and irritated from the Main catheter as well as he saw some blood in the Main. He states he feels his penis is swollen and he has some lower abdominal pain as well. He was just seen here for similar issues on in the ED and sent home with reassurance. On arrival to the room I do not see any blood in his Main bag. Complaint: other Onset (ago): week(s) Duration: intermittent Location: penis Radiation: penis Severity: mild Quality: burning Relieving factors: none Exacerbating factors: urination and movement Context: other Associated symptoms: Reports swelling and blood in urine Related Data Home Medications ?Medication ?Instructions ?Recorded ?Confirmed folic acid 1 mg tablet 1 mg PO DAILY 07/31/25 09/20/25 thiamine HCl (vitamin B1) 100 mg 100 mg PO DAILY 07/31/25 09/20/25 tablet clonidine HCl 0.1 mg tablet 0.1 mg PO BEDTIME 08/11/25 08/22/25 doxepin 10 mg capsule 10 mg PO BEDTIME PRN Sleep 08/11/25 09/20/25 gabapentin 400 mg tablet 800 mg PO TID 08/11/25 08/22/25 prazosin 1 mg capsule 3 mg PO BEDTIME 08/11/25 08/22/25 melatonin 5 mg tablet 5 mg PO BEDTIME PRN Sleep 09/20/25 09/20/25 sertraline 100 mg tablet 50 mg PO DAILY 09/20/25 09/20/25 Previous Rx's ?Medication ?Instructions ?Recorded magnesium oxide 400 mg (241.3 mg 400 mg PO BIDPC 90 days #180 tabs 09/24/25 magnesium) tablet pantoprazole 20 mg tablet,delayed 20 mg PO BID 90 days #180 tabs 09/24/25 release sucralfate 1 gram tablet 1 g PO QIDACHS 14 days #56 tabs 09/24/25 mupirocin 2 % topical ointment 1 appl topical BID 7 days #15 grams 09/30/25 nitrofurantoin 100 mg PO BID 7 days #14 caps 09/30/25 monohydrate/macrocrystals 100 mg capsule (Macrobid) phenazopyridine 100 mg tablet 100 mg PO TID PRN pain 6 doses #6 09/30/25 (Pyridium) tabs Allergies Allergy/AdvReac Type Severity Reaction Status Date / Time azithromycin (AZITHROMYCIN) Allergy Unknown Unknown Verified 09/30/25 03:17 Review of Systems Review of Systems: Yes all other systems are reviewed and are negative [facility] Past Medical History Attestation statement: The following information was validated with the patient. Source: old records reviewed Medical History PTSD (post-traumatic stress disorder) Gout Sternal fracture Class 1 obesity Alcoholic cirrhosis of liver Exacerbation of gout Alcohol abuse Anxiety Surgical History History of ankle surgery Social History Social History Household Members: Other Housing: House Do you presently have visiting nurse or other home services: No Alcohol intake: current Alcohol intake frequency: 3 or more drinks per day Alcohol type: hard liquor Patient Tobacco Use Status: Never used Tobacco Smoked in Last 30 Days: No Use of substances other than those prescribed or required for medical reasons: No Advance Directives: No Advance Directives Information Provided: Yes Do you have a plan to hurt others: No Plan service: Yes Physical Exam Vital Signs: Vital Signs: Last Vital Signs Temp 98.1 F 09/30/25 04:52 Pulse 100 09/30/25 04:52 Resp 20 09/30/25 04:52 BP 134/86 09/30/25 04:52 Pulse Ox 98 09/30/25 04:52 O2 Del Method Room Air 09/30/25 04:52 BMI result Body Mass Index 31.6 Appearance: Alert. Oriented X3. No acute distress. Patient has no tremors or tongue fasciculations but he does appear anxious Eyes: Pupils equal, round and reactive to light. ENT: Pharynx normal. Neck: Normal inspection. Neck supple. CVS: Normal heart rate and rhythm. Pulses normal. Respiratory: No respiratory distress. Breath sounds normal. Abdomen: Soft and I feel no distention of the bladder, he reports tenderness below the bladder in his catheter and leg bag there is clear draining yellow urine, his bladder scan is less than 30 mL x2 Skin: Skin warm and dry. Normal skin color. Normal skin turgor. Extremities: No lower extremity edema. No calf ttp Neuro: Oriented X 3. No motor deficit. No sensory deficit. Medications Administered Discontinued Medications Generic Name Dose Route Start Last Admin Trade Name Freq PRN Reason Stop Dose Admin Lorazepam 2 mg 09/30/25 04:14 09/30/25 04:33 Lorazepam 1 Mg Tablet PO 09/30/25 04:15 2 mg ONCE ONE Administration Medical Decision Making Medical Decision Making [facility] Narrative: 39-year-old male with past medical history of prolonged QT, anxiety, PTSD, active alcohol use disorder. He presents with complaints of penile irritation as well as hematuria. On arrival to the ED there is no blood in the urine he is also not retaining, he was just seen for similar complaints. I am going to obtain a urine as well as basic labs. He will get a bladder scan x2 both pre and post urine sample. I am giving him Ativan for anxiety. He states he already has plans for his alcohol recovery. If workup is negative given repeat visits and mild WBC count as well as trace bacteria I am going to start on Macrobid, Pyridium, mupirocin to apply to help with lubrication of the Main catheter site. He is aware he needs to follow up with Urology. Differential Diagnosis Differential Diagnoses: The differential diagnosis associated with the presentation includes UTI, alcohol use disorder, penile irritation Admission/Observation Consideration of admission/observation: Escalation of care including admission/observation considered labs at baseline, he had is not toxic, his gap is due to continued alcohol use he can be treated with outpatient regimen Lab Data [facility] Lab Attestation statement: I reviewed the patient's lab results. anion gap due to active alcohol on board as he admits he is still drinking 09/30/25 04:03 09/30/25 04:03 Labs: Lab Results 12/10/25 12/10/25 Range/Units 04:03 04:58 WBC 5.3 (4.8-10.8) X10*3/uL RBC 3.86 L (4.60-5.80) X10*6/uL Hgb 12.7 L (14.0-18.0) g/dl Hct 36.4 L (42.0-52.0) % MCV 94.3 (80.0-98.0) fL MCH 32.9 (27.0-33.0) pg MCHC 34.9 (31.0-36.0) g/dl RDW 14.0 (11.0-16.0) % Plt Count 181 D (160-400) X10*3/uL MPV 9.0 L (9.4-12.4) fL Immature Gran % (Auto) 0.8 H (0.0-0.4) % Neut % (Auto) 65.1 (45-73) % Lymph % (Auto) 19.4 L (20-40) % [place] % (Auto) 12.4 H (2-11) % Eos % (Auto) 2.1 (0-4) % Baso % (Auto) 0.2 (0-2) % Lymph # (Auto) 1.0 L (1.2-4.9) X10*3/uL [place] # (Auto) 0.7 (0.1-1.2) X10*3/uL Eos # (Auto) 0.1 (0.0-0.4) X10*3/uL Baso # (Auto) 0.0 (0.0-0.2) X10*3/uL Abs Immat Gran (auto) 0.04 H (0.00-0.03) X10*3/uL Absolute Neuts (auto) 3.4 (2.0-8.3) x10*3/uL Absolute Nucleated RBC 0.000 (0.0-0.012) X10*3/uL Nucleated RBC % (auto) 0.0 (0.0-0.2) /100WBC Sodium 148 H (135-145) mmol/L Potassium 3.6 (3.3-5.1) mmol/L Chloride 109 H (96-108) mmol/L Carbon Dioxide 22 (22-29) mmol/L Anion Gap 21 H (12-20) BUN 6 L (9-16) mg/dL Creatinine 0.66 (0.5-1.4) mg/dL Estim Creat Clear Calc 179.6 Estimated GFR > 60 Random Glucose 97 (60-115) mg/dL Calcium 8.6 D (8.4-10.2) mg/dL Total Bilirubin 0.3 (0.0-1.0) mg/dL AST 49 H (5-37) U/L ALT 48 H (0-40) U/L Alkaline Phosphatase 91 (39-117) U/L Total Protein 7.7 (6.5-8.0) g/dL Albumin 4.2 (3.5-5.0) g/dL Urine Color Yellow Urine Appearance Clear Urine pH 5.5 (5.0-9.0) Ur Specific [place] 1.020 (1.005-1.025) Urine Protein 100 (2+) H (Neg-Trace) mg/dL Urine Glucose (UA) Negative (Negative) mg/dL Urine Ketones Negative (Negative) mg/dL Urine Blood Large (3+) H (Negative) Urine Nitrite Negative (Negative) Ur Leukocyte Esterase Small (1+) H (Negative) Urine RBC >20 H (0-2) /HPF Urine WBC 11-20 H (0-5) /HPF Ur Squamous Epith Cells 0-2 (0-2) /HPF Urine Bacteria 1+ (None Seen) Hyaline Casts 0-2 (0-2) /LPF External Record Review External record reviewed: Inpatient record, Outpatient record, Prior outpatient labs and Prior outpatient radiology Discharge Plan Discharge Clinical Impression: Dysuria, Hematuria Patient Disposition: Home, Self-Care Instructions: Hematuria (ED), Dysuria (ED) Additional Instructions: at this time your labs are reassuring other than it is obvious he continued drinking Please continue following up with Urology there was no retention, your urine was not grossly bloody but showed microscopic RBCs You can take the medications as prescribed 1 is a urinary antiseptic and the other will help with bladder spasms please apply the ointment as prescribed you can apply it twice a day at the opening of your penis it will keep it lubricated as well as prevent any skin irritation or infection please follow up with urology as planned return for any worsening symptoms or concerns Alcohol use disorder You were seen in the Emergency Department today for treatment of alcohol use disorder.? You may have been given medications to help with your withdrawal symptoms.? Please do not drink alcohol with them. This is very dangerous and can cause respiratory depression or other adverse reactions depending on the medication. If you would like to cut down or stop your alcohol use please consider calling our outpatient Addiction Treatment office:? [facility] ([id number] [id number]) [address] [place] [address] [address] You have also been given a list of treatment providers in the area that can assist as well.? If you experience seizures, vomiting blood, black stools, falls, severe headache, chest pain, fevers, trouble breathing, hallucinations or any other concerns you need to call 911 or seek immediate care. Please stay hydrated. Prescriptions: New mupirocin 2 % ointment 1 appl topical BID 7 Days Qty: 15 0RF nitrofurantoin monohyd/m-cryst [Macrobid] 100 mg capsule 100 mg PO BID 7 Days Qty: 14 0RF Rx Instructions: must administer with a meal/food phenazopyridine [Pyridium] 100 mg tablet 100 mg PO TID PRN (Reason: pain) Qty: 6 0RF No Action thiamine HCl (vitamin B1) 100 mg Tablet 100 mg PO DAILY folic acid 1 mg tablet 1 mg PO DAILY clonidine HCl 0.1 mg Tablet 0.1 mg PO BEDTIME prazosin 1 mg Capsule 3 mg PO BEDTIME doxepin 10 mg Capsule 10 mg PO BEDTIME PRN (Reason: Sleep) gabapentin 400 mg Tablet 800 mg PO TID melatonin 5 mg Tablet 5 mg PO BEDTIME PRN (Reason: Sleep) sertraline 100 mg Tablet 50 mg PO DAILY sucralfate 1 gram Tablet 1 g PO QIDACHS 14 Days Qty: 56 0RF pantoprazole 20 mg tablet,delayed release (DR/EC) 20 mg PO BID 90 Days Qty: 180 0RF magnesium oxide 400 mg (241.3 mg magnesium) Tablet 400 mg PO BIDPC 90 Days Qty: 180 0RF Print Language: Thai
[2025-09-30 06:03] VITALS: BP 134/86; PULSE 100; RESP 20; TEMP 36.7; O2SAT 98
== END 2025-09-30 06:08 | disposition home or self-care (01) ==
PROVIDERS: Emergency Provider Emergency Medicine
DX: R31.9 Hematuria, unspecified (principal); F41.9 Anxiety disorder, unspecified; N48.89 Other specified disorders of penis; F10.20 Alcohol dependence, uncomplicated; F43.10 Post-traumatic stress disorder, unspecified; K70.30 Alcoholic cirrhosis of liver without ascites; Y90.9 Presence of alcohol in blood, level not specified
CPT/HCPCS: 36415; 51798; 80053; 81001; 85025; 87086; 99283; 99284

== ENCOUNTER 2025-10-01 05:01 | Emergency (ER) | payer OTHER, SELFPAY ==
[2025-10-01 05:07] VITALS: BP 143/103; PULSE 117; RESP 20; TEMP 36.8; O2SAT 98; BMI 32.3
[2025-10-01 06:24] VITALS: BP 127/77; PULSE 97; RESP 16; TEMP 36.7; O2SAT 98
--- NOTE | 2025-10-01 06:28 | ED.GENADULT ---
HPI - General Adult General Chief complaint: General Medical Stated complaint: catheter in place painful + etoh? Time Seen by Provider: 10/01/25 06:28 Source: patient Mode of arrival: ambulatory Limitations: no limitations History of Present Illness ED Provider: HPI narrative: 31-year-old male currently has Lord catheter, was here yesterday did not molded goods spot picker his prescriptions, states he has been drinking overnight and now feels like he is withdrawing, he has a recovery assistant he has been with tomorrow, recently was admitted for detox but went on drinking a few days later. No drug use no trauma. Related Data Home Medications ?Medication ?Instructions ?Recorded ?Confirmed folic acid 1 mg tablet 1 mg PO DAILY 07/31/25 09/20/25 thiamine HCl (vitamin B1) 100 mg 100 mg PO DAILY 07/31/25 09/20/25 tablet clonidine HCl 0.1 mg tablet 0.1 mg PO BEDTIME 08/11/25 08/22/25 doxepin 10 mg capsule 10 mg PO BEDTIME PRN Sleep 08/11/25 09/20/25 gabapentin 400 mg tablet 800 mg PO TID 08/11/25 08/22/25 prazosin 1 mg capsule 3 mg PO BEDTIME 08/11/25 08/22/25 melatonin 5 mg tablet 5 mg PO BEDTIME PRN Sleep 09/20/25 09/20/25 sertraline 100 mg tablet 50 mg PO DAILY 09/20/25 09/20/25 Previous Rx's ?Medication ?Instructions ?Recorded magnesium oxide 400 mg (241.3 mg 400 mg PO BIDPC 90 days #180 tabs 09/24/25 magnesium) tablet pantoprazole 20 mg tablet,delayed 20 mg PO BID 90 days #180 tabs 09/24/25 release sucralfate 1 gram tablet 1 g PO QIDACHS 14 days #56 tabs 09/24/25 mupirocin 2 % topical ointment 1 appl topical BID 7 days #15 grams 09/30/25 nitrofurantoin 100 mg PO BID 7 days #14 caps 09/30/25 monohydrate/macrocrystals 100 mg capsule (Macrobid) phenazopyridine 100 mg tablet 100 mg PO TID PRN pain 6 doses #6 09/30/25 (Pyridium) tabs Allergies Allergy/AdvReac Type Severity Reaction Status Date / Time azithromycin (AZITHROMYCIN) Allergy Unknown Unknown Verified 10/01/25 05:10 Review of Systems Constitutional: Constitutional: Reports as per [facility] Past Medical History Medical History PTSD (post-traumatic stress disorder) Gout Sternal fracture Class 1 obesity Alcoholic cirrhosis of liver Exacerbation of gout Alcohol abuse Anxiety Surgical History History of ankle surgery Social History Social History Household Members: Other Housing: House Do you presently have visiting nurse or other home services: No Alcohol intake: current Alcohol intake frequency: 3 or more drinks per day Alcohol type: hard liquor Patient Tobacco Use Status: Never used Tobacco Substance Use Type: Crack/Cocaine service: Yes Physical Exam ED Exam Exam: ?General: ?Appears somewhat older than stated age ?PERRLA, EOMI, MMM, ?Resp: ?No wheezing rales rhonchi no stridor moving air well Abd: ?Bowel sounds are present, no tenderness no rebound no rigidity : Bladder scan without urinary retention, Lord catheter is placed, there is slight irritation over the urethral meatus Skin: Chronic eczematous changes ?Neuro: ?Alert and oriented x3, moving upper and lower extremities symmetrically, no obvious facial asymmetry noted, cranial nerves 2-12 intact Slightly anxious affect, he has no tongue fasciculations non tremulous Vital Signs: Vital Signs - 24 hr 10/01/25 05:07 10/01/25 06:24 Temperature 98.2 F 98.0 F Pulse Rate 117 H 97 Respiratory Rate 20 16 Blood Pressure 143/103 H 127/77 Pulse Oximetry 98 98 Oxygen Delivery Method Room Air Room Air BMI result Body Mass Index 32.3 Medical Decision Making Medical Decision Making MDM Narrative: 6:34 AM 10/01/2025 (Dr. Michele Swan): Patient is meeting with recovery assistant tomorrow, I have discussed with him that he was recently admitted for detox, he is presenting with anxiety but his blood pressure on re-evaluation is very much normal he is not tachycardic he is not sweaty, he is very much appropriate for outpatient detox but he states that he is going to follow up with the recovery assistant tomorrow and he is not interested in speaking to anyone from recovery team today, I will give him a shot of Toradol for urethral irritation otherwise there was no evidence that he has urinary retention and he was just seen here yesterday and ER physician prescribed the necessary medications that he just needs to molded goods spot picker. Differential Diagnosis Differential Diagnoses: The differential diagnosis associated with the presentation includes (Alcohol withdrawal, anxiety, urinary retention, Lord catheter problem) Admission/Observation Consideration of admission/observation: Escalation of care including admission/observation considered Lab Data MDM Lab Attestation statement: I reviewed the patient's lab results. (Blood work from 09/30/2025 reassuring, urinary cultures still pending) Discharge Plan Discharge Clinical Impression: Lord catheter in place, Alcohol abuse Patient Disposition: Home, Self-Care Additional Instructions: Please molded goods spot picker your medications for the Lord catheter issue, and follow up with the recovery assistant tomorrow, I am reassured by your vital signs there was no indication that you need inpatient admission for medical detox, I offered outpatient detox but you were seeing I recovery assistant tomorrow and maybe the LV the most helpful thing for you, any other issues or concerns come back to the ER Prescriptions: No Action thiamine HCl (vitamin B1) 100 mg Tablet 100 mg PO DAILY folic acid 1 mg tablet 1 mg PO DAILY clonidine HCl 0.1 mg Tablet 0.1 mg PO BEDTIME prazosin 1 mg Capsule 3 mg PO BEDTIME doxepin 10 mg Capsule 10 mg PO BEDTIME PRN (Reason: Sleep) gabapentin 400 mg Tablet 800 mg PO TID mupirocin 2 % ointment 1 appl topical BID 7 Days Qty: 15 0RF nitrofurantoin monohyd/m-cryst [Macrobid] 100 mg capsule 100 mg PO BID 7 Days Qty: 14 0RF Rx Instructions: must administer with a meal/food phenazopyridine [Pyridium] 100 mg tablet 100 mg PO TID PRN (Reason: pain) Qty: 6 0RF melatonin 5 mg Tablet 5 mg PO BEDTIME PRN (Reason: Sleep) sertraline 100 mg Tablet 50 mg PO DAILY sucralfate 1 gram Tablet 1 g PO QIDACHS 14 Days Qty: 56 0RF pantoprazole 20 mg tablet,delayed release (DR/EC) 20 mg PO BID 90 Days Qty: 180 0RF magnesium oxide 400 mg (241.3 mg magnesium) Tablet 400 mg PO BIDPC 90 Days Qty: 180 0RF Print Language: Scottish
[2025-10-01 06:46] VITALS: BP 127/77; PULSE 97; RESP 16; TEMP 36.7; O2SAT 98
== END 2025-10-01 06:57 | disposition home or self-care (01) ==
PROVIDERS: Emergency Provider Emergency Medicine
DX: F10.10 Alcohol abuse, uncomplicated (principal); F41.9 Anxiety disorder, unspecified; Z79.899 Other long term (current) drug therapy; Y90.9 Presence of alcohol in blood, level not specified
CPT/HCPCS: 96372; 99284; J1885

== ENCOUNTER 2025-10-01 11:40 | Emergency (ER) | payer OTHER, SELFPAY ==
--- NOTE | 2025-10-01 11:46 | ED.GENADULT ---
HPI - General Adult General Chief complaint: ETOH/Substance Use Stated complaint: ETOH W/DRAWAL,DRANK ONLY 20 NIPS NOT 30,F/C PAIN Time Seen by Provider: 10/01/25 11:46 Source: patient, EMS, RN notes reviewed and old records reviewed Mode of arrival: EMS History of Present Illness ED Provider: Afia HPI narrative: Patient is a 39-year-old male with history of alcohol use disorder, alcoholic cirrhosis, PTSD, anxiety, alcohol withdrawal, indwelling urinary catheter in place presenting to the emergency department stating that he now wishes to speak with someone from the recovery team regarding his alcohol use. He was discharged from this emergency department 6 hours ago with a plan to potato picker his medications from the pharmacy from ED visit yesterday and to follow up with his employment coach tomorrow. He complains of ongoing penile discomfort but states that he has not picked up his medications from the pharmacy as he does not have transportation there and can only fill his medications at the [place] pharmacy. He admits to drinking 6 nips of alcohol this morning. Denies current suicidal or homicidal ideation, auditory or visual hallucinations. MD complaint: Alcohol intoxication Related Data Home Medications ?Medication ?Instructions ?Recorded ?Confirmed folic acid 1 mg tablet 1 mg PO DAILY 07/31/25 09/20/25 thiamine HCl (vitamin B1) 100 mg 100 mg PO DAILY 07/31/25 09/20/25 tablet clonidine HCl 0.1 mg tablet 0.1 mg PO BEDTIME 08/11/25 08/22/25 doxepin 10 mg capsule 10 mg PO BEDTIME PRN Sleep 08/11/25 09/20/25 gabapentin 400 mg tablet 800 mg PO TID 08/11/25 08/22/25 prazosin 1 mg capsule 3 mg PO BEDTIME 08/11/25 08/22/25 melatonin 5 mg tablet 5 mg PO BEDTIME PRN Sleep 09/20/25 09/20/25 sertraline 100 mg tablet 50 mg PO DAILY 09/20/25 09/20/25 Previous Rx's ?Medication ?Instructions ?Recorded magnesium oxide 400 mg (241.3 mg 400 mg PO BIDPC 90 days #180 tabs 09/24/25 magnesium) tablet pantoprazole 20 mg tablet,delayed 20 mg PO BID 90 days #180 tabs 09/24/25 release sucralfate 1 gram tablet 1 g PO QIDACHS 14 days #56 tabs 09/24/25 mupirocin 2 % topical ointment 1 appl topical BID 7 days #15 grams 09/30/25 nitrofurantoin 100 mg PO BID 7 days #14 caps 09/30/25 monohydrate/macrocrystals 100 mg capsule (Macrobid) phenazopyridine 100 mg tablet 100 mg PO TID PRN pain 6 doses #6 09/30/25 (Pyridium) tabs Allergies Allergy/AdvReac Type Severity Reaction Status Date / Time azithromycin (AZITHROMYCIN) Allergy Unknown Unknown Verified 10/01/25 11:54 Review of Systems Review of Systems: as per hpi Yes all other systems are reviewed and are negative Constitutional: Constitutional: Reports as per HPI [facility] Past Medical History Medical History PTSD (post-traumatic stress disorder) Gout Sternal fracture Class 1 obesity Alcoholic cirrhosis of liver Exacerbation of gout Alcohol abuse Anxiety Surgical History History of ankle surgery Social History Social History Household Members: Other Housing: House Do you presently have visiting nurse or other home services: No Alcohol intake: current Alcohol intake frequency: 3 or more drinks per day Alcohol type: hard liquor Patient Tobacco Use Status: Never used Tobacco Smoked in Last 30 Days: No Use of substances other than those prescribed or required for medical reasons: No Substance Use Type: Crack/Cocaine Advance Directives: Yes Advance Directives Information Provided: No Advance Directives on File: No Do you have a plan to hurt others: No Plan service: Yes Physical Exam ED Vital Signs: Vital Signs - 24 hr 10/01/25 11:51 10/01/25 11:51 10/01/25 14:43 Temperature 98 F 98.0 F 97.7 F Pulse Rate 102 H 101 H 103 H Respiratory Rate 18 16 18 Blood Pressure 118/71 118/71 106/72 Pulse Oximetry 91 L 95 94 Oxygen Delivery Method Room Air Room Air Nasal Cannula Oxygen Flow Rate 2 BMI result Body Mass Index 33.0 Vital signs have been reviewed and appear to be correct. Blood pressure normal. Heart rate slightly tachycardic. Respiratory rate normal. Temperature normal. Oxygen saturation normal. Const General: cooperative, no acute distress and intoxicated appearing Orientation/consciousness: oriented to person, oriented to place, oriented to time and patient oriented x3 HENMT Head: Yes normocephalic and Yes atraumatic Head images:  1. scab Ears: external ears normal General nose exam: Normal external nose present Face and sinus: Yes face symmetric Mouth: oropharynx normal and moist mucous membranes Throat: Yes uvula midline Eyes Pupils: Equal, round and reactive pupils present Neck Neck: Yes normal visual inspection and Yes supple Resp Effort & Inspection: normal respiratory effort and able to speak in complete sentences Auscultation: clear to auscultation bilaterally Cardio Rate: regular rate Rhythm: regular rhythm Heart sounds: S1 normal heart sound present and S2 normal heart sound present GI Palpation (GI): Soft to palpation and nontender Auscultation: normoactive bowel sounds General: Yes no CVA tenderness Back/Spine/Pelvis Back: no CVA tenderness Skin Other: Diffuse erythematous plaques-history of psoriasis; scab to right forehead General skin exam: elasticity normal and turgor normal Neuro General: oriented to person, oriented to place, oriented to time, patient oriented x3, moves all extremities, no focal motor deficits and CN's II-XI intact bilaterally Cranial nerves: Yes Equal, round and reactive pupils present Cognition (Neuro): normal cognition Extrem General: Yes full ROM, Yes no pedal edema and Yes no calf tenderness Psych Mental Status: mental status grossly normal Affect: normal affect Thought process: Normal thought process present Course Course Course Narrative: 5:10 PM 10/01/2025 (Katherine Orlando NP): Patient signed out to my from previous provider. Pending plan for discharge as he does not have a sober ride. Current plan is to metabolize etoh until able to discharge and proceed with detox placement. 5:55 PM: Patient no longer wants to wait in the ED. He has his brother coming to pick him up. His brother will bring him home to grab his belongings, and then proceed in bringing him to detox. Agreeable with discharge plan. Medical Decision Making Medical Decision Making MDM Narrative: Patient is a 39-year-old male with history of alcohol use disorder, alcoholic cirrhosis, PTSD, anxiety, alcohol withdrawal, indwelling urinary catheter in place presenting to the emergency department stating that he now wishes to speak with someone from the recovery team regarding his alcohol use. On exam patient is awake, mildly tachycardic, BP WNL, afebrile, normal neurological exam without focal deficits, physical exam findings as above. Given reported symptoms and physical exam findings, initial differential includes but is not limited to drug or alcohol intoxication or withdrawal, alcohol use disorder, electrolyte abnormality. Given that patient was discharged 6 hours ago and denies any change since discharge other than now wanting to speak with the recovery team, will check EKG and basic labs and refer to recovery. Labs unremarkable, no significant changes from yesterday. EKG shows sinus tachycardia. UA without evidence of acute infection. Ethanol of 450. Per Eliza from CARE team, patient has already spoken to a detox facility through the [place] today and they are willing to take him but wanted him to be medically cleared prior to arrival. I see no medical reason at this time that patient cannot go to detox. Patient informed of this and advised he can call the detox to let them know he has been medically cleared. Patient unable to obtain a sober ride to bring him home to collect his belongings. Patient signed out to [facility] pending clinical sobriety. Differential Diagnosis Differential Diagnoses: The differential diagnosis associated with the presentation includes as per [facility] Admission/Observation Consideration of admission/observation: Escalation of care including admission/observation considered Patient would have been admitted to the hospital and transferred to appropriate facility had their clinical presentation warranted hospital admission. Lab Data [facility] Lab Attestation statement: I reviewed the patient's lab results. as per [facility] 10/01/25 12:38 10/01/25 12:38 Labs: Lab Results 10/01/25 Range/Units 12:38 WBC 4.0 L (4.8-10.8) X10*3/uL RBC 3.93 L (4.60-5.80) X10*6/uL Hgb 12.9 L (14.0-18.0) g/dl Hct 36.7 L (42.0-52.0) % MCV 93.4 (80.0-98.0) fL MCH 32.8 (27.0-33.0) pg MCHC 35.1 (31.0-36.0) g/dl RDW 14.1 (11.0-16.0) % Plt Count 168 (160-400) X10*3/uL MPV 9.0 L (9.4-12.4) fL Immature Gran % (Auto) 0.8 H (0.0-0.4) % Neut % (Auto) 55.4 (45-73) % Lymph % (Auto) 29.4 (20-40) % Coffey % (Auto) 9.9 (2-11) % Eos % (Auto) 3.5 (0-4) % Baso % (Auto) 1.0 (0-2) % Lymph # (Auto) 1.2 (1.2-4.9) X10*3/uL Coffey # (Auto) 0.4 (0.1-1.2) X10*3/uL Eos # (Auto) 0.1 (0.0-0.4) X10*3/uL Baso # (Auto) 0.0 (0.0-0.2) X10*3/uL Abs Immat Gran (auto) 0.03 (0.00-0.03) X10*3/uL Absolute Neuts (auto) 2.2 (2.0-8.3) x10*3/uL Absolute Nucleated RBC 0.000 (0.0-0.012) X10*3/uL Nucleated RBC % (auto) 0.0 (0.0-0.2) /100WBC Sodium 146 H (135-145) mmol/L Potassium 3.4 (3.3-5.1) mmol/L Chloride 108 (96-108) mmol/L Carbon Dioxide 22 (22-29) mmol/L Anion Gap 19 (12-20) BUN 4 L (9-16) mg/dL Creatinine 0.65 (0.5-1.4) mg/dL Estim Creat Clear Calc 186.3 Estimated GFR > 60 Random Glucose 111 (60-115) mg/dL Calcium 8.8 (8.4-10.2) mg/dL Magnesium 1.8 (1.6-2.6) mg/dL Total Bilirubin 0.2 (0.0-1.0) mg/dL AST 50 H (5-37) U/L ALT 44 H (0-40) U/L Alkaline Phosphatase 96 (39-117) U/L Total Protein 7.1 (6.5-8.0) g/dL Albumin 4.1 (3.5-5.0) g/dL Lipase 150 H (8-78) U/L Urine Color Yellow Urine Appearance Clear Urine pH 7.0 (5.0-9.0) Ur Specific [place] <= 1.005 (1.005-1.025) Urine Protein Trace (Neg-Trace) mg/dL Urine Glucose (UA) Negative (Negative) mg/dL Urine Ketones Negative (Negative) mg/dL Urine Blood Small (1+) H (Negative) Urine Nitrite Negative (Negative) Ur Leukocyte Esterase Moderate (2+) H (Negative) Urine RBC 0-2 (0-2) /HPF Urine WBC 0-5 (0-5) /HPF Ur Squamous Epith Cells 0-2 (0-2) /HPF Calcium Oxalate Crystal Present Urine Bacteria None Seen (None Seen) Hyaline Casts 0-2 (0-2) /LPF Urine Opiates Screen Not Detected (Not Detect) Ur Buprenorphine Scrn Not Detected (Not Detect) ng/mL Ur Oxycodone Screen Not Detected (Not Detect) ng/mL Urine Methadone Screen Not Detected (Not Detect) ng/mL Urine Fentanyl Screen Not Detected (Not Detect) Ur Barbiturates Screen POSITIVE H (Not Detect) Ur Phencyclidine Scrn Not Detected (Not Detect) Ur Amphetamines Screen Not Detected (Not Detect) U Benzodiazepines Scrn Not Detected (Not Detect) Urine Cocaine Screen Not Detected (Not Detect) U Marijuana (THC) Screen Not Detected (Not Detect) Ethyl Alcohol 450 H* mg/dL Independent Interpretation I performed an independent interpretation of an: EKG (Sinus tachycardia, rate 101 beats per minute, normal WI interval and QTC) External Record Review External record reviewed: Inpatient record, Office record and Outpatient record Discharge Plan Discharge Clinical Impression: Alcoholic intoxication Patient Disposition: Home, Self-Care Instructions: Alcohol Intoxication (DC), Abuse of Alcohol (DC), Alcohol Withdrawal (DC) Additional Instructions: Alcohol use disorder You were seen in the Emergency Department today for treatment of alcohol use disorder.? You may have been given medications to help with your withdrawal symptoms.? Please do not drink alcohol with them. This is very dangerous and can cause respiratory depression or other adverse reactions depending on the medication. If you would like to cut down or stop your alcohol use please consider calling our outpatient Addiction Treatment office:? [facility] ([id number] [id number]) [address] [place] [address] You have also been given a list of treatment providers in the area that can assist as well.? If you experience seizures, vomiting blood, black stools, falls, severe headache, chest pain, fevers, trouble breathing, hallucinations or any other concerns you need to call 911 or seek immediate care. Please stay hydrated. Prescriptions: No Action thiamine HCl (vitamin B1) 100 mg Tablet 100 mg PO DAILY folic acid 1 mg tablet 1 mg PO DAILY clonidine HCl 0.1 mg Tablet 0.1 mg PO BEDTIME prazosin 1 mg Capsule 3 mg PO BEDTIME doxepin 10 mg Capsule 10 mg PO BEDTIME PRN (Reason: Sleep) gabapentin 400 mg Tablet 800 mg PO TID mupirocin 2 % ointment 1 appl topical BID 7 Days Qty: 15 0RF nitrofurantoin monohyd/m-cryst [Macrobid] 100 mg capsule 100 mg PO BID 7 Days Qty: 14 0RF Rx Instructions: must administer with a meal/food phenazopyridine [Pyridium] 100 mg tablet 100 mg PO TID PRN (Reason: pain) Qty: 6 0RF melatonin 5 mg Tablet 5 mg PO BEDTIME PRN (Reason: Sleep) sertraline 100 mg Tablet 50 mg PO DAILY sucralfate 1 gram Tablet 1 g PO QIDACHS 14 Days Qty: 56 0RF pantoprazole 20 mg tablet,delayed release (DR/EC) 20 mg PO BID 90 Days Qty: 180 0RF magnesium oxide 400 mg (241.3 mg magnesium) Tablet 400 mg PO BIDPC 90 Days Qty: 180 0RF Referrals: [facility] [place] Family Medicine [Provider Group, Family Practice] Print Language: Portuguese
--- NOTE | 2025-10-01 11:47 | ECG_ITS ---
Test Reason : EKG CHANGE Blood Pressure : */* mmHG Vent. Rate : 101 BPM Atrial Rate : 101 BPM P-R Int : 184 ms QRS Dur : 92 ms QT Int : 352 ms P-R-T Axes : 29 -4 45 degrees QTcB Int : 456 ms Sinus tachycardia Otherwise normal ECG When compared with ECG of 24-Sep-2025 13:04, T wave inversion now evident in Anterior leads Referred By: Martha Oreilly Electronically Signed By: LEEANN TODD MD
[2025-10-01 11:50] VITALS: BP 172/102; PULSE 109; O2SAT 96
[2025-10-01 11:51] VITALS: BP 118/71; PULSE 101; PULSE 102; RESP 16; RESP 18; TEMP 36.6; TEMP 36.7; O2SAT 91; O2SAT 95; BMI 33.0
[2025-10-01 12:54] LABS: MANUAL DIFF FLAG NO
[2025-10-01 12:58] LABS: Hematocrit 36.7 % (42.0-52.0); Hemoglobin 12.9 g/dl (14.0-18.0); Imm Gran Abs Auto 0.03 X10*3/uL (0.00-0.03); Imm Gran Pct Auto 0.8 % (0.0-0.4); Lymphocytes Absolute Auto 1.2 X10*3/uL (1.2-4.9); Mean Corpuscular HGB Conc 35.1 g/dl (31.0-36.0); Mean Corpuscular Hemoglobin 32.8 pg (27.0-33.0); Mean Corpuscular Volume 93.4 fL (80.0-98.0); NRBC Abs Auto 0.000 X10*3/uL (0.0-0.012); NRBC Pct Auto 0.0 /100WBC (0.0-0.2); Platelet Count 168 X10*3/uL (160-400); Red Blood Count 3.93 X10*6/uL (4.60-5.80); White Blood Count 4.0 X10*3/uL (4.8-10.8)
[2025-10-01 12:59] LABS: Appearance Urine Clear; Glucose Urine UA Negative (Negative); PH 7.0 (5.0-9.0); Specific Gravity - Urine <= 1.005 (1.005-1.025); UMIC TRIGGER UACC YES
[2025-10-01 13:10] LABS: Cannabinoid Screen Urine Not Detected (Not Detect)
[2025-10-01 13:17] LABS: UACC Culture Trigger YES
[2025-10-01 13:24] LABS: Alanine Aminotransferase 44 U/L (0-40); Albumin Level 4.1 g/dL (3.5-5.0); Alkaline Phosphatase 96 U/L (39-117); Anion Gap 19 (12-20); Aspartate Amino Transferase 50 U/L (5-37); Blood Urea Nitrogen 4 mg/dL (9-16); Calcium 8.8 mg/dL (8.4-10.2); Carbon Dioxide 22 mmol/L (22-29); Chloride 108 mmol/L (96-108); Creatinine Clr Calc Pharmacy 186.3; Estimated Glomerular Filt Rate > 60; Lipase 150 U/L (8-78); Magnesium 1.8 mg/dL (1.6-2.6); Potassium 3.4 mmol/L (3.3-5.1); Sodium 146 mmol/L (135-145); Total Protein 7.1 g/dL (6.5-8.0)
[2025-10-01 14:43] VITALS: BP 106/72; PULSE 103; RESP 18; TEMP 36.5; O2SAT 94
--- NOTE | 2025-10-01 17:56 | PC.NURSE ---
patient informed this nurse that he has obtained a sober ride to get him home. [employer] notified
[2025-10-01 18:33] VITALS: BP 106/72; PULSE 103; RESP 18; TEMP 36.5; O2SAT 94
== END 2025-10-01 18:34 | disposition home or self-care (01) ==
PROVIDERS: Emergency Provider Emergency Medicine; Referring Provider Registered Nurse Emergency
DX: F10.129 Alcohol abuse with intoxication, unspecified (principal); Y90.8 Blood alcohol level of 240 mg/100 ml or more; R00.0 Tachycardia, unspecified; Z51.81 Encounter for therapeutic drug level monitoring; Z79.899 Other long term (current) drug therapy
CPT/HCPCS: 36415; 80053; 80307; 81001; 83690; 83735; 85025; 87086; 87088; 87186; 93005; 99284; 99285

== ENCOUNTER → 2025-10-01 11:47 | Outpatient (BNV) | payer OTHER, SELFPAY | PROVIDERS: Emergency Provider Emergency Medicine; Visit Provider Internal Medicine Cardiovascular Disease | DX: R00.0 Tachycardia, unspecified (principal) | CPT/HCPCS: 93010 ==

== ENCOUNTER 2025-10-01 20:01 | Inpatient (IN) | payer OTHER, SELFPAY ==
--- NOTE | ~2025-10-01 | XR_ITS ---
CLINICAL HISTORY: free air??? CHEST X-RAY FRONTAL VIEW COMPARISON: CT abdomen/pelvis 09/20/2025. CT chest 08/11/2025. FINDINGS: A single frontal view of the chest was performed. Cardiac size is within normal limits. There is mild elevation of the right hemidiaphragm. No acute infiltrate or consolidation. No pleural effusion or pneumothorax. No definite evidence of pneumomediastinum. No definite free intraperitoneal air. IMPRESSION: 1. No acute disease. This document has been electronically signed by: Dinesh Leone M.D. on 10/02/2025 02:36:51
[2025-10-01 20:06] VITALS: BP 120/75; BP 130/90; PULSE 110; PULSE 96; RESP 20; TEMP 37.5; O2SAT 91; O2SAT 99; BMI 30.1
[2025-10-01 21:16] LABS: MANUAL DIFF FLAG NO
[2025-10-01 21:17] LABS: Hematocrit 36.2 % (42.0-52.0); Hemoglobin 12.8 g/dl (14.0-18.0); Imm Gran Abs Auto 0.02 X10*3/uL (0.00-0.03); Imm Gran Pct Auto 0.5 % (0.0-0.4); Lymphocytes Absolute Auto 1.0 X10*3/uL (1.2-4.9); Mean Corpuscular HGB Conc 35.4 g/dl (31.0-36.0); Mean Corpuscular Hemoglobin 32.8 pg (27.0-33.0); Mean Corpuscular Volume 92.8 fL (80.0-98.0); NRBC Abs Auto 0.000 X10*3/uL (0.0-0.012); NRBC Pct Auto 0.0 /100WBC (0.0-0.2); Platelet Count 152 X10*3/uL (160-400); Red Blood Count 3.90 X10*6/uL (4.60-5.80); White Blood Count 4.2 X10*3/uL (4.8-10.8)
[2025-10-01 21:33] LABS: Anion Gap 16 (12-20); Blood Urea Nitrogen 4 mg/dL (9-16); Calcium 8.5 mg/dL (8.4-10.2); Carbon Dioxide 24 mmol/L (22-29); Chloride 109 mmol/L (96-108); Creatinine Clr Calc Pharmacy 196.6; Estimated Glomerular Filt Rate > 60; Magnesium 1.7 mg/dL (1.6-2.6); Potassium 3.5 mmol/L (3.3-5.1); Sodium 145 mmol/L (135-145)
[2025-10-01 23:04] VITALS: BP 125/85; PULSE 98; RESP 18; TEMP 36.4; O2SAT 96
[2025-10-01] MEDS: diazePAM 10 MG/2 ML CARTRIDGE 5 MG IM (23:37)
[2025-10-02] VITALS (9 sets, daily range): BP systolic 114–134; BP diastolic 60–90; PULSE 78–110; RESP 16–21; TEMP 36.6–37.1; O2SAT 95–99
[2025-10-02 00:06] LABS: OBS1 POSITIVE (NEGATIVE)
[2025-10-02 00:07] LABS: OBS Int Ctl Valid YES
[2025-10-02] MEDS: Sucralfate Oral Suspension 1 GM/10 ML ORAL.SUSP PO (00:27)
--- NOTE | 2025-10-02 03:33 | MHC.EDTECH ---
patients belongings locked in in kim port shelf 1, 3 bags and 1 black backpack
[2025-10-02] MEDS: diazePAM 10 MG/2 ML CARTRIDGE 5 MG IVPUSH ×2 (04:31→12:05)
[2025-10-02] MEDS: Lactated Ringers 1,000 ML 999 ML IV ×2 (04:31→12:32)
--- NOTE | 2025-10-02 05:27 | ED.GENADULT ---
HPI - General Adult General Chief complaint: General Medical Stated complaint: ETOH WITHDRAWAL Time Seen by Provider: 10/01/25 20:06 Source: patient Limitations: no limitations History of Present Illness ED Provider: Haley Main PA-C HPI narrative: 39-year-old male with a history of alcohol use disorder, with prior alcohol withdrawal with a seizure activity, cirrhosis, obesity, recent Main catheter secondary to urinary retention, presents with multiple complaints. Patient states he was diagnosed with a urinary tract infection 2 days ago, he has yet to order picker/assembler his prescriptions from the pharmacy. Patient states he is having discomfort related to the Main catheter. Denies fever. Patient is also interested in detox at this time. Related Data Home Medications ?Medication ?Instructions ?Recorded ?Confirmed folic acid 1 mg tablet 1 mg PO DAILY 07/31/25 10/02/25 thiamine HCl (vitamin B1) 100 mg 100 mg PO DAILY 07/31/25 10/02/25 tablet clonidine HCl 0.1 mg tablet 0.1 mg PO BEDTIME 08/11/25 10/02/25 doxepin 10 mg capsule 10 mg PO BEDTIME PRN Sleep 08/11/25 10/02/25 gabapentin 400 mg tablet 800 mg PO TID 08/11/25 10/02/25 prazosin 1 mg capsule 3 mg PO BEDTIME 08/11/25 10/02/25 melatonin 5 mg tablet 5 mg PO BEDTIME PRN Sleep 09/20/25 10/02/25 sertraline 100 mg tablet 50 mg PO DAILY 09/20/25 10/02/25 Previous Rx's ?Medication ?Instructions ?Recorded magnesium oxide 400 mg (241.3 mg 400 mg PO BIDPC 90 days #180 tabs 09/24/25 magnesium) tablet pantoprazole 20 mg tablet,delayed 20 mg PO BID 90 days #180 tabs 09/24/25 release sucralfate 1 gram tablet 1 g PO QIDACHS 14 days #56 tabs 09/24/25 Allergies Allergy/AdvReac Type Severity Reaction Status Date / Time azithromycin (AZITHROMYCIN) Allergy Unknown Unknown Verified 10/01/25 20:16 [facility] Past Medical History Medical History PTSD (post-traumatic stress disorder) Gout Sternal fracture Class 1 obesity Alcoholic cirrhosis of liver Exacerbation of gout Alcohol abuse Anxiety Surgical History History of ankle surgery Social History Social History Household Members: Other Housing: Other Housing Other:: 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 If so, by whom?: No Do you feel safe in your current relationship?: No Current Relationship Is there a partner from a previous relationship who is making you feel unsafe now?: No Are you made to feel afraid or neglected: No Advance Directives: No Advance Directives Information Provided: No Advance Directives on File: No Do you have a plan to hurt others: No Plan Recently lost weight without trying: No Nutrition Risks: No Nutritional Risk Poor oral hygiene: No service: Yes Physical Exam ED Vital Signs: Vital Signs - 24 hr 10/01/25 20:06 10/01/25 23:04 10/02/25 03:34 Temperature 99.5 F 97.5 F 98.2 F Pulse Rate 96 98 86 Respiratory Rate 20 18 16 Blood Pressure 120/75 125/85 127/75 Pulse Oximetry 91 L 96 98 Oxygen Delivery Method Room Air Room Air Room Air 10/02/25 06:00 10/02/25 10:16 10/02/25 11:57 Temperature 98.0 F 98 F Pulse Rate 90 88 110 H Respiratory Rate 16 18 21 H Blood Pressure 118/66 114/60 134/90 H Pulse Oximetry 98 97 97 Oxygen Delivery Method Room Air Room Air Room Air BMI result Body Mass Index 30.1 Course Reevaluation(s) Reevaluation #1: Time: 05:38 Date: 10/02/25 Provider: FABIANO Mercedes Patient in physician observation for psychiatric evaluation.? No acute events reported overnight. No current complaints. VS stable.? Patient is in bed search status/pending CARE team evaluation. Will continue to monitor. 10/02/25 09 ZION Oreilly: Alma Rosa from CARE team stating that she has a detox willing to accept patient, however, patient states that he had a previously scheduled appointment for removal of his Main today. She is asking whether this can be done in the ED. Per Dr. Neal, we can remove the Main and perform a voiding trial so patient can go to detox. 10/02/25 1213 ZION Oreilly: Notified by AGNES De Leon that patient's CIWA is 21, he is tachycardic, BP going up. Still has not been able to void since main was removed. Will reach out to hospitalist to discuss admission for alcohol withdrawal. 10/02/25 1224 ZION Oreilly: Admission accepted by FABIANO Gonzales. Phenobarbital protocol ordered. Observation care revealed that patient does meet medical necessity for hospitalization. Final disposition discussed with patient. Time: 05:37 Medications Administered Generic Name Dose Route Start Last Admin Trade Name Freq PRN Reason Stop Dose Admin Acetaminophen 975 mg 10/03/25 09:40 10/03/25 21:47 Acetaminophen 325 Mg Tablet PO 975 mg Q6H PRN Administration Pain, Mild 1-3,fever,headache Clonidine HCl 0.1 mg 10/02/25 21:00 10/03/25 21:48 Clonidine Hcl 0.1 Mg Tablet PO 0.1 mg BEDTIME THOMAS Administration Protocol Folic Acid 1 mg 10/03/25 09:00 10/03/25 08:42 Folic Acid 1 Mg Tablet PO 1 mg DAILY THOMAS Administration Gabapentin 800 mg 10/02/25 21:00 10/03/25 21:47 Gabapentin 400 Mg Capsule PO 800 mg TID THOMAS Administration Thiamine HCl 400 mg/ Sodium 104 mls @ 208 mls/hr 10/02/25 14:00 10/04/25 03:40 Chloride IV Infused Q12H THOMAS Infusion Vancomycin HCl 500 mg/ Sodium 110 mls @ 110 mls/hr 10/04/25 01:00 10/04/25 01:10 Chloride IV Infused Q8H THOMAS Infusion Magnesium Oxide 400 mg 10/02/25 17:30 10/03/25 15:48 Magnesium Oxide 400 Mg Tablet PO 400 mg BIDPC THOMAS Administration Melatonin 6 mg 10/02/25 12:52 10/03/25 21:47 Melatonin 3 Mg Tablet PO 6 mg BEDTIME PRN Administration Insomnia Omeprazole 20 mg 10/03/25 06:30 10/03/25 04:01 Omeprazole 20 Mg Capsule. PO 20 mg DAILY@0630 THOMAS Administration Ondansetron HCl 4 mg 10/03/25 13:42 10/03/25 20:22 Ondansetron Hcl 4 Mg/2 Ml Vial IVPUSH 4 mg Q8H PRN Administration Nausea and Vomiting Phenobarbital 45 mg 10/03/25 09:00 10/03/25 21:48 Phenobarbital 15 Mg Tablet PO 10/04/25 21:01 45 mg BID THOMAS Administration Protocol Prazosin HCl 3 mg 10/02/25 21:00 10/03/25 21:48 Prazosin Hcl 1 Mg Capsule PO 3 mg BEDTIME THOMAS Administration Protocol Sertraline HCl 50 mg 10/03/25 09:00 10/03/25 08:42 Sertraline Hcl 50 Mg Tablet PO 50 mg DAILY THOMAS Administration Sodium Chloride 3 ml 10/02/25 16:00 10/04/25 00:09 0.9 % Sodium Chloride Flush 3 Ml Syringe IVFLUSH Not Given QSHIFT [facility] Sucralfate 1 gm 10/02/25 21:00 10/03/25 21:47 Sucralfate 1 Gm Tablet PO 1 gm QIDACHS THOMAS Administration Vitamin A/Vitamin D 1 appl 10/03/25 13:39 10/03/25 15:49 A And D Ointment 56.7 Gm Tube TOPICAL 1 appl BID PRN Administration rash Protocol Discontinued Medications Generic Name Dose Route Start Last Admin Trade Name Leonidasq PRN Reason Stop Dose Admin Acetaminophen 650 mg 10/02/25 12:52 10/03/25 08:42 Acetaminophen 325 Mg Tablet PO 650 mg Q6H PRN Administration Pain, Mild 1-3,fever,headache Diazepam 5 mg 10/01/25 23:30 10/01/25 23:37 Diazepam 10 Mg/2 Ml Cartridge IM 10/01/25 23:31 5 mg STAT STA Administration Diazepam 5 mg 10/02/25 04:14 10/02/25 04:31 Diazepam 10 Mg/2 Ml Cartridge IVPUSH 10/02/25 04:15 5 mg STAT STA Administration Diazepam 5 mg 10/02/25 12:01 10/02/25 12:05 Diazepam 10 Mg/2 Ml Cartridge IVPUSH 10/02/25 12:02 5 mg STAT STA Administration Famotidine 20 mg 10/02/25 00:27 10/02/25 01:01 Famotidine/Pf 20 Mg/2 Ml Vial IVPUSH 10/02/25 00:28 20 mg ONCE ONE Administration Lactated Ringer's 1,000 mls @ 999 mls/hr 10/02/25 04:15 10/02/25 06:39 Lr IV 10/02/25 05:15 Infused .Q1H1M THOMAS Infusion Lactated Ringer's 1,000 mls @ 999 mls/hr 10/02/25 12:15 10/02/25 13:55 Lr IV 10/02/25 13:15 Infused .Q1H1M THOMAS Infusion Lactated Ringer's 1,000 mls @ 100 mls/hr 10/02/25 13:00 10/03/25 08:48 Lr IVCONT Infused .Q10H THOMAS Infusion Magnesium Sulfate 2 gm in 50 mls @ 25 mls/hr 10/02/25 13:01 10/02/25 15:34 Magnesium Sulfate/H2o IV 10/02/25 15:00 Infused ONCE ONE Infusion Magnesium Sulfate 2 gm in 50 mls @ 25 mls/hr 10/02/25 16:39 10/02/25 19:09 Magnesium Sulfate/H2o IV 10/02/25 18:38 Infused ONCE ONE Infusion Vancomycin HCl 2,000 mg in 500 mls @ 250 mls/hr 10/03/25 14:30 10/03/25 18:35 Vancomycin/Ns IV 10/03/25 16:29 Infused ONCE ONE Infusion Nitrofurantoin Macrocrystals 100 mg 10/01/25 20:56 10/01/25 21:10 Nitrofurantoin Monohyd/M-Cryst 100 Mg Capsule PO 10/01/25 20:57 100 mg ONCE ONE Administration Ondansetron HCl 4 mg 10/02/25 00:27 10/02/25 01:01 Ondansetron Hcl 4 Mg/2 Ml Vial IVPUSH 10/02/25 00:28 4 mg ONCE ONE Administration Ondansetron HCl 4 mg 10/02/25 07:45 10/02/25 07:48 Ondansetron Odt 4 Mg Tab.Rapdis TRANSLINGU 10/02/25 07:46 4 mg ONCE ONE Administration Ondansetron HCl 4 mg 10/03/25 08:30 10/03/25 08:41 Ondansetron Hcl 4 Mg/2 Ml Vial IVPUSH 4 mg Q6H PRN Administration Nausea and Vomiting Pantoprazole Sodium 40 mg 10/02/25 00:20 10/02/25 00:58 Pantoprazole Sodium 40 Mg/10 Ml Vial IVPUSH 10/02/25 00:21 40 mg ONCE ONE Administration Phenazopyridine HCl 200 mg 10/01/25 20:56 10/01/25 21:10 Phenazopyridine Hcl 200 Mg Tablet PO 10/01/25 20:57 200 mg ONCE ONE Administration Phenobarbital Sodium 350 mg 10/02/25 13:00 10/02/25 13:34 Phenobarbital Sodium 130 Mg/Ml Im Once IM 10/02/25 13:01 350 mg ONCE ONE Administration Protocol Phenobarbital Sodium 263 mg 10/02/25 16:00 10/02/25 19:04 Phenobarbital Sodium 130 Mg/Ml Vial Im Q3hx2 IM 10/02/25 19:01 263 mg Q3H THOMAS Administration Protocol Phenobarbital Sodium 65 mg 10/03/25 09:34 10/03/25 11:15 Phenobarbital Sodium 65 Mg/Ml Vial IM 10/03/25 09:35 65 mg ONCE ONE Administration Sucralfate 1 gm 10/02/25 00:20 10/02/25 00:27 Sucralfate Oral Suspension 1 Gm/10 Ml Oral.Susp PO 10/02/25 00:21 1 gm ONCE ONE Administration Procedures Ultrasound ED POC Ultrasound: EMERGENCY ULTRASOUND REPORT?Ultrasound-Assisted ED Procedures Indication: Vein Catheterization: RN unable to obtain 20 gauge 1-3/4 inch IV placed in right upper extremity. Adequate blood return, flushes well secured with Tegaderm. Performed by: Haley Main PA-C Date: 10/02 Time: 0020 Medical Decision Making Medical Decision Making MDM Narrative: 39-year-old male with a history of alcohol use disorder, with prior alcohol withdrawal with a seizure activity, cirrhosis, obesity, recent Main catheter secondary to urinary retention, presents with multiple complaints. Patient states he was diagnosed with a urinary tract infection 2 days ago, he has yet to order picker/assembler his prescriptions from the pharmacy. Patient states he is having discomfort related to the Main catheter. Denies fever. Patient is also interested in detox at this time. Problem: Alcohol use disorder, indwelling Main History: Per patient I have considered the following differential diagnoses: Urinary tract infection, Main catheter dysfunction, alcohol use disorder need for detox, alcohol withdrawal Plan: In regard to the Main catheter, the patient has been seen twice today, this visit being his 3rd visit. There was evidence of potential urinary tract infection, he has been not adherent with the his medication. I am ordering a dose of the Macrobid in the Pyridium. There was no dysfunction of the Main catheter, it is draining urine appropriately. 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 The patient readily admits to consuming alcohol after his most recent discharge earlier today. Placing a CIWA scale I have independently reviewed the following tests: Labs: Stable pancytopenia, no electrolyte abnormality, ethanol 422, guaiac blood positive from his emesis..... Adding on a chest x-ray to rule out free air, giving Protonix, famotidine Chest x-ray:FINDINGS: A single frontal view of the chest was performed. Cardiac size is within normal limits. There is mild elevation of the right hemidiaphragm. No acute infiltrate or consolidation. No pleural effusion or pneumothorax. No definite evidence of pneumomediastinum. No definite free intraperitoneal air. IMPRESSION: 1. No acute disease. Differential Diagnosis Differential Diagnoses: The differential diagnosis associated with the presentation includes See [facility] Admission/Observation Consideration of admission/observation: Escalation of care including admission/observation considered Consult Healthcare Provider Management of the patient was discussed with: Structural Engineer and Behavioral Health Provider defensive secondary coach Lab Data [facility] Lab Attestation statement: I reviewed the patient's lab results. 10/02/25 13:52 10/03/25 07:08 Labs: Lab Results 10/01/25 10/01/25 10/02/25 Range/Units 21:11 23:46 11:43 WBC 4.2 L (4.8-10.8) X10*3/uL RBC 3.90 L (4.60-5.80) X10*6/uL Hgb 12.8 L (14.0-18.0) g/dl Hct 36.2 L (42.0-52.0) % MCV 92.8 (80.0-98.0) fL MCH 32.8 (27.0-33.0) pg MCHC 35.4 (31.0-36.0) g/dl RDW 14.2 (11.0-16.0) % Plt Count 152 L (160-400) X10*3/uL MPV 8.6 L (9.4-12.4) fL Immature Gran % (Auto) 0.5 H (0.0-0.4) % Neut % (Auto) 62.6 (45-73) % Lymph % (Auto) 24.4 (20-40) % [place] % (Auto) 9.0 (2-11) % Eos % (Auto) 2.8 (0-4) % Baso % (Auto) 0.7 (0-2) % Lymph # (Auto) 1.0 L (1.2-4.9) X10*3/uL [place] # (Auto) 0.4 (0.1-1.2) X10*3/uL Eos # (Auto) 0.1 (0.0-0.4) X10*3/uL Baso # (Auto) 0.0 (0.0-0.2) X10*3/uL Abs Immat Gran (auto) 0.02 (0.00-0.03) X10*3/uL Absolute Neuts (auto) 2.6 (2.0-8.3) x10*3/uL Absolute Nucleated RBC 0.000 (0.0-0.012) X10*3/uL Nucleated RBC % (auto) 0.0 (0.0-0.2) /100WBC Sodium 145 (135-145) mmol/L Potassium 3.5 (3.3-5.1) mmol/L Chloride 109 H (96-108) mmol/L Carbon Dioxide 24 (22-29) mmol/L Anion Gap 16 (12-20) BUN 4 L (9-16) mg/dL Creatinine 0.59 (0.5-1.4) mg/dL Estim Creat Clear Calc 196.6 Estimated GFR > 60 Random Glucose 117 H (60-115) mg/dL Calcium 8.5 (8.4-10.2) mg/dL Magnesium 1.7 (1.6-2.6) mg/dL Stool Occult Blood POSITIVE (NEGATIVE) Ethyl Alcohol 422 H* mg/dL Influenza Type A (PCR) NEGATIVE (Negative) Influenza Type B (PCR) NEGATIVE (Negative) RSV RNA Qual (PCR) NEGATIVE (Negative) SARS-CoV-2 RNA (RT-PCR) NEGATIVE (Negative) Radiology Impression Discussion of test interpretation with radiology: I have reviewed the radiologist's reading. Discharge Plan Discharge Clinical Impression: Alcohol abuse Alcohol withdrawal Qualifiers: Complication of substance-induced condition: uncomplicated Qualified Code(s): F10.930 - Alcohol use, unspecified with withdrawal, uncomplicated Alcoholic gastritis Qualifiers: Chronicity: unspecified Gastritis bleeding: with bleeding Qualified Code(s): K29.21 - Alcoholic gastritis with bleeding Patient Disposition: Admitted As Inpatient Interventions: Admission Worksheet (ED) Last Done: 10/02/25 16:00 Discharge Date/Time: 10/02/25 16:52
--- NOTE | 2025-10-02 05:52 | PC.NURSE ---
requesting faheem yin - pt was given at this time
--- NOTE | 2025-10-02 10:03 | ECG_ITS ---
Test Reason : med clearance Blood Pressure : */* mmHG Vent. Rate : 87 BPM Atrial Rate : 87 BPM P-R Int : 148 ms QRS Dur : 86 ms QT Int : 392 ms P-R-T Axes : 23 21 25 degrees QTcB Int : 471 ms Normal sinus rhythm Normal ECG When compared with ECG of 01-Oct-2025 11:59, No significant change was found Referred By: Martha Oreilly Electronically Signed By: LEEANN TODD MD
--- NOTE | 2025-10-02 11:10 | PC.NURSE ---
Patient main removed Patient unable to void at this time Provided patient with 4 cups of water Still awaiting urine sample
--- NOTE | 2025-10-02 12:03 | PC.NURSE ---
provider notified of increasing CIWA and valium ordered
[2025-10-02 12:38] LABS: Resp Syncy Virus RNA Qual PCR NEGATIVE (Negative); SARS COV2 PCR INHOUSE NEGATIVE (Negative)
--- NOTE | 2025-10-02 12:54 | PM.IMHP ---
History of Present Illness Date of Service: 10/02/25 Attending physician on admission: Herson Cantor Chief Complaint: alcohol withdrawal This is a 39-year-old male with history of alcohol use disorder, multiple inpatient admissions for alcohol withdrawal who presents to the emergency department seeking detox. Patient was seen in the emergency department on September 30. He returned to the emergency department on October 01 at 06:30, 11:30 and subsequently at 20:00. Each time he reported drinking alcohol before returning to the ED. He has remained in the emergency department overnight and has received multiple doses of Valium. Today his CIWA score began to increase, became tremulous and tachycardic. Patient reports ongoing alcohol use drinking up to 25-30 nips daily. He has had multiple visits to rehab. He also recently had urinary retention and a Main catheter was placed on previous admission. Main catheter was removed in the emergency department today due to initial plan for patient to go to detox. Patient is currently awaiting voiding trial. He is afraid it will hurt to urinate. He was due to have follow up appointment with urology for main removal today. Due to increasing signs and symptoms of alcohol withdrawal inpatient admission was requested. 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 If so, by whom?: No Do you feel safe in your current relationship?: No Current Relationship Is there a partner from a previous relationship who is making you feel unsafe now?: No Are you made to feel afraid or neglected: No Advance Directives: No Advance Directives Information Provided: No Advance Directives on File: No Do you have a plan to hurt others: No Plan Recently lost weight without trying: No Nutrition Risks: No Nutritional Risk Poor oral hygiene: No service: Yes Meds Allergies Allergy/AdvReac Type Severity Reaction Status Date / Time azithromycin (AZITHROMYCIN) Allergy Unknown Unknown Verified 10/01/25 20:16 Active Medications: Current Medications Lactated Ringer's (Lr) 1,000 mls @ 999 mls/hr IV .Q1H1M THOMAS Stop: 10/02/25 13:15 Last Admin: 10/02/25 12:32 Dose: 999 mls/hr Pharmacy Consult (Consult Rx Etoh Phenob Im/Po) 1 each MISCELLANE ONCE PRN; Protocol PRN Reason: Consult order Phenobarbital (Phenobarbital 15 Mg Tablet) 45 mg PO BID THOMAS; Protocol Stop: 10/04/25 21:01 Phenobarbital (Phenobarbital 30 Mg Tablet) 30 mg PO BID THOMAS; Protocol Stop: 10/06/25 21:01 Phenobarbital (Phenobarbital 30 Mg Tablet) 30 mg PO DAILY [facility]; Protocol Stop: 10/08/25 09:01 Phenobarbital Sodium (Phenobarbital Sodium 130 Mg/Ml Im Once) 350 mg IM ONCE ONE; Protocol Stop: 10/02/25 13:01 Phenobarbital Sodium (Phenobarbital Sodium 130 Mg/Ml Vial Im Q3hx2) 263 mg IM Q3H THOMAS; Protocol Stop: 10/02/25 19:01 Home Medications ?Medication ?Instructions ?Recorded ?Confirmed ?Last Taken ?Type folic acid 1 mg tablet 1 mg PO DAILY 07/31/25 10/02/25 08/10/25 History thiamine HCl (vitamin B1) 100 mg 100 mg PO DAILY 07/31/25 10/02/25 08/10/25 History tablet clonidine HCl 0.1 mg tablet 0.1 mg PO BEDTIME 08/11/25 10/02/25 08/10/25 History doxepin 10 mg capsule 10 mg PO BEDTIME PRN Sleep 08/11/25 10/02/25 08/10/25 History gabapentin 400 mg tablet 800 mg PO TID 08/11/25 10/02/25 08/10/25 History prazosin 1 mg capsule 3 mg PO BEDTIME 08/11/25 10/02/25 08/10/25 History melatonin 5 mg tablet 5 mg PO BEDTIME PRN Sleep 09/20/25 10/02/25 Unknown History sertraline 100 mg tablet 50 mg PO DAILY 09/20/25 10/02/25 Unknown History Physical Exam Vital Signs and Narrative: Vital Signs: Last Vital Signs Temp 98 F 10/02/25 10:16 Pulse 110 H 10/02/25 11:57 Resp 21 H 10/02/25 11:57 BP 134/90 H 10/02/25 11:57 Pulse Ox 97 10/02/25 11:57 O2 Del Method Room Air 10/02/25 11:57 BMI result Body Mass Index 30.1 Const: Other: tremulous General: alert and awake Nutritional Appearance: overweight Orientation/consciousness: patient oriented x3 Resp: Effort & Inspection: normal respiratory effort, able to speak in complete sentences, no respiratory distress and no use of accessory muscles Cardio: Rate: tachycardic GI: Palpation (GI): Soft to palpation Neuro: General: patient oriented x3, moves all extremities and CN's II-XI intact bilaterally Results Labs 10/02/25 13:52 10/03/25 07:08 Labs: Laboratory Results - last 24 hr 10/01/25 10/01/25 10/02/25 21:11 23:46 11:43 MCV 92.8 MCH 32.8 MCHC 35.4 RDW 14.2 Plt Count 152 L MPV 8.6 L Immature Gran % (Auto) 0.5 H Neut % (Auto) 62.6 Lymph % (Auto) 24.4 [place] % (Auto) 9.0 Eos % (Auto) 2.8 Baso % (Auto) 0.7 Lymph # (Auto) 1.0 L [place] # (Auto) 0.4 Eos # (Auto) 0.1 Baso # (Auto) 0.0 Abs Immat Gran (auto) 0.02 Absolute Neuts (auto) 2.6 Absolute Nucleated RBC 0.000 Nucleated RBC % (auto) 0.0 Anion Gap 16 Estim Creat Clear Calc 196.6 Estimated GFR > 60 Random Glucose 117 H Calcium 8.5 Magnesium 1.7 Stool Occult Blood POSITIVE Ethyl Alcohol 422 H* Influenza Type A (PCR) NEGATIVE Influenza Type B (PCR) NEGATIVE RSV RNA Qual (PCR) NEGATIVE SARS-CoV-2 RNA (RT-PCR) NEGATIVE Assessment and Plan (1) Alcohol withdrawal: Qualifiers: Complication of substance-induced condition: uncomplicated Qualified Code(s): F10.930 - Alcohol use, unspecified with withdrawal, uncomplicated Status: Acute Plan This is a 39 year old male with history of alcohol dependence, multiple admissions for alcohol withdrawal, urinary retention, PTSD, anxiety who presented to the emergency department 3 times on October 01, now being admitted for alcohol withdrawal Alcohol dependence with alcohol withdrawal Phenobarbital protocol follow CIWA IV thiamine, IV magnesium, IVF Follow electrolytes and replace as needed. Repeat labs being obtained now Seizure precautions Addiction medicine consultation h/o urinary retention main in place for two weeks, removed in ED today around 11 am (10/02); due to void UTI repeat UA negative for infection h/o gastritis episode of coffee ground emesis last admission thought to be due to MW tear or esophagitis (thickening of the distal esophagus was seen on imaging) he had no further episodes of coffee ground emesis and did not require blood transfusion and thus EGD was deferred to outpatient setting continue PPI and sucralfate (for one more week), outpatient follow up with GI thrombocytopenia due to etoh use mood continue sertraline, prazosin, gabapentin, clonidine morbid obesity BMI 30.1 weight loss encouraged dvt ppx - due to recent admission with coffee ground emesis/gastritis patient will liekly require two midnight stay in the hospital for management of etoh withdrawal requiring phenobarbital protocol, close monitoring of CIWA and monitoring of electrolytes Quality Stroke Does the patient have a stroke diagnosis?: No VTE Prior VTE?: No VTE Risk Level:: Medical - moderate - high VTE Device Contraindication: N/A - Device Ordered VTE Drug Contraindication: Treatment Not Indicated
[2025-10-02] MEDS: Magnesium Sulfate/H2O 2 GM/50 ML PIGGYBACK IV ×2 (13:34→17:09)
[2025-10-02] MEDS: PHENobarbitaL sodium 130 MG/ML IM ONCE 350 MG IM (13:34)
[2025-10-02] MEDS: Lactated Ringers 1,000 ML 100 ML IVCONT ×2 (13:36→22:28)
[2025-10-02 13:57] LABS: Hematocrit 31.9 % (42.0-52.0); Hemoglobin 11.2 g/dl (14.0-18.0); Mean Corpuscular HGB Conc 35.1 g/dl (31.0-36.0); Mean Corpuscular Hemoglobin 33.1 pg (27.0-33.0); Mean Corpuscular Volume 94.4 fL (80.0-98.0); NRBC Abs Auto 0.000 X10*3/uL (0.0-0.012); NRBC Pct Auto 0.0 /100WBC (0.0-0.2); Platelet Count 110 X10*3/uL (160-400); Red Blood Count 3.38 X10*6/uL (4.60-5.80); White Blood Count 6.0 X10*3/uL (4.8-10.8)
[2025-10-02 14:14] LABS: Anion Gap 16 (12-20); Blood Urea Nitrogen 3 mg/dL (9-16); Calcium 8.6 mg/dL (8.4-10.2); Carbon Dioxide 26 mmol/L (22-29); Chloride 102 mmol/L (96-108); Creatinine Clr Calc Pharmacy 187.1; Estimated Glomerular Filt Rate > 60; Magnesium 0.9 mg/dL (1.6-2.6); Potassium 4.1 mmol/L (3.3-5.1); Sodium 140 mmol/L (135-145)
--- NOTE | 2025-10-02 14:16 | PHA.MEDREC ---
Pharmacy Consult ? Medication Reconciliation Pharmacy has completed the medication reconciliation. Spoke to patient to confirm medication list. Per patient, he stops taking his medications once he starts drinking. Last dose of his night time meds was about a week ago, longer for all other meds. He hasn't started the new meds (mupirocin, macrobid and phenazopyridine) yet.
[2025-10-02] MEDS: PHENobarbitaL sodium 130 MG/ML VIAL IM Q3Hx2 263 MG IM ×2 (16:19→19:04)
[2025-10-02] MEDS: 0.9 % Sodium Chloride Flush 3 ML SYRINGE IVFLUSH (16:21)
[2025-10-03] VITALS: BP 120/64; PULSE 92; RESP 18; TEMP 36.7; O2SAT 96
[2025-10-03 04:00] VITALS: BP 99/55; PULSE 86; RESP 17; TEMP 37.2; O2SAT 98
[2025-10-03 07:33] VITALS: BP 119/69; PULSE 80; RESP 18; TEMP 36.8; O2SAT 96
[2025-10-03 08:16] LABS: Anion Gap 10 (12-20); Blood Urea Nitrogen < 3 mg/dL (9-16); Calcium 8.3 mg/dL (8.4-10.2); Carbon Dioxide 24 mmol/L (22-29); Chloride 105 mmol/L (96-108); Creatinine Clr Calc Pharmacy 218.9; Estimated Glomerular Filt Rate > 60; Potassium 3.7 mmol/L (3.3-5.1); Sodium 135 mmol/L (135-145)
--- NOTE | 2025-10-03 08:25 | MHC.CM.PN ---
Pt. recently DC from this hosp. with home care services from [facility] for for catheter care and PT. Pt. lives in [place] support apt. He can arrange his own ride home at [place]. Pt. seeking alcohol rehab services, DCP: inpt. alocohol rehab. CM to follow for DC needs.
--- NOTE | 2025-10-03 08:32 | HO.PM.IMPN ---
Subjective Subjective Date of Service: 10/03/25 Interval History: alcohol withdrawals Review of Systems Still feel anxious and tremulous Has some diarrhea Has chronically psoriasis ? Review of Systems: Yes all other systems are reviewed and are negative Physical Exam Exam: Exam: Appearance: Alert.? Oriented X3. Anxious and tremulous cvs: rrr, [id number] res: clear to auscultation ,no rhonchii or wheezing abd: no rebound or guarding ,nt, bs present. ext pulses present , no cyanosis . neuro: axo3 , nonfocal. Vital Signs: Vital Signs: Last Vital Signs Temp 98.2 F 10/03/25 07:33 Pulse 80 10/03/25 07:33 Resp 18 10/03/25 07:33 BP 119/69 10/03/25 07:33 Pulse Ox 96 10/03/25 07:33 O2 Del Method Room Air 10/03/25 07:33 BMI result Body Mass Index 30.1 Objective Data Active Medications Acetaminophen (Acetaminophen 325 Mg Tablet) 650 mg PO Q6H PRN PRN Reason: Pain, Mild 1-3,fever,headache Calcium Carbonate (Calcium Carbonate 750 Mg Tab.Chew) 750 mg PO Q4H PRN PRN Reason: Heartburn Clonidine HCl (Clonidine Hcl 0.1 Mg Tablet) 0.1 mg PO BEDTIME [facility]; Protocol Last Admin: 10/02/25 22:27 Dose: 0.1 mg Documented By: LANDON Folic Acid (Folic Acid 1 Mg Tablet) 1 mg PO DAILY [facility] Gabapentin (Gabapentin 400 Mg Capsule) 800 mg PO TID [facility] Last Admin: 10/02/25 22:26 Dose: 800 mg Documented By: LANDON Thiamine HCl 400 mg/ Sodium (Chloride) 104 mls @ 208 mls/hr IV Q12H [facility] Last Infusion: 10/03/25 02:19 Dose: Infused Documented By: LADNON Magnesium Hydroxide (Milk Of Magnesia 30 Ml Oral.Susp) 30 ml PO DAILY PRN PRN Reason: Constipation Magnesium Oxide (Magnesium Oxide 400 Mg Tablet) 400 mg PO BIDPC [facility] Last Admin: 10/02/25 17:09 Dose: 400 mg Documented By: JOSE Melatonin (Melatonin 3 Mg Tablet) 6 mg PO BEDTIME PRN PRN Reason: Insomnia Omeprazole (Omeprazole 20 Mg Román.) 20 mg PO DAILY@0630 [facility] Last Admin: 10/03/25 04:01 Dose: 20 mg Documented By: LANDON Ondansetron HCl (Ondansetron Hcl 4 Mg/2 Ml Vial) 4 mg IVPUSH Q6H PRN PRN Reason: Nausea and Vomiting Pharmacy Consult (Consult Rx Etoh Phenob Im/Po) 1 each MISCELLANE ONCE PRN; Protocol PRN Reason: Consult order Phenobarbital (Phenobarbital 15 Mg Tablet) 45 mg PO BID [facility]; Protocol Stop: 10/04/25 21:01 Phenobarbital (Phenobarbital 30 Mg Tablet) 30 mg PO BID [facility]; Protocol Stop: 10/06/25 21:01 Phenobarbital (Phenobarbital 30 Mg Tablet) 30 mg PO DAILY [facility]; Protocol Stop: 10/08/25 09:01 Prazosin HCl (Prazosin Hcl 1 Mg Capsule) 3 mg PO BEDTIME [facility]; Protocol Last Admin: 10/02/25 22:26 Dose: 3 mg Documented By: LANDON Sertraline HCl (Sertraline Hcl 50 Mg Tablet) 50 mg PO DAILY [facility] Sodium Chloride (0.9 % Sodium Chloride Flush 3 Ml Syringe) 3 ml IVFLUSH QSHIFT [facility] Last Admin: 10/02/25 22:58 Dose: Not Given Documented By: LANDON Non-Admin Reason: IV Running Sucralfate (Sucralfate 1 Gm Tablet) 1 gm PO QIDACHS [facility] Last Admin: 10/02/25 22:27 Dose: 1 gm Documented By: LANDON Labs 10/02/25 13:52 10/03/25 07:08 Labs: Laboratory Results - last 24 hr 10/02/25 10/02/25 10/03/25 11:43 13:52 07:08 MCV 94.4 MCH 33.1 H MCHC 35.1 RDW 14.2 Plt Count 110 L D MPV 8.9 L Absolute Nucleated RBC 0.000 Nucleated RBC % (auto) 0.0 Anion Gap 16 10 L Estim Creat Clear Calc 187.1 218.9 Estimated GFR > 60 > 60 Random Glucose 109 83 Calcium 8.6 8.3 L Magnesium 0.9 L* Influenza Type A (PCR) NEGATIVE Influenza Type B (PCR) NEGATIVE RSV RNA Qual (PCR) NEGATIVE SARS-CoV-2 RNA (RT-PCR) NEGATIVE Assessment and Plan (1) Alcohol withdrawal: Status: Acute Plan 39 year old male with history of alcohol dependence, multiple admissions for alcohol withdrawal, urinary retention, PTSD, anxiety who presented to the emergency department 3 times on October 01, now being admitted for alcohol withdrawal Alcohol dependence with alcohol withdrawal Phenobarbital protocol follow CIWA IV thiamine Follow electrolytes and replace as needed. Repeat labs being obtained now Seizure precautions Addiction medicine consultation h/o urinary retention main in place for two weeks, removed in ED today around 11 am (10/02); due to void UTI le+/no bacteruria but urine culture grew:staph /enteroccoccus id eval. h/o gastritis episode of coffee ground emesis last admission thought to be due to MW tear or esophagitis (thickening of the distal esophagus was seen on imaging) he had no further episodes of coffee ground emesis and did not require blood transfusion and thus EGD was deferred to outpatient setting continue PPI and sucralfate (for one more week), outpatient follow up with GI . Diarrhae :? chronic check cdiff , gip panel thrombocytopenia due to etoh use mood continue sertraline, prazosin, gabapentin, clonidine morbid obesity BMI 30.1 weight loss encouraged dvt ppx - due to recent admission with coffee ground emesis/gastritis patient will liekly require two midnight stay in the hospital for management of etoh withdrawal requiring phenobarbital protocol, close monitoring of CIWA and monitoring of electrolytes Quality Stroke Does the patient have a stroke diagnosis?: No VTE Prior VTE?: No VTE Risk Level:: Medical - moderate - high VTE Device Contraindication: N/A - Device Ordered VTE Drug Contraindication: Treatment Not Indicated
[2025-10-03] MEDS: 0.9 % Sodium Chloride Flush 3 ML SYRINGE IVFLUSH (08:42)
[2025-10-03] MEDS: PHENobarbital 15 MG TABLET 45 MG PO ×2 (08:42→21:48)
[2025-10-03 09:57] LABS: Magnesium 1.7 mg/dL (1.6-2.6)
[2025-10-03 11:41] VITALS: BP 120/73; PULSE 71; RESP 18; TEMP 36.8; O2SAT 97
--- NOTE | 2025-10-03 12:36 | MHC.RECOVRN ---
Addendum entered by Qi Meraz RN 10/03/25 14:26: Pt reports that almost immedicatly following his last D/C on 09/24 he started drinking. He went to a hotel thinking it would be better than his current living situation and again due to isolation (per his report) he started drinking up to 30 nips/day. Addendum entered by Qi Meraz RN 10/03/25 12:49: Request restart of Naltrexone prior to D/C if appropriate Original Note: Addiction consult received for patient with ETOH dependence with W/D; Who was BIBA on 10/01/25 for pain relating to urinary cath. He was subsequently admitted to the medical floor for ETOH W/D. Recovery evaluation completed by the care team. Please see assessment for additional details. Pt no longer wanting [facility] detox as he was admitted here for detox. Plan: Pt. considering f/u with recovery coaching as well as community meetings and connection with AA peers. Pt has naltrexone prescribed and is connected to [facility] Next appt. will be walk in once pt. D/C from [facility] [place] [place]. Clearance Rep referral sent to [facility] during last inpt stay and pt. missed intake appt. on 10/02/25. Pt will consider walk in to [facility] in [place] once D/C from [facility] [place] [place]. ACS available PRN ??
[2025-10-03 15:44] VITALS: BP 121/81; PULSE 80; RESP 18; TEMP 36.9; O2SAT 95
[2025-10-03 15:49] LABS: CDiff Gene PCR NEGATIVE (Negative)
[2025-10-03] MEDS: A and D Ointment 56.7 GM TUBE 1 APPL TOPICAL (15:49)
[2025-10-03] MEDS: vancomycin/NS 2,000 MG/500 ML PLAST..BAG 250 MG IV (15:49)
--- NOTE | 2025-10-03 16:03 | PHA.PROG ---
Admission Date/Time: October 02, 2025 12:51 Indication: UTI Weight in k.254 kg Adjusted body weight in Kg: [place] body weight in Kg: Obesity Dosing Indication % IBW: BMI 30.1 Serum Creatinine - Last 168 Hours 10/01/25 10/02/25 10/03/25 21:11 13:52 07:08 Creatinine 0.59 0.62 0.53 Estimated CrCl and GFR - Last 168 Hours 10/01/25 10/02/25 10/03/25 21:11 13:52 07:08 Estim Creat Clear Calc 196.6 187.1 218.9 Estimated GFR > 60 > 60 > 60 Vancomycin Loading Dose: 2000mg X1 Current Vancomycin Dosing Regimen: 750mg Q8H Vancomycin Monitoring using AUC goal of 400 - 600 range with trough as surrogate marker: 416 Date and Time for next Vancomycin Level to be drawn: 10/04 @1500 Pharmacist Comments on Vancomycin Plan: Pt's BMI elevated, renal function stable. Predicted trough 13.9. Vancomycin dosing will take advantage of [employer] as a clinical decision support tool that uses Bayesian modeling to calculate individual patient's pharmacokinetic parameters and forecast the patient's drug concentration time course with the target goal AUC 24 range of 400 - 600 mg/L/hr.
[2025-10-03 20:00] VITALS: BP 133/72; PULSE 92; RESP 18; TEMP 36.5; O2SAT 99
--- NOTE | 2025-10-03 23:51 | W.PM.IDCN ---
History of Present Illness Data of Consult Service Date: 10/03/25 Requesting physician: Herson Cantor Primary Care Provider: Unknown Physician HPI Reason for consult: hematuria,urinary retention He presents with hematuria and urinary retention. He then received Lord catheter and then dysurian and hematuria. He also is in under alcohol withdrawal protocol He reports kidney stone at [age] and age 24 Review of Systems Review of Systems: Yes all other systems are reviewed and are negative PMFSH Past Medical History Medical History PTSD (post-traumatic stress disorder) Gout Sternal fracture Class 1 obesity Alcoholic cirrhosis of liver Exacerbation of gout Alcohol abuse Anxiety Family History Family history: reviewed and not pertinent Surgical History Surgical History History of ankle surgery Social History Social History Household Members: Other Housing: Other Housing Other:: [facility] Do you presently have visiting nurse or other home services: No Alcohol intake: current Alcohol intake frequency: 3 or more drinks per day Alcohol type: hard liquor Patient Tobacco Use Status: Never used Tobacco Smoked in Last 30 Days: Yes Use of substances other than those prescribed or required for medical reasons: Yes Substance Use Type: Crack/Cocaine Substance Use Frequency: Chronic Longstanding Have you been hit, kicked, punched, or otherwise hurt by someone within the past year? If so, by whom?: No Do you feel safe in your current relationship?: No Current Relationship Is there a partner from a previous relationship who is making you feel unsafe now?: No Are you made to feel afraid or neglected: No Advance Directives: No Advance Directives Information Provided: No Advance Directives on File: No Do you have a plan to hurt others: No Plan Recently lost weight without trying: No Nutrition Risks: No Nutritional Risk Poor oral hygiene: No service: Yes Meds Allergies Allergy/AdvReac Type Severity Reaction Status Date / Time azithromycin (AZITHROMYCIN) Allergy Unknown Unknown Verified 10/01/25 20:16 Active Medications: Current Medications Acetaminophen (Acetaminophen 325 Mg Tablet) 975 mg PO Q6H PRN PRN Reason: Pain, Mild 1-3,fever,headache Last Admin: 10/03/25 21:47 Dose: 975 mg Calcium Carbonate (Calcium Carbonate 750 Mg Tab.Chew) 750 mg PO Q4H PRN PRN Reason: Heartburn Clonidine HCl (Clonidine Hcl 0.1 Mg Tablet) 0.1 mg PO BEDTIME [facility]; Protocol Last Admin: 10/03/25 21:48 Dose: 0.1 mg Folic Acid (Folic Acid 1 Mg Tablet) 1 mg PO DAILY [facility] Last Admin: 10/03/25 08:42 Dose: 1 mg Gabapentin (Gabapentin 400 Mg Capsule) 800 mg PO TID [facility] Last Admin: 10/03/25 21:47 Dose: 800 mg Thiamine HCl 400 mg/ Sodium (Chloride) 104 mls @ 208 mls/hr IV Q12H [facility] Last Infusion: 10/03/25 13:41 Dose: Infused Vancomycin HCl 500 mg/ Sodium (Chloride) 110 mls @ 110 mls/hr IV Q8H [facility] Magnesium Hydroxide (Milk Of Magnesia 30 Ml Oral.Susp) 30 ml PO DAILY PRN PRN Reason: Constipation Magnesium Oxide (Magnesium Oxide 400 Mg Tablet) 400 mg PO BIDPC [facility] Last Admin: 10/03/25 15:48 Dose: 400 mg Melatonin (Melatonin 3 Mg Tablet) 6 mg PO BEDTIME PRN PRN Reason: Insomnia Last Admin: 10/03/25 21:47 Dose: 6 mg Omeprazole (Omeprazole 20 Mg Capsule.Dr) 20 mg PO DAILY@0630 [facility] Last Admin: 10/03/25 04:01 Dose: 20 mg Ondansetron HCl (Ondansetron Hcl 4 Mg/2 Ml Vial) 4 mg IVPUSH Q8H PRN PRN Reason: Nausea and Vomiting Last Admin: 10/03/25 20:22 Dose: 4 mg Pharmacy Consult (Consult Rx Etoh Phenob Im/Po) 1 each MISCELLANE ONCE [facility]; Protocol PRN Reason: Consult order Pharmacy Consult (Consult Rx Vancomycin Dosing) 1 each MISCELLANE DAILY PRN PRN Reason: Consult order Phenobarbital (Phenobarbital 15 Mg Tablet) 45 mg PO BID [facility]; Protocol Stop: 10/04/25 21:01 Last Admin: 10/03/25 21:48 Dose: 45 mg Phenobarbital (Phenobarbital 30 Mg Tablet) 30 mg PO BID [facility]; Protocol Stop: 10/06/25 21:01 Phenobarbital (Phenobarbital 30 Mg Tablet) 30 mg PO DAILY [facility]; Protocol Stop: 10/08/25 09:01 Prazosin HCl (Prazosin Hcl 1 Mg Capsule) 3 mg PO BEDTIME [facility]; Protocol Last Admin: 10/03/25 21:48 Dose: 3 mg Sertraline HCl (Sertraline Hcl 50 Mg Tablet) 50 mg PO DAILY [facility] Last Admin: 10/03/25 08:42 Dose: 50 mg Sodium Chloride (0.9 % Sodium Chloride Flush 3 Ml Syringe) 3 ml IVFLUSH QSHIFT [facility] Last Admin: 10/03/25 16:59 Dose: Not Given Sucralfate (Sucralfate 1 Gm Tablet) 1 gm PO QIDACHS [facility] Last Admin: 10/03/25 21:47 Dose: 1 gm Vitamin A/Vitamin D (A And D Ointment 56.7 Gm Tube) 1 appl TOPICAL BID PRN; Protocol PRN Reason: rash Last Admin: 10/03/25 15:49 Dose: 1 appl Home Medications ?Medication ?Instructions ?Recorded ?Confirmed ?Last Taken ?Type folic acid 1 mg tablet 1 mg PO DAILY 07/31/25 10/02/25 08/10/25 History thiamine HCl (vitamin B1) 100 mg 100 mg PO DAILY 07/31/25 10/02/25 08/10/25 History tablet clonidine HCl 0.1 mg tablet 0.1 mg PO BEDTIME 08/11/25 10/02/25 08/10/25 History doxepin 10 mg capsule 10 mg PO BEDTIME PRN Sleep 08/11/25 10/02/25 08/10/25 History gabapentin 400 mg tablet 800 mg PO TID 08/11/25 10/02/25 08/10/25 History prazosin 1 mg capsule 3 mg PO BEDTIME 08/11/25 10/02/25 08/10/25 History melatonin 5 mg tablet 5 mg PO BEDTIME PRN Sleep 09/20/25 10/02/25 Unknown History sertraline 100 mg tablet 50 mg PO DAILY 09/20/25 10/02/25 Unknown History Physical Exam Vital Signs: Vital Signs: Last Vital Signs Temp 97.7 F 10/03/25 20:00 Pulse 92 10/03/25 20:00 Resp 18 10/03/25 20:00 BP 133/72 10/03/25 20:00 Pulse Ox 99 10/03/25 20:00 O2 Del Method Room Air 10/03/25 20:00 BMI result Body Mass Index 30.1 Const: General: cooperative HEENT: Head: Yes normal to inspection Face and sinus: Yes normal facial exam Mouth: Normal oral and palatal mucosa present Teeth and gingiva: dentition normal Eyes: General: appearance normal, both eyes and all related structures Pupils: Equal, round and reactive pupils present Resp: Effort & Inspection: normal respiratory effort Cardio: Rate: regular rate Rhythm: regular rhythm GI: Palpation (GI): Soft to palpation and nontender : General: Yes no CVA tenderness Back/Spine/Pelvis: Back: no CVA tenderness Skin: General skin exam: no rashes or lesions noted Neuro: General: moves all extremities Cranial nerves: Yes Equal, round and reactive pupils present Extrem: General: Yes normal to inspection Psych: Other: not good historian Results Labs 10/02/25 13:52 10/03/25 07:08 Labs: BMP 10/03/25 07:08 Sodium 135 Potassium 3.7 Chloride 105 Carbon Dioxide 24 BUN < 3 L Creatinine 0.53 Calcium 8.3 L Assessment and Plan (1) Alcohol abuse: Status: Acute (2) Urinary retention with incomplete bladder emptying: Status: Acute Plan He has some resistance pattern possible with staph and enterococcus in urin Agree with Vancomycin ,possible po Doxycycline outpatent Urology followupa.
[2025-10-04] VITALS (7 sets, daily range): BP systolic 100–129; BP diastolic 63–84; PULSE 85–92; RESP 18; TEMP 36.6–37.3; O2SAT 94–99
--- NOTE | 2025-10-04 04:32 | PC.NURSE ---
SEB 20, MD Andre notified, prn zofran given, pt verbalizes he would like to wait on taking tylenol until antimetic kicks in, declines to have this nurse ask for IV tylenol. patient able to remain in bed without restlessness, states needs are otherwise met at this time, call field in reach, fall prx in place. awaiting MD to read/respond
--- NOTE | 2025-10-04 04:58 | PC.NURSE ---
MD Medina and Thai at bedside
--- NOTE | 2025-10-04 05:19 | PM.EVENT ---
Event Note Date of Service: 10/04/25 Event Note: CIWA score 20. The patient was evaluated at bedside, anxiety, tremulous, endorsed headache and nausea. Phenobarbitual 130 mg IM x 1. Valiuim 5 mg IV q 6 hrs PRN ordered for anxiety. Time Spent With Patient Time: Total time managing care of this patient today ____ minutes.
[2025-10-04] MEDS: diazePAM 10 MG/2 ML CARTRIDGE 5 MG IVPUSH ×3 (05:53→22:07)
[2025-10-04 07:50] LABS: Creatinine Clr Calc Pharmacy 207.1; Estimated Glomerular Filt Rate > 60
[2025-10-04 08:35] LABS: Anion Gap 16 (12-20); Blood Urea Nitrogen 4 mg/dL (9-16); Calcium 8.7 mg/dL (8.4-10.2); Carbon Dioxide 17 mmol/L (22-29); Chloride 107 mmol/L (96-108); Potassium 3.7 mmol/L (3.3-5.1); Sodium 136 mmol/L (135-145)
[2025-10-04] MEDS: PHENobarbital 15 MG TABLET 45 MG PO ×2 (08:44→22:06)
[2025-10-04 09:44] LABS: E. coli EAEC Not Detected (Not Detect.); E. coli EPEC Not Detected (Not Detect.); E. coli ETEC Not Detected (Not Detect.); E. coli STEC Not Detected (Not Detect.); Shigella sp./EIEC Not Detected (Not Detect.)
[2025-10-04] MEDS: 0.9 % Sodium Chloride Flush 3 ML SYRINGE IVFLUSH ×2 (10:50→16:50)
--- NOTE | 2025-10-04 11:38 | MHC.RECOVRN ---
T/W F/U with pt. in [id number] to offer education and support Pt called his friend (from [place]) yesterday and friend agreed to help him. We talked about what this could look like. We talked further about [facility] programs and [facility] program in [place]. Return to use prevention education provided including community support and living environment. Plan: Pt to walk over to [facility] upon D/C for F/U Naltrexone appt. Pt to resume Naltrexone when appropriate Pt to call friend to drive/meet him at home upon D/C to help him clean out his apt. (alcohol) and then go to a meeting. Pt to call [facility] to see if they can offer routine check ins Pt to call [facility] on Sun to schedule [facility] appt. ACS to f/u on 10/05 to assist pt with above calls. ACS available as needed
[2025-10-04] MEDS: Betamethasone Dip Aug 0.05% Cr 15 GM TUBE 1 APPL TOPICAL (13:11)
--- NOTE | 2025-10-04 13:27 | P.PNIM_ITS ---
Subjective Subjective Date of Service: 10/04/25 Interval History: alcohol withdrawals, uti Review of Systems Overnight events noted Patient keep having severe withdrawal symptoms in between requiring phenobarb IM. This morning somewhat anxious and tremulous. Physical Exam 2 Exam: Exam: Appearance: Alert.? Oriented X3. Anxious and tremulous cvs: rrr, [id number] res: clear to auscultation ,no rhonchii or wheezing abd: no rebound or guarding ,nt, bs present. ext pulses present , no cyanosis . neuro: axo3 , nonfocal. Vital Signs: Vital Signs: Last Vital Signs Temp 97.8 F 10/04/25 11:32 Pulse 86 10/04/25 11:32 Resp 18 10/04/25 11:32 BP 122/68 10/04/25 11:32 Pulse Ox 98 10/04/25 11:32 O2 Del Method Room Air 10/04/25 11:32 BMI result Body Mass Index 30.1 Objective Data Active Medications Acetaminophen (Acetaminophen 325 Mg Tablet) 975 mg PO Q6H PRN PRN Reason: Pain, Mild 1-3,fever,headache Last Admin: 10/04/25 08:42 Dose: 975 mg Documented By: RYAN Betamethasone Dipropion Augmented (Betamethasone Dip Aug 0.05% Cr 15 Gm Tube) 1 appl TOPICAL DAILY THOMAS; Protocol Last Admin: 10/04/25 13:11 Dose: 1 appl Documented By: RYAN Calcium Carbonate (Calcium Carbonate 750 Mg Tab.Chew) 750 mg PO Q4H PRN PRN Reason: Heartburn Clonidine HCl (Clonidine Hcl 0.1 Mg Tablet) 0.1 mg PO BEDTIME [facility]OMAS; Protocol Last Admin: 10/03/25 21:48 Dose: 0.1 mg Documented By: MILIND Diazepam (Diazepam 10 Mg/2 Ml Cartridge) 5 mg IVPUSH Q6H PRN PRN Reason: Anxiety Last Admin: 10/04/25 10:55 Dose: 5 mg Documented By: RYAN Folic Acid (Folic Acid 1 Mg Tablet) 1 mg PO DAILY THOMAS Last Admin: 10/04/25 08:45 Dose: 1 mg Documented By: RYAN Gabapentin (Gabapentin 400 Mg Capsule) 800 mg PO TID THOMAS Last Admin: 10/04/25 08:43 Dose: 800 mg Documented By: RYAN Thiamine HCl 400 mg/ Sodium (Chloride) 104 mls @ 208 mls/hr IV Q12H [facility] Last Admin: 10/04/25 13:15 Dose: 208 mls/hr Documented By: RYAN Vancomycin HCl 500 mg/ Sodium (Chloride) 110 mls @ 110 mls/hr IV Q8H [facility] Last Infusion: 10/04/25 10:59 Dose: Infused Documented By: RYAN Loperamide HCl (Loperamide Hcl 2 Mg Capsule) 2 mg PO Q4H PRN PRN Reason: Diarrhea Last Admin: 10/04/25 11:42 Dose: 2 mg Documented By: RYAN Magnesium Hydroxide (Milk Of Magnesia 30 Ml Oral.Susp) 30 ml PO DAILY PRN PRN Reason: Constipation Magnesium Oxide (Magnesium Oxide 400 Mg Tablet) 400 mg PO BIDPC [facility] Last Admin: 10/04/25 08:43 Dose: 400 mg Documented By: RYNA Melatonin (Melatonin 3 Mg Tablet) 6 mg PO BEDTIME PRN PRN Reason: Insomnia Last Admin: 10/03/25 21:47 Dose: 6 mg Documented By: MILIND Omeprazole (Omeprazole 20 Mg Capsule.Dr) 20 mg PO DAILY@0630 [facility] Last Admin: 10/04/25 06:04 Dose: 20 mg Documented By: MILIND Ondansetron HCl (Ondansetron Hcl 4 Mg/2 Ml Vial) 4 mg IVPUSH Q8H PRN PRN Reason: Nausea and Vomiting Last Admin: 10/04/25 08:46 Dose: 4 mg Documented By: RYAN Pharmacy Consult (Consult Rx Etoh Phenob Im/Po) 1 each MISCELLANE ONCE PRN; Protocol PRN Reason: Consult order Pharmacy Consult (Consult Rx Vancomycin Dosing) 1 each MISCELLANE DAILY PRN PRN Reason: Consult order Phenobarbital (Phenobarbital 15 Mg Tablet) 45 mg PO BID [facility]; Protocol Stop: 10/04/25 21:01 Last Admin: 10/04/25 08:44 Dose: 45 mg Documented By: RYAN Phenobarbital (Phenobarbital 30 Mg Tablet) 30 mg PO BID [facility]; Protocol Stop: 10/06/25 21:01 Phenobarbital (Phenobarbital 30 Mg Tablet) 30 mg PO DAILY [facility]; Protocol Stop: 10/08/25 09:01 Prazosin HCl (Prazosin Hcl 1 Mg Capsule) 3 mg PO BEDTIME [facility]; Protocol Last Admin: 10/03/25 21:48 Dose: 3 mg Documented By: MILIND Sertraline HCl (Sertraline Hcl 50 Mg Tablet) 50 mg PO DAILY [facility] Last Admin: 10/04/25 08:45 Dose: 50 mg Documented By: RYAN Sodium Chloride (0.9 % Sodium Chloride Flush 3 Ml Syringe) 3 ml IVFLUSH QSHIFT [facility] Last Admin: 10/04/25 10:50 Dose: 3 ml Documented By: RYAN Sucralfate (Sucralfate 1 Gm Tablet) 1 gm PO QIDACHS [facility] Last Admin: 10/04/25 11:42 Dose: 1 gm Documented By: RYAN Vitamin A/Vitamin D (A And D Ointment 56.7 Gm Tube) 1 appl TOPICAL BID PRN; Protocol PRN Reason: rash Last Admin: 10/03/25 15:49 Dose: 1 appl Documented By: TARUN Labs 10/02/25 13:52 10/04/25 07:29 Labs: Laboratory Results - last 24 hr 10/03/25 10/04/25 10/04/25 14:38 07:29 07:35 Hold Purple Top SEE NOTE Anion Gap 16 Estim Creat Clear Calc 207.1 Estimated GFR > 60 Random Glucose 91 Calcium 8.7 Stl C. cayetanensis PCR Not Detected Stool Rotavirus A PCR Not Detected Stl Adenov F 40/41 PCR Not Detected Stool Astrovirus (PCR) Not Detected Stool Campylobacter PCR Not Detected Stool Cryptosporidium PCR Not Detected Stl Sh Tox Pr E STEC PCR Not Detected Stool E coli O157 PCR Not applicable Stl Enterotoxigenic E PCR Not Detected Stool EPEC (PCR) Not Detected Stool EAEC (PCR) Not Detected Stl E. histolytica PCR Not Detected Stool Giardia Lamblia PCR Not Detected Stl P. shigelloides PCR Not Detected Stool Salmonella PCR Not Detected Stool Sapovirus (PCR) Not Detected Stl Shigella/EIEC PCR Not Detected St Y.enterocolitica PCR Not Detected Stool Vibrio (PCR) Not Detected Stl Vibrio cholerae PCR Not Detected Stl Norovirus GI/GII PCR Not Detected C. difficile Tox B Gene NEGATIVE Assessment and Plan (1) Anxiety: Status: Acute (2) Alcohol withdrawal: Status: Acute (3) UTI (urinary tract infection): Status: Acute Assessment and Plan: 39 year old male with history of alcohol dependence, multiple admissions for alcohol withdrawal, urinary retention, PTSD, anxiety who presented to the emergency department 3 times on October 01, now being admitted for alcohol withdrawal Alcohol dependence with alcohol withdrawal Phenobarbital protocol follow CIWA-last night was around 20 -required impheno. IV thiamine, folic acid Seizure precautions Addiction medicine consultation h/o urinary retention main in place for two weeks, removed in ED today around 11 am (10/02); due to void UTI le+/no bacteruria but urine culture grew:staph /enteroccoccus id eval-continue iv vanco and will switch to po doxycycline upon discharge. h/o gastritis episode of coffee ground emesis last admission thought to be due to MW tear or esophagitis (thickening of the distal esophagus was seen on imaging) he had no further episodes of coffee ground emesis and did not require blood transfusion and thus EGD was deferred to outpatient setting continue PPI and sucralfate (for one more week), outpatient follow up with GI . Diarrhae :? chronic check cdiff , gip panel: negative added loperamide thrombocytopenia due to etoh use mood continue sertraline, prazosin, gabapentin, clonidine morbid obesity BMI 30.1 weight loss encouraged dvt ppx - due to recent admission with coffee ground emesis/gastritis ongoing need for stay hospital for management of etoh withdrawal requiring phenobarbital protocol, close monitoring of CIWA and monitoring of electrolytes Quality Stroke Does the patient have a stroke diagnosis?: No VTE Prior VTE?: No VTE Risk Level:: Medical - moderate - high VTE Device Contraindication: N/A - Device Ordered VTE Drug Contraindication: Treatment Not Indicated
[2025-10-05] VITALS (10 sets, daily range): BP systolic 109–131; BP diastolic 60–88; PULSE 68–90; RESP 14–20; TEMP 36.1–37.1; O2SAT 94–98
--- NOTE | 2025-10-05 06:35 | PC.NURSE ---
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 MD Delacruz notified and meds ordered
[2025-10-05] MEDS: diazePAM 10 MG/2 ML CARTRIDGE 5 MG IVPUSH ×2 (06:40→16:51)
[2025-10-05 07:44] LABS: Creatinine Clr Calc Pharmacy 207.1; Estimated Glomerular Filt Rate > 60
[2025-10-05] MEDS: 0.9 % Sodium Chloride Flush 3 ML SYRINGE IVFLUSH (08:15)
[2025-10-05] MEDS: Betamethasone Dip Aug 0.05% Cr 15 GM TUBE 1 APPL TOPICAL (08:15)
--- NOTE | 2025-10-05 11:01 | HO.ADDICT_ITS ---
History of Present Illness Date of Service: 10/05/2025 Chief Complaint: alcohol withdrawal Reason for Consult: AUD Sources of Information: patient interviewed and chart reviewed HPI Narrative: Patient is a 39 year old male with AUD, medically admitted with acute alcohol withdrawal and initiated on phenobarbital ETOH in ED 450 Mg 0/7 --since repleted and lipase 150 Seen in room 4458-known to t/w via previous admissions-most recently approx 2 weeks ago Patient reports that following last admission, he was walking over to the [facility] for an intake, and decided shelter down the hallway, that I was just going to turn around and go home instead . He reports that he wants to stop drinking all together , however is having difficulty with engaging in any recovery oriented activities or referrals--likely worsened by his depression. In terms of withdrawal, he reports ongoing tremor and anxiety. He presents as anxious, and also quite circumstantial. He continues to report displeasure with where he is living, and feels that it contributes to his depression and isolation. Expressing frustration with himself for not following up with referrals at discharge. States that his goal is to go to [facility] following discharge to complete Captain Waiter/Waitress intake interview. Medical Evaluation Reviewed: Yes Review of Systems Constitutional: Reports as per HPI Diagnostics Vital Signs (24Hr): Vital Signs - 24 hr 10/04/25 11:32 10/04/25 15:45 10/04/25 19:28 Temperature 97.8 F 98.6 F 99.1 F Pulse Rate 86 88 92 Respiratory Rate 18 18 18 Blood Pressure 122/68 124/80 129/75 Pulse Oximetry 98 97 94 Oxygen Delivery Method Room Air Room Air Room Air 10/05/25 00:00 10/05/25 04:00 10/05/25 06:41 Temperature 97.3 F 98.7 F Pulse Rate 90 68 80 Respiratory Rate 16 16 16 Blood Pressure 109/66 110/66 Pulse Oximetry 97 96 Oxygen Delivery Method Room Air Room Air 10/05/25 06:49 10/05/25 07:46 Temperature 98.6 F Pulse Rate 82 80 Respiratory Rate 16 18 Blood Pressure 118/88 121/78 Pulse Oximetry 96 95 Oxygen Delivery Method Room Air Room Air BMI result Body Mass Index 30.1 Labs 10/02/25 13:52 10/05/25 06:09 Labs: Laboratory Results - last 48 hr 1210/04/25 10/04/25 14:38 07:29 07:35 Hold Purple Top SEE NOTE Sodium 136 Potassium 3.7 Chloride 107 Carbon Dioxide 17 L Anion Gap 16 BUN 4 L Creatinine 0.56 Estim Creat Clear Calc 207.1 Estimated GFR > 60 Random Glucose 91 Calcium 8.7 Stl C. cayetanensis PCR Not Detected Stool Rotavirus A PCR Not Detected Stl Adenov F 40/41 PCR Not Detected Stool Astrovirus (PCR) Not Detected Stool Campylobacter PCR Not Detected Stool Cryptosporidium PCR Not Detected Stl Sh Tox Pr E STEC PCR Not Detected Stool E coli O157 PCR Not applicable Stl Enterotoxigenic E PCR Not Detected Stool EPEC (PCR) Not Detected Stool EAEC (PCR) Not Detected Stl E. histolytica PCR Not Detected Stool Giardia Lamblia PCR Not Detected Stl P. shigelloides PCR Not Detected Stool Salmonella PCR Not Detected Stool Sapovirus (PCR) Not Detected Stl Shigella/EIEC PCR Not Detected St Y.enterocolitica PCR Not Detected Stool Vibrio (PCR) Not Detected Stl Vibrio cholerae PCR Not Detected Stl Norovirus GI/GII PCR Not Detected Random Vancomycin C. difficile Tox B Gene NEGATIVE 10/04/25 10/05/25 15:00 06:09 Hold Purple Top Sodium Potassium Chloride Carbon Dioxide Anion Gap BUN Creatinine 0.56 Estim Creat Clear Calc 207.1 Estimated GFR > 60 Random Glucose Calcium Stl C. cayetanensis PCR Stool Rotavirus A PCR Stl Adenov F 40/41 PCR Stool Astrovirus (PCR) Stool Campylobacter PCR Stool Cryptosporidium PCR Stl Sh Tox Pr E STEC PCR Stool E coli O157 PCR Stl Enterotoxigenic E PCR Stool EPEC (PCR) Stool EAEC (PCR) Stl E. histolytica PCR Stool Giardia Lamblia PCR Stl P. shigelloides PCR Stool Salmonella PCR Stool Sapovirus (PCR) Stl Shigella/EIEC PCR St Y.enterocolitica PCR Stool Vibrio (PCR) Stl Vibrio cholerae PCR Stl Norovirus GI/GII PCR Random Vancomycin 6.0 L C. difficile Tox B Gene Mental Status Exam Mental Status Exam Level of Consciousness: Awake and Alert Patient Behavior: Appropriate, Cooperative and Anxious Speech Pattern: Clear Thought Process: Rumination Thought Content: positive for [place] and positive for Circumstantial Judgement: Fair Medications Medications Current Medications Acetaminophen (Acetaminophen 325 Mg Tablet) 975 mg PO Q6H PRN PRN Reason: Pain, Mild 1-3,fever,headache Last Admin: 10/05/25 08:14 Dose: 975 mg Betamethasone Dipropion Augmented (Betamethasone Dip Aug 0.05% Cr 15 Gm Tube) 1 appl TOPICAL DAILY [facility]; Protocol Last Admin: 10/04/25 13:11 Dose: 1 appl Calcium Carbonate (Calcium Carbonate 750 Mg Tab.Chew) 750 mg PO Q4H PRN PRN Reason: Heartburn Clonidine HCl (Clonidine Hcl 0.1 Mg Tablet) 0.1 mg PO BEDTIME [facility]; Protocol Last Admin: 10/04/25 22:06 Dose: 0.1 mg Diazepam (Diazepam 10 Mg/2 Ml Cartridge) 5 mg IVPUSH ONCE PRN PRN Reason: anxiety/restlessness Last Admin: 10/05/25 06:40 Dose: 5 mg Folic Acid (Folic Acid 1 Mg Tablet) 1 mg PO DAILY [facility] Last Admin: 10/05/25 08:14 Dose: 1 mg Gabapentin (Gabapentin 400 Mg Capsule) 800 mg PO TID [facility] Last Admin: 10/05/25 08:14 Dose: 800 mg Thiamine HCl 400 mg/ Sodium (Chloride) 104 mls @ 208 mls/hr IV Q12H [facility] Last Infusion: 10/05/25 03:23 Dose: Infused Vancomycin HCl 1,000 mg/ (Sodium Chloride) 270 mls @ 270 mls/hr IV Q8H [facility] Last Infusion: 10/05/25 10:28 Dose: Infused Loperamide HCl (Loperamide Hcl 2 Mg Capsule) 2 mg PO Q4H PRN PRN Reason: Diarrhea Last Admin: 10/04/25 16:48 Dose: 2 mg Magnesium Hydroxide (Milk Of Magnesia 30 Ml Oral.Susp) 30 ml PO DAILY PRN PRN Reason: Constipation Magnesium Oxide (Magnesium Oxide 400 Mg Tablet) 400 mg PO BIDPC [facility] Last Admin: 10/05/25 08:13 Dose: 400 mg Melatonin (Melatonin 3 Mg Tablet) 6 mg PO BEDTIME PRN PRN Reason: Insomnia Last Admin: 10/04/25 22:07 Dose: 6 mg Omeprazole (Omeprazole 20 Mg Capsule.Dr) 20 mg PO DAILY@0630 [facility] Last Admin: 10/05/25 06:45 Dose: Not Given Ondansetron HCl (Ondansetron Hcl 4 Mg/2 Ml Vial) 4 mg IVPUSH Q8H PRN PRN Reason: Nausea and Vomiting Last Admin: 10/04/25 17:01 Dose: 4 mg Pharmacy Consult (Consult Rx Etoh Phenob Im/Po) 1 each MISCELLANE ONCE PRN; Protocol PRN Reason: Consult order Pharmacy Consult (Consult Rx Vancomycin Dosing) 1 each MISCELLANE DAILY PRN PRN Reason: Consult order Phenobarbital (Phenobarbital 30 Mg Tablet) 30 mg PO BID [facility]; Protocol Stop: 10/06/25 21:01 Last Admin: 10/05/25 08:14 Dose: 30 mg Phenobarbital (Phenobarbital 30 Mg Tablet) 30 mg PO DAILY [facility]; Protocol Stop: 10/08/25 09:01 Prazosin HCl (Prazosin Hcl 1 Mg Capsule) 3 mg PO BEDTIME [facility]; Protocol Last Admin: 10/04/25 22:06 Dose: 3 mg Sertraline HCl (Sertraline Hcl 50 Mg Tablet) 50 mg PO DAILY [facility] Last Admin: 10/05/25 08:14 Dose: 50 mg Sodium Chloride (0.9 % Sodium Chloride Flush 3 Ml Syringe) 3 ml IVFLUSH QSHIFT [facility] Last Admin: 10/05/25 08:15 Dose: 3 ml Sucralfate (Sucralfate 1 Gm Tablet) 1 gm PO QIDACHS [facility] Last Admin: 10/05/25 08:14 Dose: 1 gm Vitamin A/Vitamin D (A And D Ointment 56.7 Gm Tube) 1 appl TOPICAL BID PRN; Protocol PRN Reason: rash Last Admin: 10/03/25 15:49 Dose: 1 appl Allergies Allergies Allergy/AdvReac Type Severity Reaction Status Date / Time azithromycin (AZITHROMYCIN) Allergy Unknown Unknown Verified 10/01/25 20:16 Assessment & Plan Assessment & Plan (1) Alcohol use disorder, severe, dependence: Status: Resolved Code(s): F10.20 - Alcohol dependence, uncomplicated Assessment and Plan: * acute withdrawal --improving, although he has required additional dose of phenobarbital to address tremor and anxiety * continue thiamine and folic acid * increase sertraline to 100mg QD * start naltrexone 50mg QD * donor services specialist to follow up Total time managing care of this patient today __30__ minutes. PMFSH Past Medical History Medical History PTSD (post-traumatic stress disorder) Gout Sternal fracture Class 1 obesity Alcoholic cirrhosis of liver Exacerbation of gout Alcohol abuse Anxiety Family History Family history: reviewed and not pertinent Surgical History Surgical History History of ankle surgery Social History Social History Household Members: Other Housing: Other Housing Other:: 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 If so, by whom?: No Do you feel safe in your current relationship?: No Current Relationship Is there a partner from a previous relationship who is making you feel unsafe now?: No Are you made to feel afraid or neglected: No Advance Directives: No Advance Directives Information Provided: No Advance Directives on File: No Do you have a plan to hurt others: No Plan Recently lost weight without trying: No Nutrition Risks: No Nutritional Risk Poor oral hygiene: No service: Yes
--- NOTE | 2025-10-05 11:04 | MHC.CM.PN ---
Per ROUNDS, Patient is not yet medically cleared for dc (still withdrawing).
--- NOTE | 2025-10-05 14:16 | P.PNID_ITS ---
Subjective Subjective Date of Service: 10/05/25 Critical Care Time (minutes): 15 Comment: He had couple episodes loose stools,no other complaints Objective Data Labs 10/02/25 13:52 10/05/25 06:09 Labs: Laboratory Results - last 24 hr 10/04/25 10/05/25 15:00 06:09 Creatinine 0.56 Estim Creat Clear Calc 207.1 Estimated GFR > 60 Random Vancomycin 6.0 L Physical Exam 2 Vital Signs: Vital Signs: Last Vital Signs Temp 98.3 F 10/05/25 11:29 Pulse 85 10/05/25 11:29 Resp 18 10/05/25 11:29 BP 120/76 10/05/25 11:29 Pulse Ox 94 10/05/25 11:29 O2 Del Method Room Air 10/05/25 11:29 BMI result Body Mass Index 30.1 Const: General: cooperative HEENT: Head: Yes normal to inspection Face and sinus: Yes normal facial exam Mouth: Normal oral and palatal mucosa present Teeth and gingiva: d entition normal Eyes: General: appearance normal, both eyes and all related structures P upils: Equal, round and reactive pupils present Resp: Effort & Inspection: normal respiratory effort Cardio: Rate: regular rate Rhythm: regular rhythm GI: Palpation (GI): Soft to palpation and nontender : General: Yes no CVA tenderness Back/Spine/Pelvis: Back: no CVA tenderness Skin: General skin exam: no rashes or lesions noted Neuro: General: moves all extremities Cranial nerves: Yes Equal, round and reactive pupils present Extrem: General: Yes normal to inspection Psych: Appearance: grossly normal Assessment and Plan Assessment and plan (1) UTI (urinary tract infection): Problem details: po Doxycycline 100 mg bid MSSA as well as po Amoxicillin enterococcus 500 mg bid total 7 days Status: Acute Time Spent With Patient Time: Total time managing care of this patient today ____ minutes.
--- NOTE | 2025-10-05 16:14 | HE.PHANOTE ---
Vancomcyin Vancomycin trough 8.8. Increased dose to 1500 mg (15.7 mg/kg) q8h for predicted AUC of 540. Next level 10/06/25 @1500
--- NOTE | 2025-10-05 16:33 | HO.PM.IMPN ---
Subjective Subjective Date of Service: 10/05/25 Interval History: Alcohol withdrawal, UTI Review of Systems Patient is still is anxious and tremulous but when picks up things this does not look that much tremors. Review of Systems: Yes all other systems are reviewed and are negative Physical Exam Exam: Exam: Appearance: Alert.? Oriented X3. Anxious and tremulous cvs: rrr, [id number] res: clear to auscultation ,no rhonchii or wheezing abd: no rebound or guarding ,nt, bs present. ext pulses present , no cyanosis . neuro: axo3 , nonfocal. Vital Signs: Vital Signs: Last Vital Signs Temp 97.0 F 10/05/25 15:21 Pulse 83 10/05/25 15:21 Resp 20 10/05/25 15:21 BP 119/60 10/05/25 15:21 Pulse Ox 98 10/05/25 15:21 O2 Del Method Room Air 10/05/25 15:21 BMI result Body Mass Index 30.1 Objective Data Active Medications Acetaminophen (Acetaminophen 325 Mg Tablet) 975 mg PO Q6H PRN PRN Reason: Pain, Mild 1-3,fever,headache Last Admin: 10/05/25 08:14 Dose: 975 mg Documented By: TARUN Betamethasone Dipropion Augmented (Betamethasone Dip Aug 0.05% Cr 15 Gm Tube) 1 appl TOPICAL DAILY [facility]; Protocol Last Admin: 10/05/25 08:15 Dose: 1 appl Documented By: TARUN Calcium Carbonate (Calcium Carbonate 750 Mg Tab.Chew) 750 mg PO Q4H PRN PRN Reason: Heartburn Clonidine HCl (Clonidine Hcl 0.1 Mg Tablet) 0.1 mg PO BEDTIME [facility]; Protocol Last Admin: 10/04/25 22:06 Dose: 0.1 mg Documented By: MILIND Diazepam (Diazepam 10 Mg/2 Ml Cartridge) 5 mg IVPUSH Q24H PRN PRN Reason: anxiety/restlessness Folic Acid (Folic Acid 1 Mg Tablet) 1 mg PO DAILY [facility] Last Admin: 10/05/25 08:14 Dose: 1 mg Documented By: TARUN Gabapentin (Gabapentin 400 Mg Capsule) 800 mg PO TID [facility] Last Admin: 10/05/25 15:26 Dose: 800 mg Documented By: TARUN Thiamine HCl 400 mg/ Sodium (Chloride) 104 mls @ 208 mls/hr IV Q12H [facility] Last Infusion: 10/05/25 16:06 Dose: Infused Documented By: TONI Vancomycin HCl 1,500 mg/ (Sodium Chloride) 500 mls @ 333.333 mls/hr IV Q8H [facility] Loperamide HCl (Loperamide Hcl 2 Mg Capsule) 2 mg PO Q4H PRN PRN Reason: Diarrhea Last Admin: 10/04/25 16:48 Dose: 2 mg Documented By: RYAN Magnesium Hydroxide (Milk Of Magnesia 30 Ml Oral.Susp) 30 ml PO DAILY PRN PRN Reason: Constipation Magnesium Oxide (Magnesium Oxide 400 Mg Tablet) 400 mg PO BIDPC [facility] Last Admin: 10/05/25 08:13 Dose: 400 mg Documented By: TARUN Melatonin (Melatonin 3 Mg Tablet) 6 mg PO BEDTIME PRN PRN Reason: Insomnia Last Admin: 10/04/25 22:07 Dose: 6 mg Documented By: MILIND Naltrexone HCl (Naltrexone Hcl 50 Mg Tablet) 50 mg PO DAILY [facility] Omeprazole (Omeprazole 20 Mg Capsule.Dr) 20 mg PO DAILY@0630 [facility] Last Admin: 10/05/25 06:45 Dose: Not Given Documented By: MILIND Non-Admin Reason: Patient Condition Contraindication Ondansetron HCl (Ondansetron Hcl 4 Mg/2 Ml Vial) 4 mg IVPUSH Q8H PRN PRN Reason: Nausea and Vomiting Last Admin: 10/04/25 17:01 Dose: 4 mg Documented By: RYAN Pharmacy Consult (Consult Rx Etoh Phenob Im/Po) 1 each MISCELLANE ONCE PRN; Protocol PRN Reason: Consult order Pharmacy Consult (Consult Rx Vancomycin Dosing) 1 each MISCELLANE DAILY PRN PRN Reason: Consult order Phenobarbital (Phenobarbital 30 Mg Tablet) 30 mg PO BID [facility]; Protocol Stop: 10/06/25 21:01 Last Admin: 10/05/25 08:14 Dose: 30 mg Documented By: TARUN Phenobarbital (Phenobarbital 30 Mg Tablet) 30 mg PO DAILY [facility]; Protocol Stop: 10/08/25 09:01 Prazosin HCl (Prazosin Hcl 1 Mg Capsule) 3 mg PO BEDTIME [facility]OM[facility]; Protocol Last Admin: 10/04/25 22:06 Dose: 3 mg Documented By: MILIND Sertraline HCl (Sertraline Hcl 100 Mg Tablet) 100 mg PO DAILY [facility] Sodium Chloride (0.9 % Sodium Chloride Flush 3 Ml Syringe) 3 ml IVFLUSH QSHIFT [facility] Last Admin: 10/05/25 15:29 Dose: Not Given Documented By: TARUN Non-Admin Reason: IV Running Sucralfate (Sucralfate 1 Gm Tablet) 1 gm PO QIDACHS [facility] Last Admin: 10/05/25 15:26 Dose: 1 gm Documented By: TARUN Vitamin A/Vitamin D (A And D Ointment 56.7 Gm Tube) 1 appl TOPICAL BID PRN; Protocol PRN Reason: rash Last Admin: 10/03/25 15:49 Dose: 1 appl Documented By: TARUN Labs 10/02/25 13:52 10/05/25 06:09 Labs: Laboratory Results - last 24 hr 10/05/25 10/05/25 06:09 15:29 Estim Creat Clear Calc 207.1 Estimated GFR > 60 Random Vancomycin 8.8 L Assessment and Plan (1) Anxiety: Status: Acute (2) Alcohol withdrawal: Status: Acute (3) UTI (urinary tract infection): Status: Acute Assessment and Plan: 39 year old male with history of alcohol dependence, multiple admissions for alcohol withdrawal, urinary retention, PTSD, anxiety who presented to the emergency department 3 times on October 01, now being admitted for alcohol withdrawal Alcohol dependence with alcohol withdrawal Phenobarbital protocol Received overnight diazepam Continue phenobarb, IV thiamine, folic acid Seizure precautions Addiction medicine consultation Possible anxiety component to alcohol use withdrawal symptoms -psych evaluation also pending on zoloft ,naltrexone UTI le+/no bacteruria but urine culture grew:staph /enteroccoccus ID evaluation noted recommended to add p.o. doxy and amoxicillin. h/o gastritis episode of coffee ground emesis last admission thought to be due to MW tear or esophagitis (thickening of the distal esophagus was seen on imaging) he had no further episodes of coffee ground emesis and did not require blood transfusion and thus EGD was deferred to outpatient setting continue PPI and sucralfate (for one more week), outpatient follow up with GI . Diarrhae :? chronic check cdiff , gip panel: negative Continue loperamide thrombocytopenia due to etoh use mood continue sertraline, prazosin, gabapentin, clonidine morbid obesity BMI 30.1 weight loss encouraged dvt ppx - due to recent admission with coffee ground emesis/gastritis ongoing need for stay hospital for management of etoh withdrawal requiring phenobarbital protocol, close monitoring of CIWA and monitoring of electrolytes Quality Stroke Does the patient have a stroke diagnosis?: No VTE Prior VTE?: No VTE Risk Level:: Medical - moderate - high VTE Device Contraindication: N/A - Device Ordered VTE Drug Contraindication: Treatment Not Indicated
[2025-10-06] VITALS (8 sets, daily range): BP systolic 109–140; BP diastolic 62–81; PULSE 67–97; RESP 16–20; TEMP 35.6–36.6; O2SAT 96–99
[2025-10-06] MEDS: 0.9 % Sodium Chloride Flush 3 ML SYRINGE IVFLUSH ×4 (00:56→20:44)
[2025-10-06 07:17] LABS: Creatinine Clr Calc Pharmacy 218.9; Estimated Glomerular Filt Rate > 60
[2025-10-06] MEDS: Betamethasone Dip Aug 0.05% Cr 15 GM TUBE 1 APPL TOPICAL (08:32)
[2025-10-06] MEDS: Butalb/Acetamin/Caff 50/325/40 TABLET 1 TAB PO (09:53)
--- NOTE | 2025-10-06 11:03 | PM.PSYCN ---
History of Present Illness Date of Service: 10/06/2025 Chief Complaint: alcohol withdrawal Requesting physician: Herson Cantor Discussed with referring provider: Yes Sources of Information: patient interviewed, chart reviewed and crisis/core team assessment reviewed HPI Narrative: Mr. Newell is a 39 year-old male with hx of alcohol use disorder who self presented for alcohol withdrawal. He was medically admitted for phenobarb protocol for alcohol withdrawal. Psychiatry is being consulted for severe anxiety. Pt was seen by addiction medicine on 10/05/2025. Sertraline was increased from 50mg to 100mg po daily. Pt seen in his room. He is sitting in chair, some visible shaking of hands and legs noted. He reports he is better than when he came to the hospital but still struggles to ambulate with unsteady gait and is shaking more than his usual. He reports hx of depression and anxious mood. He does report anxiety exacerbates as he decreases alcohol use. He reports in the past he has had loose stools with sertraline but reports best combination of medications that worked for depression was sertraline and wellbutrin. Obviously, wellbutrin has been stopped due to lowering seizure threshold and risk of seizures as he continues to use alcohol. He denies SI/HI. He reports very poor sleep. He reports prazosin is helpful for nightmares. He also takes clonidine which he reports is helpful for anxiety during the day. He denies SI/HI. No signs of psychosis or delusional thinking. Past Psychiatric History: Past medication trials: wellbutrin, sertraline, prazosin, clonidine, doxapine. Hx of IOP for alcohol use. Medical Evaluation Reviewed: Yes [facility] Medical History PTSD (post-traumatic stress disorder) Gout Sternal fracture Class 1 obesity Alcoholic cirrhosis of liver Exacerbation of gout Alcohol abuse Surgical History History of ankle surgery Diagnostics Vital Signs (24Hr): Vital Signs - 24 hr 10/05/25 11:29 10/05/25 15:21 10/05/25 19:52 Temperature 98.3 F 97.0 F 97.5 F Pulse Rate 85 83 86 Respiratory Rate 18 20 20 Blood Pressure 120/76 119/60 120/74 Pulse Oximetry 94 98 94 Oxygen Delivery Method Room Air Room Air Room Air 10/05/25 22:06 10/05/25 23:47 10/06/25 04:00 Temperature 96.9 F 97.8 F Pulse Rate 81 97 Respiratory Rate 14 16 Blood Pressure 131/85 114/64 121/81 Pulse Oximetry 96 99 Oxygen Delivery Method Room Air Room Air 10/06/25 07:27 Temperature 97.6 F Pulse Rate 67 Respiratory Rate 20 Blood Pressure 140/78 H Pulse Oximetry 98 Oxygen Delivery Method Room Air BMI result Body Mass Index 30.1 Labs 10/02/25 13:52 10/06/25 06:25 Labs: Laboratory Results - last 48 hr 10/04/25 10/05/25 10/05/25 15:00 06:09 15:29 Creatinine 0.56 Estim Creat Clear Calc 207.1 Estimated GFR > 60 Random Vancomycin 6.0 L 8.8 L 10/06/25 06:25 Creatinine 0.53 Estim Creat Clear Calc 218.9 Estimated GFR > 60 Random Vancomycin Mental Status Exam Mental Status Exam Narrative: Appearance: wearing hospital gown, fair hygiene, in some distressed with visible shakiness of hands and legs. Behavior: cooperative Psychomotor: bilat hand tremors, some leg tremors noted. Speech: clear, normal rate/rhythm/volume, spontaneous TP: linear TC: feeling unsteady in gait, worried about his health Mood: anxious Affect: congruent SI: denies HI: denies VH/AH: no overt signs Delusions: none Insight/judgment: fair x 2. Memory/cog: alert, oriented x 4. grossly intact to conversational testing. Medications Medications Current Medications Acetaminophen/Butalbital/Caffeine (Butalb/Acetamin/Caff 50/325/40 Tablet) 1 tab PO Q4H PRN PRN Reason: Headache Last Admin: 10/06/25 09:53 Dose: 1 tab Amoxicillin/Clavulanate Potassium (Amoxicillin/Potassium Clav 500 Mg Tablet) 500 mg PO Q8H [facility] Last Admin: 10/06/25 08:28 Dose: 500 mg Betamethasone Dipropion Augmented (Betamethasone Dip Aug 0.05% Cr 15 Gm Tube) 1 appl TOPICAL DAILY [facility]OMAS; Protocol Last Admin: 10/06/25 08:32 Dose: 1 appl Calcium Carbonate (Calcium Carbonate 750 Mg Tab.Chew) 750 mg PO Q4H PRN PRN Reason: Heartburn Clonidine HCl (Clonidine Hcl 0.1 Mg Tablet) 0.1 mg PO DAILY [facility]; Protocol Doxycycline Monohydrate (Doxycycline Monohydrate 100 Mg Capsule) 100 mg PO Q12H [facility] Last Admin: 10/06/25 04:06 Dose: 100 mg Folic Acid (Folic Acid 1 Mg Tablet) 1 mg PO DAILY [facility] Last Admin: 10/06/25 08:29 Dose: 1 mg Gabapentin (Gabapentin 400 Mg Capsule) 800 mg PO TID [facility] Last Admin: 10/06/25 08:28 Dose: 800 mg Thiamine HCl 400 mg/ Sodium (Chloride) 104 mls @ 208 mls/hr IV Q12H [facility] Last Infusion: 10/06/25 02:01 Dose: Infused Loperamide HCl (Loperamide Hcl 2 Mg Capsule) 2 mg PO Q4H PRN PRN Reason: Diarrhea Last Admin: 10/05/25 22:06 Dose: 2 mg Magnesium Hydroxide (Milk Of Magnesia 30 Ml Oral.Susp) 30 ml PO DAILY PRN PRN Reason: Constipation Magnesium Oxide (Magnesium Oxide 400 Mg Tablet) 400 mg PO BIDPC [facility] Last Admin: 10/06/25 08:28 Dose: 400 mg Melatonin (Melatonin 3 Mg Tablet) 6 mg PO BEDTIME PRN PRN Reason: Insomnia Last Admin: 10/05/25 22:07 Dose: 6 mg Naltrexone HCl (Naltrexone Hcl 50 Mg Tablet) 50 mg PO DAILY [facility] Last Admin: 10/06/25 08:28 Dose: 50 mg Omeprazole (Omeprazole 20 Mg Capsule.Dr) 20 mg PO DAILY@0630 [facility] Last Admin: 10/06/25 05:58 Dose: 20 mg Ondansetron HCl (Ondansetron Hcl 4 Mg/2 Ml Vial) 4 mg IVPUSH Q8H PRN PRN Reason: Nausea and Vomiting Last Admin: 10/06/25 04:29 Dose: 4 mg Pharmacy Consult (Consult Rx Etoh Phenob Im/Po) 1 each MISCELLANE ONCE PRN; Protocol PRN Reason: Consult order Phenobarbital (Phenobarbital 30 Mg Tablet) 30 mg PO BID [facility]; Protocol Stop: 10/06/25 21:01 Last Admin: 10/06/25 08:28 Dose: 30 mg Phenobarbital (Phenobarbital 30 Mg Tablet) 30 mg PO DAILY [facility]; Protocol Stop: 10/08/25 09:01 Phenobarbital (Phenobarbital 30 Mg Tablet) 30 mg PO Q4H PRN PRN Reason: Breakthrough alcohol withdrawa Last Admin: 10/06/25 04:30 Dose: 30 mg Prazosin HCl (Prazosin Hcl 1 Mg Capsule) 3 mg PO BEDTIME [facility]OM[facility]; Protocol Last Admin: 10/05/25 22:07 Dose: 3 mg Sertraline HCl (Sertraline Hcl 100 Mg Tablet) 100 mg PO DAILY [facility] Last Admin: 10/06/25 08:28 Dose: 100 mg Sodium Chloride (0.9 % Sodium Chloride Flush 3 Ml Syringe) 3 ml IVFLUSH QSHIFT [facility] Last Admin: 10/06/25 08:29 Dose: 3 ml Sucralfate (Sucralfate 1 Gm Tablet) 1 gm PO QIDACHS [facility] Last Admin: 10/06/25 08:28 Dose: 1 gm Vitamin A/Vitamin D (A And D Ointment 56.7 Gm Tube) 1 appl TOPICAL BID PRN; Protocol PRN Reason: rash Last Admin: 10/03/25 15:49 Dose: 1 appl Allergies Allergies Allergy/AdvReac Type Severity Reaction Status Date / Time azithromycin (AZITHROMYCIN) Allergy Unknown Unknown Verified 10/01/25 20:16 Assessment & Plan Assessment & Plan (1) 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 Newell is a 39 year-old with hx of PTSD, alcohol use disorder who is being admitted for alcohol withdrawal on a phenobarb protocol. Psychiatry was consulted for severe anxiety. Suspect severe anxiety is related to dysregulation of glutamate in setting of chronic alcohol use. Pt presents as tremolous both hands and unsteady gait. No nystagmus nor altered mental status. We discussed medications that can help with these including gabapentin, which he is already on and reports limited benefit. He reports clonidine has been helpful for anxiety (it does regulates norepinephrine and helps with glutamate dysregulation). He reports prazosin is helpful for nightmares and would like increase in dose. He is currently taking prazosin 3mg po qhs- will increase to prazosin 5mg po qhs. He reports in the past sertraline has been helpful but he does have tendency to have Gi side effects with it (loose stools). In the past he did well on wellbutrin in terms of depression but given that it lowers seizure threshold and he continues to be at high risk of seizures (given ongoing alcohol use), advised against it at this point. He denies SI/HI. He does present as future oriented and seems most debilitating symptoms at this moment include: subjective sense of increase anxious mood along with motor symptoms (unsteady gait and tremors). PLAN 1. Change clonidine to daytime dosing- clonidine 0.1mg po daily (can consider increasing dosing to BID or TID, if BP allows it). 2. Increase prazosin to 5mg po qhs. 3. continue sertraline 100mg po daily- monitor exacerbation of GI side effects as it is antidepressant with more GI side effects in terms of loose stools. 4. can give total of 5 doses of diazepam 5mg po TID. Would not advise to discharge on benzodiazepines. Total time managing care of this patient today ____ minutes.
--- NOTE | 2025-10-06 14:25 | P.PNIM_ITS ---
Subjective Subjective Date of Service: 10/06/25 Interval History: uti ,alcohol withdrawals Review of Systems seems tramulous and anxious no new c/o. Physical Exam 2 Exam: Exam: Appearance: Alert.? Oriented X3. Anxious and tremulous cvs: rrr, [id number] res: clear to auscultation ,no rhonchii or wheezing abd: no rebound or guarding ,nt, bs present. ext pulses present , no cyanosis . neuro: axo3 , nonfocal. Vital Signs: Vital Signs: Last Vital Signs Temp 96.0 F L 10/06/25 11:54 Pulse 76 10/06/25 11:54 Resp 20 10/06/25 11:54 BP 118/78 10/06/25 11:54 Pulse Ox 99 10/06/25 11:54 O2 Del Method Room Air 10/06/25 11:54 BMI result Body Mass Index 30.1 Objective Data Active Medications Acetaminophen/Butalbital/Caffeine (Butalb/Acetamin/Caff 50/325/40 Tablet) 1 tab PO Q4H PRN PRN Reason: Headache Last Admin: 10/06/25 09:53 Dose: 1 tab Documented By: SUNSHINE Amoxicillin/Clavulanate Potassium (Amoxicillin/Potassium Clav 500 Mg Tablet) 500 mg PO Q8H [facility] Last Admin: 10/06/25 08:28 Dose: 500 mg Documented By: SUNSHINE Betamethasone Dipropion Augmented (Betamethasone Dip Aug 0.05% Cr 15 Gm Tube) 1 appl TOPICAL DAILY [facility]; Protocol Last Admin: 10/06/25 08:32 Dose: 1 appl Documented By: SUNSHINE Calcium Carbonate (Calcium Carbonate 750 Mg Tab.Chew) 750 mg PO Q4H PRN PRN Reason: Heartburn Clonidine HCl (Clonidine Hcl 0.1 Mg Tablet) 0.1 mg PO DAILY [facility]; Protocol Last Admin: 10/06/25 11:24 Dose: 0.1 mg Documented By: SUNSHINE Diazepam (Diazepam 5 Mg Tablet) 5 mg PO TID [facility] Stop: 10/07/25 21:01 Doxycycline Monohydrate (Doxycycline Monohydrate 100 Mg Capsule) 100 mg PO Q12H [facility] Last Admin: 10/06/25 04:06 Dose: 100 mg Documented By: AICHA Folic Acid (Folic Acid 1 Mg Tablet) 1 mg PO DAILY [facility] Last Admin: 10/06/25 08:29 Dose: 1 mg Documented By: SUNSHINE Gabapentin (Gabapentin 400 Mg Capsule) 800 mg PO TID [facility] Last Admin: 10/06/25 08:28 Dose: 800 mg Documented By: SUNSHINE Thiamine HCl 400 mg/ Sodium (Chloride) 104 mls @ 208 mls/hr IV Q12H [facility] Last Infusion: 10/06/25 13:36 Dose: Infused Documented By: SUNSHINE Loperamide HCl (Loperamide Hcl 2 Mg Capsule) 2 mg PO Q4H PRN PRN Reason: Diarrhea Last Admin: 10/05/25 22:06 Dose: 2 mg Documented By: MYRON Magnesium Hydroxide (Milk Of Magnesia 30 Ml Oral.Susp) 30 ml PO DAILY PRN PRN Reason: Constipation Magnesium Oxide (Magnesium Oxide 400 Mg Tablet) 400 mg PO BIDPC [facility] Last Admin: 10/06/25 08:28 Dose: 400 mg Documented By: SUNSHINE Melatonin (Melatonin 3 Mg Tablet) 6 mg PO BEDTIME PRN PRN Reason: Insomnia Last Admin: 10/05/25 22:07 Dose: 6 mg Documented By: MYRON Naltrexone HCl (Naltrexone Hcl 50 Mg Tablet) 50 mg PO DAILY [facility] Last Admin: 10/06/25 08:28 Dose: 50 mg Documented By: SUNSHINE Omeprazole (Omeprazole 20 Mg Capsule.Dr) 20 mg PO DAILY@0630 [facility] Last Admin: 10/06/25 05:58 Dose: 20 mg Documented By: AICHA Ondansetron HCl (Ondansetron Hcl 4 Mg/2 Ml Vial) 4 mg IVPUSH Q8H PRN PRN Reason: Nausea and Vomiting Last Admin: 10/06/25 04:29 Dose: 4 mg Documented By: AICHA Pharmacy Consult (Consult Rx Etoh Phenob Im/Po) 1 each MISCELLANE ONCE PRN; Protocol PRN Reason: Consult order Phenobarbital (Phenobarbital 30 Mg Tablet) 30 mg PO BID [facility]; Protocol Stop: 10/06/25 21:01 Last Admin: 10/06/25 08:28 Dose: 30 mg Documented By: SUNSHINE Phenobarbital (Phenobarbital 30 Mg Tablet) 30 mg PO DAILY [facility]; Protocol Stop: 10/08/25 09:01 Phenobarbital (Phenobarbital 30 Mg Tablet) 30 mg PO Q4H PRN PRN Reason: Breakthrough alcohol withdrawa Last Admin: 10/06/25 13:00 Dose: 30 mg Documented By: SUNSHINE Prazosin HCl (Prazosin Hcl 1 Mg Capsule) 3 mg PO BEDTIME [facility]; Protocol Last Admin: 10/05/25 22:07 Dose: 3 mg Documented By: MYRON Sertraline HCl (Sertraline Hcl 100 Mg Tablet) 100 mg PO DAILY [facility] Last Admin: 10/06/25 08:28 Dose: 100 mg Documented By: SUNSHINE Sodium Chloride (0.9 % Sodium Chloride Flush 3 Ml Syringe) 3 ml IVFLUSH QSHIFT [facility] Last Admin: 10/06/25 08:29 Dose: 3 ml Documented By: SUNSHINE Sucralfate (Sucralfate 1 Gm Tablet) 1 gm PO QIDACHS [facility] Last Admin: 10/06/25 11:23 Dose: 1 gm Documented By: SUNSHINE Vitamin A/Vitamin D (A And D Ointment 56.7 Gm Tube) 1 appl TOPICAL BID PRN; Protocol PRN Reason: rash Last Admin: 10/03/25 15:49 Dose: 1 appl Documented By: TARUN Labs 10/02/25 13:52 10/06/25 06:25 Labs: Laboratory Results - last 24 hr 10/05/25 10/06/25 10/06/25 15:29 06:25 11:33 Estim Creat Clear Calc 218.9 Estimated GFR > 60 Estimat Average Glucose 88 Hemoglobin A1c % 4.7 TSH 1.01 Random Vancomycin 8.8 L Assessment and Plan (1) Anxiety: Status: Deleted (2) Alcohol withdrawal: Status: Deleted (3) UTI (urinary tract infection): Status: Acute Assessment and Plan: 39 year old male with history of alcohol dependence, multiple admissions for alcohol withdrawal, urinary retention, PTSD, anxiety who presented to the emergency department 3 times on October 01, now being admitted for alcohol withdrawal Alcohol dependence with alcohol withdrawal Phenobarbital protocol Received overnight diazepam Continue phenobarb, IV thiamine, folic acid Seizure precautions Addiction medicine consultation Possible anxiety component to alcohol use withdrawal symptoms -psych evaluation noted -cotninue clonidine ,sertraline , adjusted prazosin. if needed consider po dizepam low dose (refer to psych note). UTI le+/no bacteruria but urine culture grew:staph /enteroccoccus ID evaluation noted recommended to add p.o. doxy and amoxicillin. h/o gastritis episode of coffee ground emesis last admission thought to be due to MW tear or esophagitis (thickening of the distal esophagus was seen on imaging) he had no further episodes of coffee ground emesis and did not require blood transfusion and thus EGD was deferred to outpatient setting continue PPI and sucralfate (for one more week), outpatient follow up with GI . Diarrhae :? chronic check cdiff , gip panel: negative Continue loperamide thrombocytopenia due to etoh use mood continue sertraline, prazosin, gabapentin, clonidine morbid obesity BMI 30.1 weight loss encouraged dvt ppx - due to recent admission with coffee ground emesis/gastritis ongoing need for stay hospital for management of etoh withdrawal requiring phenobarbital protocol, close monitoring of CIWA and monitoring of electrolytes Quality Stroke Does the patient have a stroke diagnosis?: No VTE Prior VTE?: No VTE Risk Level:: Medical - moderate - high VTE Device Contraindication: N/A - Device Ordered VTE Drug Contraindication: Treatment Not Indicated
[2025-10-07] VITALS (8 sets, daily range): BP systolic 107–139; BP diastolic 66–87; PULSE 67–88; RESP 16–18; TEMP 36.1–36.9; O2SAT 96–98
[2025-10-07] MEDS: Butalb/Acetamin/Caff 50/325/40 TABLET 1 TAB PO ×2 (01:41→21:30)
[2025-10-07] MEDS: diazePAM 10 MG/2 ML CARTRIDGE 5 MG IVPUSH (04:19)
[2025-10-07 07:10] LABS: Creatinine Clr Calc Pharmacy 214.8; Estimated Glomerular Filt Rate > 60
[2025-10-07] MEDS: Betamethasone Dip Aug 0.05% Cr 15 GM TUBE 1 APPL TOPICAL (08:57)
[2025-10-07] MEDS: 0.9 % Sodium Chloride Flush 3 ML SYRINGE IVFLUSH ×2 (08:58→15:44)
--- NOTE | 2025-10-07 10:27 | MHC.CM.PN ---
Per ROUNDS, Patient is not yet medically cleared for dc (still withdrawing).
--- NOTE | 2025-10-07 11:57 | HO.PM.IMPN ---
Subjective Subjective Date of Service: 10/07/25 Interval History: nausea Physical Exam Exam: Exam: General: AO X 3, anxious Resp: CTA bilateral, no accessory muscles used CVS: S1,S2,RRR GI: soft, non tender, non distended Neuro: motor grossly intact, alert Vital Signs: Vital Signs: Last Vital Signs Temp 98.2 F 10/07/25 11:10 Pulse 67 10/07/25 11:10 Resp 16 10/07/25 11:10 BP 124/79 10/07/25 11:10 Pulse Ox 97 10/07/25 11:10 O2 Del Method Room Air 10/07/25 11:10 O2 Flow Rate 2 10/06/25 15:19 BMI result Body Mass Index 30.1 Objective Data Active Medications Acetaminophen/Butalbital/Caffeine (Butalb/Acetamin/Caff 50/325/40 Tablet) 1 tab PO Q4H PRN PRN Reason: Headache Last Admin: 10/07/25 01:41 Dose: 1 tab Documented By: JAQUELIN Amoxicillin/Clavulanate Potassium (Amoxicillin/Potassium Clav 500 Mg Tablet) 500 mg PO Q8H [facility] Last Admin: 10/07/25 08:57 Dose: 500 mg Documented By: LORENZO Betamethasone Dipropion Augmented (Betamethasone Dip Aug 0.05% Cr 15 Gm Tube) 1 appl TOPICAL DAILY [facility]; Protocol Last Admin: 10/07/25 08:57 Dose: 1 appl Documented By: LORENZO Calcium Carbonate (Calcium Carbonate 750 Mg Tab.Chew) 750 mg PO Q4H PRN PRN Reason: Heartburn Clonidine HCl (Clonidine Hcl 0.1 Mg Tablet) 0.1 mg PO DAILY [facility]; Protocol Last Admin: 10/07/25 08:57 Dose: 0.1 mg Documented By: LORENZO Diazepam (Diazepam 5 Mg Tablet) 5 mg PO TID [facility]OMAS Stop: 10/07/25 21:01 Last Admin: 10/07/25 08:57 Dose: 5 mg Documented By: LORENZO Folic Acid (Folic Acid 1 Mg Tablet) 1 mg PO DAILY [facility] Last Admin: 10/07/25 08:57 Dose: 1 mg Documented By: LORENZO Gabapentin (Gabapentin 400 Mg Capsule) 800 mg PO TID [facility]OMAS Last Admin: 10/07/25 08:56 Dose: 800 mg Documented By: LORENZO Thiamine HCl 400 mg/ Sodium (Chloride) 104 mls @ 208 mls/hr IV Q12H [facility] Last Infusion: 10/07/25 02:02 Dose: Infused Documented By: JAQUELIN Loperamide HCl (Loperamide Hcl 2 Mg Capsule) 2 mg PO Q4H PRN PRN Reason: Diarrhea Last Admin: 10/05/25 22:06 Dose: 2 mg Documented By: MYRON Magnesium Hydroxide (Milk Of Magnesia 30 Ml Oral.Susp) 30 ml PO DAILY PRN PRN Reason: Constipation Magnesium Oxide (Magnesium Oxide 400 Mg Tablet) 400 mg PO BIDPC [facility] Last Admin: 10/07/25 08:57 Dose: 400 mg Documented By: LORENZO Melatonin (Melatonin 3 Mg Tablet) 6 mg PO BEDTIME PRN PRN Reason: Insomnia Last Admin: 10/05/25 22:07 Dose: 6 mg Documented By: MYRON Naltrexone HCl (Naltrexone Hcl 50 Mg Tablet) 50 mg PO DAILY [facility] Last Admin: 10/07/25 08:57 Dose: 50 mg Documented By: LORENZO Omeprazole (Omeprazole 20 Mg Capsule.Dr) 20 mg PO DAILY@0630 [facility] Last Admin: 10/07/25 05:47 Dose: 20 mg Documented By: JOHN Ondansetron HCl (Ondansetron Hcl 4 Mg/2 Ml Vial) 4 mg IVPUSH Q8H PRN PRN Reason: Nausea and Vomiting Last Admin: 10/07/25 01:42 Dose: 4 mg Documented By: JAQUELIN Pharmacy Consult (Consult Rx Etoh Phenob Im/Po) 1 each MISCELLANE ONCE PRN; Protocol PRN Reason: Consult order Phenobarbital (Phenobarbital 30 Mg Tablet) 30 mg PO DAILY [facility]; Protocol Stop: 10/08/25 09:01 Last Admin: 10/07/25 08:57 Dose: 30 mg Documented By: LORENZO Phenobarbital (Phenobarbital 30 Mg Tablet) 30 mg PO Q4H PRN PRN Reason: Breakthrough alcohol withdrawa Last Admin: 10/07/25 01:45 Dose: 30 mg Documented By: JAQUELIN Prazosin HCl (Prazosin Hcl 5 Mg Capsule) 5 mg PO BEDTIME [facility]; Protocol Last Admin: 10/06/25 20:44 Dose: 5 mg Documented By: JAQUELIN Sertraline HCl (Sertraline Hcl 100 Mg Tablet) 100 mg PO DAILY [facility] Last Admin: 10/07/25 08:57 Dose: 100 mg Documented By: LORENZO Sodium Chloride (0.9 % Sodium Chloride Flush 3 Ml Syringe) 3 ml IVFLUSH QSHIFT [facility] Last Admin: 10/07/25 08:58 Dose: 3 ml Documented By: LORENZO Sucralfate (Sucralfate 1 Gm Tablet) 1 gm PO QIDACHS [facility] Last Admin: 10/07/25 08:57 Dose: 1 gm Documented By: LORENZO Vitamin A/Vitamin D (A And D Ointment 56.7 Gm Tube) 1 appl TOPICAL BID PRN; Protocol PRN Reason: rash Last Admin: 10/03/25 15:49 Dose: 1 appl Documented By: TARUN Labs 10/02/25 13:52 10/07/25 06:33 Labs: Laboratory Results - last 24 hr 10/06/25 10/06/25 10/07/25 11:33 15:08 06:33 Estim Creat Clear Calc 214.8 Estimated GFR > 60 Estimat Average Glucose 88 Hemoglobin A1c % 4.7 TSH 1.01 Vancomycin Trough < 2.0 L Assessment and Plan (1) Alcohol withdrawal: Status: Acute Plan 39M PMH etoh dependence, urinary retention, ptsd, anxiety presented with alcohol withdrawal Alcohol dependence with withdrawal and alcoholic gastritis Still having symptoms of tremor, nausea, vomiting Continue diazepam taper PPI Antiemetics Urinary tract infection due to recent Lord Passed voiding trial Urine culture grew Enterococcus and MSSA Continue Augmentin Chronic thrombocytopenia due to alcohol Mood disorder Continue sertraline, prazosin, gabapentin, clonidine DVT prophylaxis-mechanical due to coffee-ground emesis Full code reason for continued hospitalization: Still with tremor nausea vomiting Quality Stroke Does the patient have a stroke diagnosis?: No VTE Prior VTE?: No VTE Risk Level:: Medical - moderate - high VTE Device Contraindication: N/A - Device Ordered VTE Drug Contraindication: Treatment Not Indicated
--- NOTE | 2025-10-07 14:37 | MHC.RECOVRN ---
TW met with the patient in room 458-1 to provide ongoing recovery support and to discuss a discharge plan aligned with the patient?s recovery goals. Upon approach, the patient was observed sitting in bed watching television and did not appear to be in acute distress. No diaphoresis or restlessness was noted. The patient was observed reaching for the remote control and drinking a beverage without visible tremor. When asked if he felt tremulous, the patient extended his arms, at which time significant tremor was observed by TW. The patient then lowered his arms, and later during the interview was again observed reaching for his beverage without tremor noted. The patient reported that residential treatment has been helpful in the past but declined referral for potential placement, stating, ?I have things to get in order and honestly, I probably wouldn?t even go.? Multiple alternative support options were discussed, including contacting [facility] to establish a data recovery planner intake appointment, contacting a friend to meet him upon discharge to remove alcohol from his home and accompany him to an AA meeting, and escorting the patient directly to [facility] upon discharge for continuation of naltrexone. The patient declined all options presented. Contact information for [facility], [facility], and local AA meetings was provided to the patient. [facility] remains available as needed for additional support.
--- NOTE | 2025-10-07 16:48 | PM.PSYCN ---
History of Present Illness Date of Service: 10/07/2025 Chief Complaint: alcohol withdrawal Sources of Information: patient interviewed, chart reviewed and crisis/core team assessment reviewed HPI Narrative: Interim Hx: pt reports less shakiness but still reports he had nausea and vomiting this morning. No SI/HI. Observation pt appears less tremulous. Discussed that tremors may not completely go away given chronic alcohol use and effects on basal ganglia. also discussed that he has passed most critical part of alcohol withdrawal and this being reason for medical team to start planning for dc as he is safe to continue tx in less restrictive level of care. Past Psychiatric History: Past medication trials: wellbutrin, sertraline, prazosin, clonidine, doxapine. Hx of IOP for alcohol use. Review of Systems Review of Systems seems tramulous and anxious no new c/o. Yes all other systems are reviewed and are negative Constitutional: Reports as per HPI, Denies chills and Denies fever(s) Gastrointestinal: Denies vomiting PMFSH Medical History PTSD (post-traumatic stress disorder) Gout Sternal fracture Class 1 obesity Alcoholic cirrhosis of liver Exacerbation of gout Alcohol abuse Surgical History History of ankle surgery Diagnostics Vital Signs (24Hr): Vital Signs - 24 hr 10/06/25 19:51 10/06/25 23:37 10/07/25 03:52 Temperature 97.1 F 97.6 F 97.4 F Pulse Rate 69 81 88 Respiratory Rate 16 18 18 Blood Pressure 109/78 117/62 139/83 Pulse Oximetry 97 96 98 Oxygen Delivery Method Room Air Room Air Room Air 10/07/25 07:09 10/07/25 08:57 10/07/25 11:10 Temperature 98.1 F 98.2 F Pulse Rate 71 67 Respiratory Rate 18 16 Blood Pressure 135/87 135/87 124/79 Pulse Oximetry 97 97 Oxygen Delivery Method Room Air Room Air 10/07/25 15:39 Temperature 98.4 F Pulse Rate 70 Respiratory Rate 16 Blood Pressure 107/66 Pulse Oximetry 98 Oxygen Delivery Method Room Air BMI result Body Mass Index 30.1 Labs 10/02/25 13:52 10/07/25 06:33 Labs: Laboratory Results - last 48 hr 10/06/25 10/06/25 10/06/25 06:25 11:33 15:08 Creatinine 0.53 Estim Creat Clear Calc 218.9 Estimated GFR > 60 Estimat Average Glucose 88 Hemoglobin A1c % 4.7 TSH 1.01 Vancomycin Trough < 2.0 L 10/07/25 06:33 Creatinine 0.54 Estim Creat Clear Calc 214.8 Estimated GFR > 60 Estimat Average Glucose Hemoglobin A1c % TSH Vancomycin Trough Mental Status Exam Mental Status Exam Narrative: Appearance: wearing hospital gown, fair hygiene, in some distressed with visible shakiness of hands and legs. Behavior: cooperative Psychomotor: bilat hand tremors, some leg tremors noted. Speech: clear, normal rate/rhythm/volume, spontaneous TP: linear TC: feeling unsteady in gait, worried about his health Mood: anxious Affect: congruent SI: denies HI: denies VH/AH: no overt signs Delusions: none Insight/judgment: fair x 2. Memory/cog: alert, oriented x 4. grossly intact to conversational testing. Medications Medications Current Medications Acetaminophen/Butalbital/Caffeine (Butalb/Acetamin/Caff 50/325/40 Tablet) 1 tab PO Q4H PRN PRN Reason: Headache Last Admin: 10/07/25 01:41 Dose: 1 tab Amoxicillin/Clavulanate Potassium (Amoxicillin/Potassium Clav 500 Mg Tablet) 500 mg PO Q8H [facility] Last Admin: 10/07/25 15:40 Dose: 500 mg Betamethasone Dipropion Augmented (Betamethasone Dip Aug 0.05% Cr 15 Gm Tube) 1 appl TOPICAL DAILY [facility]; Protocol Last Admin: 10/07/25 08:57 Dose: 1 appl Calcium Carbonate (Calcium Carbonate 750 Mg Tab.Chew) 750 mg PO Q4H PRN PRN Reason: Heartburn Clonidine HCl (Clonidine Hcl 0.1 Mg Tablet) 0.1 mg PO DAILY [facility]; Protocol Last Admin: 10/07/25 08:57 Dose: 0.1 mg Diazepam (Diazepam 5 Mg Tablet) 5 mg PO TID [facility] Stop: 10/07/25 21:01 Last Admin: 10/07/25 15:40 Dose: 5 mg Folic Acid (Folic Acid 1 Mg Tablet) 1 mg PO DAILY [facility] Last Admin: 10/07/25 08:57 Dose: 1 mg Gabapentin (Gabapentin 400 Mg Capsule) 800 mg PO TID [facility] Last Admin: 10/07/25 15:40 Dose: 800 mg Thiamine HCl 400 mg/ Sodium (Chloride) 104 mls @ 208 mls/hr IV Q12H [facility] Last Infusion: 10/07/25 16:09 Dose: Infused Loperamide HCl (Loperamide Hcl 2 Mg Capsule) 2 mg PO Q4H PRN PRN Reason: Diarrhea Last Admin: 10/05/25 22:06 Dose: 2 mg Magnesium Hydroxide (Milk Of Magnesia 30 Ml Oral.Susp) 30 ml PO DAILY PRN PRN Reason: Constipation Magnesium Oxide (Magnesium Oxide 400 Mg Tablet) 400 mg PO BIDPC [facility] Last Admin: 10/07/25 08:57 Dose: 400 mg Melatonin (Melatonin 3 Mg Tablet) 6 mg PO BEDTIME PRN PRN Reason: Insomnia Last Admin: 10/05/25 22:07 Dose: 6 mg Naltrexone HCl (Naltrexone Hcl 50 Mg Tablet) 50 mg PO DAILY [facility] Last Admin: 10/07/25 08:57 Dose: 50 mg Omeprazole (Omeprazole 20 Mg Capsule.Dr) 20 mg PO DAILY@0630 [facility] Last Admin: 10/07/25 05:47 Dose: 20 mg Ondansetron HCl (Ondansetron Hcl 4 Mg/2 Ml Vial) 4 mg IVPUSH Q8H PRN PRN Reason: Nausea and Vomiting Last Admin: 10/07/25 01:42 Dose: 4 mg Pharmacy Consult (Consult Rx Etoh Phenob Im/Po) 1 each MISCELLANE ONCE PRN; Protocol PRN Reason: Consult order Phenobarbital (Phenobarbital 30 Mg Tablet) 30 mg PO DAILY [facility]; Protocol Stop: 10/08/25 09:01 Last Admin: 10/07/25 08:57 Dose: 30 mg Phenobarbital (Phenobarbital 30 Mg Tablet) 30 mg PO Q4H PRN PRN Reason: Breakthrough alcohol withdrawa Last Admin: 10/07/25 01:45 Dose: 30 mg Prazosin HCl (Prazosin Hcl 5 Mg Capsule) 5 mg PO BEDTIME [facility]; Protocol Last Admin: 10/06/25 20:44 Dose: 5 mg Sertraline HCl (Sertraline Hcl 100 Mg Tablet) 100 mg PO DAILY [facility] Last Admin: 10/07/25 08:57 Dose: 100 mg Sodium Chloride (0.9 % Sodium Chloride Flush 3 Ml Syringe) 3 ml IVFLUSH QSHIFT [facility] Last Admin: 10/07/25 15:44 Dose: 3 ml Sucralfate (Sucralfate 1 Gm Tablet) 1 gm PO QIDACHS [facility] Last Admin: 10/07/25 15:40 Dose: 1 gm Vitamin A/Vitamin D (A And D Ointment 56.7 Gm Tube) 1 appl TOPICAL BID PRN; Protocol PRN Reason: rash Last Admin: 10/03/25 15:49 Dose: 1 appl Allergies Allergies Allergy/AdvReac Type Severity Reaction Status Date / Time azithromycin (AZITHROMYCIN) Allergy Unknown Unknown Verified 10/01/25 20:16 Assessment & Plan Assessment & Plan (1) Alcohol withdrawal: Qualifiers: Complication of substance-induced condition: uncomplicated Qualified Code(s): F10.930 - Alcohol use, unspecified with withdrawal, uncomplicated Status: Acute Code(s): F10.939 - Alcohol use, unspecified with withdrawal, unspecified (2) 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 Newell is a 39 year-old with hx of PTSD, alcohol use disorder who is being admitted for alcohol withdrawal on a phenobarb protocol. Psychiatry was consulted for severe anxiety. Suspect severe anxiety is related to dysregulation of glutamate in setting of chronic alcohol use. Pt presents as tremolous both hands and unsteady gait. No nystagmus nor altered mental status. We discussed medications that can help with these including gabapentin, which he is already on and reports limited benefit. He reports clonidine has been helpful for anxiety (it does regulates norepinephrine and helps with glutamate dysregulation). He reports prazosin is helpful for nightmares and would like increase in dose. He is currently taking prazosin 3mg po qhs- will increase to prazosin 5mg po qhs. He reports in the past sertraline has been helpful but he does have tendency to have Gi side effects with it (loose stools). In the past he did well on wellbutrin in terms of depression but given that it lowers seizure threshold and he continues to be at high risk of seizures (given ongoing alcohol use), advised against it at this point. He denies SI/HI. He does present as future oriented and seems most debilitating symptoms at this moment include: subjective sense of increase anxious mood along with motor symptoms (unsteady gait and tremors). PLAN 10/06/2025 1. Change clonidine to daytime dosing- clonidine 0.1mg po daily (can consider increasing dosing to BID or TID, if BP allows it). 2. Increase prazosin to 5mg po qhs. 3. continue sertraline 100mg po daily- monitor exacerbation of GI side effects as it is antidepressant with more GI side effects in terms of loose stools. 4. can give total of 5 doses of diazepam 5mg po TID. Would not advise to discharge on benzodiazepines. 10/07/25 less anxious, less tremors. continue tx. Total time managing care of this patient today ____ minutes.
[2025-10-08] MEDS: Butalb/Acetamin/Caff 50/325/40 TABLET 1 TAB PO (05:40)
[2025-10-08 07:40] LABS: Hematocrit 38.2 % (42.0-52.0); Hemoglobin 13.0 g/dl (14.0-18.0); Mean Corpuscular HGB Conc 34.0 g/dl (31.0-36.0); Mean Corpuscular Hemoglobin 32.9 pg (27.0-33.0); Mean Corpuscular Volume 96.7 fL (80.0-98.0); NRBC Abs Auto 0.000 X10*3/uL (0.0-0.012); NRBC Pct Auto 0.0 /100WBC (0.0-0.2); Platelet Count 137 X10*3/uL (160-400); Red Blood Count 3.95 X10*6/uL (4.60-5.80); White Blood Count 3.9 X10*3/uL (4.8-10.8)
[2025-10-08 07:57] LABS: Alanine Aminotransferase 21 U/L (0-40); Albumin Level 4.0 g/dL (3.5-5.0); Alkaline Phosphatase 84 U/L (39-117); Anion Gap 13 (12-20); Aspartate Amino Transferase 22 U/L (5-37); Blood Urea Nitrogen 12 mg/dL (9-16); Calcium 9.2 mg/dL (8.4-10.2); Carbon Dioxide 21 mmol/L (22-29); Chloride 107 mmol/L (96-108); Creatinine Clr Calc Pharmacy 207.1; Estimated Glomerular Filt Rate > 60; Magnesium 1.9 mg/dL (1.6-2.6); Potassium 3.8 mmol/L (3.3-5.1); Sodium 137 mmol/L (135-145); Total Protein 7.0 g/dL (6.5-8.0)
[2025-10-08 08:00] VITALS: BP 122/80; PULSE 75; RESP 20; TEMP 36.5; O2SAT 99
[2025-10-08] MEDS: 0.9 % Sodium Chloride Flush 3 ML SYRINGE IVFLUSH ×3 (08:06→20:08)
[2025-10-08] MEDS: Betamethasone Dip Aug 0.05% Cr 15 GM TUBE 1 APPL TOPICAL (08:07)
--- NOTE | 2025-10-08 10:46 | HO.PM.IMPN ---
Subjective Subjective Date of Service: 10/08/25 Interval History: nausea Physical Exam Exam: Exam: General: AO X 3, anxious Resp: CTA bilateral, no accessory muscles used CVS: S1,S2,RRR GI: soft, non tender, non distended Neuro: motor grossly intact, alert Vital Signs: Vital Signs: Last Vital Signs Temp 97.7 F 10/08/25 08:00 Pulse 75 10/08/25 08:00 Resp 20 10/08/25 08:00 BP 122/80 10/08/25 08:00 Pulse Ox 99 10/08/25 08:00 O2 Del Method Room Air 10/08/25 08:00 O2 Flow Rate 2 10/06/25 15:19 BMI result Body Mass Index 30.1 Objective Data Active Medications Acetaminophen/Butalbital/Caffeine (Butalb/Acetamin/Caff 50/325/40 Tablet) 1 tab PO Q4H PRN PRN Reason: Headache Last Admin: 10/08/25 05:40 Dose: 1 tab Documented By: JAQUELIN Amoxicillin/Clavulanate Potassium (Amoxicillin/Potassium Clav 500 Mg Tablet) 500 mg PO Q8H [facility] Last Admin: 10/08/25 08:04 Dose: 500 mg Documented By: WES Betamethasone Dipropion Augmented (Betamethasone Dip Aug 0.05% Cr 15 Gm Tube) 1 appl TOPICAL DAILY [facility]; Protocol Last Admin: 10/08/25 08:07 Dose: 1 appl Documented By: WES Calcium Carbonate (Calcium Carbonate 750 Mg Tab.Chew) 750 mg PO Q4H PRN PRN Reason: Heartburn Clonidine HCl (Clonidine Hcl 0.1 Mg Tablet) 0.1 mg PO DAILY [facility]; Protocol Last Admin: 10/08/25 08:05 Dose: 0.1 mg Documented By: WES Folic Acid (Folic Acid 1 Mg Tablet) 1 mg PO DAILY [facility] Last Admin: 10/08/25 08:06 Dose: 1 mg Documented By: WES Gabapentin (Gabapentin 400 Mg Capsule) 800 mg PO TID [facility] Last Admin: 10/08/25 08:05 Dose: 800 mg Documented By: WES Loperamide HCl (Loperamide Hcl 2 Mg Capsule) 2 mg PO Q4H PRN PRN Reason: Diarrhea Last Admin: 10/05/25 22:06 Dose: 2 mg Documented By: MYRON Magnesium Hydroxide (Milk Of Magnesia 30 Ml Oral.Susp) 30 ml PO DAILY PRN PRN Reason: Constipation Magnesium Oxide (Magnesium Oxide 400 Mg Tablet) 400 mg PO BIDPC [facility] Last Admin: 10/08/25 08:05 Dose: 400 mg Documented By: WES Melatonin (Melatonin 3 Mg Tablet) 6 mg PO BEDTIME PRN PRN Reason: Insomnia Last Admin: 10/07/25 21:30 Dose: 6 mg Documented By: JAQUELIN Naltrexone HCl (Naltrexone Hcl 50 Mg Tablet) 50 mg PO DAILY [facility] Last Admin: 10/08/25 08:05 Dose: 50 mg Documented By: WES Omeprazole (Omeprazole 20 Mg Capsule.) 20 mg PO DAILY@0630 [facility] Last Admin: 10/08/25 05:37 Dose: 20 mg Documented By: JAQUELIN Ondansetron HCl (Ondansetron Hcl 4 Mg/2 Ml Vial) 4 mg IVPUSH Q8H PRN PRN Reason: Nausea and Vomiting Last Admin: 10/07/25 01:42 Dose: 4 mg Documented By: JAQUELIN Pharmacy Consult (Consult Rx Etoh Phenob Im/Po) 1 each MISCELLANE ONCE PRN; Protocol PRN Reason: Consult order Phenobarbital (Phenobarbital 30 Mg Tablet) 30 mg PO Q4H PRN PRN Reason: Breakthrough alcohol withdrawa Last Admin: 10/08/25 05:37 Dose: 30 mg Documented By: JAQUELIN Prazosin HCl (Prazosin Hcl 5 Mg Capsule) 5 mg PO BEDTIME [facility]; Protocol Last Admin: 10/07/25 21:30 Dose: 5 mg Documented By: JAQUELIN Sertraline HCl (Sertraline Hcl 100 Mg Tablet) 100 mg PO DAILY [facility] Last Admin: 10/08/25 08:04 Dose: 100 mg Documented By: WES Sodium Chloride (0.9 % Sodium Chloride Flush 3 Ml Syringe) 3 ml IVFLUSH QSHIFT [facility] Last Admin: 10/08/25 08:06 Dose: 3 ml Documented By: WES Sucralfate (Sucralfate 1 Gm Tablet) 1 gm PO QIDACHS [facility] Last Admin: 10/08/25 08:05 Dose: 1 gm Documented By: WES Thiamine HCl (Thiamine Hcl 100 Mg Tablet) 100 mg PO DAILY [facility] Vitamin A/Vitamin D (A And D Ointment 56.7 Gm Tube) 1 appl TOPICAL BID PRN; Protocol PRN Reason: rash Last Admin: 10/03/25 15:49 Dose: 1 appl Documented By: TARUN Labs 10/08/25 07:09 10/08/25 07:09 Labs: Laboratory Results - last 24 hr 10/08/25 07:09 MCV 96.7 MCH 32.9 MCHC 34.0 RDW 14.4 Plt Count 137 L MPV 9.6 Absolute Nucleated RBC 0.000 Nucleated RBC % (auto) 0.0 Anion Gap 13 Estim Creat Clear Calc 207.1 Estimated GFR > 60 Random Glucose 87 Calcium 9.2 Magnesium 1.9 Total Bilirubin 0.2 Direct Bilirubin < 0.2 AST 22 ALT 21 Alkaline Phosphatase 84 Total Protein 7.0 Albumin 4.0 Assessment and Plan (1) Alcohol withdrawal: Status: Acute Plan 39M PMH etoh dependence, urinary retention, ptsd, anxiety presented with alcohol withdrawal Alcohol dependence with withdrawal and alcoholic gastritis Still having symptoms of tremor, nausea, vomiting diazepam tapered PPI Antiemetics Urinary tract infection due to recent Lord Passed voiding trial Urine culture grew Enterococcus and MSSA Continue Augmentin Chronic thrombocytopenia due to alcohol Mood disorder Continue sertraline, prazosin, gabapentin, clonidine DVT prophylaxis-mechanical due to coffee-ground emesis Full code reason for continued hospitalization: Still with tremor nausea vomiting Quality Stroke Does the patient have a stroke diagnosis?: No VTE Prior VTE?: No VTE Risk Level:: Medical - moderate - high VTE Device Contraindication: N/A - Device Ordered VTE Drug Contraindication: Treatment Not Indicated
[2025-10-08 12:00] VITALS: BP 109/64; PULSE 75; RESP 20; TEMP 36.7; O2SAT 97
[2025-10-08 16:00] VITALS: BP 102/57; PULSE 65; RESP 19; TEMP 36; O2SAT 96
[2025-10-08 19:42] VITALS: BP 110/65; PULSE 80; RESP 17; TEMP 36.2; O2SAT 97
[2025-10-08 20:08] VITALS: BP 110/65
[2025-10-08 23:38] VITALS: BP 105/58; PULSE 61; RESP 18; TEMP 36.1; O2SAT 95
[2025-10-09 03:22] VITALS: BP 116/64; PULSE 81; RESP 15; TEMP 36.2; O2SAT 97
--- NOTE | 2025-10-09 05:49 | PC.NURSE ---
Pt seen in room just done showering, pt alert and oriented, c/o RAJAN 07/01, offered Fioricet but pt claimed no effect and prefer Toradol or TRamadol, also c/o increasing anxiety and the ATarax that was given prior has no effect either, Pema Hoff was notified, TOradol 15 mg IV and Lorazepam po given, pt was able to get good hours of sleep, vitals WNL.
[2025-10-09 06:34] LABS: Creatinine Clr Calc Pharmacy 193.3; Estimated Glomerular Filt Rate > 60
[2025-10-09 07:08] VITALS: BP 127/80; PULSE 74; RESP 18; TEMP 36; O2SAT 98
[2025-10-09] MEDS: 0.9 % Sodium Chloride Flush 3 ML SYRINGE IVFLUSH (08:00)
[2025-10-09] MEDS: Betamethasone Dip Aug 0.05% Cr 15 GM TUBE 1 APPL TOPICAL (08:01)
--- NOTE | 2025-10-09 09:02 | P.DS_ITS ---
DS: Providers Provider Date of admission: 10/02/25 12:51 Date of discharge: 10/09/25 Primary care physician: Elie Chaudhari MD Consults: 10/01/25 21:15 ED Recovery Team Consult Stat Comment: Reason for consultation: wants detox 10/02/25 12:52 Addiction Medicine Provider Routine Consulting Provider: Addiction Covering Reason for consultation: etoh dependence with withdrawal Has provider been notified: No 10/03/25 14:21 Consult to Infectious Diseases Routine Consulting Provider: [facility] Reason for consultation: uti-staph/enteroccocus Has provider been notified: No 10/06/25 08:03 Consult to Psychiatry Routine Consulting Provider: [facility] Reason for consultation: severe anxiety Has provider been notified: No DS: Diagnosis Discharge Diagnosis (1) Alcohol withdrawal: Status: Acute DS: Summary Hospital Course Hospital Course: from initial hpi: 39-year-old male with history of alcohol use disorder, multiple inpatient admissions for alcohol withdrawal who presents to the emergency department seeking detox. Patient was seen in the emergency department on September 30. He returned to the emergency department on October 01 at 06:30, 11:30 and subsequently at 20:00. Each time he reported drinking alcohol before returning to the ED. He has remained in the emergency department overnight and has received multiple doses of Valium. Today his CIWA score began to increase, became tremulous and tachycardic. Patient reports ongoing alcohol use drinking up to 25-30 nips daily. He has had multiple visits to rehab. He also recently had urinary retention and a Main catheter was placed on previous admission. Main catheter was removed in the emergency department today due to initial plan for patient to go to detox. Patient is currently awaiting voiding trial. He is afraid it will hurt to urinate. He was due to have follow up appointment with urology for main removal today. Due to increasing signs and symptoms of alcoho l withdrawal inpatient admission was requested hospital course: Patient was admitted for alcohol dependence with acute withdrawal and alcoholic gastritis. Was treated with phenobarbital all and has a Olivia taper and withdrawal symptoms resolved. Nausea and vomiting also improved and he is now tolerating solids. Also admitted for urinary tract infection complicated due to recent Main. Urine culture grew Enterococcus and MSSA. He was treated with Augmentin and he will continue 3 more doses on discharge. Main catheter was discontinued and patient passed voiding trial. Patient has chronic thrombocytopenia due to alcohol. For mood disorder was continued on sertraline, prazosin, gabapentin, clonidine his prazosin and sertraline dose have been increased. Time Attestation Discharge Coordination Time (in mins): 32 Quality: Safe Use of Opioids Does Pt have an Active Cancer Diagnosis on the Problem List?: No Quality: Stroke Does the patient have a stroke diagnosis?: No Physical Exam Exam: Exam: General: AO X 3, no acute distress Resp: CTA bilateral, no accessory muscles used CVS: S1,S2,RRR GI: soft, non tender, non distended Neuro: motor grossly intact, alert Psych: appropriate affect, appropriate insight Vital Signs: Vital Signs: Last Vital Signs Temp 96.8 F 10/09/25 07:08 Pulse 74 10/09/25 07:08 Resp 18 10/09/25 07:08 BP 127/80 10/09/25 07:08 Pulse Ox 98 10/09/25 07:08 O2 Del Method Room Air 10/09/25 07:08 O2 Flow Rate 2 10/06/25 15:19 BMI result Body Mass Index 30.1 DS: Data Data Completed and Pending Completed studies during hospitalization [Text1]: Procedures Detoxification Services for Substance Abuse Treatment (09/20/25) Insertion of Infusion Device into Upper Vein, Percutaneous Approach (09/20/25) Labs on day of discharge: Laboratory Results - last 24 hr 10/09/25 05:37 Creatinine 0.60 Estim Creat Clear Calc 193.3 Estimated GFR > 60 Discharge Plan Discharge Anticipated Discharge Date/Time: 10/09/25 08:52 Patient Disposition: Home, Self-Care Discharge Diagnosis: uti, etoh withdrawal Referrals: Physician,Unknown J [Physician, Medical] - 1 Week Discharge Medications: New prazosin 5 mg Capsule 5 mg PO BEDTIME Qty: 90 0RF Protocol: Hold for SBP< HOLD for SBP < : 90 amoxicillin-pot clavulanate 500-125 mg Tablet 1 tab PO Q8H 3 Days Qty: 9 0RF Continued thiamine HCl (vitamin B1) 100 mg Tablet 100 mg PO DAILY folic acid 1 mg tablet 1 mg PO DAILY clonidine HCl 0.1 mg Tablet 0.1 mg PO BEDTIME doxepin 10 mg Capsule 10 mg PO BEDTIME PRN (Reason: Sleep) gabapentin 400 mg Tablet 800 mg PO TID melatonin 5 mg Tablet 5 mg PO BEDTIME PRN (Reason: Sleep) sucralfate 1 gram Tablet 1 g PO QIDACHS 14 Days Qty: 56 0RF pantoprazole 20 mg tablet,delayed release (DR/EC) 20 mg PO BID 90 Days Qty: 180 0RF magnesium oxide 400 mg (241.3 mg magnesium) Tablet 400 mg PO BIDPC 90 Days Qty: 180 0RF Changed sertraline 100 mg Tablet 100 mg PO DAILY Qty: 90 0RF Discontinued prazosin 1 mg Capsule 3 mg PO BEDTIME Discharge Orders: Discharge Order (Routine); Ordered 10/09/25 Ordered By: Derek Alcazar Diet: Advance to usual diet Activity on Discharge: As tolerated Stand Alone Forms: Patient Portal Discharge page Print Language: Wallisian Care Plan Goals: recovery Health Concerns: etoh dependence, uti Plan of Treatment: 3 more days augmentin, increased prazosin and sertraline avoid etoh Assessment: see above
--- NOTE | 2025-10-09 09:26 | MHC.CM.PN ---
pt is dcd home self care
[2025-10-09 11:52] VITALS: BP 111/64; PULSE 73; RESP 16; TEMP 36.2; O2SAT 98
== END 2025-10-09 12:31 | disposition home or self-care (01) | DRG 699 ==
LOC: HO.ED 10-02 12:26 → HO.EDOVER 10-02 12:59 → HO.IMC 10-02 15:39 → HO.S3 10-08 16:08
PROVIDERS: Internal Medicine; Physician Assistant Medical; Registered Nurse Emergency; Social Worker; Admitting Provider Physician Assistant Medical; Emergency Provider Emergency Medicine; PCP Internal Medicine; Visit Provider Internal Medicine
DX: T83.511A Infection and inflammatory reaction due to indwelling urethral catheter, initial encounter (principal); F10.239 Alcohol dependence with withdrawal, unspecified; F33.1 Major depressive disorder, recurrent, moderate; F10.280 Alcohol dependence with alcohol-induced anxiety disorder; N39.0 Urinary tract infection, site not specified; Y90.8 Blood alcohol level of 240 mg/100 ml or more; K70.30 Alcoholic cirrhosis of liver without ascites; R33.9 Retention of urine, unspecified; K52.9 Noninfective gastroenteritis and colitis, unspecified; D69.59 Other secondary thrombocytopenia; K29.20 Alcoholic gastritis without bleeding; F43.10 Post-traumatic stress disorder, unspecified; B95.61 Methicillin susceptible Staphylococcus aureus infection as the cause of diseases classified elsewhere; B95.2 Enterococcus as the cause of diseases classified elsewhere; E66.01 Morbid (severe) obesity due to excess calories; Z68.30 Body mass index [BMI] 30.0-30.9, adult; Z71.3 Dietary counseling and surveillance; Z20.822 Contact with and (suspected) exposure to COVID-19; Z79.899 Other long term (current) drug therapy
CPT/HCPCS: 36415; 71045; 80048; 80076; 80202; 80307; 82272; 82565; 83036; 83735; 84443; 85025; 85027; 87493; 87507; 87637; 93005; 99285; J1308; J1885; J2405; J2470; J2560; J3360; J3373; J3374; J3411; J3475; J7120; S9485

== ENCOUNTER → 2025-10-02 00:23 | Outpatient (BNV) | payer OTHER, SELFPAY | PROVIDERS: Emergency Provider Emergency Medicine; Visit Provider Radiology Diagnostic Radiology | DX: Z03.89 Encounter for observation for other suspected diseases and conditions ruled out (principal) | CPT/HCPCS: 71045 ==

== ENCOUNTER → 2025-10-02 10:03 | Outpatient (BNV) | payer OTHER, SELFPAY | PROVIDERS: Admitting Provider Physician Assistant Medical; Emergency Provider Emergency Medicine; Visit Provider Internal Medicine Cardiovascular Disease | DX: Z13.6 Encounter for screening for cardiovascular disorders (principal) | CPT/HCPCS: 93010 ==

== ENCOUNTER → 2025-10-02 12:51 | Outpatient (BNV) | payer OTHER, SELFPAY | PROVIDERS: Admitting Provider Physician Assistant Medical; Emergency Provider Emergency Medicine; Visit Provider Physician Assistant Medical | DX: F41.9 Anxiety disorder, unspecified (principal); F10.939 Alcohol use, unspecified with withdrawal, unspecified; N39.0 Urinary tract infection, site not specified | CPT/HCPCS: 99223; 99232; 99499 ==

== ENCOUNTER → 2025-10-02 12:51 | Outpatient (BNV) | payer OTHER, SELFPAY | PROVIDERS: Admitting Provider Physician Assistant Medical; Emergency Provider Emergency Medicine; PCP Internal Medicine; Visit Provider Nurse Practitioner Psychiatric/Mental Health | DX: F10.20 Alcohol dependence, uncomplicated (principal) | CPT/HCPCS: 99222 ==

== ENCOUNTER → 2025-10-02 12:51 | Outpatient (BNV) | payer OTHER, SELFPAY | PROVIDERS: Admitting Provider Physician Assistant Medical; Emergency Provider Emergency Medicine; Visit Provider Internal Medicine | DX: F10.10 Alcohol abuse, uncomplicated (principal); R33.9 Retention of urine, unspecified | CPT/HCPCS: 99222 ==

== ENCOUNTER 2025-10-13 16:24 | Emergency (ER) | payer OTHER, SELFPAY ==
[2025-10-13 16:30] VITALS: BP 128/78; BP 134/87; PULSE 105; PULSE 106; RESP 18; TEMP 36.4; O2SAT 97; BMI 34.7
[2025-10-13 17:05] LABS: MANUAL DIFF FLAG NO
--- NOTE | 2025-10-13 17:14 | PC.NURSE ---
pt has a history of retention, he states he had a main cath a little over a week ago for not being able to urinate, bladder scan obtained 735
[2025-10-13 17:19] LABS: Hematocrit 40.1 % (42.0-52.0); Hemoglobin 13.8 g/dl (14.0-18.0); Imm Gran Abs Auto 0.03 X10*3/uL (0.00-0.03); Imm Gran Pct Auto 0.6 % (0.0-0.4); Lymphocytes Absolute Auto 0.5 X10*3/uL (1.2-4.9); Mean Corpuscular HGB Conc 34.4 g/dl (31.0-36.0); Mean Corpuscular Hemoglobin 32.9 pg (27.0-33.0); Mean Corpuscular Volume 95.5 fL (80.0-98.0); NRBC Abs Auto 0.000 X10*3/uL (0.0-0.012); NRBC Pct Auto 0.0 /100WBC (0.0-0.2); Platelet Count 248 X10*3/uL (160-400); Red Blood Count 4.20 X10*6/uL (4.60-5.80); White Blood Count 4.9 X10*3/uL (4.8-10.8)
[2025-10-13 17:26] LABS: Alanine Aminotransferase 43 U/L (0-40); Albumin Level 4.5 g/dL (3.5-5.0); Alkaline Phosphatase 119 U/L (39-117); Anion Gap 25 (12-20); Aspartate Amino Transferase 60 U/L (5-37); Blood Urea Nitrogen 6 mg/dL (9-16); Calcium 9.1 mg/dL (8.4-10.2); Carbon Dioxide 16 mmol/L (22-29); Chloride 107 mmol/L (96-108); Creatinine Clr Calc Pharmacy 177.3; Estimated Glomerular Filt Rate > 60; Potassium 3.9 mmol/L (3.3-5.1); Sodium 144 mmol/L (135-145); Total Protein 7.7 g/dL (6.5-8.0)
[2025-10-13 18:04] VITALS: BP 128/78; PULSE 102; RESP 20; TEMP 36.9; O2SAT 92
--- NOTE | 2025-10-13 18:08 | MHC.EDTECH ---
700mL of clear urine drained via straight cath
[2025-10-13] MEDS: Lactated Ringers 1,000 ML 999 ML IV (18:16)
[2025-10-13 18:17] LABS: Appearance Urine Clear; Glucose Urine UA Negative (Negative); PH 6.5 (5.0-9.0); Specific Gravity - Urine <= 1.005 (1.005-1.025)
[2025-10-13 18:28] LABS: Cannabinoid Screen Urine Not Detected (Not Detect)
--- NOTE | 2025-10-13 18:48 | ED.ALCOHOL ---
HPI - Alcohol General Chief Complaint: ETOH/Substance Use Stated Complaint: ETOH pain all over from Psoriasis, n/v Time Seen by Provider: 10/13/25 17:51 Source: patient, EMS and old records reviewed Mode of arrival: EMS Limitations: no limitations History of Present Illness ED Provider: LENORA HPI narrative: 39-year-old male with past medical history of depression, alcohol withdrawal, PTSD, alcoholic seizure from withdrawal in the past urinary retention and that I suspect is due to alcohol abuse he states he called the ambulance tonight as he could not out drink his drink. I asked him what that meant states he could not drink enough to not feel intoxicated. He states he drank 2 pt of vodka since 09:00 he denies any falls but he reports he feels nauseous. He states he is also having some urinary retention and some lower abdominal pain. He denies any trauma. He denies any SI. He states he does not want to go to detox MD complaint: alcohol intoxication Last drink: Just prior to admission Chronic alcohol use: Yes Previous visits for alcohol intoxication: Yes Recent trauma: No Associated symptoms: other (Urinary retention) Treatments prior to arrival: none Related Data Home Medications ?Medication ?Instructions ?Recorded ?Confirmed folic acid 1 mg tablet 1 mg PO DAILY 07/31/25 10/02/25 thiamine HCl (vitamin B1) 100 mg 100 mg PO DAILY 07/31/25 10/02/25 tablet clonidine HCl 0.1 mg tablet 0.1 mg PO BEDTIME 08/11/25 10/02/25 doxepin 10 mg capsule 10 mg PO BEDTIME PRN Sleep 08/11/25 10/02/25 gabapentin 400 mg tablet 800 mg PO TID 08/11/25 10/02/25 melatonin 5 mg tablet 5 mg PO BEDTIME PRN Sleep 09/20/25 10/02/25 Previous Rx's ?Medication ?Instructions ?Recorded magnesium oxide 400 mg (241.3 mg 400 mg PO BIDPC 90 days #180 tabs 09/24/25 magnesium) tablet pantoprazole 20 mg tablet,delayed 20 mg PO BID 90 days #180 tabs 09/24/25 release sucralfate 1 gram tablet 1 g PO QIDACHS 14 days #56 tabs 09/24/25 amoxicillin 500 mg-potassium 1 tab PO Q8H 3 days #9 tabs 10/09/25 clavulanate 125 mg tablet prazosin 5 mg capsule 5 mg PO BEDTIME #90 caps 10/09/25 sertraline 100 mg tablet 100 mg PO DAILY #90 tabs 10/09/25 Allergies Allergy/AdvReac Type Severity Reaction Status Date / Time azithromycin (AZITHROMYCIN) Allergy Unknown Unknown Verified 10/13/25 16:33 Review of Systems Review of Systems: Yes all other systems are reviewed and are negative [facility] Past Medical History Attestation statement: The following information was validated with the patient. Source: old records reviewed Medical History PTSD (post-traumatic stress disorder) Gout Sternal fracture Class 1 obesity Alcoholic cirrhosis of liver Exacerbation of gout Alcohol abuse Surgical History History of ankle surgery Social History Social History Household Members: Other Housing: Other Housing Other:: [facility] Do you presently have visiting nurse or other home services: No Alcohol intake: current Alcohol intake frequency: 0-2 drinks per day Alcohol type: hard liquor Comment: refuses bed alarm Patient Tobacco Use Status: Never used Tobacco Smoked in Last 30 Days: No Use of substances other than those prescribed or required for medical reasons: No Substance Use Type: Crack/Cocaine Advance Directives: No Advance Directives Information Provided: No Do you have a plan to hurt others: No Plan service: Yes Physical Exam ED Vital Signs: Vital Signs - 24 hr 10/13/25 16:30 10/13/25 18:04 10/13/25 20:13 Temperature 97.5 F 98.5 F 98.4 F Pulse Rate 105 H 102 H 100 Respiratory Rate 18 20 12 Blood Pressure 128/78 128/78 112/62 Pulse Oximetry 97 92 94 Oxygen Delivery Method Room Air Room Air Room Air 10/13/25 22:24 10/14/25 00:00 Temperature 97.7 F 98.1 F Pulse Rate 96 87 Respiratory Rate 20 16 Blood Pressure 107/48 L 101/64 Pulse Oximetry 97 97 Oxygen Delivery Method Room Air Room Air BMI result Body Mass Index 34.7 Appearance: Alert. Oriented X3. No acute distress. Eyes: Pupils equal, round and reactive to light. ENT: Pharynx normal. Atraumatic Neck: Normal inspection. Neck supple. CVS: Tachycardic heart rate and rhythm. Pulses normal. Respiratory: No respiratory distress. Breath sounds normal. Abdomen: Soft and nontender. Skin: Skin warm and dry. Normal skin color. Normal skin turgor. He has signs of psoriasis Extremities: No lower extremity edema. No calf ttp Neuro: Oriented X 3. No motor deficit. No sensory deficit. CN2-12 intact Course Course Course Narrative: Patient was straight cath for 700 of urine Patient has asked for pain medications states Tylenol and Motrin did not work for him. States he needs pain medication for his psoriasis. I have made him aware that due to his intoxication there is no indication for narcotics as well as his psoriasis is not infected he does not need IV narcotics for that. 12:22 AM 10/14/2025 (LENORA ): Patient was able to void he only has a 47 mL postvoid residual at this time I am advising he called his parents he has no signs of active withdrawal he is not altered he is able to ambulate he has been here for over 7 hours Medical Decision Making Medical Decision Making [facility] Narrative: 39-year-old male with past medical history of depression, alcohol withdrawal, PTSD, alcoholic seizure from withdrawal in the past urinary retention now here with similar symptoms including intoxication, not wanting detox, he denies any trauma, he is retaining urine again we will straight cath him. He has no SI and he wants know help with detox. I am going to hydrate him repeat a bladder scan make sure he is able to urinate on his own. He has had to have [facility] in the past. Differential Diagnosis Differential Diagnoses: The differential diagnosis associated with the presentation includes Intoxication, urinary retention, alcohol use disorder Admission/Observation Consideration of admission/observation: Escalation of care including admission/observation considered We will need to observe until he is more clinically sober he denies wanting any services Lab Data [facility] Lab Attestation statement: I reviewed the patient's lab results. His lab has improved his acidosis gap is due to ETOH he is not vomiting he has stable vital signs 10/13/25 17:01 10/13/25 23:05 Labs: Lab Results 10/13/25 10/13/25 10/13/25 Range/Units 17:01 18:11 23:05 WBC 4.9 (4.8-10.8) X10*3/uL RBC 4.20 L (4.60-5.80) X10*6/uL Hgb 13.8 L (14.0-18.0) g/dl Hct 40.1 L (42.0-52.0) % MCV 95.5 (80.0-98.0) fL MCH 32.9 (27.0-33.0) pg MCHC 34.4 (31.0-36.0) g/dl RDW 14.1 (11.0-16.0) % Plt Count 248 D (160-400) X10*3/uL MPV 8.9 L (9.4-12.4) fL Immature Gran % (Auto) 0.6 H (0.0-0.4) % Neut % (Auto) 87.6 H (45-73) % Lymph % (Auto) 9.8 L (20-40) % [place] % (Auto) 1.6 L (2-11) % Eos % (Auto) 0.0 (0-4) % Baso % (Auto) 0.4 (0-2) % Lymph # (Auto) 0.5 L (1.2-4.9) X10*3/uL [place] # (Auto) 0.1 (0.1-1.2) X10*3/uL Eos # (Auto) 0.0 (0.0-0.4) X10*3/uL Baso # (Auto) 0.0 (0.0-0.2) X10*3/uL Abs Immat Gran (auto) 0.03 (0.00-0.03) X10*3/uL Absolute Neuts (auto) 4.3 (2.0-8.3) x10*3/uL Absolute Nucleated RBC 0.000 (0.0-0.012) X10*3/uL Nucleated RBC % (auto) 0.0 (0.0-0.2) /100WBC Sodium 144 142 (135-145) mmol/L Potassium 3.9 4.4 (3.3-5.1) mmol/L Chloride 107 108 (96-108) mmol/L Carbon Dioxide 16 L 17 L (22-29) mmol/L Anion Gap 25 H 21 H (12-20) BUN 6 L 4 L (9-16) mg/dL Creatinine 0.70 0.63 (0.5-1.4) mg/dL Estim Creat Clear Calc 177.3 197.0 Estimated GFR > 60 > 60 Random Glucose 115 100 (60-115) mg/dL Calcium 9.1 8.8 (8.4-10.2) mg/dL Total Bilirubin 0.4 (0.0-1.0) mg/dL AST 60 H (5-37) U/L ALT 43 H (0-40) U/L Alkaline Phosphatase 119 H (39-117) U/L Total Protein 7.7 (6.5-8.0) g/dL Albumin 4.5 (3.5-5.0) g/dL Urine Color Yellow Urine Appearance Clear Urine pH 6.5 (5.0-9.0) Ur Specific [place] <= 1.005 (1.005-1.025) Urine Protein Negative (Neg-Trace) mg/dL Urine Glucose (UA) Negative (Negative) mg/dL Urine Ketones 15 (Negative) mg/dL Urine Blood Negative (Negative) Urine Nitrite Negative (Negative) Ur Leukocyte Esterase Negative (Negative) Urine Opiates Screen Not Detected (Not Detect) Ur Buprenorphine Scrn Not Detected (Not Detect) ng/mL Ur Oxycodone Screen Not Detected (Not Detect) ng/mL Urine Methadone Screen Not Detected (Not Detect) ng/mL Urine Fentanyl Screen Not Detected (Not Detect) Ur Barbiturates Screen POSITIVE H (Not Detect) Ur Phencyclidine Scrn Not Detected (Not Detect) Ur Amphetamines Screen Not Detected (Not Detect) U Benzodiazepines Scrn Not Detected (Not Detect) Urine Cocaine Screen Not Detected (Not Detect) U Marijuana (THC) Screen Not Detected (Not Detect) Ethyl Alcohol 396 H* mg/dL Independent Historian Clinical information obtained from an independent historian. History obtained from or confirmed by: EMS External Record Review External record reviewed: Office record, Outpatient record, Prior outpatient labs and Prior outpatient radiology Social Determinants Patient?s care significantly limited by Social Determinants of Health including: Problems related to primary support group Medications Administered Discontinued Medications Generic Name Dose Route Start Last Admin Trade Name Freq PRN Reason Stop Dose Admin Lactated Ringer's 1,000 mls @ 999 mls/hr 10/13/25 18:00 10/13/25 20:57 Lr IV 10/13/25 19:00 Infused .Q1H1M ONE Infusion Thiamine HCl 200 mg/ Sodium 102 mls @ 204 mls/hr 12/23/25 18:53 10/13/25 20:03 Chloride IV 10/13/25 19:22 Infused ONCE ONE Infusion Magnesium Sulfate 2 gm in 50 mls @ 25 mls/hr 10/13/25 18:53 10/13/25 20:57 Magnesium Sulfate/H2o IV 10/13/25 20:52 Infused ONCE ONE Infusion Lorazepam 2 mg 10/13/25 19:56 10/13/25 20:02 Lorazepam 1 Mg Tablet PO 10/13/25 19:57 2 mg ONCE ONE Administration Discharge Plan Discharge Clinical Impression: Acute urinary retention Alcoholic intoxication Qualifiers: Complication of substance-induced condition: with unspecified complication Qualified Code(s): F10.929 - Alcohol use, unspecified with intoxication, unspecified Patient Disposition: Home, Self-Care Instructions: Urinary Retention in Men (ED), Alcohol Use Disorder (ED) Additional Instructions: Alcohol use disorder You were seen in the Emergency Department today for treatment of alcohol use disorder.? You may have been given medications to help with your withdrawal symptoms.? Please do not drink alcohol with them. This is very dangerous and can cause respiratory depression or other adverse reactions depending on the medication. If you would like to cut down or stop your alcohol use please consider calling our outpatient Addiction Treatment office:? [facility] (M-F [id number]) [address] [place] [address] You have also been given a list of treatment providers in the area that can assist as well.? If you experience seizures, vomiting blood, black stools, falls, severe headache, chest pain, fevers, trouble breathing, hallucinations or any other concerns you need to call 911 or seek immediate care. Please stay hydrated. Return for any worsening symptoms or concerns Make sure you are avoiding If you have not urinated in 6-8 hours please seek medical care You are not retaining urine on discharge after you urinated we did a bladder scan and showed less than 50 mL in your bladder this is not retention Prescriptions: No Action thiamine HCl (vitamin B1) 100 mg Tablet 100 mg PO DAILY folic acid 1 mg tablet 1 mg PO DAILY clonidine HCl 0.1 mg Tablet 0.1 mg PO BEDTIME doxepin 10 mg Capsule 10 mg PO BEDTIME PRN (Reason: Sleep) gabapentin 400 mg Tablet 800 mg PO TID prazosin 5 mg Capsule 5 mg PO BEDTIME Qty: 90 0RF Protocol: Hold for SBP< HOLD for SBP < : 90 amoxicillin-pot clavulanate 500-125 mg Tablet 1 tab PO Q8H 3 Days Qty: 9 0RF sertraline 100 mg Tablet 100 mg PO DAILY Qty: 90 0RF melatonin 5 mg Tablet 5 mg PO BEDTIME PRN (Reason: Sleep) sucralfate 1 gram Tablet 1 g PO QIDACHS 14 Days Qty: 56 0RF pantoprazole 20 mg tablet,delayed release (DR/EC) 20 mg PO BID 90 Days Qty: 180 0RF magnesium oxide 400 mg (241.3 mg magnesium) Tablet 400 mg PO BIDPC 90 Days Qty: 180 0RF Print Language: Macedonian
[2025-10-13] MEDS: Thiamine HCL 200 MG in 0.9 % Sodium Chloride 100 ML 204 MG IV (19:30)
[2025-10-13] MEDS: Magnesium Sulfate/H2O 2 GM/50 ML PIGGYBACK IV (19:32)
--- NOTE | 2025-10-13 19:57 | PC.NURSE ---
Pt reporting an 05/31 headache Provider notified and aware New orders pending. Plan of care ongoing.
--- NOTE | 2025-10-13 20:04 | PC.NURSE ---
Pt medicated per [facility] Plan of care ongoing.
[2025-10-13 20:13] VITALS: BP 112/62; PULSE 100; RESP 12; TEMP 36.9; O2SAT 94
[2025-10-13 22:24] VITALS: BP 107/48; PULSE 96; RESP 20; TEMP 36.5; O2SAT 97
[2025-10-13 23:26] LABS: Anion Gap 21 (12-20); Blood Urea Nitrogen 4 mg/dL (9-16); Calcium 8.8 mg/dL (8.4-10.2); Carbon Dioxide 17 mmol/L (22-29); Chloride 108 mmol/L (96-108); Creatinine Clr Calc Pharmacy 197.0; Estimated Glomerular Filt Rate > 60; Potassium 4.4 mmol/L (3.3-5.1); Sodium 142 mmol/L (135-145)
--- NOTE | 2025-10-13 23:32 | PC.NURSE ---
pt bladder scanned to have 640mL of urine in his bladder, @this time pt attempting to urinate in bedside urinal
--- NOTE | 2025-10-13 23:54 | PC.NURSE ---
Addendum entered by Delvin Teixeira RN 10/14/25 00:14: correction approximately 800mL in urinal Original Note: pt able to urinate into bedside urinal >700mL
[2025-10-14] VITALS: BP 101/64; PULSE 87; RESP 16; TEMP 36.7; O2SAT 97
--- NOTE | 2025-10-14 00:14 | PC.NURSE ---
pt bladder scanned to have 47mL in his bladder post void
[2025-10-14 00:50] VITALS: BP 101/64; PULSE 87; RESP 16; TEMP 36.7; O2SAT 97
== END 2025-10-14 00:51 | disposition home or self-care (01) ==
PROVIDERS: Emergency Provider Emergency Medicine
DX: F10.129 Alcohol abuse with intoxication, unspecified (principal); R33.9 Retention of urine, unspecified; L40.9 Psoriasis, unspecified; F43.10 Post-traumatic stress disorder, unspecified
CPT/HCPCS: 36415; 80048; 80053; 80307; 81003; 85025; 96361; 96374; 96375; 99284; 99285; J3411; J3475; J7120